=== PATIENT | male | born 1960 | race Two or more races ===

== ENCOUNTER 2017-09-07 13:27 | Emergency (ER) | payer BC ==
--- NOTE | 2017-09-07 14:00 | UC ---
Hand/Wrist HPI - HPI Summary HPI Summary: laceration to right index finger 1 week ago at work---finger is tightly swollen with drainage and necrotic tissue - History Of Current Complaint Hx Obtained From: Patient ?: No Mechanism Of Injury: cut with a knife at work Onset/Duration: Gradual Onset, Lasting Days - 7, Worse Since - getting worse daily Severity Initially: Mild Severity Currently: Severe Pain Intensity: 8 Character Of Pain: Aching, Throbbing Aggravating Factor(s): Movement Alleviating Factor(s): Nothing Associated Signs And Symptoms: Positive: Swelling, Redness, Numbness/Tingling Related History: Dominant Hand Right <Shani Bingham - Last Filed: 09/07/17 14:26> <Paige Onofre - Last Filed: 09/07/17 19:10> - History Of Current Complaint Chief Complaint: UCWounds Stated Complaint: FINGER LACERATION Time Seen by Provider: 09/07/17 13:59 - Allergies/Home Medications Allergies/Adverse Reactions: Allergies Allergy/AdvReac Type Severity Reaction Status Date / Time No Known Allergies Allergy Verified 09/07/17 14:05 Home Medications: Home Medications NK [No Home Medications Reported] 09/07/17 [History Confirmed 09/07/17] PMH/Surg Hx/FS Hx/Imm Hx Previously Healthy: Yes - Family History Known Family History: Positive: None - Social History Occupation: Employed Full-time Lives: With Family Alcohol Use: Weekly Substance Use Type: Heroin Substance Use Comment - Amount & 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, <Shani Bingham - Last Filed: 09/07/17 14:26> Review of Systems Constitutional: Negative Skin: Other - open infected area right index finger Eyes: Negative ENT: Negative Respiratory: Negative Cardiovascular: Negative Gastrointestinal: Negative Genitourinary: Negative Motor: Negative Neurovascular: Negative Musculoskeletal: Negative Neurological: Negative Psychological: Negative Is Patient Immunocompromised?: No All Other Systems Reviewed And Are Negative: Yes <Shani Bingham - Last Filed: 09/07/17 14:26> Physical Exam Triage Information Reviewed: Yes Appearance: Ill-Appearing - chronic illness, Pain Distress - mild, Thin Vital Signs Reviewed: Yes Eye Exam: Normal Eyes: Positive: Conjunctiva Clear ENT Exam: Normal ENT: Positive: Normal ENT inspection, Hearing grossly normal. Negative: Trismus , Muffled voice, Hoarse voice Dental Exam: Other Dental: Positive: Gross Decay/Caries @ Neck exam: Normal Neck: Positive: Supple, Nontender Respiratory Exam: Normal Respiratory: Positive: Chest non-tender, No respiratory distress, No accessory muscle use Cardiovascular Exam: Normal Cardiovascular: Positive: RRR, Pulses Normal, Brisk Capillary Refill Musculoskeletal Exam: Normal Musculoskeletal: Positive: Strength Limited @ - right index finger, ROM Limited @ - right index finger, Edema @ - right index finger Neurological Exam: Normal Psychological Exam: Normal Skin Exam: Other Skin: Positive: Other - open area right index finger, finger swollen with no rom , purulent drainage, necrotic area,malodorous <Shani Bingham - Last Filed: 09/07/17 14:26> Vital Signs: Initial Vital Signs Temp 99.2 F 09/07/17 13:55 Pulse 88 09/07/17 13:55 Resp 18 09/07/17 13:55 BP 138/82 09/07/17 13:55 Pulse Ox 98 09/07/17 13:55 <Paige Onofre - Last Filed: 09/07/17 19:10> Hand/Wrist Course/Dx - Course Course Of Treatment: dressing to ED for higher level of care - Differential Dx/Diagnosis Provider Diagnoses: Necrotic tissue, Infection right index finger <Shani Bingham - Last Filed: 09/07/17 14:26> Discharge <Shani Bingham - Last Filed: 09/07/17 14:26> <Paige Onofre - Last Filed: 09/07/17 19:10> - Discharge Plan Condition: Stable Disposition: HOME Patient Education Materials: Wound Infection (ED) Referrals: [facility] [Outside] - 3 Days Additional Instructions: Please go directly to emergency department for a higher level of care than we can provide at the urgent care Attestation Statement User Type: Provider - I was available for consult. This patient was seen by the KALYN. The patient was not presented to, seen by, or examined by me. -Aranza <Paige Onofre - Last Filed: 09/07/17 19:10>
[2017-09-07 14:07] VITALS: BP 138/82
== END 2017-09-07 14:07 | disposition home or self-care (01) ==
LOC: UCEAST 13:27
DX: L08.9 Local infection of the skin and subcutaneous tissue, unspecified (principal)
CPT/HCPCS: 99202; G0463

== ENCOUNTER 2017-09-07 14:34 | Inpatient (IN) | payer BC ==
--- NOTE | 2017-09-07 17:13 | ED ---
Upper Extremity Pain - HPI Summary HPI Summary: Rt hand dominant pt here w/ injury to Rt index finger that is 1 week old and now infected. 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 Washed this cut and has been trying to keep it clean - still working. Came in today as his finger is now red, swollen, pain and foul smelling. He is unable to bend his finger. Tried milking pus out of it last night - got some, but again, hot and painful. Reports chills today - no eladio fever. H/o MRSA with a skin infection on his knee in the past. No other medical issues to report as he does not go to the doctor for routine care. Last ate "late last night". Had a cup of coffee around 14:00 today and just had a few sips of Pepsi as he was waiting here. - History of Current Complaint Chief Complaint: EDExtremityUpper Stated Complaint: RT HAND LAC Time Seen by Provider: 09/07/17 16:58 Hx Obtained From: Patient - Allergies/Home Medications Allergies/Adverse Reactions: Allergies Allergy/AdvReac Type Severity Reaction Status Date / Time No Known Allergies Allergy Verified 09/07/17 14:05 PMH/Surg Hx/FS Hx/Imm Hx Previously Healthy: Yes Endocrine/Hematology History: Denies: Hx Anticoagulant Therapy, Hx Blood Disorders, Hx Diabetes, Hx Thyroid Disease Cardiovascular History: Denies: Hx Hypertension, Hx Myocardial Infarction Respiratory History: Denies: Hx Asthma, Hx Chronic Obstructive Pulmonary Disease (COPD) GI History: Denies: Hx Ulcer - Surgical History Surgery Procedure, Year, and Place: [facility] Infectious Disease History: No Infectious Disease History: Reports: Hx of Known/Suspected MRSA - past knee infection Denies: Hx Hepatitis, Hx Human Immunodeficiency Virus (HIV), History Other Infectious Disease, Traveled Outside the [place] in Last 30 Days - Family History Known Family History: Positive: None - Social History 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 Negative: Fever Cardiovascular: Negative Negative: Chest Pain Respiratory: Negative Negative: Shortness Of Breath Gastrointestinal: Negative Negative: Abdominal Pain, Vomiting, Diarrhea, Nausea Positive: no symptoms reported Positive: Decreased ROM, Edema Skin: Other - as in HPI Neurological: Negative Negative: Weakness, Paresthesia, Numbness Psychological: Normal All Other Systems Reviewed And Are Negative: Yes Physical Exam Triage Information Reviewed: Yes Vital Signs On Initial Exam: Initial Vitals Temp Pulse Resp BP Pulse Ox 99.1 F 54 18 153/105 95 09/07/17 15:57 09/07/17 15:57 09/07/17 15:57 09/07/17 15:57 09/07/17 15:57 Vital Signs Reviewed: Yes Appearance: Positive: Well-Appearing, Well-Nourished, Pain Distress - mild to moderate Skin: Positive: Warm - Rt index finger is edematous, feverish to touch, foul smelling w/ d/c from an area of wound that appears scabbed/possibly necrotic along distal region - entire digit moving into MCP joint is erythematous w/ edema Head/Face: Positive: Normal Head/Face Inspection Eyes: Positive: EOMI ENT: Positive: Hearing grossly normal Respiratory/Lung Sounds: Positive: Breath Sounds Present Cardiovascular: Positive: Pulses are Symmetrical in both Upper and Lower Extremities Musculoskeletal: Positive: Limited @ - cannot flex Rt index finger d/t pain and edema Neurological: Positive: Normal, Sensory/Motor Intact, Alert, Oriented to Person Place, Time, CN Intact II-III Psychiatric: Positive: Normal - Lenore Coma Scale Coma Scale Total: 15 Diagnostics - Vital Signs Vital Signs Temp Pulse Resp BP Pulse Ox 09/07/17 15:57 99.1 F 54 18 153/105 95 - Laboratory Result Diagrams: 09/07/17 17:48 Lab Statement: Any lab studies that have been ordered have been reviewed, and results considered in the medical decision making process. Course/Dx - Course Course Of Treatment: Pt here w/ lac to Rt finger 1 week ago - he's been cleaning this on his own but unfortunately it's become infected. Spoke w/ Dr. Lantigua who will be down to speak with the pt - clinically appears to require wash out/debridement. Labs, blood cx and wound cx taken as well as ECG ordered - empiric anbx to cover staph, MRSA, strep, pseudomonas. Pain medication initiated. Pt NPO status (discussed w/ he and brother). Stable at time of transition for admission. - Diagnoses Provider Diagnoses: Infection of finger Discharge - Discharge Plan Condition: Stable Disposition: ADMITTED TO [facility] Referrals: No Primary Care Phys,NOPCP [Primary Care Provider] -
[2017-09-07] MEDS ORDERED: Cefepime(*) 2 GM in NS 0.9% 50 ML* 50 ML IVPB ONE (17:20)
[2017-09-07] MEDS ORDERED: Ketorolac INJ* 30 MG/ML 1 ML VIAL IV PUSH ONE (17:21)
[2017-09-07 18:00] LABS: Hematocrit 41 % (42-52); Hemoglobin 13.7 g/dl (14.0-18.0); Mean Corpuscular HGB Conc 34 g/dl (31-36); Mean Corpuscular Hemoglobin 31 pg (27-31); Mean Corpuscular Volume 92 fL (80-94); Mean Platelet Volume 7 um3 (7.4-10.4); Red Blood Count 4.42 10^6/ul (4.0-5.4); Red Cell Distribution Width 15 % (10.5-15); White Blood Count 16.4 10^3/ul (3.5-10.8)
[2017-09-07] MEDS ORDERED: NS 0.9% 50 ML* 50 ML ONE (18:04)
[2017-09-07] MEDS ORDERED: Cefepime 2 GM in Dextrose(*) 2 GM/50 ML BAG IV ONE (18:12)
[2017-09-07 18:14] LABS: Albumin 3.7 g/dL (3.2-5.2); BUN/Creatinine Ratio 21.9 (8-20); C Reactive Protein 101.72 mg/L (< 5.00); EGFR African American 142.4 (>60); EGFR Non-African American 110.7 (>60); Globulin 3.5 g/dL (2-4); Potassium 3.8 mmol/L (3.5-5.0); Total Bilirubin 0.8 mg/dL (0.2-1.0); Total Protein 7.2 g/dL (6.4-8.9)
[2017-09-07] MEDS ORDERED: Ketorolac INJ* 30 MG/ML 1 ML VIAL ONE ×2 (18:52→20:09)
[2017-09-07] MEDS ORDERED: Midazolam* 1 MG/ML 5 ML VIAL (5 MG) ONE (20:09)
[2017-09-07] MEDS ORDERED: KETAMINE HCL* 50 MG/ML 10 ML VIAL ONE (20:09)
[2017-09-07] MEDS ORDERED: fentaNYL* 50 MCG/ML 2 ML VIAL (100 MCG VIAL) ONE ×2 (20:09→21:03)
[2017-09-07] MEDS ORDERED: Propofol* 10 MG/ML 20 ML BTL IV PUSH ONE (20:09)
[2017-09-07] MEDS ORDERED: Lidocaine 2% PF * 5 ML VIAL ONE (20:09)
[2017-09-07] MEDS ORDERED: Ondansetron INJ* 2 MG/ML VIAL ONE (20:09)
[2017-09-07] MEDS ORDERED: Bupivacaine 0.5% SDV PF* 30 ML VIAL ONE (20:23)
[2017-09-07] MEDS ORDERED: Phenylephrine IV* 40 MCG/ML 10 ML SYRINGE ONE (20:48)
[2017-09-07] MEDS ORDERED: fentaNYL* 50 MCG/ML 2 ML VIAL (100 MCG VIAL) IV PRN (21:08)
[2017-09-07] MEDS ORDERED: Ondansetron INJ* 2 MG/ML VIAL IV PRN ×2 (21:08→21:48)
[2017-09-07] MEDS ORDERED: Acetaminophen TAB* 325 MG PO PRN (21:48)
[2017-09-07] MEDS ORDERED: Vancomycin per Pharmacy* NOTE FOLLOW UP SCH (22:00)
[2017-09-07] MEDS ORDERED: Morphine INJ* 2 MG/ML 1 ML SYRINGE (TWO MG - NEW SYRINGE VERSION) IV PRN (22:03)
[2017-09-07] MEDS: metroNIDAZOLE IV 500 MG/100ML* 500 MG/100 ML BAG IVPB ONE ×2 (22:25→23:06)
[2017-09-07] MEDS: Ketorolac INJ* 30 MG/ML 1 ML VIAL IV PUSH SCH (22:26)
[2017-09-07] MEDS: Vancomycin(*) 1,000 MG in NS 0.9% 250 ML* 250 ML IVPB ONE ×2 (22:26→23:07)
[2017-09-07] MEDS ORDERED: Mouth Piece, Nicotine* 1 EACH CARTRIDGE INH ONE (23:17)
[2017-09-07] MEDS ORDERED: Heparin VIAL(*) 5000 UNITS/ML VIAL (FIVE THOUSAND) ONE (23:18)
[2017-09-07] MEDS: Heparin VIAL(*) 5000 UNITS/ML VIAL (FIVE THOUSAND) SUBCUT SCH (23:18)
[2017-09-07] MEDS ORDERED: ZOSYN 3.375 GM x ONE DOSE over 30 miuntes IVPB ×2 (23:45)
[2017-09-07] MEDS ORDERED: Piperacillin/Tazobac ADVAN(*) 3.375 GM in NS 0.9% 100 ML* 100 ML IVPB SCH (23:45)
[2017-09-08 00:17] LABS: Hematocrit 39 % (42-52); Mean Corpuscular HGB Conc 34 g/dl (31-36); Mean Corpuscular Hemoglobin 31 pg (27-31); Mean Corpuscular Volume 92 fL (80-94); Mean Platelet Volume 7 um3 (7.4-10.4); Red Blood Count 4.22 10^6/ul (4.0-5.4); Red Cell Distribution Width 15 % (10.5-15); White Blood Count 11.8 10^3/ul (3.5-10.8)
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
[2017-09-08] MEDS: HYDROcodone/ACETAMIN 5-325 MG* 1 TAB PO PRN ×5 (01:28→20:31)
[2017-09-08] MEDS: Ketorolac INJ* 30 MG/ML 1 ML VIAL IV PUSH SCH ×4 (04:06→21:40)
[2017-09-08] MEDS: Piperacillin/Tazobac ADVAN(*) 3.375 GM in NS 0.9% 100 ML* 100 ML IVPB SCH ×2 (05:47→14:44)
[2017-09-08] MEDS: Vancomycin(*) 1,000 MG in NS 0.9% 250 ML* 250 ML IVPB SCH ×3 (06:31→19:03)
[2017-09-08] MEDS: Heparin VIAL(*) 5000 UNITS/ML VIAL (FIVE THOUSAND) SUBCUT SCH ×2 (07:35→21:42)
[2017-09-08] MEDS: Nicotine PATCH 14 MG/24 HR* PATCH TRANSDERM SCH (07:36)
[2017-09-08 07:58] LABS: BUN/Creatinine Ratio 17.6 (8-20); Calcium 8.3 mg/dL (8.6-10.3); EGFR African American 110.4 (>60); EGFR Non-African American 85.9 (>60); Potassium 3.5 mmol/L (3.5-5.0)
--- NOTE | 2017-09-08 08:44 | PN ---
Subjective Date of Service: 09/08/17 Interval History: Pt feels "OK'. Pain is controlled with meds. 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: Acetaminophen (Tylenol Tab*) 650 mg PO Q6H PRN PRN Reason: FEVER/PAIN Hydrocodone Bitart/Acetaminophen (Rydal 5-325 Tab*) 2 tab PO Q4H PRN PRN Reason: PAIN Last Admin: 09/08/17 07:34 Dose: 2 tab Fentanyl Citrate (Fentanyl*) 50 mcg IV Q5M PRN PRN Reason: PAIN - MODERATE Heparin Sodium (Porcine) (Heparin Vial(*)) 5,000 units SUBCUT Q12HR PENDING SALE TO [facility] Last Admin: 09/08/17 07:35 Dose: 5,000 units Lactated Ringer's (Lactated Ringers 1000 Ml Bag*) 1,000 mls @ 125 mls/hr IV PER RATE PENDING SALE TO [facility] Piperacillin Sod/Tazobactam (Sod 3.375 gm/ Sodium Chloride) 100 mls @ 200 mls/ hr IVPB 0000,0600,1200,1800 PENDING SALE TO [facility] Last Admin: 09/08/17 05:47 Dose: 200 mls/hr Vancomycin HCl 1,000 mg/ (Sodium Chloride) 250 mls @ 166.667 mls/hr IVPB Q8H PENDING SALE TO [facility] Last Admin: 09/08/17 06:31 Dose: 166.667 mls/hr Ketorolac Tromethamine (Toradol Inj*) 30 mg IV PUSH Q6H PENDING SALE TO [facility] Stop: 09/11/17 21:59 Last Admin: 09/08/17 04:06 Dose: 30 mg Morphine Sulfate (Morphine Inj (Syringe)*) 2 mg IV Q2H PRN PRN Reason: PAIN Nicotine (Nicotine Inhaler*) 10 mg INH Q2H PRN PRN Reason: CRAVING Nicotine (Nicotine Patch 14 Mg/24 Hr*) 1 patch TRANSDERM DAILY PENDING SALE TO [facility] Last Admin: 09/08/17 07:36 Dose: 1 patch Ondansetron HCl (Zofran Inj*) 4 mg IV ONCE PRN PRN Reason: NAUSEA/VOMITING Ondansetron HCl (Zofran Inj*) 4 mg IV Q6H PRN PRN Reason: NAUSEA Pharmacy Consult (Vancomycin Per Pharmacy*) 1 note FOLLOW UP .VANC PER PHARMACY PENDING SALE TO [facility] Pharmacy Profile Note (Nicotine Patch Removal Note*) 1 note FOLLOW UP 2100 PENDING SALE TO [facility] Pharmacy Profile Note (Vancomycin Trough Check) 1 note FOLLOW UP 0600 ONE Stop: 09/09/17 06:01 Vital Signs 09/07/17 09/07/17 09/08/17 22:40 23:56 01:26 Temperature 97.9 F 98.3 F 97.5 F Pulse Rate 70 77 94 Respiratory 16 16 18 Rate Blood Pressure 147/79 109/61 123/65 (mmHg) O2 Sat by Pulse 98 95 95 Oximetry 09/08/17 09/08/17 09/08/17 01:28 02:15 03:05 Temperature 99.5 F Pulse Rate 70 Respiratory 16 Rate Blood Pressure 116/66 (mmHg) O2 Sat by Pulse 98 97 Oximetry 09/08/17 09/08/17 09/08/17 03:11 05:43 07:19 Temperature 97.7 F 98.0 F Pulse Rate 67 62 Respiratory 18 13 16 Rate Blood Pressure 116/67 132/63 (mmHg) O2 Sat by Pulse 100 91 Oximetry 09/08/17 07:34 Temperature Pulse Rate Respiratory 20 Rate Blood Pressure (mmHg) O2 Sat by Pulse Oximetry Oxygen Devices in Use Now: Nasal Cannula - at 2L Appearance: 57 yo F in nAD, aAOx3 Eyes: No Scleral Icterus, PERRLA Ears/Nose/Mouth/Throat: NL Teeth, Lips, Gums, Mucous Membranes Moist Neck: NL Appearance and Movements; NL JVP, Trachea Midline Respiratory: Symmetrical Chest Expansion and Respiratory Effort, Clear to Auscultation Cardiovascular: NL Sounds; No Murmurs; No JVD, RRR Abdominal: NL Sounds; No Tenderness; No Distention, No Hepatosplenomegaly Lymphatic: No Cervical Adenopathy Extremities: No Clubbing, Cyanosis, - - R index finger edema , erythema with dermarcation at the base of the jelly. Incision at 1.5 cm at the base of the finger on palmar aspect with no dehiscence. Tip of finger with open wound at 2 cm in diam with slugh covered bottom-? bone?. 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 will d/w Dr. Lantigua re: possible MRI For now continue broad spectrum antibiotics :Zosyn and Vanc Cx growing MRSA and gram neg Unfortunately ID consult not readily avaliable. Blood cx pending P{t clinically appears nontoxic, aferbile (2) Cocaine abuse in remission Comment: will check Hep C, HIV (3) DVT prophylaxis Comment: heparin sc Status and Disposition: inpatient, medicine consult
[2017-09-08] MEDS ORDERED: Mouth Piece, Nicotine* 1 EACH CARTRIDGE ONE (10:41)
[2017-09-08] MEDS: Nicotine Inhaler* 10 MG AMP INH PRN ×2 (10:43→21:53)
--- NOTE | 2017-09-08 11:32 | PN ---
Progress Note - Progress Note Date of Service: 09/08/17 SOAP: Subjective: []Patient seen at beside. He is s/p OR washout last night with Dr. Lantigua. He reports tolerable 5-7/10 pain of R index finger with no ROM reported full sensation. He denies fever or chills. Objective: [] Laboratory Last Values WBC 11.8 10^3/ul (3.5-10.8) H 09/08/17 00:03 RBC 4.22 10^6/ul (4.0-5.4) 09/08/17 00:03 Hgb 13.0 g/dl (14.0-18.0) L 09/08/17 00:03 Hct 39 % (42-52) L 09/08/17 00:03 MCV 92 fL (80-94) 09/08/17 00:03 MCH 31 pg (27-31) 09/08/17 00:03 MCHC 34 g/dl (31-36) 09/08/17 00:03 RDW 15 % (10.5-15) 09/08/17 00:03 Plt Count 378 10^3/ul (150-450) 09/08/17 00:03 MPV 7 um3 (7.4-10.4) L 09/08/17 00:03 Neut % (Auto) 78.0 % (38-83) 09/08/17 00:03 Lymph % (Auto) 12.4 % (25-47) L 09/08/17 00:03 [place] % (Auto) 7.1 % (1-9) 09/08/17 00:03 Eos % (Auto) 2.0 % (0-6) 09/08/17 00:03 Baso % (Auto) 0.5 % (0-2) 09/08/17 00:03 Absolute Neuts (auto) 9.2 10^3/ul (1.5-7.7) H 09/08/17 00:03 Absolute Lymphs (auto) 1.5 10^3/ul (1.0-4.8) 09/08/17 00:03 Absolute Monos (auto) 0.8 10^3/ul (0-0.8) 09/08/17 00:03 Absolute Eos (auto) 0.2 10^3/ul (0-0.6) 09/08/17 00:03 Absolute Basos (auto) 0.1 10^3/ul (0-0.2) 09/08/17 00:03 Absolute Nucleated RBC 0 10^3/ul 09/08/17 00:03 Nucleated RBC % 0 09/08/17 00:03 Sodium 133 mmol/L (133-145) 09/08/17 07:30 Potassium 3.5 mmol/L (3.5-5.0) 09/08/17 07:30 Chloride 104 mmol/L (101-111) 09/08/17 07:30 Carbon Dioxide 25 mmol/L (22-32) 09/08/17 07:30 Anion Gap 4 mmol/L (2-11) 09/08/17 07:30 BUN 16 mg/dL (6-24) 09/08/17 07:30 Creatinine 0.91 mg/dL (0.67-1.17) 09/08/17 07:30 Est GFR ( Amer) 110.4 (>60) 09/08/17 07:30 Est GFR (Non-Af Amer) 85.9 (>60) 09/08/17 07:30 BUN/Creatinine Ratio 17.6 (8-20) 09/08/17 07:30 Glucose 106 mg/dL (70-100) H 09/08/17 07:30 Lactic Acid 1.0 mmol/L (0.5-2.0) 09/07/17 17:48 Calcium 8.3 mg/dL (8.6-10.3) L 09/08/17 07:30 Total Bilirubin 0.80 mg/dL (0.2-1.0) 09/07/17 17:48 AST 34 U/L (13-39) 09/07/17 17:48 ALT 22 U/L (7-52) 09/07/17 17:48 Alkaline Phosphatase 111 U/L (34-104) H 09/07/17 17:48 C-Reactive Protein 101.72 mg/L (< 5.00) H 09/07/17 17:48 Total Protein 7.2 g/dL (6.4-8.9) 09/07/17 17:48 Albumin 3.7 g/dL (3.2-5.2) 09/07/17 17:48 Globulin 3.5 g/dL (2-4) 09/07/17 17:48 Albumin/Globulin Ratio 1.1 (1-3) 09/07/17 17:48 Vital Signs Temp 98.0 F 09/08/17 07:19 Pulse 62 09/08/17 07:19 Resp 16 09/08/17 10:54 BP 132/63 09/08/17 07:19 Pulse Ox 91 09/08/17 07:19 Intake & Output 09/07/17 09/08/17 09/08/17 18:59 06:59 18:59 Intake Total 3280 2416 Output Total 950 Balance 2330 2416 Weight 140 lb 140 lb Intake: IV Fluids 2830 2216 LR 2830 2216 Oral 450 200 Output: Urine 950 General: Calm, cooperative and in no acute distress. Patient is sleeping in bed both this morning and again this afternoon. Right hand: Dressing falling off, redressed with gauze roll. Right index finger is edematous and erythematous most prominent on the dorsal aspect down to the MCP with no extension of erythema into palm or dorsum of hand. CDI palm incision. Lateral aspect of digit with roughly 1.5 cm laceration without discharge. Dorsal aspect with roughly 1 cm ulcerated area with purulent base. No streaking erythema up RUE. Sensation is intact to light touch distally, and patient reports tenderness with palpation of entire index finger. Minimal blanching with pressure. No ROM of DIP, PIP or MCP. Assessment: []POD 1 s/p washout with Dr. Lantigua - Cellulitis vs osteo of R index finger being treated with zosyn and vanco. Plan: [] Wound checks daily Watch for systemic infection, on zosyn and vanco Possibility of amputation of distal digit/ return to OR for further washout
[2017-09-08] MEDS ORDERED: Piperacillin/Tazobac ADVAN(*) 3.375 GM in NS 0.9% 100 ML* 100 ML IVPB SCH (12:30)
--- NOTE | 2017-09-08 14:28 | OP ---
DATE OF OPERATION: 09/07/17 - ROOM #347 DATE OF : 60 ATTENDING SURGEON: Conor Lantigua MD. ANESTHESIOLOGIST: Pranav Padron MD ANESTHESIA: General. PRE-OP DIAGNOSIS: Infection, right index finger. POST-OP DIAGNOSES: 1. Infected open DIP joint laceration. 2. Suppurative flexor tendon tenosynovitis. OPERATIVE PROCEDURE: 1. I and D, DIP joint, left index finger. 2. A1 junaid release with irrigation, flexor tendon sheath. 3. Tagging FDP, right index finger. ESTIMATED BLOOD LOSS: Negligible. COMPLICATIONS: None. SUMMARY: Mr. 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 Last Thursday, he was cleaning his knife when he sustained a cut to the radial side of his index finger. It had bled quite a bit and he had tried to tend to it himself. Last week, it started to get painful and swollen where he had difficulty trying to bend the finger and this only had gotten worse over the weekend. He finally did present to the emergency room earlier today with a big , fat, red, painful swollen finger. There was damage from his initial cut which could be seen on the radial side of the finger, but on the ulnar/dorsal side, there was an area of black puffy skin and it could be seen where there was some pus underneath that area. His finger was also swollen to a significant size. Any sort of motion was painful and the tip was numbish with altered sensation. I discussed with him that an I and D to washout the pus would be the next best step to try and prevent the infection from spreading further up along the flexor tendons and hopefully try and preserve the finger. DESCRIPTION OF PROCEDURE: The patient was brought to the OR and general anesthesia was established. Right hand was prepped and then draped. Just with squeezing the finger, I was able to get pus out from the area where the skin was compromised on the ulnar/dorsal side of the finger. Coming back to his original laceration just using a curette to scrape the tissues a little bit and I dropped right into the DIP joint. Again, there was more eladio pus and there did not appear to be any cartilage on the distal aspect of the middle phalanx. Gently debriding all of the tissue along the ulnar/dorsal side, eventually caused an open 1.5 cm x 1 cm area where again there was still some tissue, but I was not overly aggressive in this area as he had cut his radial neurovascular bundle and I was not enthusiastic to sacrifice his ulnar side. Using a curette, I was able to come over the top side where his extensor tendon would be and again there was more eladio pus and quite a bit of space there where the pus had been. With just tilting the distal phalanx over from his original cut, I was able to come right down the flexor tendon sheath. Coming over the metacarpal head, a small zigzag incision was made and tissues were bluntly dissected to come down to the top of the flexor tendon sheath. A1 junaid was found and sharply incised. There was no pus at this level. I was able to pass a [place] just coming downwards, but it could be seen that his tendon was bunching up and the tendon had detached from the distal phalanx. This was pulled up to allow for a little extra room and a 9-[place] Rust catheter was then passed downwards and passing approximately 250 cc through that catheter, flexor tendon sheath was washed out. Coming back, the other wounds were copiously pulse lavaged using approximately 5 L of Betadine saline solution, 30 cc had been placed in 3 L and this was used to washout most of the finger as well. Zigzag incision that I made was then closed using a few 4-0 nylon sutures and the flexor tendon had been tagged distally and then using a tendon passer, the stitch had been pulled back upwards and I pulled that back up and then tagged the Prolene using a Steri-Strip down to his nail. Sterile dressings were applied. The patient was then awoken in the OR, was stable on transfer to the recovery room. [id number]/[facility] #: [id number] [facility]NING HOSPITALRenee
[2017-09-08] MEDS: ZOSYN 3.375 GM Q8H per EXTENDED INFUSION IVPB SCH ×2 (20:27)
[2017-09-08] MEDS: Nicotine Patch Removal NOTE FOLLOW UP SCH (21:44)
[2017-09-09] MEDS: Vancomycin(*) 1,000 MG in NS 0.9% 250 ML* 250 ML IVPB SCH ×3 (01:26→18:01)
[2017-09-09] MEDS: Ketorolac INJ* 30 MG/ML 1 ML VIAL IV PUSH SCH ×4 (03:31→21:24)
[2017-09-09] MEDS: ZOSYN 3.375 GM Q8H per EXTENDED INFUSION IVPB SCH ×6 (04:17→21:24)
[2017-09-09] MEDS: HYDROcodone/ACETAMIN 5-325 MG* 1 TAB PO PRN ×4 (04:26→23:27)
[2017-09-09 08:29] LABS: Hematocrit 40 % (42-52); Mean Corpuscular HGB Conc 33 g/dl (31-36); Mean Corpuscular Hemoglobin 30 pg (27-31); Mean Corpuscular Volume 92 fL (80-94); Mean Platelet Volume 7 um3 (7.4-10.4); Red Cell Distribution Width 15 % (10.5-15); White Blood Count 10.3 10^3/ul (3.5-10.8)
[2017-09-09] MEDS ORDERED: Vancomycin Trough Check NOTE FOLLOW UP ONE (08:30)
--- NOTE | 2017-09-09 08:37 | PN ---
Progress Note - Progress Note Date of Service: 09/09/17 SOAP: Subjective: []Patient seen at bedside. Right index finger is throbbing in pain but tolerable. No fever or chills. Objective: [] Vital Signs Temp 98.0 F 09/09/17 11:34 Pulse 63 09/09/17 11:34 Resp 20 09/09/17 13:05 BP 139/85 09/09/17 11:34 Pulse Ox 99 09/09/17 11:34 Intake & Output 09/08/17 09/09/17 09/09/17 18:59 06:59 18:59 Intake Total 3416 1250 0 Output Total 1175 0 1100 Balance 2241 1250 -1100 Intake: IV Fluids 2216 LR 2216 IVPB 400 120 Vancomycin 295 Zosyn 105 120 Oral 800 1130 0 Output: Urine 1175 0 1100 Other: Estimated Void Medium Date of Last Bowel 09/09/17 09/08/17 Movement # Bowel Movements 1 Estimated Stool Amount Medium # Voids 1 Laboratory Last Values WBC 10.3 10^3/ul (3.5-10.8) 09/09/17 08:17 RBC 4.30 10^6/ul (4.0-5.4) 09/09/17 08:17 Hgb 13.0 g/dl (14.0-18.0) L 09/09/17 08:17 Hct 40 % (42-52) L 09/09/17 08:17 MCV 92 fL (80-94) 09/09/17 08:17 MCH 30 pg (27-31) 09/09/17 08:17 MCHC 33 g/dl (31-36) 09/09/17 08:17 RDW 15 % (10.5-15) 09/09/17 08:17 Plt Count 426 10^3/ul (150-450) 09/09/17 08:17 MPV 7 um3 (7.4-10.4) L 09/09/17 08:17 Neut % (Auto) 66.8 % (38-83) 09/09/17 08:17 Lymph % (Auto) 14.7 % (25-47) L 09/09/17 08:17 [place] % (Auto) 7.9 % (1-9) 09/09/17 08:17 Eos % (Auto) 9.9 % (0-6) H 09/09/17 08:17 Baso % (Auto) 0.7 % (0-2) 09/09/17 08:17 Absolute Neuts (auto) 6.9 10^3/ul (1.5-7.7) 09/09/17 08:17 Absolute Lymphs (auto) 1.5 10^3/ul (1.0-4.8) 09/09/17 08: Absolute Monos (auto) 0.8 10^3/ul (0-0.8) 09/09/17 08:17 Absolute Eos (auto) 1.0 10^3/ul (0-0.6) H 09/09/17 08: Absolute Basos (auto) 0.1 10^3/ul (0-0.2) 09/09/17 08:17 Absolute Nucleated RBC 0 10^3/ul 09/09/17 08:17 Nucleated RBC % 0 09/09/17 08:17 Sodium 133 mmol/L (133-145) 09/08/17 07:30 Potassium 3.5 mmol/L (3.5-5.0) 09/08/17 07:30 Chloride 104 mmol/L (101-111) 09/08/17 07:30 Carbon Dioxide 25 mmol/L (22-32) 09/08/17 07:30 Anion Gap 4 mmol/L (2-11) 09/08/17 07:30 BUN 16 mg/dL (6-24) 09/08/17 07:30 Creatinine 0.91 mg/dL (0.67-1.17) 09/08/17 07:30 Est GFR ( Amer) 110.4 (>60) 09/08/17 07:30 Est GFR (Non-Af Amer) 85.9 (>60) 09/08/17 07:30 BUN/Creatinine Ratio 17.6 (8-20) 09/08/17 07:30 Glucose 106 mg/dL (70-100) H 09/08/17 07:30 Lactic Acid 1.0 mmol/L (0.5-2.0) 09/07/17 17:48 Calcium 8.3 mg/dL (8.6-10.3) L 09/08/17 07:30 Total Bilirubin 0.80 mg/dL (0.2-1.0) 09/07/17 17:48 AST 34 U/L (13-39) 09/07/17 17:48 ALT 22 U/L (7-52) 09/07/17 17:48 Alkaline Phosphatase 111 U/L (34-104) H 09/07/17 17:48 C-Reactive Protein 58.21 mg/L (< 5.00) H 09/09/17 08:18 Total Protein 7.2 g/dL (6.4-8.9) 09/07/17 17:48 Albumin 3.7 g/dL (3.2-5.2) 09/07/17 17:48 Globulin 3.5 g/dL (2-4) 09/07/17 17:48 Albumin/Globulin Ratio 1.1 (1-3) 09/07/17 17:48 Vancomycin Trough 16.6 mcg/mL 09/09/17 08:17 Hepatitis C Antibody Low reactive (Nonreactive) H 09/08/17 07:30 HIV 1&2 Antibody Nonreactive (Nonreactive) 09/08/17 07:30 General: In bed, more interactive than yesterday. Calm, cooperative, no acute distress. Right index finger: erythema of the entire digit spanning to but not past MCP, edematous. White and tense circumferentially over the DIP. Lateral laceration with purulant discharge. Ulcerated lesion of dorsal surface with purulant base and black coloration at the lateral edge. Patient confirms sensation distally, he is nontender to palpation. Minimal blanching to pressure. Patient has minimal flexion of right index finger at MCP, PIP, DIP. Vasc: Right Radial pulse 2+ Assessment: []Right index finger cellulitis vs osteo Plan: []Discussed with Dr. Perez, will be taken to the OR for amputation vs washout 09/10/17 NPO after 9 am 09/10/17 Continue IV zosyn, vanco as per hospitalist
--- NOTE | 2017-09-09 09:07 | PN ---
Subjective Date of Service: 09/09/17 Interval History: Pt feels"OK". Pain in R index finger controlled with meds. afebrile Objective Active Medications: Acetaminophen (Tylenol Tab*) 650 mg PO Q6H PRN PRN Reason: FEVER/PAIN Hydrocodone Bitart/Acetaminophen ([place] 5-325 Tab*) 2 tab PO Q4H PRN PRN Reason: PAIN Last Admin: 09/09/17 04:26 Dose: 2 tab Fentanyl Citrate (Fentanyl*) 50 mcg IV Q5M PRN PRN Reason: PAIN - MODERATE Heparin Sodium (Porcine) (Heparin Vial(*)) 5,000 units SUBCUT Q12HR [facility] Last Admin: 09/08/17 21:42 Dose: 5,000 units Vancomycin HCl 1,000 mg/ (Sodium Chloride) 250 mls @ 166.667 mls/hr IVPB Q8H [facility] Last Admin: 09/09/17 01:26 Dose: 166.667 mls/hr Piperacillin Sod/Tazobactam (Sod 3.375 gm/ Sodium Chloride) 100 mls @ 25 mls/ hr IVPB Q8H [facility] Last Admin: 09/09/17 04:17 Dose: 25 mls/hr Ketorolac Tromethamine (Toradol Inj*) 30 mg IV PUSH Q6H [facility] Stop: 09/11/17 21:59 Last Admin: 09/09/17 03:31 Dose: 30 mg Morphine Sulfate (Morphine Inj (Syringe)*) 2 mg IV Q2H PRN PRN Reason: PAIN Nicotine (Nicotine Inhaler*) 10 mg INH Q2H PRN PRN Reason: CRAVING Last Admin: 09/08/17 21:53 Dose: 10 mg Nicotine (Nicotine Patch 14 Mg/24 Hr*) 1 patch TRANSDERM DAILY [facility] Last Admin: 09/08/17 07:36 Dose: 1 patch Ondansetron HCl (Zofran Inj*) 4 mg IV ONCE PRN PRN Reason: NAUSEA/VOMITING Ondansetron HCl (Zofran Inj*) 4 mg IV Q6H PRN PRN Reason: NAUSEA Pharmacy Consult (Vancomycin Per Pharmacy*) 1 note FOLLOW UP .VANC PER PHARMACY [facility] Pharmacy Profile Note (Nicotine Patch Removal Note*) 1 note FOLLOW UP 2100 [facility] Last Admin: 09/08/17 21:44 Dose: 1 note Vital Signs 09/08/17 09/08/1709/08/17 10:54 11:37 12:15 Temperature 97.6 F Pulse Rate 66 Respiratory 16 16 16 Rate Blood Pressure 117/68 (mmHg) O2 Sat by Pulse 97 Oximetry 09/08/17 09/08/17 09/08/17 14:21 15:21 16:00 Temperature 98.1 F Pulse Rate 95 Respiratory 20 14 Rate Blood Pressure 129/70 (mmHg) O2 Sat by Pulse 100 100 Oximetry 09/08/17 09/08/17 09/08/17 16:27 18:16 19:23 Temperature 99.6 F Pulse Rate 81 Respiratory 20 20 14 Rate Blood Pressure 121/73 (mmHg) O2 Sat by Pulse 99 Oximetry 09/08/17 09/08/17 09/08/17 20:31 21:40 23:45 Temperature 97.8 F Pulse Rate 74 Respiratory 18 18 16 Rate Blood Pressure 126/80 (mmHg) O2 Sat by Pulse 97 Oximetry 09/09/17 09/09/17 09/09/17 01:31 03:33 04:07 Temperature 97.7 F Pulse Rate 58 Respiratory 16 16 Rate Blood Pressure 132/81 (mmHg) O2 Sat by Pulse 100 100 Oximetry 09/09/17 09/09/17 09/09/17 04:26 06:34 08:00 Temperature Pulse Rate Respiratory 18 16 16 Rate Blood Pressure (mmHg) O2 Sat by Pulse Oximetry Oxygen Devices in Use Now: None Appearance: 57 yo M in NAD, aAOx3 Eyes: No Scleral Icterus, PERRLA Ears/Nose/Mouth/Throat: NL Teeth, Lips, Gums, Mucous Membranes Moist Neck: NL Appearance and Movements; NL JVP, Trachea Midline Respiratory: Symmetrical Chest Expansion and Respiratory Effort, - - decreased breath sound in R lung Cardiovascular: NL Sounds; No Murmurs; No JVD Abdominal: NL Sounds; No Tenderness; No Distention, No Hepatosplenomegaly Lymphatic: No Cervical Adenopathy Extremities: No Clubbing, Cyanosis Skin: No Nodules or Sclerosis, - - R index finbger with marked edema, dressings not removed today. 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 Dr. Lantigua plans to take pt to OR for partial finger amputation tomorrow For now continue broad spectrum antibiotics :Zosyn and Vanc Cx growing MRSA and gram neg Unfortunately ID consult not readily avaliable. Blood cx NTD (2) Cocaine abuse in remission Comment: Hep C low reactive, HCV viral load pending-pt aware HIV neg (3) DVT prophylaxis Comment: heparin sc (4) Decreased breath sounds at right lung base Comment: CXR ordered Status and Disposition: inpatient, medicine consult
[2017-09-09] MEDS: Heparin VIAL(*) 5000 UNITS/ML VIAL (FIVE THOUSAND) SUBCUT SCH ×2 (09:41→21:24)
[2017-09-09] MEDS: Nicotine PATCH 14 MG/24 HR* PATCH TRANSDERM SCH (09:42)
--- NOTE | 2017-09-09 10:38 | RAD ---
HISTORY: Decreased breath sounds on right COMPARISONS: December 29, 2011 VIEWS: 1: frontal portable view of the chest at 9:24 AM FINDINGS: LINES AND TUBES: None. CARDIOMEDIASTINAL SILHOUETTE: The cardiomediastinal silhouette is normal for portable technique. PLEURA: The costophrenic angles are sharp. No pleural abnormalities are noted. LUNG PARENCHYMA: There is a mild coarse reticular pattern of opacification diffusely. ABDOMEN: The upper abdomen is clear. There is no subphrenic gas. BONES AND SOFT TISSUES: No bone or soft tissue abnormalities are noted. IMPRESSION: MILD COARSE INTERSTITIAL OPACIFICATION SUGGESTIVE OF THE INTERSTITIAL PROCESS OF UNCERTAIN ACUITY NO CONSOLIDATION.
[2017-09-09] MEDS: Nicotine Inhaler* 10 MG AMP INH PRN ×2 (16:03→19:26)
[2017-09-09] MEDS: Nicotine Patch Removal NOTE FOLLOW UP SCH (21:40)
[2017-09-09] MEDS ORDERED: LORazepam TAB(*) 0.5 MG PO ONE (22:35)
[2017-09-10] MEDS: Nicotine Inhaler* 10 MG AMP INH PRN ×2 (01:20→11:25)
[2017-09-10] MEDS: Vancomycin(*) 1,000 MG in NS 0.9% 250 ML* 250 ML IVPB SCH ×3 (02:44→17:25)
[2017-09-10] MEDS: HYDROcodone/ACETAMIN 5-325 MG* 1 TAB PO PRN ×4 (04:40→23:39)
[2017-09-10] MEDS: ZOSYN 3.375 GM Q8H per EXTENDED INFUSION IVPB SCH ×6 (04:41→23:16)
[2017-09-10] MEDS: Ketorolac INJ* 30 MG/ML 1 ML VIAL IV PUSH SCH ×4 (04:41→22:09)
[2017-09-10 06:21] LABS: EGFR Non-African American 105.7 (>60)
[2017-09-10 06:38] LABS: Hematocrit 42 % (42-52); Hemoglobin 13.9 g/dl (14.0-18.0); Mean Corpuscular HGB Conc 33 g/dl (31-36); Mean Corpuscular Hemoglobin 31 pg (27-31); Mean Corpuscular Volume 93 fL (80-94); Mean Platelet Volume 7 um3 (7.4-10.4); Red Blood Count 4.53 10^6/ul (4.0-5.4); Red Cell Distribution Width 16 % (10.5-15); White Blood Count 9.5 10^3/ul (3.5-10.8)
--- NOTE | 2017-09-10 08:27 | PN ---
Progress Note - Progress Note Date of Service: 09/10/17 SOAP: Subjective: []Patient seen out of bed in chair. He complains of throbbing right index finger pain that is decreased from yesterday and tolerable. No fever or chills. Objective: [] Vital Signs Temp 97.6 F 09/10/17 08:01 Pulse 68 09/10/17 08:01 Resp 22 09/10/17 11:12 BP 151/93 09/10/17 08:01 Pulse Ox 97 09/10/17 08:01 Intake & Output 09/09/17 09/10/17 09/10/17 18:59 06:59 18:59 Intake Total 280 2211 373 Output Total 1100 700 Balance -820 1511 373 Weight 140 lb Intake: IV Fluids 280 711 137 NS (0.9%) 78 30 Vancomycin 280 530 Zosyn 103 107 Oral 0 1500 236 Output: Urine 1100 700 Other: Estimated Void Large Large Large Date of Last Bowel 09/08/17 Movement # Voids 1 4 General: Alert, calm, cooperative. MSK: R index finger : edematous. ROM limited to minimal at MCP no DIP or PIP. Nontender to palpation. Neuro: R index finger : Sensation intact throughout including distal aspect Skin: R index finger : cellulitis markedly improved. Erythema and white tense purulence much decreased. Lateral linear lesion and dorsal ulcerated lesion continue to drain yellow purulent discharge. Vasc: Right index finger: Brisk capillary refill below PIP, nonblanching distal to. Radial pulse 2+ Assessment: []R index finger cellulitis possible osteo Plan: []OR today with Dr. Perez for I&D vs amputation Appreciate hospitalist input. Continue antibiotics
--- NOTE | 2017-09-10 08:50 | PN ---
Subjective Date of Service: 09/10/17 Interval History: Pt feels well. To OR today in PM Objective Active Medications: Acetaminophen (Tylenol Tab*) 650 mg PO Q6H PRN PRN Reason: FEVER/PAIN Hydrocodone Bitart/Acetaminophen ([place] 5-325 Tab*) 2 tab PO Q4H PRN PRN Reason: PAIN Last Admin: 09/10/17 04:40 Dose: 2 tab Fentanyl Citrate (Fentanyl*) 50 mcg IV Q5M PRN PRN Reason: PAIN - MODERATE Heparin Sodium (Porcine) (Heparin Vial(*)) 5,000 units SUBCUT Q12HR [facility] Last Admin: 09/09/17 21:24 Dose: 5,000 units Vancomycin HCl 1,000 mg/ (Sodium Chloride) 250 mls @ 166.667 mls/hr IVPB Q8H [facility] Last Admin: 09/10/17 02:44 Dose: 166.667 mls/hr Piperacillin Sod/Tazobactam (Sod 3.375 gm/ Sodium Chloride) 100 mls @ 25 mls/ hr IVPB Q8H [facility] Last Admin: 09/10/17 04:41 Dose: 25 mls/hr Influenza Virus Vaccine (Fluarix *Quad* 2016-*) 0.5 ml IM .ONCE ONE Stop: 09/10/17 09:01 Ketorolac Tromethamine (Toradol Inj*) 30 mg IV PUSH Q6H [facility] Stop: 09/11/17 21:59 Last Admin: 09/10/17 04:41 Dose: 30 mg Morphine Sulfate (Morphine Inj (Syringe)*) 2 mg IV Q2H PRN PRN Reason: PAIN Nicotine (Nicotine Inhaler*) 10 mg INH Q2H PRN PRN Reason: CRAVING Last Admin: 09/10/17 01:20 Dose: 10 mg Nicotine (Nicotine Patch 14 Mg/24 Hr*) 1 patch TRANSDERM DAILY [facility] Last Admin: 09/09/17 09:42 Dose: 1 patch Ondansetron HCl (Zofran Inj*) 4 mg IV ONCE PRN PRN Reason: NAUSEA/VOMITING Ondansetron HCl (Zofran Inj*) 4 mg IV Q6H PRN PRN Reason: NAUSEA Pharmacy Consult (Vancomycin Per Pharmacy*) 1 note FOLLOW UP .VANC PER PHARMACY [facility] Pharmacy Profile Note (Nicotine Patch Removal Note*) 1 note FOLLOW UP 2100 [facility] Last Admin: 09/09/17 21:40 Dose: 1 note Pharmacy Profile Note (Vancomycin Trough Check) 1 note FOLLOW UP ONCE ONE Stop: 09/12/17 08:01 Vital Signs 09/09/17 09/09/17 09/09/17 09:57 11:34 13:05 Temperature 97.6 F 98.0 F Pulse Rate 64 63 Respiratory 16 17 20 Rate Blood Pressure 142/78 139/85 (mmHg) O2 Sat by Pulse 98 99 Oximetry 09/09/17 09/09/17 09/09/17 15:09 15:50 16:00 Temperature 97.9 F Pulse Rate 64 Respiratory 18 Rate Blood Pressure 129/68 (mmHg) O2 Sat by Pulse 98 98 Oximetry 09/09/17 09/09/17 09/09/17 19:25 21:23 21:35 Temperature 98.1 F Pulse Rate 66 Respiratory 16 16 16 Rate Blood Pressure 162/91 (mmHg) O2 Sat by Pulse 100 Oximetry 09/09/17 09/09/17 09/09/17 23:15 23:18 23:27 Temperature 98.0 F Pulse Rate 67 Respiratory 16 16 16 Rate Blood Pressure 148/89 (mmHg) O2 Sat by Pulse 100 Oximetry 09/10/17 09/10/17 09/10/17 01:21 04:01 04:40 Temperature 98.3 F Pulse Rate 65 Respiratory 16 20 18 Rate Blood Pressure 149/76 (mmHg) O2 Sat by Pulse 100 Oximetry 09/10/17 09/10/17 06:45 08:01 Temperature 97.6 F Pulse Rate 68 Respiratory 16 20 Rate Blood Pressure 151/93 (mmHg) O2 Sat by Pulse 97 Oximetry Oxygen Devices in Use Now: None Appearance: 57 yo M in nAD, aAOx3 Eyes: No Scleral Icterus, PERRLA Ears/Nose/Mouth/Throat: NL Teeth, Lips, Gums, Mucous Membranes Moist Neck: NL Appearance and Movements; NL JVP, Trachea Midline Respiratory: Symmetrical Chest Expansion and Respiratory Effort, - - decreased breath sounds b/l Abdominal: NL Sounds; No Tenderness; No Distention, No Hepatosplenomegaly Lymphatic: No Cervical Adenopathy Extremities: No Edema, No Clubbing, Cyanosis, - - r index finger with marked improvement, less edema and erythema resolving. 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 Dr. Lantigua plans to take pt to OR for partial finger amputation today. Cx growing MRSA and strep anginosus-continue Vanc, d/c Zosyn tomorrow Blood cx NTD The cellulitis is markedly improved (2) Cocaine abuse in remission Comment: Hep C low reactive, but HCV RNA negative HIV neg (3) DVT prophylaxis Comment: heparin sc (4) Decreased breath sounds at right lung base Comment: CXR shows interstitial markings, no infiltrate Status and Disposition: inpatient, medicine consult
[2017-09-10] MEDS ORDERED: Influenza VAC *QUAD* 2017-18* 0.5 ML SYRINGE IM ONE (09:00)
[2017-09-10] MEDS: Heparin VIAL(*) 5000 UNITS/ML VIAL (FIVE THOUSAND) SUBCUT SCH (09:20)
[2017-09-10] MEDS: Nicotine PATCH 14 MG/24 HR* PATCH TRANSDERM SCH (11:11)
[2017-09-10] MEDS: LORazepam INJ* 2 MG/ML 1 ML VIAL IV PUSH PRN ×2 (13:20→23:17)
--- NOTE | 2017-09-10 14:54 | CONS ---
ORTHOPEDIC CONSULTATION/HISTORY AND PHYSICAL DATE OF ADMISSION: 09/07/2017. DATE OF SERVICE: 09/10/2017. SURGEON/PROVIDER: Dr. Palmer Perez (dictated by PAUL Villanueva). CHIEF COMPLAINT: Right index finger cellulitis. HISTORY OF PRESENT ILLNESS: The patient is a right hand dominant, 57-year-old male here with an infected right index finger. Upon presentation on September 07, he stated that this injury and infection gas been present x one week and is now infected. 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 He had been washing it out at home with regular bar soap and trying to keep it clean. He was still working. He came to the hospital as the finger had become red, swollen, painful and foul smelling. It has appeared infected for roughly three days before he presented to the emergency room. He was unable to bend the finger at presentation. He had tried to milk pus out of it and was able to produce some. The finger was hot and painful. At presentation to the ER, he has reported chills but no fever. He does have a history of MRSA with skin infection of his knee in the past. He does not have a primary care provider, does not see any doctor regularly. Since arriving in the hospital, he had an OR washout by Dr. Lantigua on September 07. He has since been monitored by both the orthopedic group and the hospitalist group. His cultures have shown gram positive cocci, gram positive bacilli, gram negative cocci bacilli, gram negative bacilli. Organisms identified are staph aureus and strep anginosus. He has been on Vancomycin and Zosyn. He has been doing finger soaks four times per day. Pain in his finger is routinely described as throbbing. He does report that the appearance of the finger is somewhat better throughout his hospital course with decreased redness and decreased pain. He continues to deny any fever or chills. The patient denies any history of cardiac or respiratory issues. He denies history of any heart attack, stroke or difficulty breathing. He denies any history of blood clots, easy bleeding, or easy bruising. He denies any history of complications with anesthesia. His last meal was at 9:00 a.m. this morning, 09/10/2017. PAST MEDICAL HISTORY: The patient was previously healthy. He does not routinely see a PCP MEDICATIONS: No home medications. He takes occasional ibuprofen prn at home. ALLERGIES: No known drug allergies. FAMILY HISTORY: No pertinent family history. SOCIAL HISTORY: The patient drinks one beer or mixed drink per day. The patient smokes one-half pack of cigarettes per day since age 15. The patient uses recreational marijuana. He has a history of heroin and cocaine abuse, but denies use in recent years. This is in contrast to previous report from the emergency room stating heroin use "today" from a report on September 07. REVIEW OF SYSTEMS: General: Denies fevers or chills. No known anesthesia problems. HEENT: Denies headache, lightheadedness, or syncopal episodes. Cardiothoracic: No chest pain, heart palpitations, irregular beats, or edema. Pulmonary: Negative for shortness of breath. No chronic cough. No known COPD or asthma. GI: Denies nausea, vomiting, diarrhea, or constipation. : Denies any dysuria. Musculoskeletal: Right index finger is the only reported musculoskeletal complaint. Neuro: No paresthesia, numbness, stroke, depression or anxiety. Integumentary: Right index finger cellulitis. Bilateral lower leg excoriations with chronic itching. Endocrine: No diabetes or thyroid issues. Hematology: No easy bruising, bleeding, anemia, and no known DVT or PE. PHYSICAL EXAMINATION: VITAL SIGNS: Temperature 97.6, pulse 68, respiratory rate 20, oxygen saturation 97, blood pressure 151/93. GENERAL: Calm, cooperative, no acute distress. OOB in chair HEENT: Normocephalic, atraumatic. Hearing and vision grossly intact. EOMI. CARDIO: Regular rate and rhythm. S1, S2. No murmurs. No pedal edema. PULMONARY: Lungs are clear to auscultation bilaterally. No wheezes, rales or rhonchi. MUSCULOSKELETAL: Right index finger is edematous and erythema is markedly improved from yesterday. Erythema does not extend past the MCP. Purulence that is actively being expressed from the dorsum of the finger is present both medially and laterally. The palmar service over the DIP has one small tense white area of purulence under the skin roughly 0.5 cm in diameter. Sensation is intact throughout the entirety of the digit. There is brisk capillary refill up through the PIP, thereafter there is no blanching with palpation. VASCULAR: Bilateral radial dorsalis pedis, posterior tibialis pulses are 2+ and symmetric. INTEGUMENTARY: The patient has excoriation resendez on bilateral lower legs with no bleeding lesions and no surrounding erythema. His left knee also has a healing abrasion. IMPRESSION: Cellulitis versus osteomyelitis of the right index finger. PLAN: Plan is to bring the patient to the OR today with Dr. Perez I&D of the right index finger and possible amputation PAUL GARCIA [id number]/[facility] #: [id number] MTDD
[2017-09-10] MEDS ORDERED: fentaNYL* 50 MCG/ML 2 ML VIAL (100 MCG VIAL) ONE ×2 (19:39→19:52)
[2017-09-10] MEDS ORDERED: Midazolam* 1 MG/ML 5 ML VIAL (5 MG) ONE (19:39)
[2017-09-10] MEDS ORDERED: Propofol* 10 MG/ML 20 ML BTL IV PUSH ONE (19:52)
[2017-09-10] MEDS ORDERED: Ondansetron INJ* 2 MG/ML VIAL ONE (19:52)
[2017-09-10] MEDS ORDERED: Lidocaine 2% PF * 5 ML VIAL ONE (19:52)
[2017-09-10] MEDS ORDERED: Ketorolac INJ* 30 MG/ML 1 ML VIAL ONE (19:52)
[2017-09-10] MEDS ORDERED: HYDROmorphone INJ* 1 MG/ML CARPUJECT SYRINGE IV PRN (20:07)
[2017-09-10] MEDS ORDERED: HYDROcodone/ACETAMIN 5-325 MG* 1 TAB PO PRN (20:07)
[2017-09-10] MEDS ORDERED: DiMENhydriNATE IV* 50 MG/ML VIAL IV PUSH PRN (20:07)
[2017-09-10] MEDS ORDERED: HYDROmorphone INJ* 1 MG/ML CARPUJECT SYRINGE ONE (20:30)
[2017-09-10] MEDS ORDERED: Bupivacaine 0.25% SDV* 30 ML ONE (20:58)
[2017-09-10] MEDS: Nicotine Patch Removal NOTE FOLLOW UP SCH (23:48)
[2017-09-11] MEDS: Vancomycin(*) 1,000 MG in NS 0.9% 250 ML* 250 ML IVPB SCH ×3 (03:16→16:16)
[2017-09-11] MEDS: Ketorolac INJ* 30 MG/ML 1 ML VIAL IV PUSH SCH ×3 (04:35→16:17)
[2017-09-11] MEDS: HYDROcodone/ACETAMIN 5-325 MG* 1 TAB PO PRN ×2 (04:47→09:20)
[2017-09-11] MEDS: ZOSYN 3.375 GM Q8H per EXTENDED INFUSION IVPB SCH ×2 (05:09)
[2017-09-11 05:16] LABS: Hematocrit 41 % (42-52); Hemoglobin 13.5 g/dl (14.0-18.0); Mean Corpuscular HGB Conc 33 g/dl (31-36); Mean Corpuscular Hemoglobin 30 pg (27-31); Mean Corpuscular Volume 92 fL (80-94); Mean Platelet Volume 7 um3 (7.4-10.4); Red Blood Count 4.45 10^6/ul (4.0-5.4); Red Cell Distribution Width 16 % (10.5-15); White Blood Count 10.8 10^3/ul (3.5-10.8)
[2017-09-11 05:21] LABS: BUN/Creatinine Ratio 17.9 (8-20); Calcium 8.7 mg/dL (8.6-10.3); EGFR African American 86.9 (>60); EGFR Non-African American 67.6 (>60); Potassium 3.5 mmol/L (3.5-5.0)
[2017-09-11] MEDS: Nicotine PATCH 14 MG/24 HR* PATCH TRANSDERM SCH (10:16)
[2017-09-11] MEDS: LORazepam INJ* 2 MG/ML 1 ML VIAL IV PUSH PRN ×2 (10:16→19:38)
[2017-09-11] MEDS ORDERED: oxyCODONE TAB* 5 MG TAB PO PRN (12:57)
--- NOTE | 2017-09-11 12:57 | PN ---
Progress Note - Progress Note Date of Service: 09/11/17 SOAP: Subjective: 57 y/o male s/p right 2nd phalanx amputation 09/[address] Perez. Patient states pain not well controlled, continues to have breakthrough pain through [place], requesting stronger pain medication. Afebrile overnight. VSS. weaned from O2 overnight. Objective: General- Resting in bed, NAD, AO MSK- Right hand- Surgical dressing in place, patient unwilling to take down dressing until time for soaking, cap refill 1, 3, 4,5 <2secs, full ROM 1,3,4,5 fingers, no erythema noted, mild edema of fingers, full ROM wrist, thumb without complication. Vital Signs Temp 97.5 F 09/11/17 07:16 Pulse 65 09/11/17 07:16 Resp 16 09/11/17 10:16 BP 127/84 09/11/17 07:16 Pulse Ox 97 09/11/17 09:20 Intake & Output 09/10/17 09/11/17 09/11/17 18:59 06:59 18:59 Intake Total 373 1323 411 Output Total 0 425 Balance 373 898 411 Intake: IV Fluids 137 1007 36 LR 1000 NS (0.9%) 30 7 36 Zosyn 107 IVPB 96 375 Vancomycin 270 Zosyn 96 105 Oral 236 220 Output: Urine 0 425 Other: Estimated Void Large # Bowel Movements 0 Assessment: Stable 57 y/o male s/p right 2nd phalanx amputation 09/[address] Perez. Plan: - ABX- follow up with hospitalists with regards to changing to oral ABX, currently vancomycin, rocph. - Soapy water soaks per instructions - Pain medication- changed to oxycodone with increased breakthrough to 4mg morphine IV q3h. Active Medications Generic Name Dose Route Start Last Admin Trade Name Freq PRN Reason Stop Dose Admin Acetaminophen 650 mg 09/07/17 21:48 Tylenol Tab* PO Q6H PRN FEVER/PAIN Hydrocodone Bitart/Acetaminophen 2 tab 09/07/17 21:57 09/11/17 09:20 [place] 5-325 Tab* PO 2 tab Q4H PRN Administration PAIN Vancomycin HCl 1,000 mg/ 250 mls @ 166.667 mls/hr 09/08/17 16:30 09/11/17 10: 15 Sodium Chloride IVPB 166.667 mls/hr Q8H [facility] Administration Ketorolac Tromethamine 30 mg 09/07/17 22:00 09/11/17 09:20 Toradol Inj* IV PUSH 09/11/17 21:59 30 mg Q6H [facility] Administration Lorazepam 0.5 mg 09/10/17 11:42 09/11/17 10:16 Ativan Inj* IV PUSH 0.5 mg Q6H PRN Administration ANXIETY Morphine Sulfate 2 mg 09/07/17 22:03 09/10/17 16:19 Morphine Inj (Syringe)* IV 2 mg Q2H PRN Administration PAIN Nicotine 10 mg 09/07/17 23:17 09/10/17 11:25 Nicotine Inhaler* INH 10 mg Q2H PRN Administration CRAVING Nicotine 1 patch 09/08/17 09:00 09/11/17 10:16 Nicotine Patch 14 Mg/24 Hr* TRANSDERM 1 patch DAILY [facility] Administration Ondansetron HCl 4 mg 09/07/17 21:48 Zofran Inj* IV Q6H PRN NAUSEA Pharmacy Consult 1 note 09/07/17 22:00 Vancomycin Per Pharmacy* FOLLOW UP .VANC PER PHARMACY [facility] Pharmacy Profile Note 1 note 09/08/17 21:00 09/10/17 23:48 Nicotine Patch Removal Note* FOLLOW UP Not Given 2[address] [facility] Pharmacy Profile Note 1 note 09/12/17 08:00 Vancomycin Trough Check FOLLOW UP 09/12/17 08:01 ONCE ONE
[2017-09-11] MEDS ORDERED: Morphine INJ* 4 MG/ML 1 ML CARPUJECT IV PRN (12:59)
[2017-09-11] MEDS: oxyCODONE TAB* 5 MG TAB PO PRN ×2 (14:35→20:14)
[2017-09-11] MEDS: Nicotine Inhaler* 10 MG AMP INH PRN (14:42)
[2017-09-11] MEDS ORDERED: Mouth Piece, Nicotine* 1 EACH CARTRIDGE ONE (14:43)
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
[2017-09-11] MEDS: HYDROmorphone INJ* 2 MG/ML CARPUJECT SYRINGE IV SLOW PU PRN ×3 (18:50→23:05)
[2017-09-11] MEDS: metroNIDAZOLE TAB* 250 MG PO SCH (21:44)
[2017-09-11] MEDS: Nicotine Patch Removal NOTE FOLLOW UP SCH (21:48)
[2017-09-11] MEDS ORDERED: HYDROmorphone INJ* 2 MG/ML CARPUJECT SYRINGE ONE (23:01)
[2017-09-11] MEDS ORDERED: Ibuprofen TAB* 600 MG ONE (23:03)
[2017-09-11] MEDS: Ibuprofen TAB* 600 MG PO PRN (23:04)
[2017-09-12] MEDS: Vancomycin(*) 1,000 MG in NS 0.9% 250 ML* 250 ML IVPB SCH ×2 (00:45→09:48)
[2017-09-12] MEDS: oxyCODONE TAB* 5 MG TAB PO PRN ×5 (00:46→20:57)
[2017-09-12] MEDS: HYDROmorphone INJ* 2 MG/ML CARPUJECT SYRINGE IV SLOW PU PRN ×7 (02:40→20:57)
[2017-09-12] MEDS: Ibuprofen TAB* 600 MG PO PRN ×3 (05:02→17:49)
[2017-09-12 05:27] LABS: EGFR African American 81.8 (>60); EGFR Non-African American 63.6 (>60)
[2017-09-12] MEDS ORDERED: Vancomycin Trough Check NOTE FOLLOW UP ONE (08:00)
--- NOTE | 2017-09-12 08:12 | PN ---
Progress Note - Progress Note Date of Service: 09/12/17 SOAP: Subjective: Pt is doing well. Pain is improved with change in pain medication by hospitalist. He denies CP, SOB, F/C or N/T. Fever overnight improved with ibuprofen Objective: PE: General- 57 WDWN M NAD, A&Ox3, lying comfortably in bed RUE- dressing c/d/i, able to move other digits, full ROM of the wrist, + 2 radial pulse, sensation intact to light touch distally Vital Signs Temp Pulse Resp BP Pulse Ox 98.6 F 88 20 130/50 93 09/12/17 03:18 09/12/17 03:21 09/12/17 06:58 09/12/17 03:21 09/12/17 03:21 Laboratory Results - last 24 hr 09/12/17 04:54 BUN 14 Creatinine 1.18 H Est GFR ( Amer) 81.8 Est GFR (Non-Af Amer) 63.6 Assessment: POD 2 2nd phalanx amputation on 09/[address] Perez Plan: Cont abx per hospitalist recommendation Cont DVT prophylaxis per hospitalist Soapy soaks per instructions
[2017-09-12] MEDS: Nicotine Inhaler* 10 MG AMP INH PRN ×2 (08:31→17:48)
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
[2017-09-12] MEDS: metroNIDAZOLE TAB* 250 MG PO SCH ×3 (09:50→20:57)
[2017-09-12] MEDS: Nicotine PATCH 14 MG/24 HR* PATCH TRANSDERM SCH (09:51)
[2017-09-12] MEDS: Vancomycin(*) 1,250 MG in NS 0.9% 250 ML* 250 ML IVPB SCH (21:02)
[2017-09-13] MEDS: HYDROmorphone INJ* 2 MG/ML CARPUJECT SYRINGE IV SLOW PU PRN ×7 (00:08→21:01)
[2017-09-13] MEDS: Ibuprofen TAB* 600 MG PO PRN ×3 (00:49→17:06)
[2017-09-13] MEDS: oxyCODONE TAB* 5 MG TAB PO PRN ×5 (00:49→23:57)
[2017-09-13] MEDS: Nicotine Patch Removal NOTE FOLLOW UP SCH ×2 (01:10→23:57)
[2017-09-13 06:51] LABS: BUN/Creatinine Ratio 13.5 (8-20); Calcium 8.5 mg/dL (8.6-10.3); EGFR African American 87.8 (>60); EGFR Non-African American 68.3 (>60)
[2017-09-13] MEDS: Vancomycin(*) 1,250 MG in NS 0.9% 250 ML* 250 ML IVPB SCH ×2 (08:00→21:01)
[2017-09-13] MEDS: Nicotine Inhaler* 10 MG AMP INH PRN ×2 (08:17→18:34)
[2017-09-13] MEDS: metroNIDAZOLE TAB* 250 MG PO SCH (09:48)
[2017-09-13] MEDS: Nicotine PATCH 14 MG/24 HR* PATCH TRANSDERM SCH (09:49)
[2017-09-13] MEDS ORDERED: Zosyn per Pharmacy* NOTE FOLLOW UP SCH (10:00)
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
[2017-09-13] MEDS ORDERED: ZOSYN 3.375 GM x ONE DOSE over 30 miuntes IVPB ×2 (11:00)
--- NOTE | 2017-09-13 11:57 | PN ---
Progress Note - Progress Note Date of Service: 09/13/17 SOAP: Subjective: Pt is doing well. Pain is controlled with IV pain medication. He is doing well with the soapy soaks. He denies Cp/SOB, F/C, or N/T. Objective: PE- 57 WDWN M NAD, sitting comfortably in chair RUE- inc healing well, no purulent discharge, minimal erythema, able to move all digits, full ROM of the wrist, + 2 radial pulse, sensation intact to light touch distally including distal 2nd phalanx Vital Signs Temp Pulse Resp BP Pulse Ox 99.9 F 92 16 119/64 91 09/13/17 03:55 09/13/17 03:55 09/13/17 11:34 09/13/17 03:55 09/13/17 03:55 Laboratory Results - last 24 hr 09/13/17 06:11 Sodium 133 Potassium 4.0 Chloride 105 Carbon Dioxide 22 Anion Gap 6 BUN 15 Creatinine 1.11 Est GFR ( Amer) 87.8 Est GFR (Non-Af Amer) 68.3 BUN/Creatinine Ratio 13.5 Glucose 106 H Calcium 8.5 L Assessment: POD 3 2nd phalanx amputation on 09/[address] Perez Plan: Cont abx per hospitalist recommendation Cont pain management Cont heparin for DVT prophylaxis per hospitalist Soapy soaks per instructions Plan DC to home in 2-3 days when abx are established and pain is controlled
[2017-09-13] MEDS: ZOSYN 3.375 GM Q8H per EXTENDED INFUSION IVPB SCH ×2 (15:49)
[2017-09-14] MEDS: HYDROmorphone INJ* 2 MG/ML CARPUJECT SYRINGE IV SLOW PU PRN ×8 (00:03→23:48)
[2017-09-14] MEDS: ZOSYN 3.375 GM Q8H per EXTENDED INFUSION IVPB SCH ×2 (00:05)
[2017-09-14] MEDS: Ibuprofen TAB* 600 MG PO PRN ×4 (03:10→22:32)
[2017-09-14] MEDS: oxyCODONE TAB* 5 MG TAB PO PRN ×4 (07:22→22:31)
[2017-09-14] MEDS ORDERED: Vancomycin Trough Check NOTE FOLLOW UP ONE (08:00)
[2017-09-14] MEDS: Nicotine Inhaler* 10 MG AMP INH PRN ×2 (08:31→18:19)
[2017-09-14] MEDS: Nicotine PATCH 14 MG/24 HR* PATCH TRANSDERM SCH (08:31)
[2017-09-14] MEDS: Vancomycin(*) 1,250 MG in NS 0.9% 250 ML* 250 ML IVPB SCH (09:09)
[2017-09-14] MEDS: Vancomycin(*) 1,000 MG in NS 0.9% 250 ML* 250 ML IVPB SCH ×2 (09:35→22:33)
--- NOTE | 2017-09-14 09:39 | PN ---
Progress Note - Progress Note Date of Service: 09/14/17 SOAP: Subjective: []Patient seen at bedside. He confirms a continued 6-7/10 pain of right index finger which is tolerable. No fever, chills, nausea, SOB, chest pain or numbness of right upper extremity. Objective: [] Vital Signs Temp 98.2 F 09/14/17 07:52 Pulse 78 09/14/17 07:52 Resp 18 09/14/17 09:14 BP 119/72 09/14/17 07:52 Pulse Ox 95 09/14/17 07:56 Intake & Output 09/13/17 09/14/17 09/14/17 18:59 06:59 18:59 Intake Total 970 1100 291 Balance 970 1100 291 Intake: IV Fluids 90 70 NS (0.9%) 90 70 IVPB 280 221 Zosyn 280 221 Oral 600 1100 Other: Estimated Void Medium Large # Voids 2 2 Laboratory Last Values WBC 10.8 10^3/ul (3.5-10.8) 09/11/17 04:47 RBC 4.45 10^6/ul (4.0-5.4) 09/11/17 04:47 Hgb 13.5 g/dl (14.0-18.0) L 09/11/17 04:47 Hct 41 % (42-52) L 09/11/17 04:47 MCV 92 fL (80-94) 09/11/17 04:47 MCH 30 pg (27-31) 09/11/17 04:47 MCHC 33 g/dl (31-36) 09/11/17 04:47 RDW 16 % (10.5-15) H 09/11/17 04:47 Plt Count 503 10^3/ul (150-450) H 09/11/17 04:47 MPV 7 um3 (7.4-10.4) L 09/11/17 04:47 Neut % (Auto) 69.2 % (38-83) 09/11/17 04:47 Lymph % (Auto) 13.9 % (25-47) L 09/11/17 04:47 [place] % (Auto) 8.4 % (1-9) 09/11/17 04:47 Eos % (Auto) 8.0 % (0-6) H 09/11/17 04:47 Baso % (Auto) 0.5 % (0-2) 09/11/17 04:47 Absolute Neuts (auto) 7.5 10^3/ul (1.5-7.7) 09/11/17 04:47 Absolute Lymphs (auto) 1.5 10^3/ul (1.0-4.8) 09/11/17 04:47 Absolute Monos (auto) 0.9 10^3/ul (0-0.8) H 09/11/17 04:47 Absolute Eos (auto) 0.9 10^3/ul (0-0.6) H 09/11/17 04:47 Absolute Basos (auto) 0.1 10^3/ul (0-0.2) 09/11/17 04:47 Absolute Nucleated RBC 0 10^3/ul 09/11/17 04:47 Nucleated RBC % 0 09/11/17 04:47 INR (Anticoag Therapy) 0.90 (0.89-1.11) 09/10/17 05:42 Sodium 133 mmol/L (133-145) 09/13/17 06:11 Potassium 4.0 mmol/L (3.5-5.0) 09/13/17 06:11 Chloride 105 mmol/L (101-111) 09/13/17 06:11 Carbon Dioxide 22 mmol/L (22-32) 09/13/17 06:11 Anion Gap 6 mmol/L (2-11) 09/13/17 06:11 BUN 15 mg/dL (6-24) 09/13/17 06:11 Creatinine 1.11 mg/dL (0.67-1.17) 09/13/17 06:11 Est GFR ( Amer) 87.8 (>60) 09/13/17 06:11 Est GFR (Non-Af Amer) 68.3 (>60) 09/13/17 06:11 BUN/Creatinine Ratio 13.5 (8-20) 09/13/17 06:11 Glucose 106 mg/dL (70-100) H 09/13/17 06:11 Lactic Acid 1.0 mmol/L (0.5-2.0) 09/07/17 17:48 Calcium 8.5 mg/dL (8.6-10.3) L 09/13/17 06:11 Total Bilirubin 0.80 mg/dL (0.2-1.0) 09/07/17 17:48 AST 34 U/L (13-39) 09/07/17 17:48 ALT 22 U/L (7-52) 09/07/17 17:48 Alkaline Phosphatase 111 U/L (34-104) H 09/07/17 17:48 C-Reactive Protein 58.21 mg/L (< 5.00) H 09/09/17 08:18 Total Protein 7.2 g/dL (6.4-8.9) 09/07/17 17:48 Albumin 3.7 g/dL (3.2-5.2) 09/07/17 17:48 Globulin 3.5 g/dL (2-4) 09/07/17 17:48 Albumin/Globulin Ratio 1.1 (1-3) 09/07/17 17:48 Vancomycin Trough 22.3 mcg/mL 09/14/17 07:11 Hepatitis C Antibody Low reactive (Nonreactive) H 09/08/17 07:30 Hepatitis C RNA Quant Undetected IU/mL (Undetected) 09/08/17 07:30 HIV 1&2 Antibody Nonreactive (Nonreactive) 09/08/17 07:30 General: NAD, laying comfortably in bed RUE- R index finger incision healing well, no purulent discharge, minimal erythema, able to move all digits, full ROM of the wrist, + 2 radial pulse, sensation intact to light touch distally including distal 2nd phalanx Assessment: []POD 4- 2nd phalanx amputation on 09/[address] Perez Plan: []May shower allowing water to run over operative site, May scrub hand gently. No submerging aside from prescribed soapy soaks which is to take place right after shower Continued pain control Heparin and antibiotics per hospitalist. Awaiting plan for DC abx with options including home on PO vs IV access placed daily vs swing bed at [facility] [place], [place]
--- NOTE | 2017-09-14 14:02 | PN ---
Progress Note - Progress Note SOAP: Subjective: Mr. Munguia is a 57 yo right-hand dominant M with a PMH of tobacco abuse. Pt. is SP-OP right index finger amputation at the PIP joint d/t osteomyelitis, performed by Dr. Perez four days ago. Pt. states that he is doing well and has no significant complaints, however, does express some anxiety about getting used to the amputation. 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 Patient states that his pain is well-controlled at this time, however, is utilizing all doses of pain medications. Patient states "it's like clock-work" as far as the return of pain when he is due for another dose. Pt. denies fever, chills, CP, SOB, abdominal pain, N/V/D, numbness, tingling, weakness. Mr. Munguia does admit to a moderate amount of stiffness and inflammation of the right index finger. Objective: Vital Signs: Temp Pulse Resp BP Pulse Ox 98.2 F 78 18 119/72 95 09/14/17 07:52 09/14/17 07:52 09/14/17 13:52 09/14/17 07:52 09/14/17 07:56 Active Medications Generic Name Dose Route Start Last Admin Trade Name Freq PRN Reason Stop Dose Admin Acetaminophen 650 mg 09/07/17 21:48 09/13/17 09:48 Tylenol Tab* PO 650 mg Q6H PRN Administration FEVER/PAIN Hydromorphone HCl 1.5 mg 09/11/17 22:18 09/14/17 13:42 Dilaudid Inj* IV SLOW PU 1.5 mg Q3H PRN Administration PAIN Piperacillin Sod/Tazobactam 100 mls @ 200 mls/hr 09/14/17 08:00 09/14/17 07: 43 Sod 3.375 gm/ Sodium Chloride IVPB 200 mls/hr Q6H [facility] Administration Vancomycin HCl 1,000 mg/ 250 mls @ 166.667 mls/hr 09/14/17 10:00 09/14/17 09: 35 Sodium Chloride IVPB 166.667 mls/hr Q12H [facility] Administration Ibuprofen 600 mg 09/11/17 22:18 09/14/17 09:42 Motrin Tab* PO 600 mg Q6H PRN Administration PAIN Lorazepam 0.5 mg 09/10/17 11:42 09/11/17 19:38 Ativan Inj* IV PUSH 0.5 mg Q6H PRN Administration ANXIETY Nicotine 10 mg 09/07/17 23:17 09/14/17 08:31 Nicotine Inhaler* INH 10 mg Q2H PRN Administration CRAVING Nicotine 1 patch 09/08/17 09:00 09/14/17 08:31 Nicotine Patch 14 Mg/24 Hr* TRANSDERM 1 patch DAILY [facility] Administration Ondansetron HCl 4 mg 09/07/17 21:48 Zofran Inj* IV Q6H PRN NAUSEA Oxycodone HCl 5 mg 09/11/17 12:57 Roxycodone Tab* PO Q4H PRN PAIN - MILD TO MODERATE Oxycodone HCl 10 mg 09/11/17 12:58 09/14/17 11:29 Roxycodone Tab* PO 10 mg Q4H PRN Administration PAIN - MODERATE TO SEVERE Pharmacy Consult 1 note 09/07/17 22:00 Vancomycin Per Pharmacy* FOLLOW UP .VANC PER PHARMACY [facility] Pharmacy Consult 1 note 09/13/17 10:00 Zosyn Per Pharmacy* FOLLOW UP .ZOSYN PER PHARMACY [facility] Pharmacy Profile Note 1 note 09/08/17 21:00 09/13/17 23:57 Nicotine Patch Removal Note* FOLLOW UP 1 note [facility] [facility] Administration Pharmacy Profile Note 1 note 09/16/17 10:00 Vancomycin Trough Check FOLLOW UP 09/16/17 10:01 .ENTER TIME ONE Laboratory Results - last 24 hr 09/14/17 07:11 Vancomycin Trough 22.3 General: WDWN, A&O x3, in NAD. Skin: Incision site appears clean and dry, w/o erythema or warmth CV: RRR w/o MRG Respiratory: CTA B/L, w/o edema of LE GI: Abdomen is soft and non-distended, w/o pain to palpation Assessment: SP-OP day 4 of a right index finger amputation at the PIP joint d/t osteomyelitis. Plan: Mr. Munguia is a 57 yo male who is SP-OP day 4 of a right-index finger amputation. 1. Patient is on IV Vancomycin, which will be continued until further notice. Pathology results for wound margins are pending at this time. Infectious disease has been consulted and advised two more weeks of IV vanco if wound margins are clear, and if wound margins are not clear, IV vanco should be continued for six more weeks. 2. Pain management should be transitioned to oral medications at this time. 3. Questionable substance abuse history--prior ED documentation suggestive of such, however, pt. denies. Because of this, there are concerns regarding the possibility of pt. going home with a PIC line in place. <Rebecca Porter - Last Filed: 09/14/17 15:02> - Progress Note Date of Service: 09/14/17 SOAP: Subjective: [] Objective: [] Assessment: [] Plan: [] <Raheel Mcnair - Last Filed: 09/15/17 07:02>
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
[2017-09-14] MEDS: Nicotine Patch Removal NOTE FOLLOW UP SCH (20:42)
[2017-09-15] MEDS: oxyCODONE TAB* 5 MG TAB PO PRN ×5 (02:34→22:45)
[2017-09-15] MEDS: HYDROmorphone INJ* 2 MG/ML CARPUJECT SYRINGE IV SLOW PU PRN ×5 (03:00→19:23)
[2017-09-15] MEDS: Nicotine Inhaler* 10 MG AMP INH PRN ×5 (03:00→19:27)
[2017-09-15] MEDS: Ibuprofen TAB* 600 MG PO PRN ×3 (05:45→22:44)
[2017-09-15] MEDS: Nicotine PATCH 14 MG/24 HR* PATCH TRANSDERM SCH (07:09)
[2017-09-15] MEDS: Gabapentin CAP(*) 100 MG PO SCH ×2 (08:02→21:58)
--- NOTE | 2017-09-15 08:26 | PN ---
Progress Note - Progress Note Date of Service: 09/15/17 SOAP: Subjective: []Patient seen at bedside. He is comfortable at this time. Pain becomes 6/10 and throbbing when pain medication begins to wear off. Objective: [] Vital Signs Temp 98.1 F 09/15/17 07:38 Pulse 75 09/15/17 07:38 Resp 16 09/15/17 08:02 BP 135/68 09/15/17 07:38 Pulse Ox 94 09/15/17 07:38 Intake & Output 09/14/17 09/15/17 09/15/17 18:59 06:59 18:59 Intake Total 1061 2182 Balance 1061 2182 Intake: IV Fluids 90 632 NS (0.9%) 90 100 Vancomycin 285 Zosyn 247 IVPB 341 Zosyn 341 Oral 630 1550 Other: Estimated Void Large Medium # Voids 3 Laboratory Last Values WBC 10.8 10^3/ul (3.5-10.8) 09/11/17 04:47 RBC 4.45 10^6/ul (4.0-5.4) 09/11/17 04:47 Hgb 13.5 g/dl (14.0-18.0) L 09/11/17 04:47 Hct 41 % (42-52) L 09/11/17 04:47 MCV 92 fL (80-94) 09/11/17 04:47 MCH 30 pg (27-31) 09/11/17 04:47 MCHC 33 g/dl (31-36) 09/11/17 04:47 RDW 16 % (10.5-15) H 09/11/17 04:47 Plt Count 503 10^3/ul (150-450) H 09/11/17 04:47 MPV 7 um3 (7.4-10.4) L 09/11/17 04:47 Neut % (Auto) 69.2 % (38-83) 09/11/17 04:47 Lymph % (Auto) 13.9 % (25-47) L 09/11/17 04:47 [place] % (Auto) 8.4 % (1-9) 09/11/17 04:47 Eos % (Auto) 8.0 % (0-6) H 09/11/17 04:47 Baso % (Auto) 0.5 % (0-2) 09/11/17 04:47 Absolute Neuts (auto) 7.5 10^3/ul (1.5-7.7) 09/11/17 04:47 Absolute Lymphs (auto) 1.5 10^3/ul (1.0-4.8) 09/11/17 04:47 Absolute Monos (auto) 0.9 10^3/ul (0-0.8) H 09/11/17 04:47 Absolute Eos (auto) 0.9 10^3/ul (0-0.6) H 09/11/17 04:47 Absolute Basos (auto) 0.1 10^3/ul (0-0.2) 09/11/17 04:47 Absolute Nucleated RBC 0 10^3/ul 09/11/17 04:47 Nucleated RBC % 0 09/11/17 04:47 INR (Anticoag Therapy) 0.90 (0.89-1.11) 09/10/17 05:42 Sodium 133 mmol/L (133-145) 09/13/17 06:11 Potassium 4.0 mmol/L (3.5-5.0) 09/13/17 06:11 Chloride 105 mmol/L (101-111) 09/13/17 06:11 Carbon Dioxide 22 mmol/L (22-32) 09/13/17 06:11 Anion Gap 6 mmol/L (2-11) 09/13/17 06:11 BUN 15 mg/dL (6-24) 09/13/17 06:11 Creatinine 1.11 mg/dL (0.67-1.17) 09/13/17 06:11 Est GFR ( Amer) 87.8 (>60) 09/13/17 06:11 Est GFR (Non-Af Amer) 68.3 (>60) 09/13/17 06:11 BUN/Creatinine Ratio 13.5 (8-20) 09/13/17 06:11 Glucose 106 mg/dL (70-100) H 09/13/17 06:11 Lactic Acid 1.0 mmol/L (0.5-2.0) 09/07/17 17:48 Calcium 8.5 mg/dL (8.6-10.3) L 09/13/17 06:11 Total Bilirubin 0.80 mg/dL (0.2-1.0) 09/07/17 17:48 AST 34 U/L (13-39) 09/07/17 17:48 ALT 22 U/L (7-52) 09/07/17 17:48 Alkaline Phosphatase 111 U/L (34-104) H 09/07/17 17:48 C-Reactive Protein 58.21 mg/L (< 5.00) H 09/09/17 08:18 Total Protein 7.2 g/dL (6.4-8.9) 09/07/17 17:48 Albumin 3.7 g/dL (3.2-5.2) 09/07/17 17:48 Globulin 3.5 g/dL (2-4) 09/07/17 17:48 Albumin/Globulin Ratio 1.1 (1-3) 09/07/17 17:48 Vancomycin Trough 22.3 mcg/mL 09/14/17 07:11 Hepatitis C Antibody Low reactive (Nonreactive) H 09/08/17 07:30 Hepatitis C RNA Quant Undetected IU/mL (Undetected) 09/08/17 07:30 HIV 1&2 Antibody Nonreactive (Nonreactive) 09/08/17 07:30 General: Pleasant, calm, cooperative, NAD RUE: Right index finger with well healing wounds without discharge. Minimal to no erythema. Swelling is improved. Good ROM at MCP. Assessment: []S/P Partial right index finger amputation Plan: []Continued soap soaks May leave undressed Work on ROM Continued vanco/ zosyn, plan to transition to swing bed. Encouraged to control pain with PO rather than IV pain meds
--- NOTE | 2017-09-15 08:36 | PN ---
Progress Note - Progress Note Date of Service: 09/14/17 Note: I saw Denny yesterday in his room and removed his dressing. The incision is healing nicely. He has one ulceration at the volar finger just near the PIP flexion crease. The flap distally is looking good. No active drainage. PIP motion is from 0-30 degrees. MP motion is good. A/P: S/p I&D of severe flexor tenosynovitis and partial amputation of index finger due to severe full thickness necrosis of skin and soft tissue distally. He may leave the finger undressed at this point. I would continue soaks for now and antibiotics. He needs to work on motion to keep the finger from getting to stiff. I see no need for further I&D at this time.
[2017-09-15] MEDS: Vancomycin(*) 1,000 MG in NS 0.9% 250 ML* 250 ML IVPB SCH ×2 (10:16→23:25)
--- NOTE | 2017-09-15 10:21 | OP ---
OPERATIVE REPORT:* DATE OF OPERATION: 09/07/17 - ROOM #338 ADDENDUM: This is an addendum to the operative note. Please note that it was the right index finger that was involved and the procedure was performed on the right side and not on the left side. [id number]/[facility] #: [id number] MTDD
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
--- NOTE | 2017-09-15 18:11 | PN ---
Progress Note - Progress Note Date of Service: 09/15/17 SOAP: Subjective: Mr. Munguia is a 57 yo right-hand dominant M with a PMH of tobacco abuse. Pt. is SP-OP right index finger amputation at the PIP joint d/t osteomyelitis, performed by Dr. Perez five days ago. Patient is doing well at this time, and stated that he is trying to go longer periods between doses of pain medications. Patient denies fever or chills. Objective: Vital Signs Temp Pulse Resp BP Pulse Ox 98.6 F 84 16 140/85 91 09/15/17 15:29 09/15/17 15:29 09/15/17 17:48 09/15/17 15:29 09/15/17 16:00 Laboratory Last Values WBC 10.8 10^3/ul (3.5-10.8) 09/11/17 04:47 RBC 4.45 10^6/ul (4.0-5.4) 09/11/17 04:47 Hgb 13.5 g/dl (14.0-18.0) L 09/11/17 04:47 Hct 41 % (42-52) L 09/11/17 04:47 MCV 92 fL (80-94) 09/11/17 04:47 MCH 30 pg (27-31) 09/11/17 04:47 MCHC 33 g/dl (31-36) 09/11/17 04:47 RDW 16 % (10.5-15) H 09/11/17 04:47 Plt Count 503 10^3/ul (150-450) H 09/11/17 04:47 MPV 7 um3 (7.4-10.4) L 09/11/17 04:47 Neut % (Auto) 69.2 % (38-83) 09/11/17 04:47 Lymph % (Auto) 13.9 % (25-47) L 09/11/17 04:47 [place] % (Auto) 8.4 % (1-9) 09/11/17 04:47 Eos % (Auto) 8.0 % (0-6) H 09/11/17 04:47 Baso % (Auto) 0.5 % (0-2) 09/11/17 04:47 Absolute Neuts (auto) 7.5 10^3/ul (1.5-7.7) 09/11/17 04:47 Absolute Lymphs (auto) 1.5 10^3/ul (1.0-4.8) 09/11/17 04:47 Absolute Monos (auto) 0.9 10^3/ul (0-0.8) H 09/11/17 04:47 Absolute Eos (auto) 0.9 10^3/ul (0-0.6) H 09/11/17 04:47 Absolute Basos (auto) 0.1 10^3/ul (0-0.2) 09/11/17 04:47 Absolute Nucleated RBC 0 10^3/ul 09/11/17 04:47 Nucleated RBC % 0 09/11/17 04:47 INR (Anticoag Therapy) 0.90 (0.89-1.11) 09/10/17 05:42 Sodium 133 mmol/L (133-145) 09/13/17 06:11 Potassium 4.0 mmol/L (3.5-5.0) 09/13/17 06:11 Chloride 105 mmol/L (101-111) 09/13/17 06:11 Carbon Dioxide 22 mmol/L (22-32) 09/13/17 06:11 Anion Gap 6 mmol/L (2-11) 09/13/17 06:11 BUN 15 mg/dL (6-24) 09/13/17 06:11 Creatinine 1.11 mg/dL (0.67-1.17) 09/13/17 06:11 Est GFR ( Amer) 87.8 (>60) 09/13/17 06:11 Est GFR (Non-Af Amer) 68.3 (>60) 09/13/17 06:11 BUN/Creatinine Ratio 13.5 (8-20) 09/13/17 06:11 Glucose 106 mg/dL (70-100) H 09/13/17 06:11 Lactic Acid 1.0 mmol/L (0.5-2.0) 09/07/17 17:48 Calcium 8.5 mg/dL (8.6-10.3) L 09/13/17 06:11 Total Bilirubin 0.80 mg/dL (0.2-1.0) 09/07/17 17:48 AST 34 U/L (13-39) 09/07/17 17:48 ALT 22 U/L (7-52) 09/07/17 17:48 Alkaline Phosphatase 111 U/L (34-104) H 09/07/17 17:48 C-Reactive Protein 58.21 mg/L (< 5.00) H 09/09/17 08:18 Total Protein 7.2 g/dL (6.4-8.9) 09/07/17 17:48 Albumin 3.7 g/dL (3.2-5.2) 09/07/17 17:48 Globulin 3.5 g/dL (2-4) 09/07/17 17:48 Albumin/Globulin Ratio 1.1 (1-3) 09/07/17 17:48 Vancomycin Trough 22.3 mcg/mL 09/14/17 07:11 Hepatitis C Antibody Low reactive (Nonreactive) H 09/08/17 07:30 Hepatitis C RNA Quant Undetected IU/mL (Undetected) 09/08/17 07:30 HIV 1&2 Antibody Nonreactive (Nonreactive) 09/08/17 07:30 General: WDWN, A&O x3, in NAD. Skin: Incision site appears clean and dry, w/o erythema or warmth CV: RRR w/o MRG Respiratory: CTA B/L, w/o edema of LE GI: Abdomen is soft and non-distended, w/o pain to palpation MSK: Moderate amount of stiffness of right index finger, otherwise FROM of MCP joint. Sensation of digit intact. Assessment: SP-OP day 4 of a right index finger amputation at the PIP joint d/t osteomyelitis. [] Plan: []Mr. Munguia is a 57 yo male who is SP-OP day 5 of a right-index finger amputation. 1. Patient is on IV Vancomycin, which will be continued until further notice. Pathology results for wound margins are pending at this time. Infectious disease has been consulted and advised two more weeks of IV vanco if wound margins are clear, and if wound margins are not clear, six more weeks of IV vanco. After speaking with pathology, it appears that wound margins may not be clear, so six weeks of additional antibiotic therapy will be pursued. 2. Pain management should be transitioned to oral medications at this time. 3. Questionable substance abuse history--prior ED documentation suggestive of such, however, pt. denies. Because of this, there are concerns regarding the possibility of pt. going home with a PIC line in place.
[2017-09-15] MEDS: Nicotine Patch Removal NOTE FOLLOW UP SCH (22:00)
[2017-09-16] MEDS: HYDROmorphone INJ* 2 MG/ML CARPUJECT SYRINGE IV SLOW PU PRN ×2 (00:42→05:40)
[2017-09-16] MEDS: Nicotine Inhaler* 10 MG AMP INH PRN (01:55)
[2017-09-16] MEDS: oxyCODONE TAB* 5 MG TAB PO PRN ×2 (03:14→08:31)
[2017-09-16 07:32] VITALS: BP 118/59
[2017-09-16] MEDS: Gabapentin CAP(*) 100 MG PO SCH (08:24)
[2017-09-16] MEDS: Nicotine PATCH 14 MG/24 HR* PATCH TRANSDERM SCH (08:25)
[2017-09-16] MEDS: Ibuprofen TAB* 600 MG PO PRN (08:31)
[2017-09-16] MEDS ORDERED: Vancomycin Trough Check NOTE FOLLOW UP ONE (10:00)
[2017-09-16 10:07] LABS: EGFR Non-African American 66.9 (>60)
[2017-09-16 10:27] LABS: Vancomycin Trough 16.2 mcg/mL
[2017-09-16] MEDS: Vancomycin(*) 1,000 MG in NS 0.9% 250 ML* 250 ML IVPB SCH (10:34)
--- NOTE | 2017-09-16 10:56 | PN ---
Progress Note - Progress Note Date of Service: 09/16/17 SOAP: Subjective: Mr. Munguia is a pleasant 57 yo male SP right index finger amputation just above the PIP d/t an initial finger laceration that led to an osteomyelitis infection. Patient is being treated with Vancomycin and Zosyn. Patient is doing well and has no complaints at this time. Denies any new symptoms such as fatigue, fever, chills, CP, SOB, abdominal pain, N/V/D. Objective: Laboratory Results - last 24 hr 09/16/17 09:45 BUN 12 Creatinine 1.13 Est GFR ( Amer) 86.0 Est GFR (Non-Af Amer) 66.9 Vancomycin Trough 16.2 General: WDWN 57 yo male in NAD. A&O x3. Skin: Incision site appears clean, dry, intact. CV: RRR w/o MRG Respiratory: CTA BL w/o RRW GI: Abdomen is soft and non-tender to palpation. Assessment: SP Right index finger amputation performed by Dr. Perez on d/t osteomyelitis infection secondary to index finger laceration. Plan: Mr. Munguia is a pleasant 57 yo male with a history of possible substance abuse and known tobacco abuse who has been admitted for an amputation of the right index finger that was performed on 09/10/[address] Perez. PICC line was placed this morning, and patient is now in swing status. Will treat with antibiotics for a six week duration. D/t possible substance abuse history, patient will not be discharged home with PICC line in place. Pain management should be transitioned to oral medications.
[2017-09-16] MEDS ORDERED: HYDROmorphone INJ* 1 MG/ML CARPUJECT SYRINGE IV SLOW PU PRN (11:00)
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
== END 2017-09-16 10:50 | disposition swing bed (61) | DRG 316 ==
LOC: ED 14:34 → OR 18:08 → SSU 22:30 → MED 09-15 11:38
PROVIDERS: ADMIT Orthopaedic Surgery; ATTEND Internal Medicine
PROC: 0JBJ0ZZ Excision of Right Hand Subcutaneous Tissue and Fascia, Open Approach (ICD-10-PCS; 2017-09-07)
PROC: 0X6N0Z2 Detachment at Right Index Finger, Mid, Open Approach (ICD-10-PCS; principal; 2017-09-10 18:30)
PROC: 02HV33Z Insertion of Infusion Device into Superior Vena Cava, Percutaneous Approach (ICD-10-PCS; 2017-09-16)
DX: M86.141 Other acute osteomyelitis, right hand (principal); E87.1 Hypo-osmolality and hyponatremia; L98.498 Non-pressure chronic ulcer of skin of other sites with other specified severity; F17.210 Nicotine dependence, cigarettes, uncomplicated; F11.10 Opioid abuse, uncomplicated; F12.10 Cannabis abuse, uncomplicated; L03.011 Cellulitis of right finger; F14.11 Cocaine abuse, in remission; B95.62 Methicillin resistant Staphylococcus aureus infection as the cause of diseases classified elsewhere; B95.4 Other streptococcus as the cause of diseases classified elsewhere; M65.141 Other infective (teno)synovitis, right hand; Z90.81 Acquired absence of spleen; Z72.89 Other problems related to lifestyle; Z79.01 Long term (current) use of anticoagulants
CPT/HCPCS: 36415; 71010; 80048; 80053; 80202; 82565; 83605; 84520; 85025; 85610; 86140; 86703; 86803; 87040; 87070; 87073; 87076; 87077; 87185; 87186; 87205; 87522; 87640; 87641; 88304; 90686; 93005; 99202; 99406; A9270-GY; G0463; J0692; J1170; J1644; J1885; J2060; J2250; J2270; J2405; J2543; J2704; J3010; J3370; J3490

== ENCOUNTER 2017-09-16 10:50 | Inpatient (IN) | payer BC ==
[2017-09-16] MEDS: Nicotine Inhaler* 10 MG AMP INH PRN ×2 (12:32→22:47)
[2017-09-16] MEDS ORDERED: Vancomycin per Pharmacy* NOTE FOLLOW UP PRN (12:50)
[2017-09-16] MEDS ORDERED: Mouth Piece, Nicotine* 1 EACH CARTRIDGE INH ONE (13:00)
[2017-09-16] MEDS ORDERED: Vancomycin(*) 0 MG in NS 0.9% 250 ML* 250 ML IVPB SCH (13:00)
--- NOTE | 2017-09-16 13:11 | PN ---
Progress Note - Progress Note Date of Service: 09/16/17 SOAP: Subjective: []Patient seen at bedside. He feels well with no fever or chills. Pain of right index finger is tolerable and improving day to day. Objective: [] Intake & Output 09/15/17 09/16/17 09/16/17 18:59 06:59 18:59 Intake Total 200 Balance 200 Weight 140 lb Intake: Oral 200 Other: Estimated Void Medium # Bowel Movements 0 # Voids 2 General: Cheerful, well appearing. A&O x 3 R index finger: Incisions healing well, CDI. No erythema of wound edges. Digit without erythema. Edema is markedly improved. CR is brisk distally. Sensation intact distally. Assessment: []s/p partial amputation R index finger due to cellulitis/ osteo Plan: []Continue swingbed status for IV vanco x total of 6 weeks. Encouraged decrease in IV pain meds, smoking cessation
[2017-09-16] MEDS: oxyCODONE TAB* 5 MG TAB PO PRN ×2 (13:20→19:53)
[2017-09-16] MEDS: Enoxaparin(*) 40 MG/0.4 ML SYR SUBCUT SCH (13:21)
[2017-09-16] MEDS: HYDROmorphone INJ* 1 MG/ML CARPUJECT SYRINGE IV SLOW PU PRN ×2 (17:15→23:23)
[2017-09-16] MEDS: Ibuprofen TAB* 600 MG PO PRN (19:54)
[2017-09-16] MEDS: Gabapentin CAP(*) 300 MG PO SCH (19:55)
[2017-09-16] MEDS: Nicotine Patch Removal NOTE FOLLOW UP SCH (23:59)
[2017-09-17] MEDS: Nicotine Inhaler* 10 MG AMP INH PRN ×3 (04:55→20:00)
[2017-09-17] MEDS: HYDROmorphone INJ* 1 MG/ML CARPUJECT SYRINGE IV SLOW PU PRN ×3 (05:03→18:14)
[2017-09-17 05:38] LABS: Hematocrit 37 % (42-52); Mean Corpuscular HGB Conc 33 g/dl (31-36); Mean Corpuscular Hemoglobin 30 pg (27-31); Mean Corpuscular Volume 92 fL (80-94); Mean Platelet Volume 8 um3 (7.4-10.4); Red Blood Count 4.01 10^6/ul (4.0-5.4); Red Cell Distribution Width 16 % (10.5-15); White Blood Count 12.7 10^3/ul (3.5-10.8)
[2017-09-17 05:48] LABS: BUN/Creatinine Ratio 13.9 (8-20); Calcium 8.5 mg/dL (8.6-10.3); EGFR African American 78.7 (>60); EGFR Non-African American 61.2 (>60); Potassium 3.6 mmol/L (3.5-5.0)
[2017-09-17] MEDS: oxyCODONE TAB* 5 MG TAB PO PRN ×4 (06:09→19:59)
[2017-09-17] MEDS: Gabapentin CAP(*) 300 MG PO SCH ×2 (08:41→19:59)
[2017-09-17] MEDS: Nicotine PATCH 14 MG/24 HR* PATCH TRANSDERM SCH (08:42)
[2017-09-17] MEDS: Vancomycin(*) 1,000 MG in NS 0.9% 250 ML* 250 ML IVPB SCH ×4 (09:52→23:00)
[2017-09-17] MEDS: Enoxaparin(*) 40 MG/0.4 ML SYR SUBCUT SCH (11:59)
[2017-09-17] MEDS: Ibuprofen TAB* 600 MG PO PRN ×2 (15:02→19:57)
[2017-09-18] MEDS: HYDROmorphone INJ* 1 MG/ML CARPUJECT SYRINGE IV SLOW PU PRN ×4 (00:36→19:21)
[2017-09-18] MEDS: Nicotine Inhaler* 10 MG AMP INH PRN ×3 (00:37→19:27)
[2017-09-18] MEDS: oxyCODONE TAB* 5 MG TAB PO PRN ×5 (01:25→19:56)
[2017-09-18] MEDS: Nicotine Patch Removal NOTE FOLLOW UP SCH ×2 (01:40→22:20)
[2017-09-18] MEDS: Ibuprofen TAB* 600 MG PO PRN ×3 (05:18→19:59)
[2017-09-18] MEDS: Nicotine PATCH 14 MG/24 HR* PATCH TRANSDERM SCH (08:26)
[2017-09-18] MEDS: Gabapentin CAP(*) 300 MG PO SCH ×2 (08:26→19:58)
[2017-09-18] MEDS: Enoxaparin(*) 40 MG/0.4 ML SYR SUBCUT SCH (12:28)
[2017-09-18] MEDS: Vancomycin(*) 1,000 MG in NS 0.9% 250 ML* 250 ML IVPB SCH ×2 (12:28→22:00)
[2017-09-19] MEDS: oxyCODONE TAB* 5 MG TAB PO PRN ×6 (00:04→23:09)
[2017-09-19] MEDS: HYDROmorphone INJ* 1 MG/ML CARPUJECT SYRINGE IV SLOW PU PRN ×4 (01:28→20:16)
[2017-09-19] MEDS: Nicotine Inhaler* 10 MG AMP INH PRN ×4 (04:44→21:10)
--- NOTE | 2017-09-19 07:43 | PN ---
Progress Note - Progress Note Date of Service: 09/19/17 SOAP: Subjective: [57 you male s/p partial amputation L index finger 09/10/17. I was called last night by nurse with concerns regarding patient's wound. Stitches in place but nurse concerned that surgical wound was gapping open. Patient reports minimal discomfort at this time.] Objective: [A and O x 3, NAD. Inspection of L hand - sutures in place - wound slightly gapped at proximal aspect but eschar in place. No drainage, erythema, no sign of infection. Active but limited motion in index finger. Sensation intact.] Assessment: [s/p L index finger partial amputation.] Plan: [No dressing needed Continue to follow Sutures out on Thursday.]
[2017-09-19] MEDS: Nicotine PATCH 14 MG/24 HR* PATCH TRANSDERM SCH (08:17)
[2017-09-19] MEDS: Gabapentin CAP(*) 300 MG PO SCH ×2 (08:17→21:13)
[2017-09-19] MEDS ORDERED: Vancomycin Trough Check NOTE FOLLOW UP ONE (09:30)
[2017-09-19] MEDS: Vancomycin(*) 1,000 MG in NS 0.9% 250 ML* 250 ML IVPB SCH ×2 (11:23→23:14)
[2017-09-19] MEDS: Enoxaparin(*) 40 MG/0.4 ML SYR SUBCUT SCH (13:47)
[2017-09-19] MEDS: Acetaminophen TAB* 325 MG PO PRN (14:25)
--- NOTE | 2017-09-19 15:11 | PN ---
Hospitalist Progress Note Notified by nursing staff regarding temp 100.0 and slightly elevated respiratory rate. Patient has no complaints. Ordered CBC, BMP and CRP for review tomorrow.
[2017-09-19] MEDS: Nicotine Patch Removal NOTE FOLLOW UP SCH (21:16)
[2017-09-20] MEDS: Acetaminophen TAB* 325 MG PO PRN (02:53)
[2017-09-20] MEDS: HYDROmorphone INJ* 1 MG/ML CARPUJECT SYRINGE IV SLOW PU PRN ×4 (02:55→23:25)
[2017-09-20] MEDS: Nicotine Inhaler* 10 MG AMP INH PRN ×4 (04:56→21:24)
[2017-09-20] MEDS: oxyCODONE TAB* 5 MG TAB PO PRN ×4 (04:58→21:27)
[2017-09-20 05:38] LABS: BUN/Creatinine Ratio 12.6 (8-20); C Reactive Protein 23.94 mg/L (< 5.00); Calcium 8.6 mg/dL (8.6-10.3); Potassium 4.1 mmol/L (3.5-5.0)
[2017-09-20 05:47] LABS: Hematocrit 39 % (42-52); Hemoglobin 13.1 g/dl (14.0-18.0); Mean Corpuscular HGB Conc 33 g/dl (31-36); Mean Corpuscular Hemoglobin 30 pg (27-31); Mean Corpuscular Volume 91 fL (80-94); Mean Platelet Volume 8 um3 (7.4-10.4); Red Blood Count 4.32 10^6/ul (4.0-5.4); Red Cell Distribution Width 16 % (10.5-15)
[2017-09-20 05:51] LABS: Add Diff/Slide Review? Manual Diff Added; Comments Flag Yes
[2017-09-20 06:38] LABS: Add Path Review? YES; Eosinophils % 7 % (0-6); Immature Granulocytes 6 % (0-9); Neutrophil % 60 % (38-83); RBC Morphology Normal (Normal); Reactive Lymph % 1 % (0-6)
[2017-09-20] MEDS: Nicotine PATCH 14 MG/24 HR* PATCH TRANSDERM SCH (10:02)
[2017-09-20] MEDS: Gabapentin CAP(*) 300 MG PO SCH ×2 (10:03→21:26)
[2017-09-20] MEDS: Vancomycin(*) 1,000 MG in NS 0.9% 250 ML* 250 ML IVPB SCH ×2 (10:19→21:36)
[2017-09-20] MEDS: Enoxaparin(*) 40 MG/0.4 ML SYR SUBCUT SCH (13:27)
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
[2017-09-20] MEDS: Nicotine Patch Removal NOTE FOLLOW UP SCH (23:27)
[2017-09-21] MEDS: Nicotine Inhaler* 10 MG AMP INH PRN ×4 (02:26→19:25)
[2017-09-21] MEDS: oxyCODONE TAB* 5 MG TAB PO PRN ×5 (04:44→21:07)
[2017-09-21 05:19] LABS: EGFR African American 68.3 (>60); EGFR Non-African American 53.1 (>60)
[2017-09-21] MEDS: Acetaminophen TAB* 325 MG PO PRN ×2 (05:55→19:26)
[2017-09-21] MEDS: HYDROmorphone INJ* 1 MG/ML CARPUJECT SYRINGE IV SLOW PU PRN ×3 (07:30→19:26)
[2017-09-21] MEDS: Gabapentin CAP(*) 300 MG PO SCH ×2 (08:52→21:02)
[2017-09-21] MEDS: Nicotine PATCH 14 MG/24 HR* PATCH TRANSDERM SCH (08:53)
[2017-09-21] MEDS ORDERED: Vancomycin Trough Check NOTE FOLLOW UP ONE (09:30)
[2017-09-21] MEDS: Vancomycin(*) 1,000 MG in NS 0.9% 250 ML* 250 ML IVPB SCH (10:57)
[2017-09-21] MEDS: Enoxaparin(*) 40 MG/0.4 ML SYR SUBCUT SCH (12:42)
--- NOTE | 2017-09-21 12:59 | PN ---
Progress Note - Progress Note Date of Service: 09/21/17 SOAP: Subjective: []Patient seen at bedside. He has no questions or complaints. Pain and swelling of right index finger are improving. Objective: [] Vital Signs Temp 98.1 F 09/21/17 07:59 Pulse 91 09/21/17 07:59 Resp 18 09/21/17 12:42 BP 109/71 09/21/17 07:59 Pulse Ox 93 09/21/17 07:59 Intake & Output 09/20/17 09/21/17 09/21/17 18:59 06:59 18:59 Intake Total 1685 773 360 Balance 1685 773 360 Intake: IV Fluids 50 48 NS (0.9%) 50 48 IVPB 515 285 ABX - VANCOMYCIN 515 285 Oral 1120 440 360 Other: Estimated Void Medium Large Medium # Bowel Movements 1 1 1 Estimated Stool Amount Medium Large Medium # Voids 2 1 2 Laboratory Last Values WBC 13.0 10^3/ul (3.5-10.8) H 09/20/17 05:07 RBC 4.32 10^6/ul (4.0-5.4) 09/20/17 05:07 Hgb 13.1 g/dl (14.0-18.0) L 09/20/17 05:07 Hct 39 % (42-52) L 09/20/17 05:07 MCV 91 fL (80-94) 09/20/17 05:07 MCH 30 pg (27-31) 09/20/17 05:07 MCHC 33 g/dl (31-36) 09/20/17 05:07 RDW 16 % (10.5-15) H 09/20/17 05:07 Plt Count 467 10^3/ul (150-450) H D 09/20/17 05:07 MPV 8 um3 (7.4-10.4) 09/20/17 05:07 Immature Gran % (Auto) 6 % (0-9) 09/20/17 05:07 Neut % (Auto) 68.7 % (38-83) 09/17/17 05:00 Lymph % (Auto) 14.2 % (25-47) L 09/17/17 05:00 Stanly % (Auto) 9.6 % (1-9) H 09/17/17 05:00 Eos % (Auto) 6.8 % (0-6) H 09/17/17 05:00 Baso % (Auto) 0.7 % (0-2) 09/17/17 05:00 Absolute Neuts (auto) 8.2 10^3/ul (1.5-7.7) H 09/20/17 05:07 Absolute Lymphs (auto) 1.8 10^3/ul (1.0-4.8) 09/20/17 05:07 Absolute Monos (auto) 1.8 10^3/ul (0-0.8) H 09/20/17 05:07 Absolute Eos (auto) 1.0 10^3/ul (0-0.6) H 09/20/17 05:07 Absolute Basos (auto) 0.2 10^3/ul (0-0.2) 09/20/17 05:07 Absolute Nucleated RBC 0.01 10^3/ul 09/20/17 05:07 Neutrophils % 60 % (38-83) 09/20/17 05:07 Band Neutrophils % 6 % (0-8) 09/20/17 05:07 Lymphocytes % 14 % (25-47) L 09/20/17 05:07 Reactive Lymphs % 1 % (0-6) 09/20/17 05:07 Monocytes % 11 % (0-13) 09/20/17 05:07 Eosinophils % 7 % (0-6) H 09/20/17 05:07 Basophils % 1 % (0-2) 09/20/17 05:07 Nucleated RBC % 0 09/17/17 05:00 Normal RBC Morphology Normal (Normal) 09/20/17 05:07 Sodium 130 mmol/L (133-145) L 09/20/17 05:07 Potassium 4.1 mmol/L (3.5-5.0) 09/20/17 05:07 Chloride 99 mmol/L (101-111) L 09/20/17 05:07 Carbon Dioxide 25 mmol/L (22-32) 09/20/17 05:07 Anion Gap 6 mmol/L (2-11) 09/20/17 05:07 BUN 23 mg/dL (6-24) 09/21/17 04:50 Creatinine 1.38 mg/dL (0.67-1.17) H 09/21/17 04:50 Est GFR ( Amer) 68.3 (>60) 09/21/17 04:50 Est GFR (Non-Af Amer) 53.1 (>60) 09/21/17 04:50 BUN/Creatinine Ratio 12.6 (8-20) 09/20/17 05:07 Glucose 124 mg/dL (70-100) H 09/20/17 05:07 Calcium 8.6 mg/dL (8.6-10.3) 09/20/17 05:07 C-Reactive Protein 23.94 mg/L (< 5.00) H 09/20/17 05:07 Vancomycin Trough 19.7 mcg/mL 09/21/17 08:55 General: Well appearing, no acute distress Right Index Finger: Incisions CDI. Sutures in place. Digit without erythema, minimal edema. Improved ROM of PIP. Brisk capillary refill distally. Right Radial pulse 2+ Assessment: [] s/p partial amputation R index finger Plan: [] No dressing necessary Plan for sutures out today Will continue to follow a 2-3 times per week.
[2017-09-21] MEDS: Nicotine Patch Removal NOTE FOLLOW UP SCH (21:04)
[2017-09-22] MEDS: HYDROmorphone INJ* 1 MG/ML CARPUJECT SYRINGE IV SLOW PU PRN ×4 (02:21→19:50)
[2017-09-22] MEDS: oxyCODONE TAB* 5 MG TAB PO PRN ×5 (03:58→21:28)
[2017-09-22] MEDS: Vancomycin(*) 1,000 MG in NS 0.9% 250 ML* 250 ML IVPB SCH ×2 (03:58→22:17)
[2017-09-22] MEDS: Nicotine Inhaler* 10 MG AMP INH PRN ×6 (03:58→22:17)
[2017-09-22] MEDS: Nicotine PATCH 14 MG/24 HR* PATCH TRANSDERM SCH (07:58)
[2017-09-22] MEDS: Gabapentin CAP(*) 300 MG PO SCH ×2 (07:58→19:49)
[2017-09-22] MEDS: Enoxaparin(*) 40 MG/0.4 ML SYR SUBCUT SCH (12:33)
[2017-09-22] MEDS: Nicotine Patch Removal NOTE FOLLOW UP SCH (22:21)
[2017-09-23] MEDS: HYDROmorphone INJ* 1 MG/ML CARPUJECT SYRINGE IV SLOW PU PRN ×5 (00:41→23:52)
[2017-09-23] MEDS: oxyCODONE TAB* 5 MG TAB PO PRN ×6 (01:54→21:49)
[2017-09-23] MEDS: Nicotine PATCH 14 MG/24 HR* PATCH TRANSDERM SCH (08:06)
[2017-09-23] MEDS: Gabapentin CAP(*) 300 MG PO SCH ×2 (08:06→21:50)
[2017-09-23] MEDS: Nicotine Inhaler* 10 MG AMP INH PRN ×5 (08:10→23:52)
[2017-09-23] MEDS: Enoxaparin(*) 40 MG/0.4 ML SYR SUBCUT SCH (12:20)
[2017-09-23] MEDS: Vancomycin(*) 1,000 MG in NS 0.9% 250 ML* 250 ML IVPB SCH (15:30)
[2017-09-23] MEDS: Nicotine Patch Removal NOTE FOLLOW UP SCH (21:53)
[2017-09-24] MEDS: oxyCODONE TAB* 5 MG TAB PO PRN ×6 (01:55→23:23)
[2017-09-24] MEDS: HYDROmorphone INJ* 1 MG/ML CARPUJECT SYRINGE IV SLOW PU PRN ×3 (05:54→20:35)
[2017-09-24] MEDS: Nicotine Inhaler* 10 MG AMP INH PRN ×6 (05:59→23:53)
[2017-09-24] MEDS: Gabapentin CAP(*) 300 MG PO SCH ×2 (07:51→20:28)
[2017-09-24] MEDS: Nicotine PATCH 14 MG/24 HR* PATCH TRANSDERM SCH (07:54)
[2017-09-24] MEDS ORDERED: Vancomycin Trough Check NOTE FOLLOW UP ONE (09:30)
[2017-09-24 10:18] LABS: EGFR African American 84.3 (>60); EGFR Non-African American 65.5 (>60)
[2017-09-24] MEDS: Vancomycin(*) 1,000 MG in NS 0.9% 250 ML* 250 ML IVPB SCH (10:23)
[2017-09-24] MEDS: Enoxaparin(*) 40 MG/0.4 ML SYR SUBCUT SCH (12:12)
[2017-09-24] MEDS: Nicotine Patch Removal NOTE FOLLOW UP SCH (20:31)
[2017-09-25] MEDS: HYDROmorphone INJ* 1 MG/ML CARPUJECT SYRINGE IV SLOW PU PRN ×4 (02:45→22:30)
[2017-09-25] MEDS: oxyCODONE TAB* 5 MG TAB PO PRN ×5 (03:27→20:35)
[2017-09-25] MEDS: Nicotine Inhaler* 10 MG AMP INH PRN ×5 (03:28→19:40)
[2017-09-25] MEDS: Vancomycin(*) 1,000 MG in NS 0.9% 250 ML* 250 ML IVPB SCH ×2 (03:28→20:37)
[2017-09-25] MEDS: Nicotine PATCH 14 MG/24 HR* PATCH TRANSDERM SCH (07:32)
[2017-09-25] MEDS: Gabapentin CAP(*) 300 MG PO SCH ×2 (07:32→20:35)
[2017-09-25] MEDS: Enoxaparin(*) 40 MG/0.4 ML SYR SUBCUT SCH (12:13)
--- NOTE | 2017-09-25 14:40 | PN ---
Progress Note - Progress Note Date of Service: 09/25/17 SOAP: Subjective: 57 y/o male s/p R partial finger amputation by Dr. Schenider 09/10/2017. VSS afebrile overnight. Patient reports feelling well, continues to have pain intermittenly. Doing warm soaks once daily, denies drainage. i Objective: General Well appearing, nAD, resting comfortably MSK- distal incision intact well healed over R index fingertip. between 2-3 fingerweb shallow wound bed, ~ 5mm x 5mm, no active drainage. No erythema, full ROM. Vital Signs Temp 97.7 F 09/25/17 07:38 Pulse 70 09/25/17 07:38 Resp 16 09/25/17 14:18 BP 103/67 09/25/17 07:38 Pulse Ox 94 09/25/17 07:38 Intake & Output 09/24/17 09/25/17 09/25/17 18:59 06:59 18:59 Intake Total 1630 265 600 Output Total 0 Balance 1630 265 600 Intake: IV Fluids 270 ABX - VANCOMYCIN 250 NS (0.9%) 20 IVPB 265 ABX - VANCOMYCIN 265 Oral 1360 0 600 Output: Urine 0 Other: Estimated Void Medium Medium # Bowel Movements 1 0 Estimated Stool Amount Large # Voids 3 0 3 Assessment: 57 y/o male s/p R partial finger amputation by Dr. Schneider 09/10/2017. Plan: - Continue IV abx per ID - COntinue warm soaks daily - Will continue to follow. Active Medications Generic Name Dose Route Start Last Admin Trade Name Freq PRN Reason Stop Dose Admin Acetaminophen 650 mg 09/16/17 12:05 09/21/17 19:26 Tylenol Tab* PO 650 mg Q4H PRN Administration FEVER/PAIN Enoxaparin Sodium 40 mg 09/16/17 13:00 09/25/17 12:13 Lovenox(*) SUBCUT 40 mg Q24H [facility] Administration Gabapentin 300 mg 09/16/17 21:00 09/25/17 07:32 Neurontin Cap(*) PO 300 mg BID [facility] Administration Heparin Sodium (Porcine) 1 ml 09/16/17 18:00 09/25/17 06:02 Heparin Flush Picc/Ml/Cvc(*) FLUSH 1 ml 0600,1800 [facility] Administration Protocol Hydromorphone HCl 1 mg 09/16/17 12:12 09/25/17 10:25 Dilaudid Injic* IV SLOW PU 1 mg Q6H PRN Administration PAIN Vancomycin HCl 1,000 mg/ 250 mls @ 166.667 mls/hr 09/22/17 04:00 09/25/17 03: 28 Sodium Chloride IVPB 166.667 mls/hr Q18H [facility] Administration Ibuprofen 600 mg 09/16/17 12:12 09/18/17 19:59 Motrin Tab* PO 600 mg Q6H PRN Administration PAIN Nicotine 1 patch 09/17/17 09:00 09/25/17 07:32 Nicotine Patch 14 Mg/24 Hr* TRANSDERM 1 patch DAILY [facility] Administration Nicotine 10 mg 09/16/17 12:12 09/25/17 10:48 Nicotine Inhaler* INH 10 mg Q2H PRN Administration CRAVING Oxycodone HCl 15 mg 09/16/17 12:14 09/25/17 12:13 Roxycodone Tab* PO 15 mg Q4H PRN Administration PAIN Pharmacy Consult 1 note 09/16/17 12:50 Vancomycin Per Pharmacy* FOLLOW UP . PRN PER PROTOCOL Pharmacy Profile Note 1 note 09/16/17 21:00 09/24/17 20:31 Nicotine Patch Removal Note* FOLLOW UP 1 note [address] [facility] Administration Pharmacy Profile Note 1 note 09/27/17 09:30 Vancomycin Trough Check FOLLOW UP 09/27/17 09:31 ONCE ONE
[2017-09-25] MEDS: Ibuprofen TAB* 600 MG PO PRN (20:35)
[2017-09-26] MEDS: oxyCODONE TAB* 5 MG TAB PO PRN ×5 (00:20→20:30)
[2017-09-26] MEDS: Nicotine Patch Removal NOTE FOLLOW UP SCH ×2 (00:25→23:48)
[2017-09-26] MEDS: Nicotine Inhaler* 10 MG AMP INH PRN ×5 (00:25→20:31)
[2017-09-26] MEDS: HYDROmorphone INJ* 1 MG/ML CARPUJECT SYRINGE IV SLOW PU PRN (04:43)
[2017-09-26] MEDS: Gabapentin CAP(*) 300 MG PO SCH ×2 (10:08→20:31)
[2017-09-26] MEDS: HYDROmorphone TAB* 4 MG PO PRN ×3 (10:08→21:32)
[2017-09-26] MEDS: Ibuprofen TAB* 600 MG PO PRN ×3 (10:08→21:32)
[2017-09-26] MEDS: Nicotine PATCH 14 MG/24 HR* PATCH TRANSDERM SCH (10:09)
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
[2017-09-26] MEDS: Vancomycin(*) 1,000 MG in NS 0.9% 250 ML* 250 ML IVPB SCH (15:24)
[2017-09-26] MEDS: Enoxaparin(*) 40 MG/0.4 ML SYR SUBCUT SCH (15:24)
[2017-09-27] MEDS: oxyCODONE TAB* 5 MG TAB PO PRN ×6 (00:24→22:11)
[2017-09-27] MEDS: Nicotine Inhaler* 10 MG AMP INH PRN ×3 (00:25→16:09)
[2017-09-27] MEDS: HYDROmorphone TAB* 4 MG PO PRN ×4 (03:49→22:11)
[2017-09-27] MEDS: Ibuprofen TAB* 600 MG PO PRN ×3 (05:43→16:10)
[2017-09-27 06:03] LABS: Hematocrit 39 % (42-52); Hemoglobin 13.5 g/dl (14.0-18.0); Mean Platelet Volume 7 um3 (7.4-10.4)
[2017-09-27 06:29] LABS: EGFR African American 69.5 (>60)
[2017-09-27] MEDS ORDERED: Vancomycin Trough Check NOTE FOLLOW UP ONE (09:30)
[2017-09-27] MEDS: Gabapentin CAP(*) 300 MG PO SCH ×2 (10:12→21:19)
[2017-09-27] MEDS: Nicotine PATCH 14 MG/24 HR* PATCH TRANSDERM SCH (10:14)
[2017-09-27] MEDS: Vancomycin(*) 1,000 MG in NS 0.9% 250 ML* 250 ML IVPB SCH (11:13)
[2017-09-27] MEDS: Enoxaparin(*) 40 MG/0.4 ML SYR SUBCUT SCH (16:10)
[2017-09-27] MEDS: Nicotine Patch Removal NOTE FOLLOW UP SCH (21:24)
[2017-09-28] MEDS: oxyCODONE TAB* 5 MG TAB PO PRN ×5 (02:24→20:47)
[2017-09-28] MEDS: Nicotine Inhaler* 10 MG AMP INH PRN ×5 (02:25→22:38)
[2017-09-28] MEDS: HYDROmorphone TAB* 4 MG PO PRN ×4 (04:09→23:26)
[2017-09-28] MEDS: Vancomycin(*) 1,000 MG in NS 0.9% 250 ML* 250 ML IVPB SCH ×2 (04:10→22:36)
--- NOTE | 2017-09-28 08:11 | PN ---
Progress Note - Progress Note Date of Service: 09/28/17 SOAP: Subjective: []Patient seen at bedside. Right finger pain is improving and he is feeling well. Objective: [] Vital Signs Temp 98.4 F 09/27/17 21:26 Pulse 74 09/27/17 21:26 Resp 18 09/28/17 06:17 BP 120/76 09/27/17 21:26 Pulse Ox 95 09/27/17 21:26 Intake & Output 09/27/17 09/28/17 09/28/17 18:59 06:59 18:59 Intake Total 3074 710 Output Total 0 Balance 3074 710 Intake: IV Fluids 284 270 ABX - VANCOMYCIN 250 ALL FLUIDS 284 NS (0.9%) 20 Oral 2790 440 Output: Urine 0 Other: Estimated Void Medium # Bowel Movements 2 0 # Voids 3 Laboratory Last Values WBC 13.0 10^3/ul (3.5-10.8) H 09/20/17 05:07 RBC 4.32 10^6/ul (4.0-5.4) 09/20/17 05:07 Hgb 13.5 g/dl (14.0-18.0) L 09/27/17 05:55 Hct 39 % (42-52) L 09/27/17 05:55 MCV 91 fL (80-94) 09/20/17 05:07 MCH 30 pg (27-31) 09/20/17 05:07 MCHC 33 g/dl (31-36) 09/20/17 05:07 RDW 16 % (10.5-15) H 09/20/17 05:07 Plt Count 561 10^3/ul (150-450) H D 09/27/17 05:55 MPV 7 um3 (7.4-10.4) L 09/27/17 05:55 Immature Gran % (Auto) 6 % (0-9) 09/20/17 05:07 Neut % (Auto) 68.7 % (38-83) 09/17/17 05:00 Lymph % (Auto) 14.2 % (25-47) L 09/17/17 05:00 [place]acken % (Auto) 9.6 % (1-9) H 09/17/17 05:00 Eos % (Auto) 6.8 % (0-6) H 09/17/17 05:00 Baso % (Auto) 0.7 % (0-2) 09/17/17 05:00 Absolute Neuts (auto) 8.2 10^3/ul (1.5-7.7) H 09/20/17 05:07 Absolute Lymphs (auto) 1.8 10^3/ul (1.0-4.8) 09/20/17 05:07 Absolute Monos (auto) 1.8 10^3/ul (0-0.8) H 09/20/17 05:07 Absolute Eos (auto) 1.0 10^3/ul (0-0.6) H 09/20/17 05:07 Absolute Basos (auto) 0.2 10^3/ul (0-0.2) 09/20/17 05:07 Absolute Nucleated RBC 0.01 10^3/ul 09/20/17 05:07 Neutrophils % 60 % (38-83) 09/20/17 05:07 Band Neutrophils % 6 % (0-8) 09/20/17 05:07 Lymphocytes % 14 % (25-47) L 09/20/17 05:07 Reactive Lymphs % 1 % (0-6) 09/20/17 05:07 Monocytes % 11 % (0-13) 09/20/17 05:07 Eosinophils % 7 % (0-6) H 09/20/17 05:07 Basophils % 1 % (0-2) 09/20/17 05:07 Nucleated RBC % 0 09/17/17 05:00 Normal RBC Morphology Normal (Normal) 09/20/17 05:07 Hem Pathologist Commnt 09/20/17 05:07 Sodium 130 mmol/L (133-145) L 09/20/17 05:07 Potassium 4.1 mmol/L (3.5-5.0) 09/20/17 05:07 Chloride 99 mmol/L (101-111) L 09/20/17 05:07 Carbon Dioxide 25 mmol/L (22-32) 09/20/17 05:07 Anion Gap 6 mmol/L (2-11) 09/20/17 05:07 BUN 24 mg/dL (6-24) 09/27/17 05:55 Creatinine 1.36 mg/dL (0.67-1.17) H 09/27/17 05:55 Est GFR ( Amer) 69.5 (>60) 09/27/17 05:55 Est GFR (Non-Af Amer) 54.0 (>60) 09/27/17 05:55 BUN/Creatinine Ratio 12.6 (8-20) 09/20/17 05:07 Glucose 124 mg/dL (70-100) H 09/20/17 05:07 Calcium 8.6 mg/dL (8.6-10.3) 09/20/17 05:07 C-Reactive Protein 23.94 mg/L (< 5.00) H 09/20/17 05:07 Vancomycin Trough 15.6 mcg/mL 09/27/17 09:35 General: Well appearing, no acute distress RUE: Right index finger with well healed incisions, minimal edema and no erythema. R index finger is mildly tender to palpation with brisk capillary refill distally. Radial pulse 2+. Right palm wound healing well. Assessment: []57 y/o male s/p R partial finger amputation by Dr. Perez on 09/10/2017. Plan: [] - Continue IV abx per ID - Continue warm soaks daily until closure of wounds - Will continue to follow
[2017-09-28] MEDS: Gabapentin CAP(*) 300 MG PO SCH ×2 (10:53→20:47)
[2017-09-28] MEDS: Nicotine PATCH 14 MG/24 HR* PATCH TRANSDERM SCH (10:54)
[2017-09-28] MEDS: Enoxaparin(*) 40 MG/0.4 ML SYR SUBCUT SCH (15:17)
[2017-09-28] MEDS: Nicotine Patch Removal NOTE FOLLOW UP SCH (20:47)
[2017-09-29] MEDS: oxyCODONE TAB* 5 MG TAB PO PRN ×6 (01:17→23:23)
[2017-09-29] MEDS: HYDROmorphone TAB* 4 MG PO PRN ×3 (05:49→18:54)
[2017-09-29] MEDS: Nicotine Inhaler* 10 MG AMP INH PRN ×5 (05:50→21:40)
[2017-09-29] MEDS: Gabapentin CAP(*) 300 MG PO SCH ×2 (09:55→21:40)
[2017-09-29] MEDS: Nicotine PATCH 14 MG/24 HR* PATCH TRANSDERM SCH (09:56)
[2017-09-29] MEDS: Vancomycin(*) 1,000 MG in NS 0.9% 250 ML* 250 ML IVPB SCH (16:10)
[2017-09-29] MEDS: Enoxaparin(*) 40 MG/0.4 ML SYR SUBCUT SCH (16:10)
[2017-09-29] MEDS ORDERED: Alteplase (CATHFLO)* 2 MG VIAL IV ONE (16:17)
[2017-09-29] MEDS: Nicotine Patch Removal NOTE FOLLOW UP SCH (21:47)
[2017-09-30] MEDS: HYDROmorphone TAB* 4 MG PO PRN ×4 (01:30→21:09)
[2017-09-30] MEDS: Nicotine Inhaler* 10 MG AMP INH PRN ×6 (01:34→21:00)
[2017-09-30] MEDS: oxyCODONE TAB* 5 MG TAB PO PRN ×5 (03:49→22:41)
[2017-09-30] MEDS: Nicotine PATCH 14 MG/24 HR* PATCH TRANSDERM SCH (08:57)
[2017-09-30] MEDS: Gabapentin CAP(*) 300 MG PO SCH ×2 (08:59→21:01)
[2017-09-30] MEDS ORDERED: Vancomycin Trough Check NOTE FOLLOW UP ONE (09:30)
[2017-09-30 10:30] LABS: EGFR African American 72.5 (>60); EGFR Non-African American 56.4 (>60)
[2017-09-30 10:31] LABS: Vancomycin Trough 16.4 mcg/mL
[2017-09-30] MEDS: Vancomycin(*) 1,000 MG in NS 0.9% 250 ML* 250 ML IVPB SCH (11:29)
[2017-09-30] MEDS: Enoxaparin(*) 40 MG/0.4 ML SYR SUBCUT SCH (15:14)
[2017-09-30] MEDS: Nicotine Patch Removal NOTE FOLLOW UP SCH (22:30)
[2017-10-01] MEDS: oxyCODONE TAB* 5 MG TAB PO PRN ×5 (02:40→21:15)
[2017-10-01] MEDS: Vancomycin(*) 1,000 MG in NS 0.9% 250 ML* 250 ML IVPB SCH ×2 (03:22→21:30)
[2017-10-01] MEDS: HYDROmorphone TAB* 4 MG PO PRN ×4 (03:23→23:17)
[2017-10-01] MEDS: Nicotine Inhaler* 10 MG AMP INH PRN ×5 (05:14→23:24)
[2017-10-01] MEDS: Gabapentin CAP(*) 300 MG PO SCH ×2 (07:54→21:14)
[2017-10-01] MEDS: Nicotine PATCH 14 MG/24 HR* PATCH TRANSDERM SCH (07:55)
--- NOTE | 2017-10-01 12:04 | PN ---
Progress Note - Progress Note Date of Service: 10/01/17 SOAP: Subjective: []Patient seen at bedside. He states his R index finger has been mildly more painful over the past 2-3 days, though he also confirms he has been using less pain medication. He continues daily soaks, denies any purulent discharge from open wound in palm. Objective: [] Vital Signs Temp 97.7 F 09/30/17 14:00 Pulse 91 09/30/17 23:32 Resp 15 10/01/17 10:28 BP 114/62 09/30/17 23:32 Pulse Ox 96 09/30/17 23:32 Intake & Output 09/30/17 10/01/17 10/01/17 18:59 06:59 18:59 Intake Total 1750 440 240 Balance 1750 440 240 Intake: IV Fluids 0 ALL FLUIDS 0 Oral 1750 440 240 Other: Estimated Void Large # Bowel Movements 1 0 # Voids 1 Laboratory Last Values WBC 13.0 10^3/ul (3.5-10.8) H 09/20/17 05:07 RBC 4.32 10^6/ul (4.0-5.4) 09/20/17 05:07 Hgb 13.5 g/dl (14.0-18.0) L 09/27/17 05:55 Hct 39 % (42-52) L 09/27/17 05:55 MCV 91 fL (80-94) 09/20/17 05:07 MCH 30 pg (27-31) 09/20/17 05:07 MCHC 33 g/dl (31-36) 09/20/17 05:07 RDW 16 % (10.5-15) H 09/20/17 05:07 Plt Count 561 10^3/ul (150-450) H D 09/27/17 05:55 MPV 7 um3 (7.4-10.4) L 09/27/17 05:55 Immature Gran % (Auto) 6 % (0-9) 09/20/17 05:07 Neut % (Auto) 68.7 % (38-83) 09/17/17 05:00 Lymph % (Auto) 14.2 % (25-47) L 09/17/17 05:00 [place] % (Auto) 9.6 % (1-9) H 09/17/17 05:00 Eos % (Auto) 6.8 % (0-6) H 09/17/17 05:00 Baso % (Auto) 0.7 % (0-2) 09/17/17 05:00 Absolute Neuts (auto) 8.2 10^3/ul (1.5-7.7) H 09/20/17 05:07 Absolute Lymphs (auto) 1.8 10^3/ul (1.0-4.8) 09/20/17 05:07 Absolute Monos (auto) 1.8 10^3/ul (0-0.8) H 09/20/17 05:07 Absolute Eos (auto) 1.0 10^3/ul (0-0.6) H 09/20/17 05:07 Absolute Basos (auto) 0.2 10^3/ul (0-0.2) 09/20/17 05:07 Absolute Nucleated RBC 0.01 10^3/ul 09/20/17 05:07 Neutrophils % 60 % (38-83) 09/20/17 05:07 Band Neutrophils % 6 % (0-8) 09/20/17 05:07 Lymphocytes % 14 % (25-47) L 09/20/17 05:07 Reactive Lymphs % 1 % (0-6) 09/20/17 05:07 Monocytes % 11 % (0-13) 09/20/17 05:07 Eosinophils % 7 % (0-6) H 09/20/17 05:07 Basophils % 1 % (0-2) 09/20/17 05:07 Nucleated RBC % 0 09/17/17 05:00 Normal RBC Morphology Normal (Normal) 09/20/17 05:07 Hem Pathologist Commnt 09/20/17 05:07 Sodium 130 mmol/L (133-145) L 09/20/17 05:07 Potassium 4.1 mmol/L (3.5-5.0) 09/20/17 05:07 Chloride 99 mmol/L (101-111) L 09/20/17 05:07 Carbon Dioxide 25 mmol/L (22-32) 09/20/17 05:07 Anion Gap 6 mmol/L (2-11) 09/20/17 05:07 BUN 25 mg/dL (6-24) H 09/30/17 09:03 Creatinine 1.31 mg/dL (0.67-1.17) H 09/30/17 09:03 Est GFR ( Amer) 72.5 (>60) 09/30/17 09:03 Est GFR (Non-Af Amer) 56.4 (>60) 09/30/17 09:03 BUN/Creatinine Ratio 12.6 (8-20) 09/20/17 05:07 Glucose 124 mg/dL (70-100) H 09/20/17 05:07 Calcium 8.6 mg/dL (8.6-10.3) 09/20/17 05:07 C-Reactive Protein 23.94 mg/L (< 5.00) H 09/20/17 05:07 Vancomycin Trough 16.4 mcg/mL 09/30/17 09:03 General: Laying in bed, well appearing, NAD RUE: R index finger: incisions healing well. Edema has decreased significantly. No erythema. R palm wound healing well, still minimally open. No discharge. Assessment: []57 y/o male s/p R partial finger amputation by Dr. Perez on 09/10/2017. Plan: - Continue IV ABX per hospitalists - Pain adequately controlled, encouraged a decrease in narcotic pain medication as able Plan: []
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
[2017-10-01] MEDS: Enoxaparin(*) 40 MG/0.4 ML SYR SUBCUT SCH (16:22)
[2017-10-01] MEDS: Nicotine Patch Removal NOTE FOLLOW UP SCH (22:43)
[2017-10-02] MEDS: oxyCODONE TAB* 5 MG TAB PO PRN ×6 (01:31→22:20)
[2017-10-02] MEDS: HYDROmorphone TAB* 4 MG PO PRN ×3 (05:17→18:29)
[2017-10-02] MEDS: Nicotine Inhaler* 10 MG AMP INH PRN ×5 (05:28→22:21)
[2017-10-02] MEDS: Gabapentin CAP(*) 300 MG PO SCH ×2 (09:37→20:49)
[2017-10-02] MEDS: Nicotine PATCH 14 MG/24 HR* PATCH TRANSDERM SCH (09:37)
--- NOTE | 2017-10-02 14:42 | PN ---
Progress Note - Progress Note Date of Service: 10/02/17 SOAP: Subjective: 57 y/o male s/p R partial finger amputation by Dr. Schneider 09/10/2017. Objective: General- Well appearing, NAD AO MSK- R amputateed finger well healed distally, small superficial opening, scabbed over, over MCP, ~ 1cm x 5mm. no erythema noted, rad, ulnar pulses 2+ , no swelling noted. Vital Signs Temp 97.5 F 10/02/17 07:50 Pulse 77 10/02/17 07:50 Resp 18 10/02/17 14:26 BP 117/64 10/02/17 07:50 Pulse Ox 96 10/02/17 07:50 Intake & Output 10/01/17 10/02/17 10/02/17 18:59 06:59 18:59 Intake Total 2190 444 1000 Balance 2190 444 1000 Intake: IV Fluids 244 ABX - VANCOMYCIN 244 Oral 2190 200 1000 Other: Estimated Void Medium Medium # Bowel Movements 0 0 1 Estimated Stool Amount Medium Large # Voids 4 3 Assessment: 57 y/o male s/p R partial finger amputation by Dr. Schneider 09/10/2017. Plan: - ID consult placed for future care/ plans - Continue IV ABX per hospitalists - Pain controlled Active Medications Generic Name Dose Route Start Last Admin Trade Name Freq PRN Reason Stop Dose Admin Acetaminophen 650 mg 09/16/17 12:05 09/21/17 19:26 Tylenol Tab* PO 650 mg Q4H PRN Administration FEVER/PAIN Enoxaparin Sodium 40 mg 09/26/17 16:00 10/01/17 16:22 Lovenox(*) SUBCUT 40 mg Q24H [facility] Administration Gabapentin 300 mg 09/16/17 21:00 10/02/17 09:37 Neurontin Cap(*) PO 300 mg BID [facility] Administration Heparin Sodium (Porcine) 1 ml 09/16/17 18:00 10/02/17 04:57 Heparin Flush Picc/Ml/Cvc(*) FLUSH Not Given 0600,1800 [facility] Protocol Hydromorphone HCl 4 mg 09/26/17 07:56 10/02/17 11:49 Dilaudid Tab* PO 4 mg Q6H PRN Administration PAIN Vancomycin HCl 1,000 mg/ 250 mls @ 166.667 mls/hr 09/22/17 04:00 10/01/17 21: 30 Sodium Chloride IVPB 166.667 mls/hr Q18H [facility] Administration Ibuprofen 600 mg 09/16/17 12:12 09/27/17 16:10 Motrin Tab* PO 600 mg Q6H PRN Administration PAIN Nicotine 1 patch 09/17/17 09:00 10/02/17 09:37 Nicotine Patch 14 Mg/24 Hr* TRANSDERM 1 patch DAILY [facility] Administration Nicotine 10 mg 09/16/17 12:12 10/02/17 11:52 Nicotine Inhaler* INH 10 mg Q2H PRN Administration CRAVING Oxycodone HCl 15 mg 09/16/17 12:14 10/02/17 14:26 Roxycodone Tab* PO 15 mg Q4H PRN Administration PAIN Pharmacy Consult 1 note 09/16/17 12:50 Vancomycin Per Pharmacy* FOLLOW UP . PRN PER PROTOCOL Pharmacy Profile Note 1 note 09/16/17 21:00 10/01/17 22:43 Nicotine Patch Removal Note* FOLLOW UP 1 note [address] [facility] Administration Pharmacy Profile Note 1 note 10/03/17 09:30 Vancomycin Trough Check FOLLOW UP 10/03/17 09:31 ONCE ONE
[2017-10-02] MEDS: Enoxaparin(*) 40 MG/0.4 ML SYR SUBCUT SCH (16:33)
[2017-10-02] MEDS: Vancomycin(*) 1,000 MG in NS 0.9% 250 ML* 250 ML IVPB SCH (16:34)
[2017-10-02] MEDS: Nicotine Patch Removal NOTE FOLLOW UP SCH (20:50)
[2017-10-03] MEDS: HYDROmorphone TAB* 4 MG PO PRN ×4 (00:23→19:15)
[2017-10-03] MEDS: oxyCODONE TAB* 5 MG TAB PO PRN ×6 (02:28→23:29)
[2017-10-03] MEDS: Nicotine Inhaler* 10 MG AMP INH PRN ×6 (04:28→23:29)
[2017-10-03 05:45] LABS: Hematocrit 40 % (42-52); Hemoglobin 13.1 g/dl (14.0-18.0); Mean Platelet Volume 7 um3 (7.4-10.4)
[2017-10-03 06:21] LABS: EGFR African American 71.9 (>60); EGFR Non-African American 55.9 (>60)
[2017-10-03 08:16] LABS: White Blood Count 12.4 10^3/ul (3.5-10.8)
[2017-10-03] MEDS ORDERED: Vancomycin Trough Check NOTE FOLLOW UP ONE (09:30)
[2017-10-03] MEDS: Nicotine PATCH 14 MG/24 HR* PATCH TRANSDERM SCH (09:49)
[2017-10-03] MEDS: Gabapentin CAP(*) 300 MG PO SCH ×2 (09:49→19:14)
[2017-10-03] MEDS: Vancomycin(*) 1,000 MG in NS 0.9% 250 ML* 250 ML IVPB SCH (11:45)
[2017-10-03] MEDS: Enoxaparin(*) 40 MG/0.4 ML SYR SUBCUT SCH (15:30)
[2017-10-03] MEDS: Nicotine Patch Removal NOTE FOLLOW UP SCH (19:17)
[2017-10-04] MEDS: HYDROmorphone TAB* 4 MG PO PRN ×3 (01:10→14:11)
[2017-10-04] MEDS: Nicotine Inhaler* 10 MG AMP INH PRN ×6 (03:15→23:10)
[2017-10-04] MEDS: oxyCODONE TAB* 5 MG TAB PO PRN ×5 (03:26→21:10)
[2017-10-04] MEDS: Vancomycin(*) 1,000 MG in NS 0.9% 250 ML* 250 ML IVPB SCH ×2 (03:26→21:06)
[2017-10-04] MEDS: Nicotine PATCH 14 MG/24 HR* PATCH TRANSDERM SCH (07:50)
[2017-10-04] MEDS: Gabapentin CAP(*) 300 MG PO SCH ×2 (07:51→21:11)
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
[2017-10-04 14:58] LABS: C Reactive Protein 10.09 mg/L (< 5.00)
[2017-10-04] MEDS: Enoxaparin(*) 40 MG/0.4 ML SYR SUBCUT SCH (17:12)
[2017-10-04] MEDS ORDERED: Alteplase (CATHFLO)* 2 MG VIAL IV ONE (17:53)
[2017-10-04] MEDS: HYDROmorphone TAB* 2 MG PO PRN (21:10)
[2017-10-04] MEDS: Nicotine Patch Removal NOTE FOLLOW UP SCH (21:12)
[2017-10-05] MEDS: oxyCODONE TAB* 5 MG TAB PO PRN ×6 (01:22→21:28)
[2017-10-05] MEDS: HYDROmorphone TAB* 2 MG PO PRN ×4 (03:03→23:12)
[2017-10-05] MEDS: Nicotine Inhaler* 10 MG AMP INH PRN ×4 (04:38→23:14)
[2017-10-05] MEDS: Gabapentin CAP(*) 300 MG PO SCH ×3 (09:03→20:25)
[2017-10-05] MEDS: Nicotine PATCH 14 MG/24 HR* PATCH TRANSDERM SCH (09:03)
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
--- NOTE | 2017-10-05 13:53 | PN ---
Progress Note - Progress Note Date of Service: 10/05/17 SOAP: Subjective: []Patient seen at bedside. He is feeling well without complaint of R index finger pain, chest pain, shortness of breath or fever. Objective: []General- Well appearing, NAD RUE - R index amputated finger well healed distally, small palmar superficial opening, scabbed over of distal palm. No erythema or edema. Radial pulse 2+. Conitnued improved ROM R index finger Vital Signs Temp 98.1 F 10/05/17 09:01 Pulse 62 10/05/17 09:01 Resp 16 10/05/17 14:33 BP 118/64 10/05/17 09:01 Pulse Ox 97 10/05/17 09:01 Intake & Output 10/04/17 10/05/17 10/05/17 18:59 06:59 18:59 Intake Total 790 890 280 Balance 790 890 280 Intake: IV Fluids 0 290 ABX - VANCOMYCIN 250 ALL FLUIDS 0 NS (0.9%) 40 Oral 790 600 280 Other: Estimated Void Medium # Voids 2 Laboratory Last Values WBC 12.4 10^3/ul (3.5-10.8) H 10/03/17 05:22 RBC 4.32 10^6/ul (4.0-5.4) 09/20/17 05:07 Hgb 13.1 g/dl (14.0-18.0) L 10/03/17 05:22 Hct 40 % (42-52) L 10/03/17 05:22 MCV 91 fL (80-94) 09/20/17 05:07 MCH 30 pg (27-31) 09/20/17 05:07 MCHC 33 g/dl (31-36) 09/20/17 05:07 RDW 16 % (10.5-15) H 09/20/17 05:07 Plt Count 461 10^3/ul (150-450) H D 10/03/17 05:22 MPV 7 um3 (7.4-10.4) L 10/03/17 05:22 Immature Gran % (Auto) 6 % (0-9) 09/20/17 05:07 Neut % (Auto) 68.7 % (38-83) 09/17/17 05:00 Lymph % (Auto) 14.2 % (25-47) L 09/17/17 05:00 [place] % (Auto) 9.6 % (1-9) H 09/17/17 05:00 Eos % (Auto) 6.8 % (0-6) H 09/17/17 05:00 Baso % (Auto) 0.7 % (0-2) 09/17/17 05:00 Absolute Neuts (auto) 8.2 10^3/ul (1.5-7.7) H 09/20/17 05:07 Absolute Lymphs (auto) 1.8 10^3/ul (1.0-4.8) 09/20/17 05:07 Absolute Monos (auto) 1.8 10^3/ul (0-0.8) H 09/20/17 05:07 Absolute Eos (auto) 1.0 10^3/ul (0-0.6) H 09/20/17 05:07 Absolute Basos (auto) 0.2 10^3/ul (0-0.2) 09/20/17 05:07 Absolute Nucleated RBC 0.01 10^3/ul 09/20/17 05:07 Neutrophils % 60 % (38-83) 09/20/17 05:07 Band Neutrophils % 6 % (0-8) 09/20/17 05:07 Lymphocytes % 14 % (25-47) L 09/20/17 05:07 Reactive Lymphs % 1 % (0-6) 09/20/17 05:07 Monocytes % 11 % (0-13) 09/20/17 05:07 Eosinophils % 7 % (0-6) H 09/20/17 05:07 Basophils % 1 % (0-2) 09/20/17 05:07 Nucleated RBC % 0 09/17/17 05:00 Normal RBC Morphology Normal (Normal) 09/20/17 05:07 Hem Pathologist Commnt 09/20/17 05:07 Sodium 130 mmol/L (133-145) L 09/20/17 05:07 Potassium 4.1 mmol/L (3.5-5.0) 09/20/17 05:07 Chloride 99 mmol/L (101-111) L 09/20/17 05:07 Carbon Dioxide 25 mmol/L (22-32) 09/20/17 05:07 Anion Gap 6 mmol/L (2-11) 09/20/17 05:07 BUN 24 mg/dL (6-24) 10/03/17 05:22 Creatinine 1.32 mg/dL (0.67-1.17) H 10/03/17 05:22 Est GFR ( Amer) 71.9 (>60) 10/03/17 05:22 Est GFR (Non-Af Amer) 55.9 (>60) 10/03/17 05:22 BUN/Creatinine Ratio 12.6 (8-20) 09/20/17 05:07 Glucose 124 mg/dL (70-100) H 09/20/17 05:07 Calcium 8.6 mg/dL (8.6-10.3) 09/20/17 05:07 C-Reactive Protein 10.09 mg/L (< 5.00) H 10/03/17 05:22 Vancomycin Trough 14.5 mcg/mL 10/03/17 09:52 Assessment: []57 y/o male s/p R partial finger amputation by Dr. Perez on 09/10/2017. Plan: []Per ID stop vanco, start ancef 1 g IV Q 8 hours May discontinue soaks, per Dr. Perez
[2017-10-05] MEDS: Enoxaparin(*) 40 MG/0.4 ML SYR SUBCUT SCH (16:44)
[2017-10-05] MEDS: ceFAZolin 1 GM VIAL(*) 1 GM in NS 0.9% 50 ML* 50 ML IVPB SCH (17:21)
[2017-10-05] MEDS: Nicotine Patch Removal NOTE FOLLOW UP SCH (20:27)
[2017-10-06] MEDS: oxyCODONE TAB* 5 MG TAB PO PRN ×5 (01:42→19:31)
[2017-10-06] MEDS: ceFAZolin 1 GM VIAL(*) 1 GM in NS 0.9% 50 ML* 50 ML IVPB SCH ×3 (01:43→17:11)
[2017-10-06] MEDS: HYDROmorphone TAB* 2 MG PO PRN ×3 (05:41→19:31)
[2017-10-06] MEDS: Nicotine Inhaler* 10 MG AMP INH PRN ×4 (05:53→20:30)
[2017-10-06 06:09] LABS: Hematocrit 40 % (42-52); Hemoglobin 12.9 g/dl (14.0-18.0); Mean Corpuscular HGB Conc 33 g/dl (31-36); Mean Corpuscular Hemoglobin 30 pg (27-31); Mean Corpuscular Volume 91 fL (80-94); Mean Platelet Volume 7 um3 (7.4-10.4); Red Blood Count 4.35 10^6/ul (4.0-5.4); Red Cell Distribution Width 16 % (10.5-15); White Blood Count 12.9 10^3/ul (3.5-10.8)
[2017-10-06 06:10] LABS: Add Diff/Slide Review? Slide Review Added; Comments Flag Yes
[2017-10-06 06:31] LABS: EGFR Non-African American 49.8 (>60)
[2017-10-06 07:25] LABS: Eosinophils % 14 % (0-6); Neutrophil % 37 % (38-83); Reactive Lymph % 6 % (0-6)
[2017-10-06 07:26] LABS: RBC Morphology Normal (Normal)
[2017-10-06] MEDS: Nicotine PATCH 14 MG/24 HR* PATCH TRANSDERM SCH (08:43)
[2017-10-06] MEDS: Gabapentin CAP(*) 300 MG PO SCH ×3 (08:44→20:27)
[2017-10-06] MEDS ORDERED: Vancomycin Trough Check NOTE FOLLOW UP ONE (09:30)
--- NOTE | 2017-10-06 13:31 | PN ---
Progress Note - Progress Note Date of Service: 10/06/17 SOAP: Subjective: Mr. Munguia is a pleasant 57 yo with a history of tobacco abuse who is SP R partial index finger amputation. Patient is on swing status while receiving antibiotics for an osteomyelitis infection. Mr. Munguia denies all symptoms and has no complaints. Denies CP, palpitations, chest tightness, SOB, wheezing, coughing, abdominal pain, N/V/D. Objective: Vital Signs Temp Pulse Resp BP Pulse Ox 97.7 F 72 16 96/60 94 10/06/17 07:25 10/06/17 07:25 10/06/17 13:53 10/06/17 07:25 10/06/17 07:25 Laboratory Last Values WBC 12.9 10^3/ul (3.5-10.8) H 10/06/17 05:49 RBC 4.35 10^6/ul (4.0-5.4) 10/06/17 05:49 Hgb 12.9 g/dl (14.0-18.0) L 10/06/17 05:49 Hct 40 % (42-52) L 10/06/17 05:49 MCV 91 fL (80-94) 10/06/17 05:49 MCH 30 pg (27-31) 10/06/17 05:49 MCHC 33 g/dl (31-36) 10/06/17 05:49 RDW 16 % (10.5-15) H 10/06/17 05:49 Plt Count 422 10^3/ul (150-450) 10/06/17 05:49 MPV 7 um3 (7.4-10.4) L 10/06/17 05:49 Immature Gran % (Auto) 6 % (0-9) 09/20/17 05:07 Neut % (Auto) 37.3 % (38-83) L 10/06/17 05:49 Lymph % (Auto) 20.1 % (25-47) L 10/06/17 05:49 [place] % (Auto) 29.4 % (1-9) H 10/06/17 05:49 Eos % (Auto) 8.9 % (0-6) H 10/06/17 05:49 Baso % (Auto) 4.3 % (0-2) H 10/06/17 05:49 Absolute Neuts (auto) 4.8 10^3/ul (1.5-7.7) 10/06/17 05:49 Absolute Lymphs (auto) 2.6 10^3/ul (1.0-4.8) 10/06/17 05:49 Absolute Monos (auto) 3.8 10^3/ul (0-0.8) H 10/06/17 05:49 Absolute Eos (auto) 1.1 10^3/ul (0-0.6) H 10/06/17 05:49 Absolute Basos (auto) 0.6 10^3/ul (0-0.2) H 10/06/17 05:49 Absolute Nucleated RBC 0.01 10^3/ul 10/06/17 05:49 Neutrophils % 37 % (38-83) L 10/06/17 05:49 Band Neutrophils % 6 % (0-8) 09/20/17 05:07 Lymphocytes % 17 % (25-47) L 10/06/17 05:49 Reactive Lymphs % 6 % (0-6) 10/06/17 05:49 Monocytes % 22 % (0-13) H 10/06/17 05:49 Eosinophils % 14 % (0-6) H 10/06/17 05:49 Basophils % 4 % (0-2) H 10/06/17 05:49 Nucleated RBC % 0 10/06/17 05:49 Normal RBC Morphology Normal (Normal) 10/06/17 05:49 Hem Pathologist Commnt 09/20/17 05:07 Sodium 130 mmol/L (133-145) L 09/20/17 05:07 Potassium 4.1 mmol/L (3.5-5.0) 09/20/17 05:07 Chloride 99 mmol/L (101-111) L 09/20/17 05:07 Carbon Dioxide 25 mmol/L (22-32) 09/20/17 05:07 Anion Gap 6 mmol/L (2-11) 09/20/17 05:07 BUN 24 mg/dL (6-24) 10/06/17 05:49 Creatinine 1.46 mg/dL (0.67-1.17) H 10/06/17 05:49 Est GFR ( Amer) 64.0 (>60) 10/06/17 05:49 Est GFR (Non-Af Amer) 49.8 (>60) 10/06/17 05:49 BUN/Creatinine Ratio 12.6 (8-20) 09/20/17 05:07 Glucose 124 mg/dL (70-100) H 09/20/17 05:07 Calcium 8.6 mg/dL (8.6-10.3) 09/20/17 05:07 C-Reactive Protein 10.09 mg/L (< 5.00) H 10/03/17 05:22 Vancomycin Trough 14.5 mcg/mL 10/03/17 09:52 Active Medications Acetaminophen (Tylenol Tab*) 650 mg PO Q4H PRN PRN Reason: FEVER/PAIN Last Admin: 09/21/17 19:26 Dose: 650 mg Enoxaparin Sodium (Lovenox(*)) 40 mg SUBCUT Q24H [facility] Last Admin: 10/05/17 16:44 Dose: 40 mg Gabapentin (Neurontin Cap(*)) 300 mg PO TID [facility] Last Admin: 10/06/17 13:52 Dose: 300 mg Heparin Sodium (Porcine) (Heparin Flush Picc/Ml/Cvc(*)) 1 ml FLUSH 0600,1800 [facility] PRN Reason: Protocol Last Admin: 10/06/17 05:41 Dose: 1 ml Hydromorphone HCl (Dilaudid Tab*) 2 mg PO Q6H PRN PRN Reason: PAIN Last Admin: 10/06/17 12:06 Dose: 2 mg Cefazolin Sodium 1 gm/ Sodium (Chloride) 50 mls @ 200 mls/hr IVPB Q8H [facility] Last Admin: 10/06/17 10:12 Dose: 200 mls/hr Ibuprofen (Motrin Tab*) 600 mg PO Q6H PRN PRN Reason: PAIN Last Admin: 09/27/17 16:10 Dose: 600 mg Nicotine (Nicotine Patch 14 Mg/24 Hr*) 1 patch TRANSDERM DAILY [facility] Last Admin: 10/06/17 08:43 Dose: 1 patch Nicotine (Nicotine Inhaler*) 10 mg INH Q2H PRN PRN Reason: CRAVING Last Admin: 10/06/17 10:48 Dose: 10 mg Oxycodone HCl (Roxycodone Tab*) 15 mg PO Q4H PRN PRN Reason: PAIN Last Admin: 10/06/17 10:48 Dose: 15 mg Pharmacy Profile Note (Nicotine Patch Removal Note*) 1 note FOLLOW UP [facility] [facility] Last Admin: 10/05/17 20:27 Dose: 1 note General: WDWN 57 yo male in NAD. HEENT: Mucous membranes moist and pink. CV: RRR w/o MRG Respiratory: CTA BL w/o RRW Abdomen: Soft, non-distented and non-tender to palpation Extremities: W/o edema Assessment: This is a 57 yo male with a history of tobacco abuse who is SP R index finger amputation who is on swing status while completing antibiotic therapy for an osteomyelitis infection. Plan: 1. Osteomyelitis infection: Cefazolin therapy through 10/21. Continue to wean off of pain medication. 2. DVT Prophylaxis: Heparin SQ.
[2017-10-06] MEDS: Enoxaparin(*) 40 MG/0.4 ML SYR SUBCUT SCH (14:59)
[2017-10-06] MEDS: Nicotine Patch Removal NOTE FOLLOW UP SCH (20:27)
[2017-10-07] MEDS: oxyCODONE TAB* 5 MG TAB PO PRN ×6 (00:12→22:31)
[2017-10-07] MEDS: ceFAZolin 1 GM VIAL(*) 1 GM in NS 0.9% 50 ML* 50 ML IVPB SCH (01:44)
[2017-10-07] MEDS: HYDROmorphone TAB* 2 MG PO PRN ×4 (01:44→23:51)
[2017-10-07] MEDS: Nicotine Inhaler* 10 MG AMP INH PRN ×5 (04:52→20:53)
[2017-10-07] MEDS ORDERED: ceFAZolin 1 GM VIAL(*) 1 GM in D5W 50 ML BAG* 50 ML IVPB SCH (09:20)
[2017-10-07] MEDS: Nicotine PATCH 14 MG/24 HR* PATCH TRANSDERM SCH (09:50)
[2017-10-07] MEDS: Gabapentin CAP(*) 300 MG PO SCH ×3 (09:50→20:53)
[2017-10-07] MEDS ORDERED: ceFAZolin 1 GM VIAL(*) 1 GM in NS 0.9% 50 ML* 50 ML IVPB ONE (10:00)
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
[2017-10-07] MEDS: Enoxaparin(*) 40 MG/0.4 ML SYR SUBCUT SCH (16:07)
[2017-10-07] MEDS: ceFAZolin 1 GM VIAL(*) 1 GM in D5W 50 ML BAG* 50 ML IVPB SCH (18:22)
[2017-10-07] MEDS: Nicotine Patch Removal NOTE FOLLOW UP SCH (20:54)
[2017-10-08] MEDS: ceFAZolin 1 GM VIAL(*) 1 GM in D5W 50 ML BAG* 50 ML IVPB SCH ×3 (01:52→18:16)
[2017-10-08] MEDS: Nicotine Inhaler* 10 MG AMP INH PRN ×4 (01:59→19:24)
[2017-10-08] MEDS: oxyCODONE TAB* 5 MG TAB PO PRN ×4 (03:50→19:24)
[2017-10-08] MEDS: HYDROmorphone TAB* 2 MG PO PRN ×3 (05:50→18:16)
[2017-10-08] MEDS: Gabapentin CAP(*) 300 MG PO SCH ×3 (09:35→21:00)
[2017-10-08] MEDS: Nicotine PATCH 14 MG/24 HR* PATCH TRANSDERM SCH (09:36)
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
[2017-10-08] MEDS: Enoxaparin(*) 40 MG/0.4 ML SYR SUBCUT SCH (14:51)
[2017-10-08] MEDS: Nicotine Patch Removal NOTE FOLLOW UP SCH (21:01)
[2017-10-09] MEDS: HYDROmorphone TAB* 2 MG PO PRN ×4 (00:21→21:11)
[2017-10-09] MEDS: oxyCODONE TAB* 5 MG TAB PO PRN ×6 (00:22→21:24)
[2017-10-09] MEDS: ceFAZolin 1 GM VIAL(*) 1 GM in D5W 50 ML BAG* 50 ML IVPB SCH ×3 (02:00→17:28)
[2017-10-09] MEDS: Nicotine Inhaler* 10 MG AMP INH PRN ×3 (05:52→18:10)
[2017-10-09] MEDS: Nicotine PATCH 14 MG/24 HR* PATCH TRANSDERM SCH (08:55)
[2017-10-09] MEDS: Gabapentin CAP(*) 300 MG PO SCH ×3 (08:58→21:11)
--- NOTE | 2017-10-09 13:12 | PN ---
Progress Note - Progress Note Date of Service: 10/09/17 SOAP: Subjective: 57 y/o male s/p R partial finger amputation by Dr. Schneider 09/10/2017. Wounds well healed, patient concerned about hypersensitivity at finger tips and increased swelling lately. Objective: General- Well appearing, NAD AO MSK- amputation incision well healed, small area of scab at MCP/ palm, no erythema drainage. Assessment: 57 y/o male s/p R partial finger amputation by Dr. Schneider 09/10/2017, stable. [] Plan: - ID plan- cefazolin 1 gm IV Q8hrs day with weekly cbc, cmp, crp - Continue working with finger with ROM, working on desensitizing finger with repeat touch Active Medications Generic Name Dose Route Start Last Admin Trade Name Freq PRN Reason Stop Dose Admin Acetaminophen 650 mg 09/16/17 12:05 09/21/17 19:26 Tylenol Tab* PO 650 mg Q4H PRN Administration FEVER/PAIN Enoxaparin Sodium 40 mg 09/26/17 16:00 10/08/17 14:51 Lovenox(*) SUBCUT 40 mg Q24H [facility] Administration Gabapentin 300 mg 10/04/17 21:00 10/09/17 13:03 Neurontin Cap(*) PO 300 mg TID [facility] Administration Heparin Sodium (Porcine) 1 ml 09/16/17 18:00 10/09/17 05:34 Heparin Flush Picc/Ml/Cvc(*) FLUSH 1 ml 0600,1800 [facility] Administration Protocol Hydromorphone HCl 2 mg 10/04/17 14:13 10/09/17 13:03 Dilaudid Tab* PO 2 mg Q6H PRN Administration PAIN Cefazolin Sodium 1 gm/ 50 mls @ 200 mls/hr 10/07/17 18:00 10/09/17 09:57 Dextrose IVPB 200 mls/hr 0200,1000,1800 [facility] Administration Ibuprofen 600 mg 09/16/17 12:12 09/27/17 16:10 Motrin Tab* PO 600 mg Q6H PRN Administration PAIN Nicotine 1 patch 09/17/17 09:00 10/09/17 08:55 Nicotine Patch 14 Mg/24 Hr* TRANSDERM 1 patch DAILY [facility] Administration Nicotine 10 mg 09/16/17 12:12 10/09/17 08:59 Nicotine Inhaler* INH 10 mg Q2H PRN Administration CRAVING Oxycodone HCl 15 mg 09/16/17 12:14 10/09/17 13:01 Roxycodone Tab* PO 15 mg Q4H PRN Administration PAIN Pharmacy Profile Note 1 note 09/16/17 21:00 10/08/17 21:01 Nicotine Patch Removal Note* FOLLOW UP 1 note [address] [facility] Administration
[2017-10-09] MEDS: Enoxaparin(*) 40 MG/0.4 ML SYR SUBCUT SCH (16:41)
[2017-10-09] MEDS: Nicotine Patch Removal NOTE FOLLOW UP SCH (21:28)
[2017-10-10] MEDS: oxyCODONE TAB* 5 MG TAB PO PRN ×5 (01:26→20:24)
[2017-10-10] MEDS: ceFAZolin 1 GM VIAL(*) 1 GM in D5W 50 ML BAG* 50 ML IVPB SCH ×3 (01:26→17:21)
[2017-10-10] MEDS: Nicotine Inhaler* 10 MG AMP INH PRN ×4 (01:26→20:24)
[2017-10-10] MEDS: HYDROmorphone TAB* 2 MG PO PRN ×4 (03:20→23:58)
[2017-10-10] MEDS: Gabapentin CAP(*) 300 MG PO SCH ×3 (09:25→20:24)
[2017-10-10] MEDS: Nicotine PATCH 14 MG/24 HR* PATCH TRANSDERM SCH (09:25)
[2017-10-10] MEDS: Enoxaparin(*) 40 MG/0.4 ML SYR SUBCUT SCH (15:37)
[2017-10-10] MEDS: Nicotine Patch Removal NOTE FOLLOW UP SCH (20:26)
[2017-10-11] MEDS: oxyCODONE TAB* 5 MG TAB PO PRN ×6 (00:16→21:42)
[2017-10-11] MEDS: ceFAZolin 1 GM VIAL(*) 1 GM in D5W 50 ML BAG* 50 ML IVPB SCH ×3 (01:48→17:29)
[2017-10-11] MEDS: Nicotine Inhaler* 10 MG AMP INH PRN ×4 (02:13→21:42)
[2017-10-11] MEDS: HYDROmorphone TAB* 2 MG PO PRN ×3 (06:43→20:40)
[2017-10-11] MEDS: Gabapentin CAP(*) 300 MG PO SCH ×3 (08:24→20:40)
[2017-10-11] MEDS: Nicotine PATCH 14 MG/24 HR* PATCH TRANSDERM SCH (08:24)
[2017-10-11] MEDS: Enoxaparin(*) 40 MG/0.4 ML SYR SUBCUT SCH (15:09)
[2017-10-11] MEDS: Nicotine Patch Removal NOTE FOLLOW UP SCH (21:43)
[2017-10-12] MEDS: ceFAZolin 1 GM VIAL(*) 1 GM in D5W 50 ML BAG* 50 ML IVPB SCH ×3 (02:35→18:14)
[2017-10-12] MEDS: HYDROmorphone TAB* 2 MG PO PRN ×4 (02:35→23:02)
[2017-10-12] MEDS: oxyCODONE TAB* 5 MG TAB PO PRN ×5 (02:36→23:02)
[2017-10-12] MEDS: Nicotine PATCH 14 MG/24 HR* PATCH TRANSDERM SCH (09:03)
[2017-10-12] MEDS: Gabapentin CAP(*) 300 MG PO SCH ×3 (09:05→19:57)
[2017-10-12] MEDS: Nicotine Inhaler* 10 MG AMP INH PRN (11:17)
[2017-10-12] MEDS: Enoxaparin(*) 40 MG/0.4 ML SYR SUBCUT SCH (16:43)
[2017-10-12] MEDS: Nicotine Patch Removal NOTE FOLLOW UP SCH (23:00)
[2017-10-13] MEDS: ceFAZolin 1 GM VIAL(*) 1 GM in D5W 50 ML BAG* 50 ML IVPB SCH ×3 (02:12→17:55)
[2017-10-13] MEDS: Nicotine Inhaler* 10 MG AMP INH PRN ×2 (02:15→18:01)
[2017-10-13] MEDS: oxyCODONE TAB* 5 MG TAB PO PRN ×5 (04:23→22:07)
[2017-10-13] MEDS: HYDROmorphone TAB* 2 MG PO PRN ×3 (05:01→17:51)
[2017-10-13 05:30] LABS: Hematocrit 41 % (42-52); Hemoglobin 13.5 g/dl (14.0-18.0); Mean Corpuscular HGB Conc 33 g/dl (31-36); Mean Corpuscular Hemoglobin 30 pg (27-31); Mean Corpuscular Volume 90 fL (80-94); Mean Platelet Volume 7 um3 (7.4-10.4); Red Blood Count 4.48 10^6/ul (4.0-5.4); Red Cell Distribution Width 15 % (10.5-15)
[2017-10-13 05:34] LABS: Comments Flag Yes
[2017-10-13] MEDS: Nicotine PATCH 14 MG/24 HR* PATCH TRANSDERM SCH (09:02)
[2017-10-13] MEDS: Gabapentin CAP(*) 300 MG PO SCH ×3 (09:03→22:07)
--- NOTE | 2017-10-13 09:13 | PN ---
Progress Note - Progress Note Date of Service: 10/13/17 SOAP: Subjective: []Patient seen at bedside. Confirms continued sensitivity of his operative finger. No other complaints. Objective: General- Laying in bed. Well appearing, NAD MSK- R index finger: amputation incision well healed, Previous scab at MCP/ palm has healed over well no longer with any open lesion. No erythema or drainage. Flexing and extending at MCP well. Sensation intact throughout digit , brisk capillary refill distally. Radial pulse 2+ Vital Signs Temp 97.6 F 10/13/17 07:47 Pulse 67 10/13/17 07:47 Resp 16 10/13/17 09:03 BP 114/72 10/13/17 07:47 Pulse Ox 97 10/13/17 07:47 Intake & Output 10/12/17 10/13/17 10/13/17 18:59 06:59 18:59 Intake Total 1890 45 Balance 1890 45 Intake: IV Fluids 50 45 Cefazolin 50 45 Oral 1840 0 Other: Estimated Void Medium Medium # Bowel Movements 1 0 Estimated Stool Amount Medium Medium # Voids 3 1 Laboratory Last Values WBC 12.0 10^3/ul (3.5-10.8) H 10/13/17 05:05 RBC 4.48 10^6/ul (4.0-5.4) 10/13/17 05:05 Hgb 13.5 g/dl (14.0-18.0) L 10/13/17 05:05 Hct 41 % (42-52) L 10/13/17 05:05 MCV 90 fL (80-94) 10/13/17 05:05 MCH 30 pg (27-31) 10/13/17 05:05 MCHC 33 g/dl (31-36) 10/13/17 05:05 RDW 15 % (10.5-15) 10/13/17 05:05 Plt Count 517 10^3/ul (150-450) H D 10/13/17 05:05 MPV 7 um3 (7.4-10.4) L 10/13/17 05:05 Immature Gran % (Auto) 6 % (0-9) 09/20/17 05:07 Neut % (Auto) 31.8 % (38-83) L 10/13/17 05:05 Lymph % (Auto) 27.8 % (25-47) 10/13/17 05:05 [place] % (Auto) 22.0 % (1-9) H 10/13/17 05:05 Eos % (Auto) 13.3 % (0-6) H 10/13/17 05:05 Baso % (Auto) 5.1 % (0-2) H 10/13/17 05:05 Absolute Neuts (auto) 3.8 10^3/ul (1.5-7.7) 10/13/17 05:05 Absolute Lymphs (auto) 3.3 10^3/ul (1.0-4.8) 10/13/17 05:05 Absolute Monos (auto) 2.6 10^3/ul (0-0.8) H 10/13/17 05:05 Absolute Eos (auto) 1.6 10^3/ul (0-0.6) H 10/13/17 05:05 Absolute Basos (auto) 0.6 10^3/ul (0-0.2) H 10/13/17 05:05 Absolute Nucleated RBC 0 10^3/ul 10/13/17 05:05 Neutrophils % 37 % (38-83) L 10/06/17 05:49 Band Neutrophils % 6 % (0-8) 09/20/17 05:07 Lymphocytes % 17 % (25-47) L 10/06/17 05:49 Reactive Lymphs % 6 % (0-6) 10/06/17 05:49 Monocytes % 22 % (0-13) H 10/06/17 05:49 Eosinophils % 14 % (0-6) H 10/06/17 05:49 Basophils % 4 % (0-2) H 10/06/17 05:49 Nucleated RBC % 0 10/13/17 05:05 Normal RBC Morphology Normal (Normal) 10/06/17 05:49 Hem Pathologist Commnt 09/20/17 05:07 Sodium 130 mmol/L (133-145) L 09/20/17 05:07 Potassium 4.1 mmol/L (3.5-5.0) 09/20/17 05:07 Chloride 99 mmol/L (101-111) L 09/20/17 05:07 Carbon Dioxide 25 mmol/L (22-32) 09/20/17 05:07 Anion Gap 6 mmol/L (2-11) 09/20/17 05:07 BUN 24 mg/dL (6-24) 10/06/17 05:49 Creatinine 1.46 mg/dL (0.67-1.17) H 10/06/17 05:49 Est GFR ( Amer) 64.0 (>60) 10/06/17 05:49 Est GFR (Non-Af Amer) 49.8 (>60) 10/06/17 05:49 BUN/Creatinine Ratio 12.6 (8-20) 09/20/17 05:07 Glucose 124 mg/dL (70-100) H 09/20/17 05:07 Calcium 8.6 mg/dL (8.6-10.3) 09/20/17 05:07 C-Reactive Protein 10.09 mg/L (< 5.00) H 10/03/17 05:22 Vancomycin Trough 14.5 mcg/mL 10/03/17 09:52 Assessment: 57 y/o male s/p R partial finger amputation by Dr. Perez on 09/10/2017, stable. Plan: - Continue antibiotic per ID- cefazolin - Continue working with finger with ROM, working on desensitizing finger with repeat touch []
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
[2017-10-13] MEDS: Enoxaparin(*) 40 MG/0.4 ML SYR SUBCUT SCH (17:54)
[2017-10-13] MEDS: Nicotine Patch Removal NOTE FOLLOW UP SCH (22:08)
[2017-10-14] MEDS: HYDROmorphone TAB* 2 MG PO PRN ×5 (00:40→21:56)
[2017-10-14] MEDS: oxyCODONE TAB* 5 MG TAB PO PRN ×5 (02:11→21:57)
[2017-10-14] MEDS: ceFAZolin 1 GM VIAL(*) 1 GM in D5W 50 ML BAG* 50 ML IVPB SCH ×3 (02:12→18:19)
[2017-10-14] MEDS: Nicotine PATCH 14 MG/24 HR* PATCH TRANSDERM SCH (08:14)
[2017-10-14] MEDS: Nicotine Inhaler* 10 MG AMP INH PRN ×3 (08:14→21:58)
[2017-10-14] MEDS: Gabapentin CAP(*) 300 MG PO SCH ×3 (08:15→21:55)
[2017-10-14 10:23] LABS: Calcium 9.3 mg/dL (8.6-10.3); EGFR African American 75.2 (>60); EGFR Non-African American 58.5 (>60); Potassium 4.8 mmol/L (3.5-5.0)
[2017-10-14] MEDS: Enoxaparin(*) 40 MG/0.4 ML SYR SUBCUT SCH (15:13)
[2017-10-14] MEDS: Nicotine Patch Removal NOTE FOLLOW UP SCH (21:58)
[2017-10-15] MEDS: ceFAZolin 1 GM VIAL(*) 1 GM in D5W 50 ML BAG* 50 ML IVPB SCH ×3 (02:15→18:07)
[2017-10-15] MEDS: oxyCODONE TAB* 5 MG TAB PO PRN ×4 (02:32→20:00)
[2017-10-15] MEDS: HYDROmorphone TAB* 2 MG PO PRN ×3 (04:05→18:07)
[2017-10-15] MEDS: Nicotine Inhaler* 10 MG AMP INH PRN (08:41)
[2017-10-15] MEDS: Nicotine PATCH 14 MG/24 HR* PATCH TRANSDERM SCH (08:41)
[2017-10-15] MEDS: Gabapentin CAP(*) 300 MG PO SCH ×3 (08:42→20:48)
[2017-10-15] MEDS: Enoxaparin(*) 40 MG/0.4 ML SYR SUBCUT SCH (15:39)
[2017-10-15] MEDS: Nicotine Patch Removal NOTE FOLLOW UP SCH (20:48)
[2017-10-16] MEDS: HYDROmorphone TAB* 2 MG PO PRN ×4 (00:20→23:20)
[2017-10-16] MEDS: oxyCODONE TAB* 5 MG TAB PO PRN ×6 (00:21→23:20)
[2017-10-16] MEDS: ceFAZolin 1 GM VIAL(*) 1 GM in D5W 50 ML BAG* 50 ML IVPB SCH ×3 (02:04→18:03)
[2017-10-16] MEDS: Gabapentin CAP(*) 300 MG PO SCH ×3 (08:26→21:36)
[2017-10-16] MEDS: Nicotine Inhaler* 10 MG AMP INH PRN (08:27)
[2017-10-16] MEDS: Nicotine PATCH 14 MG/24 HR* PATCH TRANSDERM SCH (08:27)
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
[2017-10-16] MEDS: Enoxaparin(*) 40 MG/0.4 ML SYR SUBCUT SCH (16:44)
[2017-10-16] MEDS: Nicotine Patch Removal NOTE FOLLOW UP SCH (21:36)
[2017-10-17] MEDS: ceFAZolin 1 GM VIAL(*) 1 GM in D5W 50 ML BAG* 50 ML IVPB SCH ×3 (01:57→17:35)
[2017-10-17] MEDS: oxyCODONE TAB* 5 MG TAB PO PRN ×5 (04:40→22:01)
[2017-10-17] MEDS: HYDROmorphone TAB* 2 MG PO PRN ×3 (05:25→22:00)
[2017-10-17] MEDS: Gabapentin CAP(*) 300 MG PO SCH ×3 (08:47→21:59)
[2017-10-17] MEDS: Nicotine Inhaler* 10 MG AMP INH PRN (08:48)
[2017-10-17] MEDS: Nicotine PATCH 14 MG/24 HR* PATCH TRANSDERM SCH (08:48)
[2017-10-17] MEDS: Enoxaparin(*) 40 MG/0.4 ML SYR SUBCUT SCH (16:16)
[2017-10-17] MEDS: Nicotine Patch Removal NOTE FOLLOW UP SCH (22:01)
[2017-10-18] MEDS: ceFAZolin 1 GM VIAL(*) 1 GM in D5W 50 ML BAG* 50 ML IVPB SCH ×3 (01:45→18:28)
[2017-10-18] MEDS: oxyCODONE TAB* 5 MG TAB PO PRN ×5 (01:45→19:58)
[2017-10-18] MEDS: HYDROmorphone TAB* 2 MG PO PRN ×3 (05:54→19:58)
[2017-10-18] MEDS: Gabapentin CAP(*) 300 MG PO SCH ×3 (10:20→20:03)
[2017-10-18] MEDS: Nicotine PATCH 14 MG/24 HR* PATCH TRANSDERM SCH (10:21)
[2017-10-18] MEDS: Nicotine Inhaler* 10 MG AMP INH PRN ×2 (10:32→18:27)
[2017-10-18] MEDS: Enoxaparin(*) 40 MG/0.4 ML SYR SUBCUT SCH (17:02)
[2017-10-19] MEDS: ceFAZolin 1 GM VIAL(*) 1 GM in D5W 50 ML BAG* 50 ML IVPB SCH ×3 (02:07→17:38)
[2017-10-19] MEDS: Nicotine Patch Removal NOTE FOLLOW UP SCH ×2 (02:14→21:34)
[2017-10-19] MEDS: HYDROmorphone TAB* 2 MG PO PRN ×4 (02:23→23:50)
[2017-10-19] MEDS: oxyCODONE TAB* 5 MG TAB PO PRN ×5 (02:24→21:32)
[2017-10-19 06:04] LABS: Hematocrit 41 % (42-52); Hemoglobin 13.6 g/dl (14.0-18.0)
[2017-10-19 06:19] LABS: EGFR African American 96.8 (>60); EGFR Non-African American 75.3 (>60)
[2017-10-19] MEDS: Gabapentin CAP(*) 300 MG PO SCH ×3 (08:44→21:32)
[2017-10-19] MEDS: Nicotine PATCH 14 MG/24 HR* PATCH TRANSDERM SCH (08:46)
[2017-10-19] MEDS: Nicotine Inhaler* 10 MG AMP INH PRN ×2 (08:50→13:09)
[2017-10-19] MEDS: Enoxaparin(*) 40 MG/0.4 ML SYR SUBCUT SCH (17:32)
[2017-10-20] MEDS: oxyCODONE TAB* 5 MG TAB PO PRN ×6 (01:50→23:35)
[2017-10-20] MEDS: ceFAZolin 1 GM VIAL(*) 1 GM in D5W 50 ML BAG* 50 ML IVPB SCH ×3 (01:50→18:21)
[2017-10-20] MEDS: Nicotine Inhaler* 10 MG AMP INH PRN ×4 (01:58→18:30)
[2017-10-20] MEDS: HYDROmorphone TAB* 2 MG PO PRN ×2 (05:59→14:54)
[2017-10-20 06:12] LABS: Mean Platelet Volume 7 um3 (7.4-10.4)
[2017-10-20] MEDS: Nicotine PATCH 14 MG/24 HR* PATCH TRANSDERM SCH (09:37)
[2017-10-20] MEDS: Gabapentin CAP(*) 300 MG PO SCH ×3 (09:38→20:49)
[2017-10-20] MEDS: Enoxaparin(*) 40 MG/0.4 ML SYR SUBCUT SCH (14:56)
[2017-10-20] MEDS: Nicotine Patch Removal NOTE FOLLOW UP SCH (20:50)
[2017-10-21] MEDS: ceFAZolin 1 GM VIAL(*) 1 GM in D5W 50 ML BAG* 50 ML IVPB SCH ×2 (02:08→10:43)
[2017-10-21] MEDS: oxyCODONE TAB* 5 MG TAB PO PRN ×3 (03:48→12:14)
[2017-10-21 07:22] VITALS: BP 153/96
[2017-10-21] MEDS ORDERED: Mouth Piece, Nicotine* 1 EACH CARTRIDGE ONE (07:56)
[2017-10-21] MEDS: Nicotine PATCH 14 MG/24 HR* PATCH TRANSDERM SCH (07:59)
[2017-10-21] MEDS: Gabapentin CAP(*) 300 MG PO SCH (08:00)
[2017-10-21] MEDS: Nicotine Inhaler* 10 MG AMP INH PRN ×2 (08:01→10:47)
--- NOTE | 2017-10-21 09:02 | PN ---
"Progress Note - Progress Note Date of Service: 10/21/17 Note: Time spent on discharge 35 minutes. Search Terms: carmela byrne, 1960 Search Date: 10/21/2017 09:01:22 AM The Drug Utilization Report below displays all of the controlled substance prescriptions, if any, that your patient has filled in the last twelve months. The information displayed on this report is compiled from pharmacy submissions to the Department, and accurately reflects the information as submitted by the pharmacies. This report was requested by: Nate Sepulveda | Reference #: [id number] There are no results for the search terms that you entered."
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
== END 2017-10-21 12:35 | disposition home or self-care (01) | DRG 344 ==
LOC: MED 10:50
PROVIDERS: ADMIT Internal Medicine; ATTEND Internal Medicine
DX: M86.141 Other acute osteomyelitis, right hand (principal); B95.62 Methicillin resistant Staphylococcus aureus infection as the cause of diseases classified elsewhere; F19.10 Other psychoactive substance abuse, uncomplicated; D47.3 Essential (hemorrhagic) thrombocythemia; D72.829 Elevated white blood cell count, unspecified; F17.200 Nicotine dependence, unspecified, uncomplicated; N18.9 Chronic kidney disease, unspecified; Z90.81 Acquired absence of spleen; Z89.022 Acquired absence of left finger(s)
CPT/HCPCS: 36415; 80048; 80202; 82565; 84520; 85014; 85018; 85025; 85048; 85049; 85060; 86140; 87328; 87329; A9270-GY; J0690; J1170; J1650; J2997; J3370

== ENCOUNTER 2019-05-22 15:34 | Emergency (ER) | payer BC ==
[2019-05-22] MEDS ORDERED: cloNIDine TAB* 0.1 MG PO ONE (16:38)
--- NOTE | 2019-05-22 16:41 | ED ---
Substance Abuse/Use - HPI Summary HPI Summary: The pt is a 59 yr old male presenting to [facility] c/o suicidal ideation and heroin abuse. He mentions that he wants to be admitted into a heroin detox program and that his last use was 05/21/19 through inhalation. Denies IV drug use or other substance use. He notes intermittent use of heroin every few days. He also reports diarrhea, nausea, feelings of depression, lethargy, and thoughts of wanting to hurt himself secondary to drug use. He is a smoker and has Hx of substance abuse. - History Of Current Complaint Chief Complaint: EDSuicidal Stated Complaint: SUICIDAL/ HEROINE ADDICTION PER FAMILY Time Seen by Provider: 05/22/19 15:47 Hx Obtained From: Patient Onset/Duration of Drug/ETOH Abuse: Years Ingestion History: Type/Name Of Drug - Heroin, Approximate Time Of Ingestion - Overdose Characteristics: Inhalation Timing Of Abuse: Intermittent Severity Initially: Mild Severity Currently: Mild Character: Depressed, Lethargic Aggravating Factor(s): Nothing Alleviating Factor(s): Nothing Associated Signs And Symptoms: Nausea, Diarrhea, Other: - positive - lethargy, depression Related Hx: Suicidal, Drug/Alcohol Last Used @ - 05/21/19 - Allergies/Home Medications Allergies/Adverse Reactions: Allergies Allergy/AdvReac Type Severity Reaction Status Date / Time No Known Allergies Allergy Verified 09/07/17 14:05 Home Medications: Home Medications NK [No Home Medications Reported] 05/22/19 [History Confirmed 05/22/19] PMH/Surg Hx/FS Hx/Imm Hx Endocrine/Hematology History: Denies: Hx Anticoagulant Therapy, Hx Blood Disorders, Hx Diabetes, Hx Thyroid Disease Cardiovascular History: Denies: Hx Hypertension, Hx Myocardial Infarction Respiratory History: Denies: Hx Asthma, Hx Chronic Obstructive Pulmonary Disease (COPD) GI History: Denies: Hx Ulcer Sensory History: Denies: Hx 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, Hx Deafness, Hx Hearing Aid Opthamlomology History: Denies: Hx 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 - Surgical History Surgical History: Yes Surgery Procedure, Year, and Place: Splenectpmy Hx Anesthesia Reactions: No - Immunization History Immunizations Up to Date: Yes Infectious Disease History: No Infectious Disease History: Reports: Hx of Known/Suspected MRSA - past knee infection Denies: Hx Hepatitis, Hx Human Immunodeficiency Virus (HIV), History Other Infectious Disease, Traveled Outside the [place] in Last 30 Days - Family History Known Family History: Negative: Cardiac Disease, Hypertension, Diabetes - Social History Alcohol Use: Occasionally Alcohol Amount: rum and coke 1 drink nightly Hx Substance Use: Yes Substance Use Type: Reports: Heroin Substance Use Comment - Amount & Last Used: 05/21/19 Hx Tobacco Use: Yes Smoking Status (MU): Light Every Day Tobacco Smoker Type: Cigarettes Amount Used/How Often: 1/2 ppd Length of Time of Smoking/Using Tobacco: since age15 Have You Smoked in the Last Year: Yes Review of Systems Positive: Other - lethargy Positive: Diarrhea, Nausea Positive: Weakness - generalized Psychological: Other - SI Positive: Depressed All Other Systems Reviewed And Are Negative: Yes Physical Exam - Summary Physical Exam Summary: Constitutional: Thin male, no acute distress Skin: Warm, Dry HENT: Normocephalic; Atraumatic, rhinnorhea. Eyes: Conjunctiva normal. Mydriasis. Neck: Musculoskeletal ROM normal neck. (-) JVD, (-) Stridor, (-) Nuchal rigidity Cardio: Rhythm regular, rate normal, Heart sounds normal; Intact distal pulses; Radial pulses are 2+ and symmetric. (-) Murmur Pulmonary/Chest wall: Effort normal. (-) Respiratory distress, (-) Wheezes, (-) Rales Abd: Soft, (-) tenderness, (-) Distension, (-) Guarding, (-) Rebound Musculoskeletal: (-) Edema Lymph: (-) Cervical adenopathy Neuro: Alert, Oriented x3 Psych: depressed Triage Information Reviewed: Yes Vital Signs On Initial Exam: Initial Vitals Temp Pulse Resp BP Pulse Ox 98.5 F 107 20 150/79 95 05/22/19 15:37 05/22/19 15:37 05/22/19 15:37 05/22/19 15:37 05/22/19 15:37 Vital Signs Reviewed: Yes Diagnostics - Vital Signs Vital Signs Temp Pulse Resp BP Pulse Ox 05/22/19 15:37 98.5 F 107 20 150/79 95 - Laboratory Result Diagrams: 05/22/19 17:47 05/22/19 17:47 Lab Statement: Any lab studies that have been ordered have been reviewed, and results considered in the medical decision making process. Re-Evaluation - Re-Evaluation First Eval Re-Evaluation Time: 16:45 Comment: Patient is medically cleared for MHE. Second Eval Re-Evaluation Time: 17:50 Comment: Labs notable for white count of 16 likely 2/2 acute withdrawal as patient denies infectious symptoms, as well as a potassium of 3.3 which will replete. Cr 1.8 given fluids. Elevated AST and ALTs in an alcohol injury distribution. Course/Dx - Course Course Of Treatment: 59-year-old male with a history of substance use disorder presents for detox and passive SI. Vitals notable for heart rate of 107 otherwise unremarkable. Physical exam with mydriasis, rhinorrhea. Will try symptomatic control and have mental health evaluate - Diagnoses Provider Diagnoses: Substance use disorder - Physician Notifications Discussed Care Of Patient With: Cassi Watkins - mental health construction administrator Time Discussed With Above Provider: 18:30 Instructed by Provider To: Other - Cassi reports that the patient is going to be on mental health hold until tomorrow morning. Discharge - Sign-Out/Discharge Documenting (check all that apply): Sign-Out Patient Signing out patient TO: Pao Hobbs - Patient is a sign-out at change of shift 2200 05/22/19 pending mental health hold and disposition. Patient Received Moderate/Deep Sedation with Procedure: No - Discharge Plan Referrals: Ariel Ellis MD [Medical Doctor] - - Attestation Statements Document Initiated by Hilario: Yes Documenting Scribe: Denny Romero Provider For Whom Hilario is Documenting (Include Credential): Dr. Michelle Lopez Scribe Attestation: I, Denny Romero, scribed for Dr. Michelle Lopez on 05/22/19 at 2010. Scribe Documentation Reviewed: Yes Provider Attestation: The documentation as recorded by the Denny sanchez accurately reflects the service I personally performed and the decisions made by me, Dr. Michelle Lopez Status of Scribe Document: Viewed
[2019-05-22 17:52] LABS: ABS Basophils 0.1 10^3/ul (0-0.2); ABS Eosinophils 0.1 10^3/ul (0-0.6); ABS Monocytes 1.3 10^3/ul (0-0.8); ABS Neutrophils 13.2 10^3/ul (1.5-7.7); Eosinophil % 0.8 %; Hematocrit 44 % (42-52); Hemoglobin 14.8 g/dL (14.0-18.0); Lymphocyte % 11.9 %; Mean Corpuscular HGB Conc 34 g/dL (31-36); Mean Corpuscular Hemoglobin 31 pg (27-31); Mean Corpuscular Volume 93 fL (80-94); Platelet Count 337 10^3/uL (150-450); Red Blood Count 4.73 10^6 /uL (4.18-5.48); Red Cell Distribution Width 15 % (10-15); White Blood Count 16.7 10^3/uL (3.5-10.8)
[2019-05-22 18:12] LABS: ALT 86 U/L (7-52); AST 157 U/L (13-39); Albumin/Globulin Ratio 1.2 (1-3); Alkaline Phosphatase 100 U/L (34-104); Anion Gap 11 mmol/L (2-11); BUN/Creatinine Ratio 22.8 (8-20); Blood Urea Nitrogen 41 mg/dL (6-24); CO2 Carbon Dioxide 19 mmol/L (22-32); Calcium 8.7 mg/dL (8.6-10.3); Chloride 103 mmol/L (101-111); EGFR Non-African American 38.8 (>60); Globulin 3.4 g/dL (2-4); Glucose 87 mg/dL (70-100); Potassium 3.3 mmol/L (3.5-5.0); Sodium 133 mmol/L (135-145); Total Protein 7.4 g/dL (6.4-8.9)
[2019-05-22 18:18] LABS: Acetaminophen < 15 mcg/mL; Alcohol 56 mg/dL (<10); Salicylate < 2.50 mg/dL (<30)
[2019-05-22 18:34] LABS: TSH (Thyroid Stimulating Horm) 0.29 mcIU/mL (0.34-5.60)
[2019-05-22] MEDS ORDERED: NS 0.9% 1000 ML** 1,000 ML IV ONE (18:42)
[2019-05-22] MEDS ORDERED: Potassium Chlor TAB* 20 MEQ TAB.ER PO ONE (18:43)
[2019-05-22 18:48] LABS: Urine Appearance Clear; Urine Bacteria 1+ (Absent); Urine Bilirubin Negative (Negative); Urine Blood 3+ (Negative); Urine Color Yellow; Urine Glucose 3+(>=500 mg/dL) (Negative); Urine Ketones Negative (Negative); Urine Nitrite Negative (Negative); Urine Protein 1+(30 mg/dL) (Negative); Urine Red Blood Cell Absent (Absent); Urine Specific Gravity 1.009 (1.010-1.030); Urine Squamous Epithelial Cell Present (Absent); Urine Urobilinogen Negative (Negative); Urine White Blood Cell Trace(0-5/hpf) (Absent)
[2019-05-22 19:04] LABS: Urine Benzodiazepine Screen None Detected (None Detect); Urine Opiates Screen Presumptive Positive (None Detect)
[2019-05-22 22:11] LABS: Albumin 3.6 g/dL (3.2-5.2); Albumin/Globulin Ratio 1.2 (1-3); Calcium 8.4 mg/dL (8.6-10.3); EGFR African American 51.2 (>60); EGFR Non-African American 42.3 (>60); Globulin 3.1 g/dL (2-4); Potassium 3.9 mmol/L (3.5-5.0); Total Bilirubin 0.6 mg/dL (0.2-1.0); Total Protein 6.7 g/dL (6.4-8.9)
--- NOTE | 2019-05-22 23:24 | ED ---
Progress - Progress Note Progress Note: This pt is a sign out from Dr. Lopez to Dr. Hobbs pending a MHE at shift change 2200 05/22/19. Pt is a sign out to Dr. Silva from Dr. Hobbs at shift change 0700 05/23/19 pending a MHU hold. - Consult/PCP Time Called: 16:39 Re-Evaluation - Re-Evaluation First Eval Re-Evaluation Time: 16:45 Comment: Patient is medically cleared for MHE. Second Eval Re-Evaluation Time: 17:50 Comment: Labs notable for white count of 16 likely 2/2 acute withdrawal as patient denies infectious symptoms, as well as a potassium of 3.3 which will replete. Cr 1.8 given fluids. Elevated AST and ALTs in an alcohol injury distribution. Course/Dx - Course Course Of Treatment: This pt is a sign out from Dr. Lopez to Dr. Hobbs pending a MHE at shift change 2200 05/22/19. Pt is a sign out to Dr. Silva from Dr. Hobbs at shift change 0700 05/23/19 pending a MHU hold. - Diagnoses Provider Diagnoses: Substance use disorder - Provider Notifications Time Discussed With Above Provider: 18:30 Instructed by Provider To: Other - Cassi reports that the patient is going to be on mental health hold until tomorrow morning. Discharge - Sign-Out/Discharge Documenting (check all that apply): Sign-Out Patient, Receiving Sign-Out Signing out patient TO: Hao Silva Receiving patient FROM: Michelle Lopez Patient Received Moderate/Deep Sedation with Procedure: No - Discharge Plan Referrals: Areil Ellis MD [Medical Doctor] - - Attestation Statements Document Initiated by Scribe: Yes Documenting Scribe: Dax Rhoades Provider For Whom Scribe is Documenting (Include Credential): Pao Hobbs MD Scribe Attestation: Dax Hill, scribed for Pao Hobbs MD on 05/23/19 at 0654. Status of Scribe Document: Ready
[2019-05-23] MEDS ORDERED: Diazepam TAB(*) 5 MG PO ONE (00:42)
--- NOTE | 2019-05-23 06:45 | PN ---
ED Psychiatric Progress Note Subjective: This is a 59 year-old M who is pending admission to [facility] / transfer to another psychiatric facility / discharge to home / or being observed secondary to SI. Pt. examined in room 20 around 0640. He is sleeping comfortably. Objective: Vitals: Most recent vital signs documented below. General NAD. Laboratory: Current laboratory results documented below. Assessment: SI Plan: Pending MHE. Vital Signs Temp Pulse Resp BP Pulse Ox 99.8 F 127 18 143/87 98 05/23/19 00:26 05/23/19 00:26 05/23/19 01:11 05/23/19 00:26 05/23/19 00:26 Lab Results - Entire Visit 05/22/19 05/22/19 05/22/19 21:50 18:38 18:38 WBC RBC Hgb Hct MCV MCH MCHC RDW Plt Count MPV Neut % (Auto) Lymph % (Auto) [place] % (Auto) Eos % (Auto) Baso % (Auto) Absolute Neuts (auto) Absolute Lymphs (auto) Absolute Monos (auto) Absolute Eos (auto) Absolute Basos (auto) Absolute Nucleated RBC Nucleated RBC % Sodium 135 Potassium 3.9 Chloride 104 Carbon Dioxide 23 Anion Gap 8 BUN 40 H Creatinine 1.67 H Est GFR ( Amer) 51.2 Est GFR (Non-Af Amer) 42.3 BUN/Creatinine Ratio 24.0 H Glucose 103 H Calcium 8.4 L Total Bilirubin 0.60 AST 130 H ALT 73 H Alkaline Phosphatase 98 Total Protein 6.7 Albumin 3.6 Globulin 3.1 Albumin/Globulin Ratio 1.2 TSH Urine Color Yellow Urine Appearance Clear Urine pH 6.0 Ur Specific [place] 1.009 L Urine Protein 1+(30 mg/dl) A Urine Ketones Negative Urine Blood 3+ A Urine Nitrate Negative Urine Bilirubin Negative Urine Urobilinogen Negative Ur Leukocyte Esterase Negative Urine WBC (Auto) Trace(0-5/hpf) Urine RBC (Auto) Absent Ur Squamous Epith Cells Present A Urine Bacteria 1+ A Urine Glucose 3+(>=500 mg/dl) A Salicylates Urine Opiates Screen Presumptive positive A Acetaminophen Ur Barbiturates Screen None detected Ur Phencyclidine Scrn None detected Ur Amphetamines Screen None detected U Benzodiazepines Scrn None detected Urine Cocaine Screen None detected U Cannabinoids Screen None detected Serum Alcohol 05/22/19 05/22/19 17:47 17:47 WBC 16.7 H RBC 4.73 Hgb 14.8 Hct 44 MCV 93 MCH 31 MCHC 34 RDW 15 Plt Count 337 MPV 7.0 L Neut % (Auto) 79.2 Lymph % (Auto) 11.9 [place] % (Auto) 7.6 Eos % (Auto) 0.8 Baso % (Auto) 0.5 Absolute Neuts (auto) 13.2 H Absolute Lymphs (auto) 2.0 Absolute Monos (auto) 1.3 H Absolute Eos (auto) 0.1 Absolute Basos (auto) 0.1 Absolute Nucleated RBC 0.0 Nucleated RBC % 0.0 Sodium 133 L Potassium 3.3 L Chloride 103 Carbon Dioxide 19 L Anion Gap 11 BUN 41 H Creatinine 1.80 H Est GFR ( Amer) 47.0 Est GFR (Non-Af Amer) 38.8 BUN/Creatinine Ratio 22.8 H Glucose 87 Calcium 8.7 Total Bilirubin 0.60 AST 157 H ALT 86 H Alkaline Phosphatase 100 Total Protein 7.4 Albumin 4.0 Globulin 3.4 Albumin/Globulin Ratio 1.2 TSH 0.29 L Urine Color Urine Appearance Urine pH Ur Specific [place] Urine Protein Urine Ketones Urine Blood Urine Nitrate Urine Bilirubin Urine Urobilinogen Ur Leukocyte Esterase Urine WBC (Auto) Urine RBC (Auto) Ur Squamous Epith Cells Urine Bacteria Urine Glucose Salicylates < 2.50 Urine Opiates Screen Acetaminophen < 15 Ur Barbiturates Screen Ur Phencyclidine Scrn Ur Amphetamines Screen U Benzodiazepines Scrn Urine Cocaine Screen U Cannabinoids Screen Serum Alcohol 56 H
--- NOTE | 2019-05-23 07:19 | ED ---
Progress - Progress Note Progress Note: Patient is received as a sign out from Dr. Hobbs to Dr. Silva at 0700 05/23/19 shift change pending disposition of this mental health hold. 1020 - Patient's case was reviewed by Dr. Palacios, patient will be discharged to home and will follow up with [facility] and open access services. - Consult/PCP Time Called: 16:39 Course/Dx - Course Course Of Treatment: Patient is received as a sign out from Dr. Hobbs to Dr. Silva at 0700 05/23/19 shift change pending disposition of this mental health hold. 1020 - Patient's case was reviewed by Dr. Palacios, patient will be discharged to home and will follow up with [facility] and open access services. - Diagnoses Provider Diagnoses: Substance induced mood disorder - Provider Notifications Discussed Care Of Patient With: Gm Palacios Time Discussed With Above Provider: 10:20 Instructed by Provider To: Other - 1020 - Patient's case was reviewed by Dr. Palacios, patient will be discharged to home and will follow up with [facility] and open access services. Discharge - Sign-Out/Discharge Documenting (check all that apply): Patient Departure - discharge Patient Received Moderate/Deep Sedation with Procedure: No - Discharge Plan Condition: Stable Disposition: HOME Referrals: Ariel Ellis MD [Medical Doctor] - - Attestation Statements Document Initiated by Scribe: Yes Documenting Scribe: SAM CERNA Provider For Whom Scribe is Documenting (Include Credential): THOMAS SILVA MD Scribe Attestation: SAM Hill, scribed for THOMAS SILVA MD on 05/23/19 at 1023. Status of Scribe Document: Ready
[2019-05-23 13:06] VITALS: BP 140/98
== END 2019-05-23 13:03 | disposition home or self-care (01) ==
LOC: ED 15:34
DX: F11.94 Opioid use, unspecified with opioid-induced mood disorder (principal); R19.7 Diarrhea, unspecified; R53.83 Other fatigue; R53.1 Weakness; R45.851 Suicidal ideations; F17.210 Nicotine dependence, cigarettes, uncomplicated
CPT/HCPCS: 36415; 80053; 80307; 80320; 80329; 81003; 81015; 84443; 85025; 87086; 96360; 99285; A9270-GY; G0480

== ENCOUNTER 2019-05-24 06:44 | Inpatient (IN) | payer BC ==
--- NOTE | 2019-05-24 07:20 | ED ---
Substance Abuse/Use - HPI Summary HPI Summary: Pt is a 59 y/o M presenting to the ED brought in by EMS for an overdose. He states he was using heroin with a friend and may have used too much. He was given Narcan by EMS, and states that he feels better. He denies myalgia, nausea , vomiting, SOB, fevers, chills, rashes, or SI. He intermittently uses heroin. - History Of Current Complaint Chief Complaint: EDOverdose Stated Complaint: OVERDOSE PER EMS Time Seen by Provider: 05/24/19 06:56 Hx Obtained From: Patient Onset/Duration of Drug/ETOH Abuse: Hours Ingestion History: Type/Name Of Drug - heroin, Amount Ingested - unsure Overdose Characteristics: IV Timing Of Abuse: Binge Use Severity Initially: Moderate Severity Currently: Mild Aggravating Factor(s): Nothing Alleviating Factor(s): Nothing - Allergies/Home Medications Allergies/Adverse Reactions: Allergies Allergy/AdvReac Type Severity Reaction Status Date / Time No Known Allergies Allergy Verified 09/07/17 14:05 PMH/Surg Hx/FS Hx/Imm Hx Previously Healthy: No Endocrine/Hematology History: Denies: Hx Anticoagulant Therapy, Hx Blood Disorders, Hx Diabetes, Hx Thyroid Disease Cardiovascular History: Denies: Hx Hypertension, Hx Myocardial Infarction Respiratory History: Denies: Hx Asthma, Hx Chronic Obstructive Pulmonary Disease (COPD) GI History: Denies: Hx Ulcer Sensory History: Denies: Hx 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, Hx Deafness, Hx Hearing Aid Opthamlomology History: Denies: Hx 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 Psychiatric History: Reports: Hx Substance Abuse Denies: Hx Eating Disorder, Hx of Violent Episodes Against Others - Surgical History Surgery Procedure, Year, and Place: Splenectpmy Hx Anesthesia Reactions: No Infectious Disease History: No Infectious Disease History: Reports: Hx of Known/Suspected MRSA - past knee infection Denies: Hx Hepatitis, Hx Human Immunodeficiency Virus (HIV), History Other Infectious Disease, Traveled Outside the [place] in Last 30 Days - Family History Known Family History: Negative: Cardiac Disease, Hypertension, Diabetes - Social History Alcohol Use: Occasionally Alcohol Amount: rum and coke 1 drink nightly Hx Substance Use: Yes Substance Use Type: Reports: Heroin Substance Use Comment - Amount & Last Used: 05/21/19, 05/24/19 Hx Tobacco Use: Yes Smoking Status (MU): Light Every Day Tobacco Smoker Type: Cigarettes Amount Used/How Often: 1/2 ppd Length of Time of Smoking/Using Tobacco: since age15 Have You Smoked in the Last Year: Yes Review of Systems Negative: Fever, Chills Negative: Shortness Of Breath Negative: Vomiting, Nausea Negative: Myalgia Negative: Rash Negative: Other - SI All Other Systems Reviewed And Are Negative: Yes Physical Exam - Summary Physical Exam Summary: Constitutional: Well-developed, Well-nourished, Alert. (-) Distressed Skin: Warm, Dry HENT: Normocephalic; Atraumatic Eyes: Conjunctiva normal Neck: Musculoskeletal ROM normal neck. (-) JVD, (-) Stridor, (-) Tracheal deviation Cardio: Rhythm regular, rate normal, Heart sounds normal; Intact distal pulses; The pedal pulses are 2+ and symmetric. Radial pulses are 2+ and symmetric. (-) Murmur Pulmonary/Chest wall: Effort normal. (-) Respiratory distress, (-) Wheezes, (-) Rales Abd: Soft, (-) tenderness, (-) Distension, (-) Guarding, (-) Rebound Musculoskeletal: L leg has 8cm of erythematous excoriated rash that is mostly on the anterior medial portion of the leg, just proximal to the ankle, without warmth or edema. Lymph: (-) Cervical adenopathy Neuro: Alert, Oriented x3 Psych: Mood and affect Normal Triage Information Reviewed: Yes Vital Signs On Initial Exam: Initial Vitals Temp Pulse Resp BP Pulse Ox 97 F 86 16 136/97 94 05/24/19 06:48 05/24/19 06:48 05/24/19 06:48 05/24/19 06:48 05/24/19 06:48 Vital Signs Reviewed: Yes Diagnostics - Vital Signs Vital Signs Temp Pulse Resp BP Pulse Ox 05/24/19 06:48 97 F 86 16 136/97 94 - Laboratory Result Diagrams: 05/24/19 07:21 05/24/19 07:21 Lab Statement: Any lab studies that have been ordered have been reviewed, and results considered in the medical decision making process. - EKG 0903 Cardiac Rate: NL - 77bpm EKG Rhythm: Sinus Rhythm ST Segment: Non-Specific Ectopy: None Summary of EKG Findings: EKG at 0903 shows NSR at 77bpm with nml axis, nml QRS, nml QTc, ST elevation in v2 and v3, ST depression in aVF. T waves are inverted in v2 and v3. LVH. Nonspecific EKG. Re-Evaluation - Re-Evaluation 1st re-eval Re-Evaluation Time: 11:30 Comment: Pt is feeling good, his sister in law is present in room and states that he is overdosing on purpose, though the pt denies this. She states he uses heroin daily, often before work, and knows exactly what dose he should be taking, so the fact that he overdosed is indicative to her that he would like to commit suicide. Course/Dx - Course Course Of Treatment: Pt is a 59 y/o M presenting to the ED brought in by EMS for an overdose. He states he was using heroin with a friend and may have used too much. He was given Narcan by EMS, and states that he feels better. He denies myalgia, nausea, vomiting, SOB, fevers, chills, rashes, or SI. He intermittently uses heroin. Pts hematology shows WBC of 12.8, Hgb of 13.7, Hct of 41, MCV of 95, MCH of 32, and MPV of 7.1. Pts chemistry shows Potassium of 5.1, BUN of 36, Creatinine of 1.87, AST of 111, ALT of 88, and Alkaline Phosphate of 108. EKG at 0903 shows NSR at 77bpm with nml axis, nml QRS, nml QTc, ST elevation in v2 and v3, ST depression in aVF. T waves are inverted in v2 and v3. LVH. Nonspecific EKG. Pt will be admitted under Dr. Palacios with dx of mood disorder. - Diagnoses Provider Diagnoses: Mood disorder Discharge - Sign-Out/Discharge Documenting (check all that apply): Patient Departure - Discharge Plan Condition: Stable Disposition: PSYCHIATRIC FACILITY-OTHER - Billing Disposition and Condition Condition: STABLE Disposition: Psychiatric Facility Other - Attestation Statements Document Initiated by Scribe: Yes Documenting Scribe: Marisel El Provider For Whom Javanibe is Documenting (Include Credential): Deirdre Mendoza MD. Scribe Attestation: I, Marisel El, scribed for Deirdre Garnett MD. on 05/24/19 at 1850. Scribe Documentation Reviewed: Yes Provider Attestation: The documentation as recorded by the scribe, Marisel El accurately reflects the service I personally performed and the decisions made by me, Deirdre Garnett MD. Status of Scribe Document: Viewed
[2019-05-24 07:46] LABS: ABS Basophils 0.1 10^3/ul (0-0.2); ABS Lymphocytes 0.9 10^3/ul (1.0-4.8); ABS Monocytes 0.7 10^3/ul (0-0.8); ABS Neutrophils 11.1 10^3/ul (1.5-7.7); Eosinophil % 0.1 %; Hematocrit 41 % (42-52); Hemoglobin 13.7 g/dL (14.0-18.0); Mean Corpuscular HGB Conc 34 g/dL (31-36); Mean Corpuscular Hemoglobin 32 pg (27-31); Mean Corpuscular Volume 95 fL (80-94); Mean Platelet Volume 7.1 fL (7.4-10.4); Nucleated Red Blood Cells % 0.1; Platelet Count 339 10^3/uL (150-450); Red Blood Count 4.27 10^6 /uL (4.18-5.48); Red Cell Distribution Width 15 % (10-15); White Blood Count 12.8 10^3/uL (3.5-10.8)
[2019-05-24 08:01] LABS: ALT 88 U/L (7-52); AST 111 U/L (13-39); Albumin 3.9 g/dL (3.2-5.2); Albumin/Globulin Ratio 1.3 (1-3); Alkaline Phosphatase 108 U/L (34-104); BUN/Creatinine Ratio 19.3 (8-20); Blood Urea Nitrogen 36 mg/dL (6-24); CO2 Carbon Dioxide 22 mmol/L (22-32); Calcium 9.2 mg/dL (8.6-10.3); Chloride 104 mmol/L (101-111); EGFR African American 44.9 (>60); EGFR Non-African American 37.1 (>60); Glucose 147 mg/dL (70-100); Sodium 135 mmol/L (135-145); Total Protein 6.9 g/dL (6.4-8.9)
[2019-05-24 08:08] LABS: Anion Gap 9 mmol/L (2-11); Potassium 5.1 mmol/L (3.5-5.0)
[2019-05-24 08:11] LABS: Acetaminophen < 15 mcg/mL; Alcohol < 10 mg/dL (<10); Salicylate < 2.50 mg/dL (<30)
[2019-05-24 14:12] LABS: Urine Benzodiazepine Screen Presumptive Positive (None Detect); Urine Opiates Screen Presumptive Positive (None Detect)
[2019-05-24] MEDS ORDERED: Acetaminophen TAB* 325 MG PO PRN (16:40)
[2019-05-24] MEDS ORDERED: Al Hydrox/Mg Hydrox/Simet LIQ* 30 ML UDC PO PRN (16:40)
[2019-05-25 10:28] LABS: TSH (Thyroid Stimulating Horm) 0.7 mcIU/mL (0.34-5.60)
[2019-05-25] MEDS: Nicotine PATCH 14 MG/24 HR* PATCH TRANSDERM SCH (10:33)
[2019-05-25] MEDS: Vitamin THERAPEUTIC TAB PO SCH (10:33)
[2019-05-25 11:07] LABS: HDL Cholesterol 34.4 mg/dL
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
[2019-05-25] MEDS: Buprenorp/Nalox 8-2 MG FILM SL FILM SCH (13:55)
[2019-05-25] MEDS: cloNIDine TAB* 0.1 MG PO PRN (21:57)
[2019-05-25] MEDS: Nicotine Patch Removal NOTE PATCH OFF SCH (21:58)
--- NOTE | 2019-05-26 08:55 | PN ---
Subjective - Subjective Service Type: Other Subjective: Patient's brother Marlon Carbajal returned my phone call on May 25. The brother told me that the patient had been talking about wanting to kill himself "for years" and that many people could tell me that. He said that the patient had "three prior suicide attempts". When asked, he told me that the patient had a heroin overdose needing Narcan five years ago, a heroin overdose three years ago , and one two nights ago when he was using heroin with a friend and needed an ambulance call. The brother did not know of any suicide notes at all. The brother did say that the patient is regularly in opioid withdrawal at work and that the patient's boss is fed up with that. However, the patient was not in withdrawal here. The brother stated that if we discharged him that he would be calling a head of sales and marketing. I advised the brother to find evidence of suicidality in terms of documented information beyond the fact that the patient talked about wanting to commit suicide for many years and that we would continue to assess the patient. Assessment - Assessment Clinical Impression: Man with acute adjustment disorder due to situational factors and pressures from work and family. Has a likely opioid use disorder and some loss of control. Has had some passive suicidal ideation and will hold to assess this given the recent reported work issues. Will start Suboxone for now and will monitor. BSU: Problem List - Patient Problems (1) Substance abuse Current Visit: No Status: Acute Priority: High Onset Date: Unknown Code( s): F19.10 - OTHER PSYCHOACTIVE SUBSTANCE ABUSE, UNCOMPLICATED SNOMED Code(s) : 81317493 (2) At medium risk for suicide Current Visit: Yes Status: Acute Priority: High Code(s): ZZQ6185 - SNOMED Code(s): 322779500 Plan - Plan Treatment Plan: Name: PRIYA CARBAJAL Birthdate: 1960 [id number] Medications: Current Medications Acetaminophen (Tylenol Tab*) 650 mg PO Q4H PRN PRN Reason: PAIN or TEMP > 101 F Al Hydrox/Mg Hydrox/Simethicone (Maalox Plus*) 30 ml PO Q4H PRN PRN Reason: INDIGESTION Buprenorphine/Naloxone (Suboxone 8 Mg-2 Mg Sl Film) 1 each SL FILM DAILY [facility] Last Admin: 05/25/19 13:55 Dose: 1 each Clonidine HCl (Catapres Tab*) 0.1 mg PO BEDTIME PRN PRN Reason: INSOMNIA Last Admin: 05/25/19 21:57 Dose: 0.1 mg Multivitamins (Theragran Tab*) 1 tab PO DAILY [facility] Last Admin: 05/25/19 10:33 Dose: 1 tab Nicotine (Nicotine Patch 14 Mg/24 Hr*) 1 patch TRANSDERM DAILY [facility] Last Admin: 05/25/19 10:33 Dose: 1 patch Pharmacy Profile Note (Nicotine Patch Removal Note*) 1 note PATCH OFF 2100 [facility] Last Admin: 05/25/19 21:58 Dose: 1 note
[2019-05-26] MEDS: Buprenorp/Nalox 8-2 MG FILM SL FILM SCH (09:30)
[2019-05-26] MEDS: Nicotine PATCH 14 MG/24 HR* PATCH TRANSDERM SCH (09:30)
[2019-05-26] MEDS: Vitamin THERAPEUTIC TAB PO SCH (09:30)
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
[2019-05-26] MEDS ORDERED: Calamine LOTION* 120 ML TOPICAL PRN (16:53)
[2019-05-26] MEDS: Moisturizing CREAM* 120 GM JAR TOPICAL SCH ×2 (17:45→22:45)
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
[2019-05-26 19:36] LABS: Hepatitis C Antibody Reactive (Negative)
[2019-05-26] MEDS: cloNIDine TAB* 0.1 MG PO PRN (20:27)
[2019-05-27] MEDS: Nicotine Patch Removal NOTE PATCH OFF SCH ×2 (02:29→20:31)
[2019-05-27] MEDS: Nicotine PATCH 14 MG/24 HR* PATCH TRANSDERM SCH (08:55)
[2019-05-27] MEDS: Vitamin THERAPEUTIC TAB PO SCH (08:55)
[2019-05-27] MEDS: Buprenorp/Nalox 8-2 MG FILM SL FILM SCH (08:56)
[2019-05-27] MEDS: Moisturizing CREAM* 120 GM JAR TOPICAL SCH ×3 (08:56→20:31)
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
--- NOTE | 2019-05-27 15:54 | CONS ---
PSYCHOLOGICAL REPORT: DATE OF CONSULT: 05/27/19 REASON FOR REFERRAL: Denny was referred for psychological testing by Dr. Palacios to ascertain presence and severity of symptoms as well as comment on lethality. TEST ADMINISTERED: Denny completed the [place] Multiphasic Personality Inventory- 2 (MMPI-2). RELEVANT HISTORY: Mr. Munguia was seen in our emergency department on 2 occasions with his second leading to his hospitalization secondary to an overdose of heroin. He had been with a friend when the overdose occurred, who was able to assist him. He was narcanned in the emergency department and describes snorting heroin 2 to 4 times a week. Denny has been living with his brother, and they have experienced conflicts secondary to his drug use, with his brother disinclined to allow him to continue renting the room from him. 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 Regardless, Denny was admitted after a second incident and treated on the mental health unit. 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 He denies other drug use other than the periodic use of heroin. Denies other drug and alcohol difficulties. Denny has remained relatively isolated during his stay here, avoiding group programming or in general interacting with peers. He has been cooperative with staff efforts to assess and treat and essentially was quite sedentary for the first 2 days of his admission. He has been polite and pleasant in interactions with staff, although there were some concerns regarding possible contraband being brought to the unit by friends of his. TEST RESULTS: Denny provides a "best foot forward." Protocol on this administration of the MMPI-2, having only endorsed 1 item on the 3 stressor scales and concomitantly elevating the emotional coping and self-esteem scales with marginally elevated lie scale. This response is typical of a person who is consciously trying to deny experiencing any clinical pathologies. He subsequently does not elevate any of the clinical indices with some endorsement of items occurring on the paranoia scale; however this remained subclinical. It is difficult to make any clinical discussion from this protocol as it does not appear to reflect authentic endorsement of his experiences. IMPRESSION AND RECOMMENDATIONS: Denny appears motivated to be discharge and has denied any thoughts of suicide, either presently or prior to his admission. Staff notes describe how he feels, he "made a mistake" by using too much heroin and it was an accidental overdose. Presently, he reliably denies experiencing suicidal thoughts and is hopeful of returning to work. Concerns that remain tribal around possible homelessness and how to problem solve his way through this dilemma with his brother. Clinical discussion has addressed utility of referral to residential rehabilitation services as well as outpatient substance abuse services. [id number]/[facility] #: [id number] CRISTOPHER
[2019-05-27] MEDS: cloNIDine TAB* 0.1 MG PO PRN (20:28)
[2019-05-28] MEDS: Vitamin THERAPEUTIC TAB PO SCH (09:07)
[2019-05-28] MEDS: Buprenorp/Nalox 8-2 MG FILM SL FILM SCH (09:08)
[2019-05-28] MEDS: Moisturizing CREAM* 120 GM JAR TOPICAL SCH ×3 (09:08→20:14)
[2019-05-28] MEDS: Nicotine PATCH 14 MG/24 HR* PATCH TRANSDERM SCH (09:09)
--- NOTE | 2019-05-28 15:03 | PN ---
Subjective - Subjective Date of Service: 05/28/19 Service Type: 18066 Hosp care 15 min low complexity Subjective: Reports doing better, mood improved, no SI, sleeping is "off and on". Denies any physical problems. Feels well treated here. Objective - General Observations Appears Stated Age: Yes Stature: WNL Posture: WNL Eye Contact: Average Behavior/Activity: WNL - Interaction Observations Attitude Towards Examiner: Cooperative Stated Mood: Euthymic Affect: Full Speech Pattern/Tone: Clear, Appropriate, Normal Volume Thought Process: Coherent Perception: WNL Thought Content: WNL Hallucination Type: None Delusion Type: None - Cognitive Function Orientation: A&O x 4 Cognition: WNL Estimated Intelligence: Normal Insight: WNL Judgment Within Normal Limits: Yes - Medication Compliance Cooperative with Inpatient Medication Regimen: Yes - Group Participation Participates in Group Activities: Yes Assessment - Assessment Merits Inpatient Hospitalization: Consolidate Improvements, For Discharge Planning Clinical Impression: Man with acute adjustment disorder due to situational factors and pressures from work and family. Has a likely opioid use disorder and some loss of control. Is tolerating Suboxone 8/2 mg and is eager to continue this. Took news about hepatitis C well. Will be referred to [facility] to provide primary care and possibly suboxone; if they cannot take him on then he can come to my practice [address] [place] [address] 1:00 PM June 25, 2019Thursday for a refill. When he is ready for discharge I can prescribe a thirty day supply of suboxone if no one else is available. He is not acutely suicidal, does not feel hopeless, does not have racing thoughts or psychosis. The main acute risk factor is severe tension in the home; if the brother and [id number] remain irate then it would be prudent to set up a discharge on May 30Thursday when he could possibly have alternate housing. Plan - Plan Treatment Plan: Name: PRIYA CARBAJAL Birthdate: 1960 [id number] As Priya reports feeling safe from any SI, likely to discharger early next week to follow-up as per social work staff. Continue suboxone, with f/u with Dr Palacios or other suboxone prescriber. Medications: Current Medications Acetaminophen (Tylenol Tab*) 650 mg PO Q4H PRN PRN Reason: PAIN or TEMP > 101 F Al Hydrox/Mg Hydrox/Simethicone (Maalox Plus*) 30 ml PO Q4H PRN PRN Reason: INDIGESTION Buprenorphine/Naloxone (Suboxone 8 Mg-2 Mg Sl Film) 1 each SL FILM DAILY [facility] Last Admin: 05/28/19 09:08 Dose: 1 each Calamine (Calamine Lotion*) 1 applic TOPICAL QID PRN PRN Reason: ITCHING Last Admin: 05/26/19 20:24 Dose: 1 applic Clonidine HCl (Catapres Tab*) 0.1 mg PO BEDTIME PRN PRN Reason: INSOMNIA Last Admin: 05/27/19 20:28 Dose: 0.1 mg Multi-Ingredient Ointment (Hydrocerin*) 1 applic TOPICAL TID [facility] Last Admin: 05/28/19 13:31 Dose: Not Given Multivitamins (Theragran Tab*) 1 tab PO DAILY [facility] Last Admin: 05/28/19 09:07 Dose: 1 tab Nicotine (Nicotine Patch 14 Mg/24 Hr*) 1 patch TRANSDERM DAILY [facility] Last Admin: 05/28/19 09:09 Dose: 1 patch Pharmacy Profile Note (Nicotine Patch Removal Note*) 1 note PATCH OFF 2100 [facility] Last Admin: 05/27/19 20:31 Dose: Not Given - Discharge Plan Discharge Plan: Outpatient Follow Up
[2019-05-28] MEDS: cloNIDine TAB* 0.1 MG PO PRN (20:12)
[2019-05-28] MEDS: Nicotine Patch Removal NOTE PATCH OFF SCH (20:15)
[2019-05-29] MEDS: Vitamin THERAPEUTIC TAB PO SCH (09:18)
[2019-05-29] MEDS: Nicotine PATCH 14 MG/24 HR* PATCH TRANSDERM SCH (09:18)
[2019-05-29] MEDS: Buprenorp/Nalox 8-2 MG FILM SL FILM SCH (09:18)
[2019-05-29] MEDS: Moisturizing CREAM* 120 GM JAR TOPICAL SCH ×3 (09:18→23:01)
[2019-05-29] MEDS: Nicotine Patch Removal NOTE PATCH OFF SCH (21:08)
[2019-05-29] MEDS: cloNIDine TAB* 0.1 MG PO PRN (21:14)
[2019-05-30] MEDS: Vitamin THERAPEUTIC TAB PO SCH (09:16)
[2019-05-30] MEDS: Buprenorp/Nalox 8-2 MG FILM SL FILM SCH (09:17)
[2019-05-30] MEDS: Nicotine PATCH 14 MG/24 HR* PATCH TRANSDERM SCH (09:17)
[2019-05-30] MEDS: Moisturizing CREAM* 120 GM JAR TOPICAL SCH (09:19)
[2019-05-30 09:52] VITALS: BP 129/69
--- NOTE | 2019-05-30 11:37 | DCNOTE ---
Subjective - Subjective Service Types: 39880 Hosp DC Day Mgmt simple under 30 min Discharge Date: 05/30/19 Subjective: Patient is euthymic with bright affect upon approach. He denies SI or that he had thoughts of suicide prior to hospitalization. He reports he "overdid it" in regards to intranasal heroin use. He is agreeble to MAT with suboxone. He declines offer of inpatient substance use treatment. He reports desire to utilize [facility] for emergency housing. Objective - General Observations Appearance: Unkempt Stature: Thin Posture: WNL Eye Contact: Average Behavior/Activity: WNL - Interaction Observations Attitude Towards Examiner: Cooperative Stated Mood: Euthymic Affect: Bright Speech Pattern/Tone: Clear, Appropriate, Normal Volume Thought Process: Coherent, Goal Directed Perception: WNL Thought Content: WNL Hallucination Type: None Delusion Type: None - Cognitive Function Orientation: A&O x 4 Level of Consciousness: Alert Cognition: WNL Estimated Intelligence: Normal Insight: WNL Judgment Within Normal Limits: Yes - Medication Compliance Cooperative with Inpatient Medication Regimen: Yes - Group Participation Participates in Group Activities: Partial DC Assessment - Assessment Clinical Impression: 59yo white male, employed, recently homeless, who presented to ED after opiate use and collateral information eluding to suicidal ideation. Patient denies SI and no longer meets criteria for emergency hospitalization. He has started MAT for opiate use disorder. Discharge Planning - Discharge Planning Discharge Plan: Outpatient Follow Up Outpatient Program: [facility] Recommendations for Continuing Care: Medication Management, Psychotherapy, Substance Abuse Counseling, Primary Care Followup Medications: Current Medications Buprenorphine/Naloxone (Suboxone 8 Mg-2 Mg Sl Film) 1 each SL FILM DAILY [facility] Last Admin: 05/30/19 09:17 Dose: 1 each Calamine (Calamine Lotion*) 1 applic TOPICAL QID PRN PRN Reason: ITCHING Last Admin: 05/26/19 20:24 Dose: 1 applic Clonidine HCl (Catapres Tab*) 0.1 mg PO BEDTIME PRN PRN Reason: INSOMNIA Last Admin: 05/29/19 21:14 Dose: 0.1 mg Multi-Ingredient Ointment (Hydrocerin*) 1 applic TOPICAL TID [facility] Discharge Planning: Prescriptions provided for discharge [x] Yes [] No Follow up care details as per social work arrangements [facility] Patient response to discharge plan: [x] eager for discharge [x] agreeable with discharge plan [] ambivalent about discharge [] disagrees with discharge today
--- NOTE | 2019-05-31 13:13 | DS ---
DISCHARGE SUMMARY: DATE OF ADMISSION: 05/24/19 DATE OF DISCHARGE: 05/30/19 SUPERVISING PSYCHIATRIST: Dr. Mickey Flores.* (DICTATED BY ERIK GARCIA NP) DISCHARGE DIAGNOSES: 1. 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 2. Adjustment disorder with anxiety and depression. 3. Tobacco use disorder. CONDITION AT THE TIME OF DISCHARGE: Improved. The patient is euthymic with bright affect. He has been safe on all checks and denied suicidal ideation throughout the hospitalization. He asserts that heroin use was recreational and not an attempt at self-harm. He minimizes heroin use and declines offer of referral for substance use counseling. He has started medicated assisted treatment with buprenorphine and agrees to follow up with [facility] and [facility]. As his [id number] was picking him up, we discussed the above and she states understanding and agreement with discharge plan. The patient is not allowed to return to the home of his brother and [id number] due to substance use and is agreeable to utilize [facility] for emergency housing. The patient is discharged to home. MENTAL STATUS EXAM: Denny is a 59-year-old male who appears older than stated age. He has long dark juan hair that is disheveled and unkempt. He is wearing hospital scrubs. He is alert and oriented x3. Eye contact is good. He participates fully in conversation. Speech is normal volume, articulate, and spontaneous. Concentration is good. Memory 3/3. Mood is euthymic with bright affect. No abnormal psychomotor activity noted. Thought process is goal oriented, logical, and coherent. Thought content is negative for SI or passive wish. He denies HI or . He denies auditory or visual hallucinations. Insight and judgment are fair. Prognosis is good with treatment and fair without followup. Fund of knowledge is adequate. INSTRUCTIONS GIVEN TO PATIENT: A. Medications: 1. Buprenorphine/naloxone 8/2 one film daily. I spoke with Dr. Gm Palacios, who sent a one-month supply of this medication until the patient can follow up with [facility]. 2. Clonidine 0.1 mg p.o. at bedtime p.r.n. insomnia. 3. Hydrocerin topical cream apply as needed. B. Diet: Regular. C. Activity. Ambulation as tolerated. Tobacco cessation is declined by patient. There are no pending labs or diagnostic studies. D. Followup care. The patient will follow up at [facility] for primary care and has an intake on 06/21/19. He can also receive medicated assisted treatment through [facility] for substance use disorder. He is also referred to [facility] and has an intake on 05/31/19. HOSPITAL COURSE: Part A: Reason for Admission: The patient presented to the emergency department after a friend called EMS due to the patient overdosed on heroin, intranasal use. The patient reported suicidal ideation and had had another visit to the emergency room the night before. The patient reported that his employers and family members with whom he lives are concerned about heroin use. For full admission information, please see H&P by Dr Gm Palacios. Part B: Psychiatric Treatment Rendered: The patient was admitted to the adult behavioral services unit on voluntary status. Code status was full. He was placed on 15 minute checks for his safety. He was encouraged to participate to in supportive milieu, individual sessions with staff, and psychoeducational groups. According to staff, he was minimally engaged in treatment, often seclusive except for meals and medications. Hospitalist service consulted due to patient c/o skin breakdown on lower extremity and diagnosed with dermatitis. Recommendation to utilize Eucerin cream and calamine lotion. Patient completed psychological testing with Denny Gray, PhD. Please see Dr Gray's consultation for full report. The patient was started on Suboxone by admitting psychiatrist and tolerated this well. He reported desire to continue this medication and reports desire to abstain from heroin use. The patient denied offer of referrals for outpatient or inpatient substance use treatment. He prioritized need for work. The patient stated that he is likely not allowed to return to his brother's. Treatment team encouraged the patient to have conversations with family members and it was clear he was avoiding doing this. According to family members, he had not been paying rent and upholding his end of living with them including substance use, so they were no longer allowing him back in the home. Social work left messages with family members to discuss discharge planning. The patient reported desire to be discharged. On the day of discharge, he reported desire to obtain his car from his brother's home and go to [facility] for emergency housing services. He agreed to follow up with [facility] and [facility]. He and his family were also notified of walk-in appointments available through [facility] and [facility]. The patient was tested for hepatitis and the initial antibody was reactive, but further testing notes the RNA was undetected. The patient was still encouraged to follow up with primary care. He also has bursitis in his elbow that is untreated. We hope that Denny follows through on the above recommendations. ERIK GARCIA, DAMIEN [id number]/[facility] #: [id number] CRISTOPHER
== END 2019-05-30 12:30 | disposition home or self-care (01) | DRG 773 ==
LOC: ED 06:44 → BSU 15:43
PROVIDERS: ADMIT Psychiatry & Neurology Psychiatry; ATTEND Psychiatry & Neurology Psychiatry
DX: F11.94 Opioid use, unspecified with opioid-induced mood disorder (principal); R45.851 Suicidal ideations; F43.23 Adjustment disorder with mixed anxiety and depressed mood; F17.210 Nicotine dependence, cigarettes, uncomplicated; T40.1X1A Poisoning by heroin, accidental (unintentional), initial encounter; F12.21 Cannabis dependence, in remission; B19.20 Unspecified viral hepatitis C without hepatic coma; L30.9 Dermatitis, unspecified; Y92.9 Unspecified place or not applicable; Z79.899 Other long term (current) drug therapy
CPT/HCPCS: 36415; 80053; 80061; 80307; 80320; 80329; 83036; 84443; 85025; 86803; 87522; 93005; 96130; 99222; 99231; 99232; 99238; 99283; A9270-GY; G0480

== ENCOUNTER 2019-07-20 12:20 | Emergency (ER) | payer BC ==
[2019-07-20] MEDS ORDERED: traMADol TAB* 50 MG PO ONE (14:40)
[2019-07-20 14:56] VITALS: BP 137/94
--- NOTE | 2019-07-20 15:04 | ED ---
Skin Complaint - HPI Summary HPI Summary: This is a 59 year old male wit lopez chief complaint of a progressive rash for the past several months. The rash began on his legs, and has spread to involve the anterior portions of the legs bilaterally, as well as the elbows more recently. He states that it is itchy, painful and burning. He has tried using OTC creams for eczema and psoriasis and they have not relieved his symptoms. He saw the urgent care in regards to this rash one week ago, where he was given Silver Sulfadiazine, which provided limited relief. - History of Current Complaint Chief Complaint: EDRashSkinAbscess Time Seen by Provider: 07/20/19 13:38 Stated Complaint: RASH ALL OVER BODY PER PT Hx Obtained From: Patient Onset/Duration: Started Weeks Ago, Still Present Timing: Constant, Lasting Weeks Onset Severity: Moderate Current Severity: Moderate Pain Intensity: 9 Pain Scale Used: 0-10 Numeric Skin Location: Arm, Leg Character: Swelling - Moderate swelling over the left elbow and mild swelling to the lower legs bilaterally., Redness, Painful Aggravating Symptom(s): Clothing Alleviating Symptom(s): Nothing Associated Signs & Symptoms: Negative - Additional Pertinent History Primary Care Physician: [id number] - Allergy/Home Medications Allergies/Adverse Reactions: Allergies Allergy/AdvReac Type Severity Reaction Status Date / Time No Known Allergies Allergy Verified 07/20/19 12:25 PMH/Surg Hx/FS Hx/Imm Hx Endocrine/Hematology History: Denies: Hx Anticoagulant Therapy, Hx Blood Disorders, Hx Diabetes, Hx Thyroid Disease Cardiovascular History: Denies: Hx Hypertension, Hx Myocardial Infarction Respiratory History: Denies: Hx Asthma, Hx Chronic Obstructive Pulmonary Disease (COPD) GI History: Denies: Hx Ulcer Sensory History: Denies: Hx 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, Hx Deafness, Hx Hearing Aid Opthamlomology History: Denies: Hx 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 Psychiatric History: Reports: Hx Depression, Hx Substance Abuse Denies: Hx Eating Disorder, Hx Suicide Attempt, Hx of Violent Episodes Against Others - Surgical History Surgery Procedure, Year, and Place: Splenectpmy Hx Anesthesia Reactions: No Infectious Disease History: No Infectious Disease History: Reports: Hx of Known/Suspected MRSA - past knee infection Denies: Hx Hepatitis, Hx Human Immunodeficiency Virus (HIV), History Other Infectious Disease, Traveled Outside the [place] in Last 30 Days - Family History Known Family History: Negative: Cardiac Disease, Hypertension, Diabetes - Social History Alcohol Use: Occasionally Alcohol Amount: rum and coke 1 drink nightly Hx Substance Use: Yes Substance Use Type: Reports: Heroin Substance Use Comment - Amount & Last Used: hx Hx Tobacco Use: Yes Smoking Status (MU): Heavy Every Day Tobacco Smoker Type: Cigarettes Amount Used/How Often: 1/2 ppd Length of Time of Smoking/Using Tobacco: since age15 Have You Smoked in the Last Year: Yes Review of Systems Negative: Fever, Chills, Fatigue Eyes: Negative ENT: Negative Negative: Chest Pain Negative: Shortness Of Breath, Cough Gastrointestinal: Negative Positive: no symptoms reported Musculoskeletal: Negative Positive: Rash Neurological: Negative Psychological: Normal All Other Systems Reviewed And Are Negative: Yes Physical Exam Triage Information Reviewed: Yes Vital Signs On Initial Exam: Initial Vitals Temp Pulse Resp BP Pulse Ox 97.9 F 104 18 115/75 97 07/20/19 12:21 07/20/19 12:21 07/20/19 12:21 07/20/19 12:21 07/20/19 12:21 Vital Signs Reviewed: Yes Appearance: Positive: Well-Appearing, Well-Nourished Skin: Positive: Warm - Lower legs bilaterally appear significantly warmer than the rest of the body., Skin Color Reflects Adequate Perfusion, Tender, Scaly Skin/Lesions - Numerous dry, yellow/brown crusting scales disseminated throughout the bilateral lower legs. Smaller similar lesions on the elbows bilaterally., Erythema @ - Erythema throughout the bilateral lower legs, as well as the posterior elbows. Head/Face: Positive: Normal Head/Face Inspection Eyes: Positive: Normal, EOMI, GIORGIO, Conjunctiva Clear Neck: Positive: Supple, No Lymphadenopathy Respiratory/Lung Sounds: Positive: Clear to Auscultation Cardiovascular: Positive: Normal, RRR Diagnostics - Vital Signs Vital Signs Temp Pulse Resp BP Pulse Ox 07/20/19 14:55 98.3 F 98 18 137/94 94 07/20/19 12:21 97.9 F 104 18 115/75 97 - Laboratory Lab Statement: Any lab studies that have been ordered have been reviewed, and results considered in the medical decision making process. Course/Dx - Course Course Of Treatment: The patients symptoms are consistent with severe psoriasis. The patient was prescribed Prednisone cream .5% with a taper, Triamcinolone and Tramadol, as well as a referral to a multi needle machine operator. Patient states he will call the multi needle machine operator and make an appointment for continued care. - Differential Diagnoses - Skin Complaint Differential Diagnoses: Other - Contact dermatitis, eczema, cellulitis - Diagnoses Provider Diagnoses: Psoriasis Discharge ED - Sign-Out/Discharge Documenting (check all that apply): Patient Departure Patient Received Moderate/Deep Sedation with Procedure: No - Discharge Plan Condition: Stable Disposition: HOME Prescriptions: predniSONE TAB* [Deltasone 10 MG TAB*] 10 mg PO DAILY #42 tab traMADol TAB* [Ultram*] 50 mg PO Q8H PRN #12 tab MDD 3 PRN Reason: Pain Triamcinolone 0.5% CREAM(NF) [Triamcinolone 0.5% CREAM*] 1 applic TOPICAL BID # 2 tube Patient Education Materials: Psoriasis (ED) Forms: *Work Release Referrals: Carlitos Joseph MD [Medical Doctor] - No Primary Care Phys,NOPCP [Primary Care Provider] - Additional Instructions: Please follow up with dermatology Triamcinolone cream twice daily to affected area Prednisone 60mg x 2 days, 50mg x 2 days, 40mg x 2 days, 20 mg x 2 days, 10mg x 2 days Tramadol as needed for discomfort - up to three times daily May also use over the counter ibuprofen and tylenol for relief - Billing Disposition and Condition Condition: STABLE Disposition: Home
== END 2019-07-20 14:55 | disposition home or self-care (01) ==
LOC: ED 12:20
DX: L40.9 Psoriasis, unspecified (principal); F17.210 Nicotine dependence, cigarettes, uncomplicated
CPT/HCPCS: 99282; A9270-GY

== ENCOUNTER 2019-08-18 12:28 | Inpatient (IN) | payer BC ==
[2019-08-18] MEDS ORDERED: Morphine 4 MG/ML VIAL (1 ml) 4 MG/ML VIAL IV ONE ×2 (12:41→16:32)
--- OUTSIDE RECORDS SUMMARY | 2019-08-18 12:41 | XMS REPORT | Summary of Care ---
:1960 Author Organization [facility] Address [address] [place] [address] Care Team Providers Name Role Phone None, Merrillan Primary Care Provider Unavailable Reason for Visit Reason Comments New Patient Left elbow swelling. Started a few weeks back. Patient does not remember getting bit or anything, it just started swelling and has gotten worse. Encounter Details Date Type Department Care Team Description 08/18/2019 Office Visit [facility] - Aura Valerio, Septic olecranon [place] RPA-C bursitis, left [address] [facility] (Primary Dx) [address] [place] [address] [place] [address] [phone] Allergies No Known Allergiesdocumented as of this encounter (statuses as of 08/18/2019) Medications Medication Sig Dispensed Refills Start Date End Date Status DOXYCYCLINE PO Take by mouth. 0 Active documented as of this encounter (statuses as of 08/18/2019) Active Problems No known active problemsdocumented as of this encounter (statuses as of 2018) Social History Tobacco Use Types Packs/Day Years Used Date Current Every Day Smoker 0 Smokeless Tobacco: Never Used Sex Assigned at Date Recorded Not on file Job Start Date Occupation Industry Not on file Not on file Not on file Travel History Travel Start Travel End No recent travel history available. documented as of this encounter Last Filed Vital Signs Vital Sign Reading Time Taken Comments Blood Pressure 115/89 08/18/2019 9:44 AM EDT Pulse 103 08/18/2019 9:44 AM EDT Temperature - - Respiratory Rate - - Oxygen Saturation - - Inhaled Oxygen Concentration - - Weight 68 kg (150 lb) 08/18/2019 9:44 AM EDT Height 175.3 cm (5' 9") 08/18/2019 9:44 AM EDT Body Mass Index 22.15 08/18/2019 9:44 AM EDT documented in this encounter Progress Notes Aura Valerio RPA-C - 08/18/2019 9:30 AM EDT PATIENT: Denny Munguia : 1960 DATE OF SERVICE: 08/18/2019 Chief Complaint Patient presents with New Patient Left elbow swelling. Started a few weeks back. Patient does not remember getting bit or anything, it just started swelling and has gotten worse. SUBJECTIVE: Denny Munguia is an 59-y.o. male who presents with left elbow pain. Onset of the symptoms was several weeks ago. Inciting event: none known. Current symptoms include swelling: onset 2 weeks after injury. Aggravating symptoms: elbow range of motion . Patient's overall course: gradually worsening. Patient has had no prior elbow problems. Previous visits for this problem: yes, last seen by Acute Care. Evaluation to date: [facility] . Treatment to date: Johnathan bandage And started on Doxycycline History reviewed. No pertinent past medical history. History reviewed. No pertinent family history. No current outpatient medications on file. No current facility-administered medications for this visit. No Known Allergies Social History Socioeconomic History Marital status: Single Spouse name: Not on file Number of children: Not on file Years of education: Not on file Highest education level: Not on file Occupational History Not on file Social Needs Financial resource strain: Not on file Food insecurity: Worry: Not on file Inability: Not on file Transportation needs: Medical: Not on file Non-medical: Not on file Tobacco Use Smoking status: Current Every Day Smoker Packs/day: 0.00 Smokeless tobacco: Never Used Substance and Sexual Activity Alcohol use: Not on file Drug use: Not on file Sexual activity: Not on file Lifestyle Physical activity: Days per week: Not on file Minutes per session: Not on file Stress: Not on file Relationships Social connections: Talks on phone: Not on file Gets together: Not on file Attends voodoo service: Not on file Active member of club or organization: Not on file Attends meetings of clubs or organizations: Not on file Relationship status: Not on file Intimate partner violence: Fear of current or ex partner: Not on file Emotionally abused: Not on file Physically abused: Not on file Forced sexual activity: Not on file Other Topics Concern Not on file Social History Narrative Not on file REVIEW OF SYSTEMS: All remaining review of systems was negative except for as noted in the history of present illness/subjective. OBJECTIVE: Ht 5' 9" (1.753 m) | Wt 150 lb (68 kg) | BMI 22.15 kg/m left elbow: Large swelling present in the olecranon bursa with erythema and skin changes . Also swelling and erythema of the forearm and hand. Can not make a complete fist due to swelling. No drainage Decreased range of motion of the elbow with pain. his wrist range of motion is decreased and painful. NV intact to the left upper extremity. he has +2 radial pulse of the left upper extremity. RADIOGRAPHS: No acute bony abnormality . ASSESSMENT: infected olecranon bursitis left elbow with cellulitis PLAN: Spoke to Dr. Hurd recommended sending him to the ER. May need surgical drainage or admit forIV antibiotics. Author: NIDHI Abdi 08/18/2019 09:45 documented in this encounter Plan of Treatment Health Maintenance Due Date Last Done Comments PNEUMOCOCCAL 0-64 YRS (1 of - 01/24/1966 PPSV23) DEPRESSION SCREENING 1972 HIV SCREENING 01/24/1975 LIPID DISORDER SCREENING 01/24/1978 HEPATITIS C SCREENING 2000 COLONOSCOPY SCREENING 01/24/2010 ZOSTER IMMUNIZATION SERIES (1 of 2) 01/24/2010 INFLUENZA VACCINE (#1) 2019 HPV IMMUNIZATION SERIES Aged Out No longer eligible based on patient's age to complete this topic MENINGOCOCCAL VACCINE IMM Aged Out No longer eligible based on patient's age to complete this topic documented as of this encounter Results Not on filedocumented in this encounter Visit Diagnoses Diagnosis Septic olecranon bursitis, left - Primary documented in this encounter Insurance Payer Benefit Plan / Subscriber ID Effective Dates Phone Address Type Group [employer] xxxxxxxxxxxx 2018-Present [employer] documented as of this encounter
[2019-08-18 13:05] LABS: ABS Basophils 0.1 10^3/ul (0-0.2); ABS Eosinophils 0.1 10^3/ul (0-0.6); ABS Lymphocytes 1.5 10^3/ul (1.0-4.8); ABS Monocytes 1.1 10^3/ul (0-0.8); ABS Neutrophils 12.3 10^3/ul (1.5-7.7); Eosinophil % 0.7 %; Hematocrit 41 % (42-52); Hemoglobin 13.6 g/dL (14.0-18.0); Lymphocyte % 9.9 %; Mean Corpuscular HGB Conc 33 g/dL (31-36); Mean Corpuscular Hemoglobin 31 pg (27-31); Mean Corpuscular Volume 94 fL (80-94); Mean Platelet Volume 6.9 fL (7.4-10.4); Nucleated Red Blood Cells % 0.1; Platelet Count 392 10^3/uL (150-450); Red Blood Count 4.34 10^6 /uL (4.18-5.48); Red Cell Distribution Width 16 % (10-15); White Blood Count 15.1 10^3/uL (3.5-10.8)
[2019-08-18 13:25] LABS: Albumin 3.5 g/dL (3.2-5.2); Albumin/Globulin Ratio 0.9 (1-3); BUN/Creatinine Ratio 18.5 (8-20); C Reactive Protein 159.97 mg/L (<8.01); Calcium 8.9 mg/dL (8.6-10.3); EGFR Non-African American 97.5 (>60); Potassium 4.3 mmol/L (3.5-5.0); Total Bilirubin 0.5 mg/dL (0.2-1.0); Total Protein 7.5 g/dL (6.4-8.9)
[2019-08-18 14:10] LABS: Erythrocyte Sed Rate 87 mm/Hr (0-19)
[2019-08-18] MEDS ORDERED: NS 0.9% 1000 ML** 1,000 ML IV ONE (14:23)
[2019-08-18] MEDS ORDERED: Clindamycin 600 MG/D5W BAG(*) 600 MG/50 ML BAG IV ONE (14:23)
--- NOTE | 2019-08-18 14:31 | ED ---
Upper Extremity Pain - HPI Summary HPI Summary: This patient is a 59-year-old male smoker with no past significant medical history presenting to the ED with left erythematous swollen elbow. He states the swelling began approximately 3 weeks ago, but did not have overlying erythema or warmth. Over the past few days, he states the swelling enlarged significantly, now the size of a tennis ball, and now has overlying erythema, warmth and diffuse swelling throughout the ipsilateral arm. He is able to flex and extend, however with pain. Denies any numbness or tingling into the forearm her fingertips. Denies any pain to shoulder or to the wrist. 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 He has been having intermittent sweats and chills over the past 3 days. No symptoms like this in his history. Denies any IV drug use. - History of Current Complaint Chief Complaint: EDExtremityUpper Stated Complaint: LEFT ELBOW SWOLLEN/RED/AND PAINFUL PER PT Time Seen by Provider: 08/18/19 12:35 Hx Obtained From: Patient Onset/Duration: Started Hours Ago Timing: Constant Severity Initially: Severe Severity Currently: Severe Pain Location: Elbow Character: Aching, Throbbing Aggravating Factor(s): Movement, Lifting, Flexion, Extension Alleviating Factor(s): Rest, Ice Associated Signs & Symptoms: Positive: Swelling, Redness. Negative: Bruising, Weakness, Numbness/Tingling, Diaphoresis, Nausea Related History: Dominant Hand Right - Risk Factors Non-Orthopedic Risk Factor: Negative DVT Risk Factors: Negative Septic Arthritis Risk Factor: Negative Compartment Syndrome Risk Factors: Pain - Allergies/Home Medications Allergies/Adverse Reactions: Allergies Allergy/AdvReac Type Severity Reaction Status Date / Time No Known Allergies Allergy Verified 08/18/19 12:30 Home Medications: Home Medications DOXYcycline CAP(*) [DOXYcycline 100MG CAP(*)] 100 mg PO BID 08/18/19 [History Confirmed 08/18/19] PMH/Surg Hx/FS Hx/Imm Hx Previously Healthy: Yes Endocrine/Hematology History: Denies: Hx Anticoagulant Therapy, Hx Blood Disorders, Hx Diabetes, Hx Thyroid Disease Cardiovascular History: Denies: Hx Hypertension, Hx Myocardial Infarction Respiratory History: Denies: Hx Asthma, Hx Chronic Obstructive Pulmonary Disease (COPD) GI History: Denies: Hx Ulcer Sensory History: Denies: Hx 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, Hx Deafness, Hx Hearing Aid Opthamlomology History: Denies: Hx 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 Psychiatric History: Reports: Hx Depression, Hx Substance Abuse Denies: Hx Eating Disorder, Hx Suicide Attempt, Hx of Violent Episodes Against Others - Surgical History Surgery Procedure, Year, and Place: Splenectpmy Hx Anesthesia Reactions: No - Immunization History Hx Pertussis Vaccination: No Immunizations Up to Date: Yes Infectious Disease History: No Infectious Disease History: Reports: Hx of Known/Suspected MRSA - past knee infection Denies: Hx Hepatitis, Hx Human Immunodeficiency Virus (HIV), History Other Infectious Disease, Traveled Outside the [place] in Last 30 Days - Family History Known Family History: Negative: Cardiac Disease, Hypertension, Diabetes - Social History Occupation: Employed Full-time Lives: With Family Alcohol Use: Occasionally Alcohol Amount: rum and coke 1 drink nightly Hx Substance Use: Yes Substance Use Type: Reports: Heroin Substance Use Comment - Amount & Last Used: hx Hx Tobacco Use: Yes Smoking Status (MU): Heavy Every Day Tobacco Smoker Type: Cigarettes Amount Used/How Often: 1/2 ppd Length of Time of Smoking/Using Tobacco: since age15 Have You Smoked in the Last Year: Yes Review of Systems Negative: Fever, Chills, Fatigue, Skin Diaphoresis Negative: Palpitations, Chest Pain Negative: Shortness Of Breath, Cough Genitourinary: Negative Positive: no symptoms reported, see HPI Positive: Arthralgia - left sided large effusion over elbow with overlying erythema and warmth Positive: Other - left sided large effusion over elbow with overlying erythema and warmth extending through forearm and up to the shoulder Neurological: Negative All Other Systems Reviewed And Are Negative: Yes Physical Exam Triage Information Reviewed: Yes Vital Signs On Initial Exam: Initial Vitals Temp Pulse Resp BP Pulse Ox 98.3 F 99 22 144/72 94 08/18/19 12:30 08/18/19 12:30 08/18/19 12:30 08/18/19 12:30 08/18/19 12:30 Vital Signs Reviewed: Yes Appearance: Positive: Well-Appearing, Well-Nourished Skin: Positive: Skin Color Reflects Adequate Perfusion, Other - large tennis ball size erythema and warmth, erythema extending down to wrist and up to shoulder joint Neck: Positive: Supple Respiratory/Lung Sounds: Positive: Breath Sounds Present Cardiovascular: Positive: RRR, Pulses are Symmetrical in both Upper and Lower Extremities Musculoskeletal: Positive: Pain @ - elbow with flexion and extension Neurological: Positive: Speech Normal Psychiatric: Positive: Affect/Mood Appropriate AVPU Assessment: Alert Procedures - Sedation Patient Received Moderate/Deep Sedation with Procedure: No Diagnostics - Vital Signs Vital Signs Temp Pulse Resp BP Pulse Ox 08/18/19 13:00 18 08/18/19 12:30 98.3 F 99 22 144/72 94 - Laboratory Lab Results: Lab Results 08/18/19 08/18/19 Range/Units 12:51 12:51 WBC 15.1 H (3.5-10.8) 10^3/uL RBC 4.34 (4.18-5.48) 10^6 /uL Hgb 13.6 L (14.0-18.0) g/dL Hct 41 L (42-52) % MCV 94 (80-94) fL MCH 31 (27-31) pg MCHC 33 (31-36) g/dL RDW 16 H (10-15) % Plt Count 392 (150-450) 10^3/uL MPV 6.9 L (7.4-10.4) fL Neut % (Auto) 81.3 % Lymph % (Auto) 9.9 % Slope % (Auto) 7.6 % Eos % (Auto) 0.7 % Baso % (Auto) 0.5 % Absolute Neuts (auto) 12.3 H (1.5-7.7) 10^3/ul Absolute Lymphs (auto) 1.5 (1.0-4.8) 10^3/ul Absolute Monos (auto) 1.1 H (0-0.8) 10^3/ul Absolute Eos (auto) 0.1 (0-0.6) 10^3/ul Absolute Basos (auto) 0.1 (0-0.2) 10^3/ul Absolute Nucleated RBC 0.0 10^3/ul Nucleated RBC % 0.1 ESR 87 H (0-19) mm/Hr Sodium 131 L (135-145) mmol/L Potassium 4.3 (3.5-5.0) mmol/L Chloride 98 L (101-111) mmol/L Carbon Dioxide 26 (22-32) mmol/L Anion Gap 7 (2-11) mmol/L BUN 15 (6-24) mg/dL Creatinine 0.81 (0.67-1.17) mg/dL Est GFR ( Amer) 118.0 (>60) Est GFR (Non-Af Amer) 97.5 (>60) BUN/Creatinine Ratio 18.5 (8-20) Glucose 128 H (70-100) mg/dL Calcium 8.9 (8.6-10.3) mg/dL Total Bilirubin 0.50 (0.2-1.0) mg/dL AST 17 (13-39) U/L ALT 13 (7-52) U/L Alkaline Phosphatase 104 (34-104) U/L C-Reactive Protein 159.97 H (<8.01) mg/L Total Protein 7.5 (6.4-8.9) g/dL Albumin 3.5 (3.2-5.2) g/dL Globulin 4.0 (2-4) g/dL Albumin/Globulin Ratio 0.9 L (1-3) Result Diagrams: 08/18/19 12:51 08/18/19 12:51 Lab Statement: Any lab studies that have been ordered have been reviewed, and results considered in the medical decision making process. Course/Dx - Course Course Of Treatment: Patient is evaluated for rythematous swollen warm olecranon bursa to the left elbow. Patient endorses pain to the joint which demonstrates a large effusion the size of a tennis ball. Limited active and passive range of motion, however patient can flex to nearly 30. Diffuse swelling to the left arm with overlying erythema down the forearm and up to the shoulder consistent with an overlying cellulitis. Elevated white count of 15, 000, CRP 159, ESR pending and blood culture pending. Patient is afebrile at 98.3. Discussed case with Dr. Lieberman and sent photo using backline. Dr. Lieberman recommends admission to the hospital with IV antibiotics. Johnathan wrapped elbow and placed on 600 mg IV clindamycin. - Diagnoses Differential Diagnosis/HQI/PQRI: Positive: Septic Arthritis Provider Diagnoses: Olecranon bursitis of left elbow, Cellulitis of left arm - Physician Notifications Discussed Care of Patient With: Sydnee Lieberman - Discussed with Dr. Lockhart who also saw patient in ED Instructed by Provider To: Admit As Inpatient - admit to ortho service Discharge ED - Sign-Out/Discharge Documenting (check all that apply): Patient Departure - Discharge Plan Condition: Fair Disposition: ADMITTED TO [facility] Referrals: No Primary Care Phys,NOPCP [Primary Care Provider] - - Billing Disposition and Condition Condition: FAIR Disposition: Admitted to [facility] - Attestation Statements Provider Attestation: Patient was presented to me by the APAP. 59-year-old male, no past medical history including IV drug abuse, here with left elbow swelling. Patient's had 2 weeks of nontraumatic left elbow swelling. Patient has swelling at the olecranon bursa. Patient's had 24 hours of erythema on the arm and fever at home. Patient has an elevated white blood cell count. Patient has overlying cellulitis over his versus aspiration was not attempted. Orthopedic surgery was consult and they recommended IV antibiotics and admission.
[2019-08-18] MEDS ORDERED: diPHENhydraMINE IV* 50 MG/ML 1 ml VIAL (BENADRYL) IV PRN (15:08)
[2019-08-18] MEDS ORDERED: Ondansetron TAB* 4 MG PO PRN (15:08)
[2019-08-18] MEDS ORDERED: Ondansetron INJ* 2 MG/ML VIAL IV PRN (15:08)
[2019-08-18] MEDS ORDERED: diPHENhydraMINE PO* 25 MG PO PRN (15:08)
[2019-08-18] MEDS ORDERED: Clindamycin 600 MG/D5W BAG(*) 600 MG/50 ML BAG IV SCH (16:00)
[2019-08-18] MEDS ORDERED: Vancomycin per Pharmacy* NOTE FOLLOW UP SCH (16:00)
[2019-08-18] MEDS ORDERED: Vancomycin(*) 1,250 MG in NS 0.9% 250 ML* 250 ML IVPB ONE (17:00)
[2019-08-18] MEDS: Lactated Ringers 1000 ML Bag* 1,000 ML IV SCH (17:39)
[2019-08-18] MEDS: Ibuprofen TAB* 600 MG PO SCH ×2 (17:40→23:24)
[2019-08-18] MEDS: oxyCODONE/Acetamin 5/325 MG* TAB PO PRN ×2 (17:40→23:56)
--- NOTE | 2019-08-18 18:34 | HP ---
Amended report to enter cosigning physician. HISTORY AND PHYSICAL: DATE OF ADMISSION: 08/18/19 ATTENDING SURGEON: Dr. Sydnee Lieberman* (dictated by PAUL Berger). CHIEF COMPLAINT: Left elbow pain. 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 He states that he has had some swelling about his elbow for several weeks now, but it has increased significantly in the last 2 days and has become red and more swollen. He also states that he has been having some subjective fevers and chills. He states he had a fever yesterday of 101. He denies any trauma to the elbow, but he states that as a cook he could have hit his elbow on something and not noticed it. He has not taken any medications or sought treatment for this elsewhere. He is a smoker. He locates the pain to the olecranon bursa of his left elbow. He denies any radiation of pain. He denies any numbness or tingling. He has no pain in his left shoulder, wrist or hand. He denies any drug use. PAST MEDICAL HISTORY: None. PAST SURGICAL HISTORY: Splenectomy. MEDICATIONS: None. ALLERGIES: No known drug allergies. FAMILY HISTORY: Not pertinent. 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 He is a smoker, who smokes half a pack a day since the age of 15. He denies any current recreational drug use or IV use, but has had substance abuse in the past. He has 1 alcoholic beverage per day. REVIEW OF SYSTEMS: General: Positive for fevers, chills, night sweats. Negative for unexplained weight loss or gain. Cardio: Negative for chest pain or palpitations. Respiratory: Negative for shortness of breath, coughing, or wheezing. GI: Negative for nausea, vomiting, diarrhea, constipation, or GERD. Skin: Positive for erythema and swelling of the left elbow. Negative for any open wounds, puncture sites, or rashes. : Negative for nocturia, urinary frequency, urgency, or kidney problems. Musculoskeletal: Positive for left elbow pain. Negative for chronic or intermittent back pain or history of fractures. Neurologic: Negative for paresthesias, numbness, history of seizure , stroke. Psychiatric: Negative for anxiety, depression. Endocrine: Negative for diabetes or thyroid issues. Hematologic: Negative for easy bruising, anemia, bleeding disorders, history of DVT or PE. ID: Negative for history of MRSA infection, hep C, or HIV. PHYSICAL EXAMINATION GENERAL: Well-developed, well-nourished 59-year-old male, in no acute distress , appropriate mood and affect, appropriate dress and hygiene, alert and oriented. HEENT: Normocephalic, atraumatic. PERRLA. Extraocular movements intact. NECK: Supple. PULMONARY: Lungs are clear to auscultation bilaterally. No wheezes, rales, or rhonchi. CARDIO: Regular rate and rhythm. S1 and S2 normal. No murmurs, rubs, or gallops. ABDOMEN: Positive bowel sounds. Soft and nontender. No organomegaly noted. NEUROLOGIC: A and O x3. Cranial nerves II through XII intact. Sensation is intact to light touch. MUSCULOSKELETAL: Left upper extremity: The left olecranon bursa is significantly swollen with area of erythema and dried cracking skin over top of it. There are no puncture wounds or cuts in the skin. He does also have some diffuse soft tissue swelling that is spreading down into his hand and digits. The erythema is located just around the bursa and has not spread upper or down the extremity. He is able to flex and extend his elbow with some pain. He is tender to palpation over the olecranon bursa. He has full range of motion of the shoulder, wrist, and hand. Public Health Staff Nurse strength is good. Neurovascularly intact distally. DIAGNOSTIC STUDIES: X-rays of the left elbow were obtained and show no evidence of foreign body or fracture. IMPRESSION: Left elbow infected olecranon bursitis. PLAN: The patient is being admitted for IV antibiotics. It was discussed with the patient that there might possibly need for surgery. We would like to see if the swelling can go down with nonoperative treatment. Infectious Disease was consulted and Dr. Altamirano suggested placing the patient on vanco, so that has been ordered. Vital signs will be monitored and labs will be ordered to monitor the infection. He was given Percocet for pain management. PAUL MCNEILL [id number]/[facility] #: [id number] [facility]
[2019-08-18 22:01] LABS: Hematocrit 37 % (42-52); Hemoglobin 12.1 g/dL (14.0-18.0); Mean Corpuscular HGB Conc 33 g/dL (31-36); Mean Corpuscular Hemoglobin 31 pg (27-31); Mean Corpuscular Volume 94 fL (80-94); Mean Platelet Volume 6.7 fL (7.4-10.4); Platelet Count 359 10^3/uL (150-450); Red Blood Count 3.91 10^6 /uL (4.18-5.48); Red Cell Distribution Width 16 % (10-15); White Blood Count 11.6 10^3/uL (3.5-10.8)
[2019-08-18 22:19] LABS: Albumin 2.9 g/dL (3.2-5.2); Albumin/Globulin Ratio 0.9 (1-3); Calcium 8.2 mg/dL (8.6-10.3); EGFR African American 82.9 (>60); EGFR Non-African American 68.5 (>60); Globulin 3.2 g/dL (2-4); Total Bilirubin 0.4 mg/dL (0.2-1.0); Total Protein 6.1 g/dL (6.4-8.9)
[2019-08-18] MEDS ORDERED: NS 0.9% 1000 ML** 2,000 ML IV ONE (23:45)
[2019-08-18] MEDS ORDERED: Albuterol/Ipratropium NEB.SOL* Albuterol 2.5 MG/Ipratropium 0.5 MG 3 ML INH PRN (23:48)
[2019-08-19] MEDS: Lactated Ringers 1000 ML Bag* 1,000 ML IV SCH ×2 (01:05→14:13)
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
[2019-08-19] MEDS: Ibuprofen TAB* 600 MG PO SCH ×4 (05:41→22:33)
[2019-08-19] MEDS: Vancomycin(*) 1,000 MG in NS 0.9% 250 ML* 250 ML IVPB SCH ×2 (05:41→17:35)
[2019-08-19] MEDS: predniSONE TAB* 20 MG PO SCH (07:48)
[2019-08-19] MEDS: oxyCODONE/Acetamin 5/325 MG* TAB PO PRN ×4 (07:49→22:34)
--- NOTE | 2019-08-19 15:14 | PN ---
Subjective Date of Service: 08/19/19 Interval History: Mr. Munguia states that he is feeling somewhat better today. He notes that he has had a small mass on the L elbow for "weeks," but that it has worsened in the last 1 week. He states that it is less tender today, and does not cause restriction in ROM. He c/o intermittent fever; denies abd pain, n/v/d, changes in urinary habits, cough, or SOB, although patient is noted to be on supplemental O2 (none required at baseline). He has no other complaints today. Objective Active Medications: Albuterol/Ipratropium (Duoneb (Albuterol 2.5 Mg/Ipratropium 0.5 Mg)) 1 neb INH Q4H PRN PRN Reason: SOB/WHEEZING Diphenhydramine HCl (Benadryl Iv*) 25 mg IV Q6H PRN PRN Reason: PRURITIS Diphenhydramine HCl (Benadryl Po*) 25 mg PO Q6H PRN PRN Reason: ITCHING Lactated Ringer's (Lactated Ringers 1000 Ml Bag*) 1,000 mls @ 100 mls/hr IV PER RATE [facility] Last Admin: 08/19/19 14:13 Dose: 100 mls/hr Vancomycin HCl 1,000 mg/ (Sodium Chloride) 250 mls @ 166.667 mls/hr IVPB Q12H [facility] Last Admin: 08/19/19 05:41 Dose: 166.667 mls/hr Ibuprofen (Motrin Tab*) 600 mg PO Q6H [facility] Last Admin: 08/19/19 10:23 Dose: 600 mg Ondansetron HCl (Zofran Inj*) 4 mg IV Q6H PRN PRN Reason: NAUSEA Ondansetron HCl (Zofran Tab*) 4 mg PO Q6H PRN PRN Reason: EMESIS Oxycodone/Acetaminophen (Percocet 5/325 Tab*) 1 tab PO Q4H PRN PRN Reason: PAIN - MODERATE Last Admin: 08/19/19 14:13 Dose: 1 tab Oxycodone/Acetaminophen (Percocet 5/325 Tab*) 2 tab PO Q4H PRN PRN Reason: PAIN - SEVERE Last Admin: 08/18/19 23:56 Dose: 2 tab Pharmacy Consult (Vancomycin Per Pharmacy*) 1 note FOLLOW UP .VANC PER PHARM[facility]Y [facility]; Protocol Pharmacy Profile Note (Vancomycin Trough Check) 1 note FOLLOW UP 0600 ONE Stop: 08/20/19 06:01 Prednisone (Deltasone Tab*) 40 mg PO DAILY [facility] Last Admin: 08/19/19 07:48 Dose: 40 mg Vital Signs: Temp Pulse Resp BP Pulse Ox 98.2 F 78 22 102/58 91 08/19/19 03:21 08/19/19 07:30 08/19/19 14:13 08/19/19 07:30 08/19/19 07:30 Oxygen Devices in Use Now: None Appearance: Pt is an average weight, middle-aged male who appears somewhat older than his stated age; somewhat unkempt. In no acute distress, but requiring supplemental O2 Eyes: No Scleral Icterus, PERRLA Ears/Nose/Mouth/Throat: NL Teeth, Lips, Gums, Clear Oropharnyx, Mucous Membranes Moist Neck: NL Appearance and Movements; NL JVP, Trachea Midline Respiratory: Symmetrical Chest Expansion and Respiratory Effort, - - Intermittent wheeze throughout b/l lungs Abdominal: NL Sounds; No Tenderness; No Distention, No Hepatosplenomegaly Extremities: No Clubbing, Cyanosis, - - Trace b/l LE edema with brawny skin discoloration Neurological: Alert and Oriented x 3 Result Diagrams: 08/18/19 21:46 08/18/19 21:46 Additional Lab and Data: Lab Results 08/18/19 08/18/19 Range/Units 12:51 12:51 WBC 15.1 H (3.5-10.8) 10^3/uL RBC 4.34 (4.18-5.48) 10^6 /uL Hgb 13.6 L (14.0-18.0) g/dL Hct 41 L (42-52) % MCV 94 (80-94) fL MCH 31 (27-31) pg MCHC 33 (31-36) g/dL RDW 16 H (10-15) % Plt Count 392 (150-450) 10^3/uL MPV 6.9 L (7.4-10.4) fL Neut % (Auto) 81.3 % Lymph % (Auto) 9.9 % [place] % (Auto) 7.6 % Eos % (Auto) 0.7 % Baso % (Auto) 0.5 % Absolute Neuts (auto) 12.3 H (1.5-7.7) 10^3/ul Absolute Lymphs (auto) 1.5 (1.0-4.8) 10^3/ul Absolute Monos (auto) 1.1 H (0-0.8) 10^3/ul Absolute Eos (auto) 0.1 (0-0.6) 10^3/ul Absolute Basos (auto) 0.1 (0-0.2) 10^3/ul Absolute Nucleated RBC 0.0 10^3/ul Nucleated RBC % 0.1 ESR 87 H (0-19) mm/Hr Sodium 131 L (135-145) mmol/L Potassium 4.3 (3.5-5.0) mmol/L Chloride 98 L (101-111) mmol/L Carbon Dioxide 26 (22-32) mmol/L Anion Gap 7 (2-11) mmol/L BUN 15 (6-24) mg/dL Creatinine 0.81 (0.67-1.17) mg/dL Est GFR ( Amer) 118.0 (>60) Est GFR (Non-Af Amer) 97.5 (>60) BUN/Creatinine Ratio 18.5 (8-20) Glucose 128 H (70-100) mg/dL Calcium 8.9 (8.6-10.3) mg/dL Total Bilirubin 0.50 (0.2-1.0) mg/dL AST 17 (13-39) U/L ALT 13 (7-52) U/L Alkaline Phosphatase 104 (34-104) U/L C-Reactive Protein 159.97 H (<8.01) mg/L Total Protein 7.5 (6.4-8.9) g/dL Albumin 3.5 (3.2-5.2) g/dL Globulin 4.0 (2-4) g/dL Albumin/Globulin Ratio 0.9 L (1-3) Microbiology and Other Data: Microbiology 08/18/19 12:50 Aerobic Blood Culture - Preliminary Blood Venous No Growth Day 1 Anaerobic Blood Culture - Preliminary No Growth Day 1 08/18/19 12:51 Aerobic Blood Culture - Preliminary Blood Venous No Growth Day 1 Anaerobic Blood Culture - Preliminary No Growth Day 1 Assess/Plan/Problems-Billing Assessment: 59yom PMHx HTN and HLD, not on treatment, h/o substance abuse, probably COPD who presents with sepsis likely 2/2 olecranon bursitis - Patient Problems (1) Sepsis Comment: -Pt presents with tachycardia, tachypnea, fever, leukocytosis, lactic acidosis -CXR: small bibasilar infiltrates -UA: not collected; ordered, although pt has been on IV abx -BC: NGTD -Likely d/t olecranon bursitis -Pt received 2L IVF bolus; started on vancomycin -Contine IV abx -Tachycardia, tachypnea, lactic acidosis resolved (2) Olecranon bursitis, left elbow Comment: -Management per ortho -Continue IV vanco (3) Acute respiratory failure with hypoxia Comment: -Pt with new supplemental O2 requirements, currently on 3L -Does not use O2 at baseline -Possibly due to COPD exacerbation, as patient has h/o tobacco abuse with no dx of COPD -Continue prednisone -Continue nebulizers (4) Hypertension Comment: -h/o HTN, not on antihypertensives -currently normotensive -monitor need for antihypertensive medications (5) Tobacco abuse Comment: -Pt offered nicotine replacement products, but declined (6) Full code status Status and Disposition: Inpatient. Discharge per ortho.
--- NOTE | 2019-08-19 16:59 | PN ---
Progress Note - Progress Note Date of Service: 08/19/19 SOAP: Subjective: Pain is less, but present L elbow. Objective: LUE - No palpable, tender axillary LAD - Erythema upper arm to distal forearm without significant TTP - No pain with PROM elbow - Olecranon bursa has palpable, visible swelling, c/w fluid and is TTP - NVID Selected Entries 08/18/19 08/18/19 08/18/19 20:00 20:20 22:42 Temperature 99.5 F 101.5 F 97.9 F Pulse Rate Respiratory Rate Blood Pressure (mmHg) O2 Sat by Pulse Oximetry 08/19/19 08/19/19 03:21 11:26 Temperature 98.2 F 98.2 F Pulse Rate 81 Respiratory 20 Rate Blood Pressure 95/74 (mmHg) O2 Sat by Pulse 90 Oximetry Laboratory Tests 08/18/19 08/18/19 08/18/19 12:51 12:51 21:46 WBC 15.1 H 11.6 H Neut % (Auto) 81.3 ESR 87 H Lactic Acid C-Reactive Protein 159.97 H 08/18/19 08/19/19 08/19/19 21:46 05:51 09:19 WBC Neut % (Auto) ESR Lactic Acid 2.8 H* 2.1 H* 0.8 C-Reactive Protein Assessment: HD 2 L infected olecranon bursitis Septic by criteria Plan: - Continue IV antibiotics - Serial exams and inflammatory labs - F/u on cultures from aspiration, adjust antibiotics accordingly. - Procedure: aspiration L elbow olecranon bursa. Written consent, sterile technique. Tolerated well. Removed 28cc of pus into syringes. Removed another approximately 10cc by milking bursa and pushing out through spinal needle. A sample of fluid sent to microbiology. - Daily exam by ortho. - Pain control
[2019-08-19] MEDS ORDERED: Morphine INJ* 2 MG/ML 1 ML SYRINGE (TWO MG - NEW SYRINGE VERSION) IV ONE (17:25)
--- NOTE | 2019-08-19 21:58 | CONS ---
CONSULTATION REPORT: DATE OF ADMISSION: 08/18/19 DATE OF CONSULT: 08/19/19 PRIMARY CARE PROVIDER: None PROVIDER RESQUESTING CONSULTATION: PAUL Berger CONSULTING SERVICE: Infectious Disease CONSULTING PROVIDER: Flores Alexander NP ATTENDING DOCTOR: Dr. Max Altamirano * (dictated by Flores Alexander NP) IMPRESSION: 1. Infected olecranon bursitis on the left. No known trauma to the arm. No open areas for wound culture. The patient has been on vancomycin. His CRP and ESR are elevated on admission. He has been seen by Orthopedics and they are following along. 2. Tobacco abuse. PLAN: Recommend continuing vancomycin through the weekend and follow CRP. Once he has had marked improvement of the arm, he could go home on a course of oral antibiotics. He may not need surgery on this, antibiotics alone may be enough. We will continue to follow along. Further recommendations will be based on the patient's clinical course and if any cultures are obtained, if the patient undergoes aspiration or surgery over the weekend. HISTORY OF PRESENT ILLNESS: Mr. 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 The patient denies any known trauma, but states he often leans on his elbow when he is reading and may have bumped it at work. He had noticed significant increase in swelling over the last couple of days with redness and swelling in his arm. He otherwise had been feeling okay. Due to his symptoms, he presented to the emergency room for evaluation. While in the emergency room, he underwent a left elbow x-ray showing no fracture or foreign bodies. He had labs showing leukocytosis and elevated ESR and elevated CRP. He was seen and evaluated by Orthopedics, who recommended admission for IV antibiotics. While in the hospital, he has been receiving vancomycin. He reports some intermittent fevers and chills, pain in the left elbow, no other joint pain. Denies nausea, vomiting, diarrhea, constipation, abdominal pain, urinary symptoms. Other than the erythema to his left arm, he denies any rash. No recent travel. The patient was felt to have hypoxia secondary to COPD exacerbation and has been placed on DuoNeb and steroids during his hospitalization. PAST MEDICAL HISTORY: 1. Substance abuse disorder. 2. Tobacco abuse. 3. Suspected COPD. PAST SURGICAL HISTORY: 1. 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 2. Status post splenectomy. 3. Status post appendectomy. 4. Status post tonsillectomy. MEDICATIONS: Home Medications: Doxycycline 100 mg by mouth twice daily. Hospital Medications: 1. DuoNeb 2.5 mg/0.5 one neb inhalation every 4 hours as needed for shortness of breath or wheeze. 2. Benadryl 25 mg IV or p.o. every 6 hours as needed for itching. 3. Ibuprofen 600 mg every 6 hours. 4. Lactated Ringer's 100 mL intravenously an hour. 5. Zofran 4 mg IV p.o. every 6 hours as needed for nausea. 6. Percocet 5/325 one to two tablets every 4 hours as needed for pain. 7. Prednisone 40 mg by mouth daily. 8. Vancomycin 1000 mg IV every 12 hours. ALLERGIES: No known drug allergies. FAMILY HISTORY: Unknown family history as he was adopted. SOCIAL HISTORY: He has been smoking half a pack a day for greater than 40 years. He drinks 1 alcoholic beverage daily. He denies any current drug use or history of heroin use. REVIEW OF SYSTEMS: I performed a 10-point review of systems. All the pertinent positives and negatives are mentioned in the history of present illness. The remaining review of systems are negative. PHYSICAL EXAM: Vital Signs: Temperature 98.2, heart rate 61, respiratory rate 20, O2 sat 90% on 2 L via nasal cannula, blood pressure 95/72. General Appearance: The patient does not appear to be in any acute distress. Head: Normocephalic, atraumatic. ENT: Extraocular movements are intact. No subconjunctival hemorrhage. Moist mucous membranes. Neurological: Alert and oriented. Cranial nerves II through XII are grossly intact. He moves all extremities. Cardiovascular: Regular rate and rhythm. S1 and S2 present. No murmurs, rubs, or gallops heard. Respiratory: He has diffuse wheezing throughout. No accessory muscle use. Abdomen: Bowel sounds present. Abdomen is soft, nontender, nondistended. Extremities: No lower extremity edema. Left upper extremity with edema from the elbow through the wrist. He has full range of motion of the left elbow and left wrist. There is a large effusion noted in the left elbow and 2+ pitting edema in the arm. Musculoskeletal: No clubbing or cyanosis noted. He exhibits good strength in all extremities. Psychological: Calm and cooperative. Skin: No rashes or abnormalities seen. DIAGNOSTIC STUDIES/LABORATORY DATA: From yesterday, sodium 134, potassium 4.0, chloride 101, CO2 of 27, BUN 22, creatinine 1.10, glucose 90. White blood cell count 11.6, hemoglobin 12.1, hematocrit 37, platelet count 359. ESR 87 and CRP 159.97. Please see impression and recommendations outlined above. Recommendations have been discussed with PAUL Oliveira. Thank you for asking us to see Mr. Munguia in consultation. Case has been reviewed with my attending, Dr. Max Altamirano, who agrees with plan of care. Reviewed by CHARY BUSH 08/21/19 1458 [id number] #: [id number] MTDD
[2019-08-19 22:09] LABS: Urine Appearance Clear; Urine Bacteria Absent (Absent); Urine Bilirubin Negative (Negative); Urine Blood Negative (Negative); Urine Color Amber; Urine Glucose 2+(150 mg/dL) (Negative); Urine Ketones Negative (Negative); Urine Nitrite Negative (Negative); Urine Protein 2+(100 mg/dL) (Negative); Urine Red Blood Cell Absent (Absent); Urine Specific Gravity 1.025 (1.010-1.030); Urine Urobilinogen Negative (Negative); Urine White Blood Cell Absent (Absent)
[2019-08-19 22:23] LABS: Urine Benzodiazepine Screen None Detected (None Detect); Urine Opiates Screen Presumptive Positive (None Detect)
[2019-08-20] MEDS: Ibuprofen TAB* 600 MG PO SCH ×4 (03:46→21:22)
[2019-08-20] MEDS: oxyCODONE/Acetamin 5/325 MG* TAB PO PRN ×4 (03:48→19:53)
[2019-08-20] MEDS: Lactated Ringers 1000 ML Bag* 1,000 ML IV SCH ×2 (04:55→15:24)
[2019-08-20] MEDS ORDERED: Vancomycin Trough Check NOTE FOLLOW UP ONE (06:00)
[2019-08-20] MEDS: Vancomycin(*) 1,000 MG in NS 0.9% 250 ML* 250 ML IVPB SCH ×2 (06:02→18:23)
[2019-08-20] MEDS: predniSONE TAB* 20 MG PO SCH (09:31)
--- NOTE | 2019-08-20 11:56 | PN ---
Subjective Date of Service: 08/20/19 Interval History: Reports feeling better,less pain in elbow.No complaints Objective Active Medications: Albuterol/Ipratropium (Duoneb (Albuterol 2.5 Mg/Ipratropium 0.5 Mg)) 1 neb INH Q4H PRN PRN Reason: SOB/WHEEZING Diphenhydramine HCl (Benadryl Iv*) 25 mg IV Q6H PRN PRN Reason: PRURITIS Diphenhydramine HCl (Benadryl Po*) 25 mg PO Q6H PRN PRN Reason: ITCHING Lactated Ringer's (Lactated Ringers 1000 Ml Bag*) 1,000 mls @ 100 mls/hr IV PER RATE [facility] Last Admin: 08/20/19 04:55 Dose: 100 mls/hr Vancomycin HCl 1,000 mg/ (Sodium Chloride) 250 mls @ 166.667 mls/hr IVPB Q12H [facility] Last Admin: 08/20/19 06:02 Dose: 166.667 mls/hr Ibuprofen (Motrin Tab*) 600 mg PO Q6H [facility] Last Admin: 08/20/19 09:30 Dose: 600 mg Ondansetron HCl (Zofran Inj*) 4 mg IV Q6H PRN PRN Reason: NAUSEA Ondansetron HCl (Zofran Tab*) 4 mg PO Q6H PRN PRN Reason: EMESIS Oxycodone/Acetaminophen (Percocet 5/325 Tab*) 1 tab PO Q4H PRN PRN Reason: PAIN - MODERATE Last Admin: 08/19/19 14:13 Dose: 1 tab Oxycodone/Acetaminophen (Percocet 5/325 Tab*) 2 tab PO Q4H PRN PRN Reason: PAIN - SEVERE Last Admin: 08/20/19 09:31 Dose: 2 tab Pharmacy Consult (Vancomycin Per Pharmacy*) 1 note FOLLOW UP .VANC PER PHARMACY [facility]; Protocol Prednisone (Deltasone Tab*) 40 mg PO DAILY [facility] Last Admin: 08/20/19 09:31 Dose: 40 mg Vital Signs - 8 hr 08/20/19 08/20/19 08/20/19 06:05 09:00 09:31 Temperature 97.5 F Pulse Rate 70 Respiratory 16 16 18 Rate Blood Pressure 118/62 (mmHg) O2 Sat by Pulse 98 Oximetry 08/20/19 11:24 Temperature 97.7 F Pulse Rate 78 Respiratory 16 Rate Blood Pressure 97/53 (mmHg) O2 Sat by Pulse 98 Oximetry Oxygen Devices in Use Now: Nasal Cannula Eyes: No Scleral Icterus Ears/Nose/Mouth/Throat: NL Teeth, Lips, Gums Neck: NL Appearance and Movements; NL JVP Respiratory: Symmetrical Chest Expansion and Respiratory Effort Cardiovascular: NL Sounds; No Murmurs; No JVD Abdominal: NL Sounds; No Tenderness; No Distention Extremities: No Edema, - - L elbow dressing, erythema and swelling improved Neurological: Alert and Oriented x 3 Result Diagrams: 08/18/19 21:46 08/18/19 21:46 Additional Lab and Data: Lab Results 08/18/19 08/18/19 Range/Units 12:51 12:51 WBC 15.1 H (3.5-10.8) 10^3/uL RBC 4.34 (4.18-5.48) 10^6 /uL Hgb 13.6 L (14.0-18.0) g/dL Hct 41 L (42-52) % MCV 94 (80-94) fL MCH 31 (27-31) pg MCHC 33 (31-36) g/dL RDW 16 H (10-15) % Plt Count 392 (150-450) 10^3/uL MPV 6.9 L (7.4-10.4) fL Neut % (Auto) 81.3 % Lymph % (Auto) 9.9 % [place] % (Auto) 7.6 % Eos % (Auto) 0.7 % Baso % (Auto) 0.5 % Absolute Neuts (auto) 12.3 H (1.5-7.7) 10^3/ul Absolute Lymphs (auto) 1.5 (1.0-4.8) 10^3/ul Absolute Monos (auto) 1.1 H (0-0.8) 10^3/ul Absolute Eos (auto) 0.1 (0-0.6) 10^3/ul Absolute Basos (auto) 0.1 (0-0.2) 10^3/ul Absolute Nucleated RBC 0.0 10^3/ul Nucleated RBC % 0.1 ESR 87 H (0-19) mm/Hr Sodium 131 L (135-145) mmol/L Potassium 4.3 (3.5-5.0) mmol/L Chloride 98 L (101-111) mmol/L Carbon Dioxide 26 (22-32) mmol/L Anion Gap 7 (2-11) mmol/L BUN 15 (6-24) mg/dL Creatinine 0.81 (0.67-1.17) mg/dL Est GFR ( Amer) 118.0 (>60) Est GFR (Non-Af Amer) 97.5 (>60) BUN/Creatinine Ratio 18.5 (8-20) Glucose 128 H (70-100) mg/dL Calcium 8.9 (8.6-10.3) mg/dL Total Bilirubin 0.50 (0.2-1.0) mg/dL AST 17 (13-39) U/L ALT 13 (7-52) U/L Alkaline Phosphatase 104 (34-104) U/L C-Reactive Protein 159.97 H (<8.01) mg/L Total Protein 7.5 (6.4-8.9) g/dL Albumin 3.5 (3.2-5.2) g/dL Globulin 4.0 (2-4) g/dL Albumin/Globulin Ratio 0.9 L (1-3) Microbiology and Other Data: Microbiology 08/18/19 12:50 Aerobic Blood Culture - Preliminary Blood Venous No Growth Day 1 Anaerobic Blood Culture - Preliminary No Growth Day 1 08/18/19 12:51 Aerobic Blood Culture - Preliminary Blood Venous No Growth Day 1 Anaerobic Blood Culture - Preliminary No Growth Day 1 Assess/Plan/Problems-Billing Assessment: 59yom PMHx HTN and HLD, not on treatment, h/o substance abuse, probably COPD who presents with sepsis likely 2/2 olecranon bursitis - Patient Problems (1) Sepsis Current Visit: Yes Status: Acute Comment: -Pt presents with tachycardia, tachypnea, fever, leukocytosis, lactic acidosis -CXR: small bibasilar infiltrates -UA: not collected; ordered, although pt has been on IV abx -BC: NGTD -Likely d/t olecranon bursitis -Pt received 2L IVF bolus; started on vancomycin -Contine IV abx -Tachycardia, tachypnea, lactic acidosis resolved (2) Olecranon bursitis, left elbow Current Visit: Yes Status: Acute Code(s): M70.22 - OLECRANON BURSITIS, LEFT ELBOW SNOMED Code(s): 287599416811671 Comment: -Management per ortho -Continue IV vanco -s/p Aspiration yesterday -Follow cultures -Seen by ID -Rec continuing Vanco over the weekend and following CRP and clinical progress (3) Acute respiratory failure with hypoxia Current Visit: Yes Status: Acute Code(s): J96.01 - ACUTE RESPIRATORY FAILURE WITH HYPOXIA SNOMED Code(s): 96159113 Comment: -Pt with new supplemental O2 requirements, currently on 3L -Does not use O2 at baseline -Possibly due to COPD exacerbation, as patient has h/o tobacco abuse with no dx of COPD -Continue prednisone -Continue nebulizers (4) Hypertension Current Visit: Yes Status: Acute Code(s): I10 - ESSENTIAL (PRIMARY) HYPERTENSION SNOMED Code(s): 43422953 Comment: -h/o HTN, not on antihypertensives -currently normotensive -monitor need for antihypertensive medications (5) Tobacco abuse Current Visit: Yes Status: Acute Code(s): Z72.0 - TOBACCO USE SNOMED Code( s): 215831140 Comment: -Pt offered nicotine replacement products, but declined (6) Full code status Current Visit: Yes Status: Acute Code(s): Z78.9 - OTHER SPECIFIED HEALTH STATUS SNOMED Code(s): 542159680 Status and Disposition: Inpatient. Discharge per ortho.
--- NOTE | 2019-08-20 18:18 | PN ---
Progress Note - Progress Note Date of Service: 08/20/19 SOAP: Subjective: [Patient reports minimal discomfort L elbow. Some discomfort in L hand due to swelling. No N/T.] Objective: [A and O x 3, NAD LUE - moderate swelling in hand - keri wrap around elbow fairly snug. L elbow with moderate swelling at olecranon bursa, mild erythema. Skin intact, no drainage. Minimal TTP. No pain with elbow motion. NVID. Good motion in fingers. Elbow dressing changed, compression over bursa. Cultures no growth thus far. Vital Signs: Temp Pulse Resp BP Pulse Ox 97.5 F 75 16 111/64 99 08/20/19 15:09 08/20/19 15:09 08/20/19 17:10 08/20/19 15:09 08/20/19 15:09 Laboratory Results - last 24 hr 08/19/19 08/19/19 08/20/19 21:00 21:00 04:42 Urine Color Mitzi Urine Appearance Clear Urine pH 6.0 Ur Specific [place] 1.025 Urine Protein 2+(100 mg/dl) A Urine Ketones Negative Urine Blood Negative Urine Nitrate Negative Urine Bilirubin Negative Urine Urobilinogen Negative Ur Leukocyte Esterase Negative Urine WBC (Auto) Absent Urine RBC (Auto) Absent Urine Bacteria Absent Urine Glucose 2+(150 mg/dl) A Vancomycin Trough 12.7 Urine Opiates Screen Presumptive positive A Ur Barbiturates Screen None detected Ur Phencyclidine Scrn None detected Ur Amphetamines Screen None detected U Benzodiazepines Scrn None detected Urine Cocaine Screen None detected U Cannabinoids Screen Presumptive positive A ] Assessment: [s/p L olecranon bursitis, aspirated 08/19/19] Plan: [Con't IV abx per ID F/U on cultures from aspiration Pain control]
[2019-08-21] MEDS: Lactated Ringers 1000 ML Bag* 1,000 ML IV SCH (02:04)
[2019-08-21] MEDS: Ibuprofen TAB* 600 MG PO SCH ×4 (03:27→20:19)
[2019-08-21] MEDS: oxyCODONE/Acetamin 5/325 MG* TAB PO PRN ×4 (03:27→20:19)
[2019-08-21] MEDS: Vancomycin(*) 1,000 MG in NS 0.9% 250 ML* 250 ML IVPB SCH ×2 (05:39→18:05)
[2019-08-21 06:19] LABS: ABS Basophils 0.1 10^3/ul (0-0.2); ABS Eosinophils 0.6 10^3/ul (0-0.6); ABS Lymphocytes 1.3 10^3/ul (1.0-4.8); ABS Monocytes 0.7 10^3/ul (0-0.8); ABS Neutrophils 12.9 10^3/ul (1.5-7.7); Hematocrit 37 % (42-52); Hemoglobin 11.8 g/dL (14.0-18.0); Lymphocyte % 8.2 %; Mean Corpuscular HGB Conc 32 g/dL (31-36); Mean Corpuscular Hemoglobin 31 pg (27-31); Mean Corpuscular Volume 96 fL (80-94); Mean Platelet Volume 7.3 fL (7.4-10.4); Platelet Count 373 10^3/uL (150-450); Red Blood Count 3.84 10^6 /uL (4.18-5.48); Red Cell Distribution Width 17 % (10-15); White Blood Count 15.6 10^3/uL (3.5-10.8)
[2019-08-21 06:36] LABS: BUN/Creatinine Ratio 26.1 (8-20); CRP High Sensitivity 51.83 mg/L (<2.00); Calcium 8.9 mg/dL (8.6-10.3); EGFR African American 107.3 (>60); EGFR Non-African American 88.6 (>60)
[2019-08-21 06:37] LABS: Potassium 5.1 mmol/L (3.5-5.0)
[2019-08-21] MEDS: predniSONE TAB* 20 MG PO SCH (09:08)
[2019-08-21] MEDS ORDERED: Influenza VAC *QUAD* 2019-20* 0.5 ML SYRINGE IM ONE (10:00)
--- NOTE | 2019-08-21 10:46 | PN ---
Progress Note - Progress Note Date of Service: 08/21/19 SOAP: Subjective: [Pt reports pain managed. Denies SOB, CP, dizziness.] Objective: [A and O x 3, NAD Afebrile L elbow with mildly increased swelling at olecranon bursa. Mild TTP Swelling in hand much improved. nvi distally. Vital Signs: Temp Pulse Resp BP Pulse Ox 97.7 F 72 20 144/85 98 08/21/19 08:00 08/21/19 08:00 08/21/19 09:18 08/21/19 08:00 08/21/19 08:00 Laboratory Results - last 24 hr 08/21/19 08/21/19 05:41 05:41 WBC 15.6 H RBC 3.84 L Hgb 11.8 L Hct 37 L MCV 96 H MCH 31 MCHC 32 RDW 17 H Plt Count 373 MPV 7.3 L Neut % (Auto) 82.5 Lymph % (Auto) 8.2 [place] % (Auto) 4.5 Eos % (Auto) 4.0 Baso % (Auto) 0.8 Absolute Neuts (auto) 12.9 H Absolute Lymphs (auto) 1.3 Absolute Monos (auto) 0.7 Absolute Eos (auto) 0.6 Absolute Basos (auto) 0.1 Absolute Nucleated RBC 0.0 Nucleated RBC % 0.0 Sodium 136 Potassium 5.1 H Chloride 107 Carbon Dioxide 26 Anion Gap 3 BUN 23 Creatinine 0.88 Est GFR ( Amer) 107.3 Est GFR (Non-Af Amer) 88.6 BUN/Creatinine Ratio 26.1 H Glucose 111 H Calcium 8.9 C-React Prot High Sens 51.83 H ] Assessment: [s/p L infected olecranon bursitis] Plan: [Con't IV Vanco f/u on cultures from aspiration and adjust abx accordingly Pain control]
[2019-08-21] MEDS ORDERED: predniSONE TAB* 20 MG PO ONE (13:09)
--- NOTE | 2019-08-21 13:14 | PN ---
Subjective Date of Service: 08/21/19 Interval History: Reports improvement in ROM of elbow.Pain and swelling improved Objective Active Medications: Albuterol/Ipratropium (Duoneb (Albuterol 2.5 Mg/Ipratropium 0.5 Mg)) 1 neb INH Q4H PRN PRN Reason: SOB/WHEEZING Diphenhydramine HCl (Benadryl Iv*) 25 mg IV Q6H PRN PRN Reason: PRURITIS Diphenhydramine HCl (Benadryl Po*) 25 mg PO Q6H PRN PRN Reason: ITCHING Vancomycin HCl 1,000 mg/ (Sodium Chloride) 250 mls @ 166.667 mls/hr IVPB Q12H [facility] Last Admin: 08/21/19 05:39 Dose: 166.667 mls/hr Ibuprofen (Motrin Tab*) 600 mg PO Q6H [facility] Last Admin: 08/21/19 09:08 Dose: 600 mg Ondansetron HCl (Zofran Inj*) 4 mg IV Q6H PRN PRN Reason: NAUSEA Ondansetron HCl (Zofran Tab*) 4 mg PO Q6H PRN PRN Reason: EMESIS Oxycodone/Acetaminophen (Percocet 5/325 Tab*) 1 tab PO Q4H PRN PRN Reason: PAIN - MODERATE Last Admin: 08/21/19 03:27 Dose: 1 tab Oxycodone/Acetaminophen (Percocet 5/325 Tab*) 2 tab PO Q4H PRN PRN Reason: PAIN - SEVERE Last Admin: 08/21/19 09:08 Dose: 2 tab Pharmacy Consult (Vancomycin Per Pharmacy*) 1 note FOLLOW UP .VANC PER PH[facility]ACY [facility]; Protocol Prednisone (Deltasone Tab*) 20 mg PO ONCE ONE Stop: 08/21/19 13:10 Vital Signs - 8 hr 08/21/19 08/21/19 08/21/19 05:45 08:00 09:08 Temperature 97.7 F Pulse Rate 72 Respiratory 16 17 20 Rate Blood Pressure 144/85 (mmHg) O2 Sat by Pulse 98 Oximetry 08/21/19 08/21/19 08/21/19 09:18 11:30 11:51 Temperature 97.4 F Pulse Rate 74 Respiratory 20 18 16 Rate Blood Pressure 131/71 (mmHg) O2 Sat by Pulse 96 Oximetry Oxygen Devices in Use Now: Nasal Cannula Eyes: No Scleral Icterus Ears/Nose/Mouth/Throat: NL Teeth, Lips, Gums Neck: NL Appearance and Movements; NL JVP Respiratory: Symmetrical Chest Expansion and Respiratory Effort Cardiovascular: NL Sounds; No Murmurs; No JVD Abdominal: NL Sounds; No Tenderness; No Distention Extremities: No Edema, - - dressing elbow just changed.surround erythema improved. edema improved,non tender.good rom elbow Skin: No Rash or Ulcers Neurological: Alert and Oriented x 3 Result Diagrams: 08/21/19 05:41 08/21/19 05:41 Additional Lab and Data: Lab Results 08/18/19 08/18/19 Range/Units 12:51 12:51 WBC 15.1 H (3.5-10.8) 10^3/uL RBC 4.34 (4.18-5.48) 10^6 /uL Hgb 13.6 L (14.0-18.0) g/dL Hct 41 L (42-52) % MCV 94 (80-94) fL MCH 31 (27-31) pg MCHC 33 (31-36) g/dL RDW 16 H (10-15) % Plt Count 392 (150-450) 10^3/uL MPV 6.9 L (7.4-10.4) fL Neut % (Auto) 81.3 % Lymph % (Auto) 9.9 % [place] % (Auto) 7.6 % Eos % (Auto) 0.7 % Baso % (Auto) 0.5 % Absolute Neuts (auto) 12.3 H (1.5-7.7) 10^3/ul Absolute Lymphs (auto) 1.5 (1.0-4.8) 10^3/ul Absolute Monos (auto) 1.1 H (0-0.8) 10^3/ul Absolute Eos (auto) 0.1 (0-0.6) 10^3/ul Absolute Basos (auto) 0.1 (0-0.2) 10^3/ul Absolute Nucleated RBC 0.0 10^3/ul Nucleated RBC % 0.1 ESR 87 H (0-19) mm/Hr Sodium 131 L (135-145) mmol/L Potassium 4.3 (3.5-5.0) mmol/L Chloride 98 L (101-111) mmol/L Carbon Dioxide 26 (22-32) mmol/L Anion Gap 7 (2-11) mmol/L BUN 15 (6-24) mg/dL Creatinine 0.81 (0.67-1.17) mg/dL Est GFR ( Amer) 118.0 (>60) Est GFR (Non-Af Amer) 97.5 (>60) BUN/Creatinine Ratio 18.5 (8-20) Glucose 128 H (70-100) mg/dL Calcium 8.9 (8.6-10.3) mg/dL Total Bilirubin 0.50 (0.2-1.0) mg/dL AST 17 (13-39) U/L ALT 13 (7-52) U/L Alkaline Phosphatase 104 (34-104) U/L C-Reactive Protein 159.97 H (<8.01) mg/L Total Protein 7.5 (6.4-8.9) g/dL Albumin 3.5 (3.2-5.2) g/dL Globulin 4.0 (2-4) g/dL Albumin/Globulin Ratio 0.9 L (1-3) Microbiology and Other Data: Microbiology 08/18/19 12:50 Aerobic Blood Culture - Preliminary Blood Venous No Growth Day 1 Anaerobic Blood Culture - Preliminary No Growth Day 1 08/18/19 12:51 Aerobic Blood Culture - Preliminary Blood Venous No Growth Day 1 Anaerobic Blood Culture - Preliminary No Growth Day 1 Assess/Plan/Problems-Billing Assessment: 59yom PMHx HTN and HLD, not on treatment, h/o substance abuse, probably COPD who presents with sepsis likely 2/2 olecranon bursitis - Patient Problems (1) Sepsis Current Visit: Yes Status: Acute Comment: -Pt presents with tachycardia, tachypnea, fever, leukocytosis, lactic acidosis -CXR: small bibasilar infiltrates -UA: not collected; ordered, although pt has been on IV abx -BC: NGTD -Likely d/t olecranon bursitis -Pt received 2L IVF bolus; started on vancomycin -Contine IV abx -Tachycardia, tachypnea, lactic acidosis resolved (2) Olecranon bursitis, left elbow Current Visit: Yes Status: Acute Code(s): M70.22 - OLECRANON BURSITIS, LEFT ELBOW SNOMED Code(s): 563986770156279 Comment: -Management per ortho -Continue IV vanco -s/p Aspiration -Follow cultures -Seen by ID -Rec continuing Vanco over the weekend and following CRP and clinical progress.No MRSA in culure. Will await final cx and come up with antibiotic plan with ID and ortho (3) Acute respiratory failure with hypoxia Current Visit: Yes Status: Acute Code(s): J96.01 - ACUTE RESPIRATORY FAILURE WITH HYPOXIA SNOMED Code(s): 88800088 Comment: -Pt with new supplemental O2 requirements, currently on 3L -Does not use O2 at baseline -Possibly due to COPD exacerbation, as patient has h/o tobacco abuse with no dx of COPD -Improved with prednisone -Will taper Prednisone to 20 mg for 2 days followed by 10 mg for 2 days and then stop -Continue nebulizers (4) Hypertension Current Visit: Yes Status: Acute Code(s): I10 - ESSENTIAL (PRIMARY) HYPERTENSION SNOMED Code(s): 64549351 Comment: -h/o HTN, not on antihypertensives -currently normotensive -monitor need for antihypertensive medications (5) Tobacco abuse Current Visit: Yes Status: Acute Code(s): Z72.0 - TOBACCO USE SNOMED Code( s): 927634416 Comment: -Pt offered nicotine replacement products, but declined (6) Full code status Current Visit: Yes Status: Acute Code(s): Z78.9 - OTHER SPECIFIED HEALTH STATUS SNOMED Code(s): 134284080 Status and Disposition: Inpatient. Discharge per ortho.
[2019-08-22] MEDS: Ibuprofen TAB* 600 MG PO SCH ×4 (05:07→22:37)
[2019-08-22] MEDS: Vancomycin(*) 1,000 MG in NS 0.9% 250 ML* 250 ML IVPB SCH ×2 (05:07→18:14)
[2019-08-22] MEDS: oxyCODONE/Acetamin 5/325 MG* TAB PO PRN ×4 (05:07→22:37)
[2019-08-22 06:26] LABS: ABS Basophils 0.1 10^3/ul (0-0.2); ABS Eosinophils 0.5 10^3/ul (0-0.6); ABS Lymphocytes 1.9 10^3/ul (1.0-4.8); ABS Monocytes 1.1 10^3/ul (0-0.8); ABS Neutrophils 13.3 10^3/ul (1.5-7.7); Eosinophil % 3.1 %; Hematocrit 38 % (42-52); Hemoglobin 12.3 g/dL (14.0-18.0); Lymphocyte % 11.1 %; Mean Corpuscular HGB Conc 33 g/dL (31-36); Mean Corpuscular Hemoglobin 31 pg (27-31); Mean Corpuscular Volume 94 fL (80-94); Mean Platelet Volume 7.1 fL (7.4-10.4); Platelet Count 407 10^3/uL (150-450); Red Blood Count 4.02 10^6 /uL (4.18-5.48); Red Cell Distribution Width 16 % (10-15); White Blood Count 16.9 10^3/uL (3.5-10.8)
[2019-08-22 06:43] LABS: C Reactive Protein 25.95 mg/L (<8.01); Calcium 8.7 mg/dL (8.6-10.3); EGFR African American 113.2 (>60); EGFR Non-African American 93.5 (>60); Potassium 4.6 mmol/L (3.5-5.0)
--- NOTE | 2019-08-22 10:21 | PN ---
Progress Note - Progress Note Date of Service: 08/22/19 SOAP: Subjective: CC: left elbow infection HPI: Mr. Munguia is a 59 yo male with PMH significant for tobacco abuse. Denies fever, chills, nausea, vomiting, or diarrhea. Left arm pain is improved since aspiration on Thursday. Feels like the arm is improving, less swelling and redness. He is hungry, currently NPO for possible surgery. Objective: Vital Signs - 8 hr 08/22/19 08/22/19 08/22/19 03:10 05:07 06:10 Temperature 97.7 F 97.3 F Pulse Rate 77 69 Respiratory 22 20 16 Rate Blood Pressure 150/83 146/86 (mmHg) O2 Sat by Pulse 97 94 Oximetry Physical Exam: General: NAD, laying in bed Neurological: Alert and Oriented x3 HEENT: Moist MM, no thrush Cardiovascular: Heart rate regular Respiratory: Lung sounds clear Abdominal: Bowel sounds present; ABD soft, non tender and non distended MSK: Full ROM of the left UE. Continued edema to the left UE, but improved from last week. Still with large palpable bursa on the left Skin: Mild erythema to the left arm, improved from last week Laboratory Results - last 24 hr 08/22/19 08/22/19 06:08 06:09 WBC 16.9 H RBC 4.02 L Hgb 12.3 L Hct 38 L MCV 94 MCH 31 MCHC 33 RDW 16 H Plt Count 407 MPV 7.1 L Neut % (Auto) 78.7 Lymph % (Auto) 11.1 [place] % (Auto) 6.4 Eos % (Auto) 3.1 Baso % (Auto) 0.7 Absolute Neuts (auto) 13.3 H Absolute Lymphs (auto) 1.9 Absolute Monos (auto) 1.1 H Absolute Eos (auto) 0.5 Absolute Basos (auto) 0.1 Absolute Nucleated RBC 0.0 Nucleated RBC % 0.0 Sodium 136 Potassium 4.6 Chloride 103 Carbon Dioxide 27 Anion Gap 6 BUN 21 Creatinine 0.84 Est GFR ( Amer) 113.2 Est GFR (Non-Af Amer) 93.5 BUN/Creatinine Ratio 25.0 H Glucose 87 Calcium 8.7 C-Reactive Protein 25.95 H Microbiology 08/19/19 17:00 Gram Stain - Final Misc Fluid (See Comment) - Elbow Left Body Fluid Culture - Preliminary Strep Pyogenes (Grp A) Skin and Soft Tissue MRSA/MSSA (PCR - Final Mrsa Negative S.aureus Negative 08/18/19 21:52 Aerobic Blood Culture - Preliminary Blood Venous No Growth Day 3 Anaerobic Blood Culture - Preliminary No Growth Day 3 08/18/19 21:48 Aerobic Blood Culture - Preliminary Blood Venous No Growth Day 3 Anaerobic Blood Culture - Preliminary No Growth Day 3 08/18/19 12:50 Aerobic Blood Culture - Preliminary Blood Venous No Growth Day 3 Anaerobic Blood Culture - Preliminary No Growth Day 3 08/18/19 12:51 Aerobic Blood Culture - Preliminary Blood Venous No Growth Day 3 Anaerobic Blood Culture - Preliminary No Growth Day 3 Assessment: 1. Infected left olecranon bursitis. S/P aspiration on Thursday. Fluid culture with Group A strep . Blood cultures with no growth to date. CRP is trending down. Continues to have leukocytosis. Afebrile. Orthopedics is considering taking him to the OR for a washout today. Plan: Continue Vancomycin for now.
[2019-08-22] MEDS ORDERED: Acetaminophen TAB* 325 MG PO ONE (12:14)
[2019-08-22] MEDS ORDERED: Buffered Lidocaine 1% SYRIN* 1 ML/SYRINGE INTRADERM ONE (12:14)
[2019-08-22] MEDS ORDERED: Lactated Ringers 1000 ML Bag* 1,000 ML IV SCH ×2 (13:00→16:00)
[2019-08-22] MEDS ORDERED: Midazolam* 1 MG/ML 2 ML VIAL (2 MG) ONE (14:00)
[2019-08-22] MEDS ORDERED: fentaNYL* 50 MCG/ML 2 ML VIAL (100 MCG VIAL) ONE (14:01)
[2019-08-22] MEDS ORDERED: Lidocaine 2% PF* 10 ML AMP ONE (14:01)
[2019-08-22] MEDS ORDERED: Propofol* 10 MG/ML 20 ML BTL ONE (14:01)
[2019-08-22] MEDS ORDERED: Bupivacaine 0.5%* 50 ML MDV VIAL ONE (15:09)
[2019-08-22] MEDS ORDERED: Lidocaine 1% w EPI 1:100,000* MDV 20 ML VIAL ONE (15:09)
[2019-08-22] MEDS ORDERED: Phenylephrine 40 MCG/ML SYRINGE ONE (15:23)
[2019-08-22] MEDS ORDERED: Ondansetron INJ* 2 MG/ML VIAL IV PRN (15:44)
[2019-08-22] MEDS ORDERED: Naloxone* 0.4 MG/ML 1 ML VIAL IV PRN ×2 (15:44→15:45)
[2019-08-22] MEDS ORDERED: PROCHLORPERAZINE INJ 5 MG/ML 2 ML VIAL IV PRN (15:44)
[2019-08-22] MEDS ORDERED: oxyCODONE TAB* 5 MG TAB PO PRN (15:45)
[2019-08-22] MEDS ORDERED: HYDROmorphone INJ1* 1 MG/ML SYRINGE IV PRN (15:45)
[2019-08-22] MEDS ORDERED: Ketorolac INJ* 30 MG/ML 1 ML VIAL ONE (15:51)
[2019-08-22] MEDS ORDERED: HYDROmorphone INJ1* 1 MG/ML SYRINGE ONE (15:53)
[2019-08-22] MEDS ORDERED: Metoprolol Tartrate IV* 1 MG/ML 5 ML VIAL IV PRN (16:13)
--- NOTE | 2019-08-22 19:09 | PN ---
Subjective Date of Service: 08/22/19 Interval History: Pt is feeling ok currently. He states his elbow feels better now despite being immediately post op. He denies any diarrhea. No SOB. Objective Active Medications: Albuterol/Ipratropium (Duoneb (Albuterol 2.5 Mg/Ipratropium 0.5 Mg)) 1 neb INH Q4H PRN PRN Reason: SOB/WHEEZING Diphenhydramine HCl (Benadryl Iv*) 25 mg IV Q6H PRN PRN Reason: PRURITIS Vancomycin HCl 1,000 mg/ (Sodium Chloride) 250 mls @ 166.667 mls/hr IVPB Q12H [facility] Last Admin: 08/22/19 18:14 Dose: 166.667 mls/hr Lactated Ringer's (Lactated Ringers 1000 Ml Bag*) 1,000 mls @ 125 mls/hr IV PER RATE [facility] Ibuprofen (Motrin Tab*) 600 mg PO Q6H [facility] Last Admin: 08/22/19 15:59 Dose: Not Given Ondansetron HCl (Zofran Inj*) 4 mg IV Q6H PRN PRN Reason: NAUSEA Ondansetron HCl (Zofran Tab*) 4 mg PO Q6H PRN PRN Reason: EMESIS Oxycodone/Acetaminophen (Percocet 5/325 Tab*) 1 tab PO Q4H PRN PRN Reason: PAIN - MODERATE Last Admin: 08/22/19 11:16 Dose: 1 tab Oxycodone/Acetaminophen (Percocet 5/325 Tab*) 2 tab PO Q4H PRN PRN Reason: PAIN - SEVERE Last Admin: 08/22/19 18:14 Dose: 2 tab Pharmacy Consult (Vancomycin Per Pharmacy*) 1 note FOLLOW UP .VANC PER PHARMACY [facility]; Protocol Vital Signs - 8 hr 08/22/19 08/22/19 08/22/19 11:16 16:05 16:06 Temperature Pulse Rate 101 97 Respiratory 20 Rate Blood Pressure 168/108 (mmHg) O2 Sat by Pulse 100 98 Oximetry 08/22/19 08/22/19 08/22/19 16:08 16:10 16:11 Temperature 97.0 F Pulse Rate 89 Respiratory 14 Rate Blood Pressure 158/111 135/115 (mmHg) O2 Sat by Pulse 98 Oximetry 08/22/19 08/22/1908/22/19 16:16 16:20 16:31 Temperature Pulse Rate 76 Respiratory 16 16 Rate Blood Pressure 170/84 (mmHg) O2 Sat by Pulse 91 Oximetry 08/22/19 08/22/19 18:14 18:42 Temperature 98.6 F Pulse Rate 102 Respiratory 18 18 Rate Blood Pressure 152/88 (mmHg) O2 Sat by Pulse 95 Oximetry Oxygen Devices in Use Now: None Appearance: Middle aged male lying in bed, NAD Eyes: No Scleral Icterus Ears/Nose/Mouth/Throat: Mucous Membranes Moist Respiratory: Symmetrical Chest Expansion and Respiratory Effort, Clear to Auscultation Cardiovascular: NL Sounds; No Murmurs; No JVD, RRR, No Edema Abdominal: NL Sounds; No Tenderness; No Distention Extremities: No Clubbing, Cyanosis, - - L elbow in post op dressing Neurological: Alert and Oriented x 3 Result Diagrams: 08/22/19 06:09 08/22/19 06:08 Additional Lab and Data: Lab Results 08/18/19 08/18/19 Range/Units 12:51 12:51 WBC 15.1 H (3.5-10.8) 10^3/uL RBC 4.34 (4.18-5.48) 10^6 /uL Hgb 13.6 L (14.0-18.0) g/dL Hct 41 L (42-52) % MCV 94 (80-94) fL MCH 31 (27-31) pg MCHC 33 (31-36) g/dL RDW 16 H (10-15) % Plt Count 392 (150-450) 10^3/uL MPV 6.9 L (7.4-10.4) fL Neut % (Auto) 81.3 % Lymph % (Auto) 9.9 % Sac % (Auto) 7.6 % Eos % (Auto) 0.7 % Baso % (Auto) 0.5 % Absolute Neuts (auto) 12.3 H (1.5-7.7) 10^3/ul Absolute Lymphs (auto) 1.5 (1.0-4.8) 10^3/ul Absolute Monos (auto) 1.1 H (0-0.8) 10^3/ul Absolute Eos (auto) 0.1 (0-0.6) 10^3/ul Absolute Basos (auto) 0.1 (0-0.2) 10^3/ul Absolute Nucleated RBC 0.0 10^3/ul Nucleated RBC % 0.1 ESR 87 H (0-19) mm/Hr Sodium 131 L (135-145) mmol/L Potassium 4.3 (3.5-5.0) mmol/L Chloride 98 L (101-111) mmol/L Carbon Dioxide 26 (22-32) mmol/L Anion Gap 7 (2-11) mmol/L BUN 15 (6-24) mg/dL Creatinine 0.81 (0.67-1.17) mg/dL Est GFR ( Amer) 118.0 (>60) Est GFR (Non-Af Amer) 97.5 (>60) BUN/Creatinine Ratio 18.5 (8-20) Glucose 128 H (70-100) mg/dL Calcium 8.9 (8.6-10.3) mg/dL Total Bilirubin 0.50 (0.2-1.0) mg/dL AST 17 (13-39) U/L ALT 13 (7-52) U/L Alkaline Phosphatase 104 (34-104) U/L C-Reactive Protein 159.97 H (<8.01) mg/L Total Protein 7.5 (6.4-8.9) g/dL Albumin 3.5 (3.2-5.2) g/dL Globulin 4.0 (2-4) g/dL Albumin/Globulin Ratio 0.9 L (1-3) Microbiology and Other Data: Microbiology 08/18/19 12:50 Aerobic Blood Culture - Preliminary Blood Venous No Growth Day 1 Anaerobic Blood Culture - Preliminary No Growth Day 1 08/18/19 12:51 Aerobic Blood Culture - Preliminary Blood Venous No Growth Day 1 Anaerobic Blood Culture - Preliminary No Growth Day 1 Assess/Plan/Problems-Billing Mr Munguia is a 59yo M with a PMHx of HTN and HLD, not on treatment, h/o substance abuse and probable COPD who presents with sepsis likely 2/2 olecranon bursitis. - Patient Problems (1) Sepsis Current Visit: Yes Status: Acute Comment: Septic on admission secondary to L olecranon bursitis. Sepsis has resolved. (2) Olecranon bursitis, left elbow Current Visit: Yes Status: Acute Code(s): M70.22 - OLECRANON BURSITIS, LEFT ELBOW SNOMED Code(s): 281489625712046 Comment: Culture grew group A strep. Continue vancomycin per ID. Monitor for continued improvement. (3) Hypertension Current Visit: Yes Status: Acute Code(s): I10 - ESSENTIAL (PRIMARY) HYPERTENSION SNOMED Code(s): 68183739 Comment: BP currently elevated post-op. Prior BP acceptable. Monitor for now. (4) Tobacco abuse Current Visit: Yes Status: Acute Code(s): Z72.0 - TOBACCO USE SNOMED Code( s): 851614802 Comment: Pt offered nicotine replacement products, but declined (5) DVT prophylaxis Current Visit: Yes Status: Acute Code(s): MFB4079 - SNOMED Code(s): 701282733 Comment: ambulation (6) Full code status Current Visit: Yes Status: Acute Code(s): Z78.9 - OTHER SPECIFIED HEALTH STATUS SNOMED Code(s): 559332492 Status and Disposition: .
--- NOTE | 2019-08-23 00:55 | OP ---
DATE OF OPERATION: 08/22/19 - ROOM #[id number] DATE OF : 60 ATTENDING SURGEON: Conor Lantigua MD ANESTHESIA: General. PRE-OP DIAGNOSIS: Left olecranon septic bursitis. POST-OP DIAGNOSIS: Left olecranon septic bursitis. OPERATIVE PROCEDURE: Left olecranon bursa I and D and washout. ESTIMATED BLOOD LOSS: Minimal. COMPLICATIONS: None. SUMMARY: Mr. Munguia is a 59-year-old male who I had met several years ago when he had an infected finger. He has gotten back to work and other activities and presented last week with a left infected olecranon bursitis. Initially, he had seen my partner, Dr. Gallo on 08/18/19 and they did an aspiration where he drained 30 cc of pus out of the elbow. He also has been receiving vancomycin. This was MRSA positive by PCR. Unfortunately, he has not been improving because the area is more flocculent, red, and white count has been increasing. The PA has notified me today that they made him n.p.o. because of the worsening look of his elbow. Considering that he is looking worse, I discussed with him that a washout should work well to get ahead of the infection , so that this would not continue to be something that haunted him. Risks of surgery such as continued infection, scar formation, and further infection were some of the risks discussed and he had wished to proceed. DESCRIPTION OF PROCEDURE: The patient was brought to the OR and an LMA was placed. Right elbow was prepped and then draped. Incision was made directly over the lateral side of the posterior aspect of the elbow and eladio pus was obtained. Overall appearance was of egg drop soup. Quite a copious amount was evacuated and then 10 cc Betadine in 1 L of saline was used to washout the area. Rongeur was then used to gently debride the edges so that any tissue would be removed. Another liter was run through the elbow and again the area was debrided. 3rd liter was also then run this way and again with gentle debridement the area looked quite good. There was red beefy tissue all around the edges with no remaining pus. The area was injected with 15 cc of 50:50 mixture of 0.5% Marcaine mixed with 1% lidocaine with epinephrine. Skin edges were loosely reapproximated using 3-0 nylon. This would allow for continued drainage. ABD with an Johnathan wrap was also applied, so that the area would scar down. The patient had the LMA removed in the OR and was stable on transfer to the recovery room. [id number]/[facility] #: [id number] MTDD
[2019-08-23] MEDS: oxyCODONE/Acetamin 5/325 MG* TAB PO PRN ×5 (04:14→23:25)
[2019-08-23] MEDS: Ibuprofen TAB* 600 MG PO SCH ×4 (04:14→23:25)
[2019-08-23] MEDS: Vancomycin(*) 1,000 MG in NS 0.9% 250 ML* 250 ML IVPB SCH (05:49)
[2019-08-23 08:08] LABS: Hematocrit 45 % (42-52); Hemoglobin 14.9 g/dL (14.0-18.0); Mean Corpuscular HGB Conc 33 g/dL (31-36); Mean Corpuscular Hemoglobin 31 pg (27-31); Mean Corpuscular Volume 94 fL (80-94); Mean Platelet Volume 7.1 fL (7.4-10.4); Platelet Count 440 10^3/uL (150-450); Red Blood Count 4.83 10^6 /uL (4.18-5.48); Red Cell Distribution Width 17 % (10-15); White Blood Count 10.3 10^3/uL (3.5-10.8)
--- NOTE | 2019-08-23 10:19 | PN ---
Progress Note - Progress Note Date of Service: 08/23/19 SOAP: Subjective: CC: left elbow infection HPI: Mr. Munguia is a 59 yo male with PMH significant for tobacco abuse. Denies fever, chills, nausea, vomiting, or diarrhea. Left arm pain and swelling continues to improve. Objective: Vital Signs - 8 hr 08/23/19 08/23/19 08/23/19 07:09 08:00 08:56 Temperature 97.2 F Pulse Rate 76 Respiratory 18 18 18 Rate Blood Pressure 141/98 (mmHg) O2 Sat by Pulse 97 Oximetry Physical Exam: General: NAD, laying in bed Neurological: Alert and Oriented x 4 HEENT: Moist MM, no thrush Cardiovascular: Heart rate regular Respiratory: Lung sounds clear Abdominal: Bowel sounds present; ABD soft, non tender and non distended MSK: Full ROM of the left elbow, wrist and shoulder. Edema to the left elbow, mild edema to the left forearm Skin: No rash. Dark erythema to the left elbow, incision well approximated with megha intact, no drainage Laboratory Results - last 24 hr 08/23/19 08/23/19 07:19 07:19 WBC 10.3 RBC 4.83 Hgb 14.9 Hct 45 MCV 94 MCH 31 MCHC 33 RDW 17 H Plt Count 440 MPV 7.1 L C-Reactive Protein 15.89 H Microbiology 08/19/19 17:00 Gram Stain - Final Misc Fluid (See Comment) - Elbow Left Body Fluid Culture - Final Strep Pyogenes (Grp A) Skin and Soft Tissue MRSA/MSSA (PCR - Final Mrsa Negative S.aureus Negative 08/18/19 21:52 Aerobic Blood Culture - Preliminary Blood Venous No Growth Day 4 Anaerobic Blood Culture - Preliminary No Growth Day 4 08/18/19 21:48 Aerobic Blood Culture - Preliminary Blood Venous No Growth Day 4 Anaerobic Blood Culture - Preliminary No Growth Day 4 08/18/19 12:50 Aerobic Blood Culture - Preliminary Blood Venous No Growth Day 4 Anaerobic Blood Culture - Preliminary No Growth Day 4 08/18/19 12:51 Aerobic Blood Culture - Preliminary Blood Venous No Growth Day 4 Anaerobic Blood Culture - Preliminary No Growth Day 4 Assessment: 1. Infected left olecranon bursitis. S/P aspiration on 08/19 and S/P I+D of left bursa, POD #1. Fluid culture from aspiration with Group A strep . Blood cultures with no growth to date. CRP is trending down. Afebrile and no leukocytosis. Cultures from the OR pending. Plan: Continue Vancomycin for now, will transition to oral ABX for discharge.
--- NOTE | 2019-08-23 13:01 | PN ---
Progress Note - Progress Note Date of Service: 08/23/19 SOAP: Subjective: []Pt seen at bedside. He feels well without fever or chills. L elbow pain is reduced from yesterday. Denies CP, SOB, nausea. Objective: []Gen: Appears well, NAD LUE: Dressing CDI, no strike through and no surrounding erythema. Elbow ROM is nonpainful. Wrist and digit f/e nonpainful. Sensation intact to light touch distally, cap refill less than two seconds distally, radial pulse 2+ Assessment: []Infected olecranon bursitis L elbow, POD 1 sp I&D Plan: []WBAT PT/OT Will check wound tomorrow Cont ABX per ID, on vanco Vital Signs Temp 97.7 F 08/23/19 11:35 Pulse 79 08/23/19 11:35 Resp 18 08/23/19 11:35 BP 129/79 08/23/19 11:35 Pulse Ox 96 08/23/19 11:35 Intake & Output 08/22/19 08/23/19 08/23/19 18:59 06:59 18:59 Intake Total 240 280 240 Output Total 700 Balance -460 280 240 Intake: IV Fluids 30 NS (0.9%) 30 IVPB 250 ABX - VANCOMYCIN 250 Oral 240 0 240 Output: Urine 700 Other: Estimated Void Large # Bowel Movements 0 # Voids 1 1 Laboratory Last Values WBC 10.3 10^3/uL (3.5-10.8) 08/23/19 07:19 RBC 4.83 10^6 /uL (4.18-5.48) 08/23/19 07:19 Hgb 14.9 g/dL (14.0-18.0) 08/23/19 07:19 Hct 45 % (42-52) 08/23/19 07:19 MCV 94 fL (80-94) 08/23/19 07:19 MCH 31 pg (27-31) 08/23/19 07:19 MCHC 33 g/dL (31-36) 08/23/19 07:19 RDW 17 % (10-15) H 08/23/19 07:19 Plt Count 440 10^3/uL (150-450) 08/23/19 07:19 MPV 7.1 fL (7.4-10.4) L 08/23/19 07:19 Neut % (Auto) 78.7 % 08/22/19 06:09 Lymph % (Auto) 11.1 % 08/22/19 06:09 [place] % (Auto) 6.4 % 08/22/19 06:09 Eos % (Auto) 3.1 % 08/22/19 06:09 Baso % (Auto) 0.7 % 08/22/19 06:09 Absolute Neuts (auto) 13.3 10^3/ul (1.5-7.7) H 08/22/19 06:09 Absolute Lymphs (auto) 1.9 10^3/ul (1.0-4.8) 08/22/19 06:09 Absolute Monos (auto) 1.1 10^3/ul (0-0.8) H 08/22/19 06:09 Absolute Eos (auto) 0.5 10^3/ul (0-0.6) 08/22/19 06:09 Absolute Basos (auto) 0.1 10^3/ul (0-0.2) 08/22/19 06:09 Absolute Nucleated RBC 0.0 10^3/ul 08/22/19 06:09 Nucleated RBC % 0.0 08/22/19 06:09 ESR 87 mm/Hr (0-19) H 08/18/19 12:51 Sodium 136 mmol/L (135-145) 08/22/19 06:08 Potassium 4.6 mmol/L (3.5-5.0) 08/22/19 06:08 Chloride 103 mmol/L (101-111) 08/22/19 06:08 Carbon Dioxide 27 mmol/L (22-32) 08/22/19 06:08 Anion Gap 6 mmol/L (2-11) 08/22/19 06:08 BUN 21 mg/dL (6-24) 08/22/19 06:08 Creatinine 0.84 mg/dL (0.67-1.17) 08/22/19 06:08 Est GFR ( Amer) 113.2 (>60) 08/22/19 06:08 Est GFR (Non-Af Amer) 93.5 (>60) 08/22/19 06:08 BUN/Creatinine Ratio 25.0 (8-20) H 08/22/19 06:08 Glucose 87 mg/dL (70-100) 08/22/19 06:08 Lactic Acid 0.8 mmol/L (0.5-2.0) 08/19/19 09:19 Calcium 8.7 mg/dL (8.6-10.3) 08/22/19 06:08 Total Bilirubin 0.40 mg/dL (0.2-1.0) 08/18/19 21:46 AST 16 U/L (13-39) 08/18/19 21:46 ALT 12 U/L (7-52) 08/18/19 21:46 Alkaline Phosphatase 100 U/L (34-104) 08/18/19 21:46 C-Reactive Protein 15.89 mg/L (<8.01) H 08/23/19 07:19 C-React Prot High Sens 51.83 mg/L (<2.00) H 08/21/19 05:41 Total Protein 6.1 g/dL (6.4-8.9) L 08/18/19 21:46 Albumin 2.9 g/dL (3.2-5.2) L 08/18/19 21:46 Globulin 3.2 g/dL (2-4) 08/18/19 21:46 Albumin/Globulin Ratio 0.9 (1-3) L 08/18/19 21:46 Urine Color Mitzi 08/19/19 21:00 Urine Appearance Clear 08/19/19 21:00 Urine pH 6.0 (5-9) 08/19/19 21:00 Ur Specific [place] 1.025 (1.010-1.030) 08/19/19 21:00 Urine Protein 2+(100 mg/dl) (Negative) A 08/19/19 21:00 Urine Ketones Negative (Negative) 08/19/19 21:00 Urine Blood Negative (Negative) 08/19/19 21:00 Urine Nitrate Negative (Negative) 08/19/19 21:00 Urine Bilirubin Negative (Negative) 08/19/19 21:00 Urine Urobilinogen Negative (Negative) 08/19/19 21:00 Ur Leukocyte Esterase Negative (Negative) 08/19/19 21:00 Urine WBC (Auto) Absent (Absent) 08/19/19 21:00 Urine RBC (Auto) Absent (Absent) 08/19/19 21:00 Urine Bacteria Absent (Absent) 08/19/19 21:00 Urine Glucose 2+(150 mg/dl) (Negative) A 08/19/19 21:00 Vancomycin Trough 12.7 mcg/mL 08/20/19 04:42 Urine Opiates Screen Presumptive positive (None Detect) A 08/19/19 21:00 Ur Barbiturates Screen None detected (None Detect) 08/19/19 21:00 Ur Phencyclidine Scrn None detected (None Detect) 08/19/19 21:00 Ur Amphetamines Screen None detected (None Detect) 08/19/19 21:00 U Benzodiazepines Scrn None detected (None Detect) 08/19/19 21:00 Urine Cocaine Screen None detected (None Detect) 08/19/19 21:00 U Cannabinoids Screen Presumptive positive (None Detect) A 08/19/19 21:00
[2019-08-23] MEDS ORDERED: cefTRIAXone* 1 GM in NS 0.9% 50 ML BAG IVPB SCH (14:00)
--- NOTE | 2019-08-23 16:03 | PN ---
Subjective Date of Service: 08/23/19 Interval History: Pt is feeling ok today. Pain in the L elbow is tolerable. He has improved ROM in the L elbow. No diarrhea, no other complaints. Objective Active Medications: Albuterol/Ipratropium (Duoneb (Albuterol 2.5 Mg/Ipratropium 0.5 Mg)) 1 neb INH Q4H PRN PRN Reason: SOB/WHEEZING Diphenhydramine HCl (Benadryl Iv*) 25 mg IV Q6H PRN PRN Reason: PRURITIS Lactated Ringer's (Lactated Ringers 1000 Ml Bag*) 1,000 mls @ 125 mls/hr IV PER RATE STANLEY Ceftriaxone Sodium 1 gm/ (Sodium Chloride) 50 mls @ 100 mls/hr IVPB Q24H [facility] Last Admin: 08/23/19 15:02 Dose: 100 mls/hr Ibuprofen (Motrin Tab*) 600 mg PO Q6H [facility] Last Admin: 08/23/19 10:19 Dose: 600 mg Ondansetron HCl (Zofran Inj*) 4 mg IV Q6H PRN PRN Reason: NAUSEA Ondansetron HCl (Zofran Tab*) 4 mg PO Q6H PRN PRN Reason: EMESIS Oxycodone/Acetaminophen (Percocet 5/325 Tab*) 1 tab PO Q4H PRN PRN Reason: PAIN - MODERATE Last Admin: 08/23/19 15:15 Dose: 1 tab Oxycodone/Acetaminophen (Percocet 5/325 Tab*) 2 tab PO Q4H PRN PRN Reason: PAIN - SEVERE Last Admin: 08/23/19 04:14 Dose: 2 tab Vital Signs - 8 hr 08/23/19 08/23/19 08/23/19 08:00 08:56 11:20 Temperature Pulse Rate Respiratory 18 18 16 Rate Blood Pressure (mmHg) O2 Sat by Pulse Oximetry 08/23/19 08/23/19 08/23/19 11:35 15:15 15:38 Temperature 97.7 F 97.6 F Pulse Rate 79 81 Respiratory 18 16 20 Rate Blood Pressure 129/79 133/85 (mmHg) O2 Sat by Pulse 96 94 Oximetry Oxygen Devices in Use Now: None Appearance: Middle aged male lying in bed, NAD Eyes: No Scleral Icterus Ears/Nose/Mouth/Throat: Mucous Membranes Moist Respiratory: Symmetrical Chest Expansion and Respiratory Effort, Clear to Auscultation Cardiovascular: NL Sounds; No Murmurs; No JVD, RRR, No Edema Abdominal: NL Sounds; No Tenderness; No Distention Extremities: No Clubbing, Cyanosis, - - L elbow in dressing-not removed by myself Skin: No Nodules or Sclerosis Neurological: Alert and Oriented x 3 Result Diagrams: 08/23/19 07:19 08/22/19 06:08 Additional Lab and Data: Lab Results 08/18/19 08/18/19 Range/Units 12:51 12:51 WBC 15.1 H (3.5-10.8) 10^3/uL RBC 4.34 (4.18-5.48) 10^6 /uL Hgb 13.6 L (14.0-18.0) g/dL Hct 41 L (42-52) % MCV 94 (80-94) fL MCH 31 (27-31) pg MCHC 33 (31-36) g/dL RDW 16 H (10-15) % Plt Count 392 (150-450) 10^3/uL MPV 6.9 L (7.4-10.4) fL Neut % (Auto) 81.3 % Lymph % (Auto) 9.9 % [place] % (Auto) 7.6 % Eos % (Auto) 0.7 % Baso % (Auto) 0.5 % Absolute Neuts (auto) 12.3 H (1.5-7.7) 10^3/ul Absolute Lymphs (auto) 1.5 (1.0-4.8) 10^3/ul Absolute Monos (auto) 1.1 H (0-0.8) 10^3/ul Absolute Eos (auto) 0.1 (0-0.6) 10^3/ul Absolute Basos (auto) 0.1 (0-0.2) 10^3/ul Absolute Nucleated RBC 0.0 10^3/ul Nucleated RBC % 0.1 ESR 87 H (0-19) mm/Hr Sodium 131 L (135-145) mmol/L Potassium 4.3 (3.5-5.0) mmol/L Chloride 98 L (101-111) mmol/L Carbon Dioxide 26 (22-32) mmol/L Anion Gap 7 (2-11) mmol/L BUN 15 (6-24) mg/dL Creatinine 0.81 (0.67-1.17) mg/dL Est GFR ( Amer) 118.0 (>60) Est GFR (Non-Af Amer) 97.5 (>60) BUN/Creatinine Ratio 18.5 (8-20) Glucose 128 H (70-100) mg/dL Calcium 8.9 (8.6-10.3) mg/dL Total Bilirubin 0.50 (0.2-1.0) mg/dL AST 17 (13-39) U/L ALT 13 (7-52) U/L Alkaline Phosphatase 104 (34-104) U/L C-Reactive Protein 159.97 H (<8.01) mg/L Total Protein 7.5 (6.4-8.9) g/dL Albumin 3.5 (3.2-5.2) g/dL Globulin 4.0 (2-4) g/dL Albumin/Globulin Ratio 0.9 L (1-3) Microbiology and Other Data: Microbiology 08/18/19 12:50 Aerobic Blood Culture - Preliminary Blood Venous No Growth Day 1 Anaerobic Blood Culture - Preliminary No Growth Day 1 08/18/19 12:51 Aerobic Blood Culture - Preliminary Blood Venous No Growth Day 1 Anaerobic Blood Culture - Preliminary No Growth Day 1 Assess/Plan/Problems-Billing Mr Munguia is a 59yo M with a PMHx of HTN and HLD, not on treatment, h/o substance abuse and probable COPD who presents with sepsis likely 2/2 olecranon bursitis. - Patient Problems (1) Sepsis Current Visit: Yes Status: Acute Comment: Sepsis has resolved. (2) Olecranon bursitis, left elbow Current Visit: Yes Status: Acute Code(s): M70.22 - OLECRANON BURSITIS, LEFT ELBOW SNOMED Code(s): 610685492537561 Comment: Culture grew group A strep. Continue vancomycin per ID. Likely d/c home tomorrow on oral Abx to follow up with ortho in the next several days. (3) Hypertension Current Visit: Yes Status: Acute Code(s): I10 - ESSENTIAL (PRIMARY) HYPERTENSION SNOMED Code(s): 63373060 Comment: BP in acceptable control. (4) Tobacco abuse Current Visit: Yes Status: Acute Code(s): Z72.0 - TOBACCO USE SNOMED Code( s): 004615491 Comment: Pt offered nicotine replacement products, but declined (5) DVT prophylaxis Current Visit: Yes Status: Acute Code(s): VAD3907 - SNOMED Code(s): 819962436 Comment: ambulation (6) Full code status Current Visit: Yes Status: Acute Code(s): Z78.9 - OTHER SPECIFIED HEALTH STATUS SNOMED Code(s): 673418131 Status and Disposition: .
[2019-08-24] MEDS ORDERED: Vancomycin Trough Check NOTE FOLLOW UP ONE (05:30)
[2019-08-24] MEDS: Ibuprofen TAB* 600 MG PO SCH ×2 (05:41→10:18)
[2019-08-24] MEDS: oxyCODONE/Acetamin 5/325 MG* TAB PO PRN ×3 (05:42→11:39)
--- NOTE | 2019-08-24 09:29 | PN ---
Subjective Date of Service: 08/24/19 Interval History: No acute issues overnight Had BM yesterday occasional pain at the left elbow region- worse with activity/movement. Family History: Unchanged from Admission Social History: Unchanged from Admission Past Medical History: Unchanged from Admission Objective Active Medications: Albuterol/Ipratropium (Duoneb (Albuterol 2.5 Mg/Ipratropium 0.5 Mg)) 1 neb INH Q4H PRN PRN Reason: SOB/WHEEZING Diphenhydramine HCl (Benadryl Iv*) 25 mg IV Q6H PRN PRN Reason: PRURITIS Ceftriaxone Sodium 1 gm/ (Sodium Chloride) 50 mls @ 100 mls/hr IVPB Q24H [facility] Last Admin: 08/23/19 15:02 Dose: 100 mls/hr Ibuprofen (Motrin Tab*) 600 mg PO Q6H [facility] Last Admin: 08/24/19 05:41 Dose: 600 mg Ondansetron HCl (Zofran Inj*) 4 mg IV Q6H PRN PRN Reason: NAUSEA Ondansetron HCl (Zofran Tab*) 4 mg PO Q6H PRN PRN Reason: EMESIS Oxycodone/Acetaminophen (Percocet 5/325 Tab*) 1 tab PO Q4H PRN PRN Reason: PAIN - MODERATE Last Admin: 08/23/19 15:15 Dose: 1 tab Oxycodone/Acetaminophen (Percocet 5/325 Tab*) 2 tab PO Q4H PRN PRN Reason: PAIN - SEVERE Last Admin: 08/24/19 05:42 Dose: 2 tab Vital Signs - 8 hr 08/24/19 08/24/19 08/24/19 03:08 05:42 07:20 Temperature 96.5 F 97.6 F Pulse Rate 71 77 Respiratory 20 18 16 Rate Blood Pressure 137/87 136/78 (mmHg) O2 Sat by Pulse 95 96 Oximetry 08/24/19 08/24/19 08:00 08:26 Temperature Pulse Rate Respiratory 16 16 Rate Blood Pressure (mmHg) O2 Sat by Pulse Oximetry Oxygen Devices in Use Now: None Appearance: Lying in bed, well developed male, in no distress. Eyes: PERRLA Respiratory: Symmetrical Chest Expansion and Respiratory Effort, Clear to Auscultation Cardiovascular: NL Sounds; No Murmurs; No JVD, RRR, No Edema, - - Radial pulse 2 + bilaterally, no hand swelling, Skin: - - Left elbow dressing intact. Result Diagrams: 08/23/19 07:19 08/22/19 06:08 Additional Lab and Data: Lab Results 08/18/19 08/18/19 Range/Units 12:51 12:51 WBC 15.1 H (3.5-10.8) 10^3/uL RBC 4.34 (4.18-5.48) 10^6 /uL Hgb 13.6 L (14.0-18.0) g/dL Hct 41 L (42-52) % MCV 94 (80-94) fL MCH 31 (27-31) pg MCHC 33 (31-36) g/dL RDW 16 H (10-15) % Plt Count 392 (150-450) 10^3/uL MPV 6.9 L (7.4-10.4) fL Neut % (Auto) 81.3 % Lymph % (Auto) 9.9 % Collin % (Auto) 7.6 % Eos % (Auto) 0.7 % Baso % (Auto) 0.5 % Absolute Neuts (auto) 12.3 H (1.5-7.7) 10^3/ul Absolute Lymphs (auto) 1.5 (1.0-4.8) 10^3/ul Absolute Monos (auto) 1.1 H (0-0.8) 10^3/ul Absolute Eos (auto) 0.1 (0-0.6) 10^3/ul Absolute Basos (auto) 0.1 (0-0.2) 10^3/ul Absolute Nucleated RBC 0.0 10^3/ul Nucleated RBC % 0.1 ESR 87 H (0-19) mm/Hr Sodium 131 L (135-145) mmol/L Potassium 4.3 (3.5-5.0) mmol/L Chloride 98 L (101-111) mmol/L Carbon Dioxide 26 (22-32) mmol/L Anion Gap 7 (2-11) mmol/L BUN 15 (6-24) mg/dL Creatinine 0.81 (0.67-1.17) mg/dL Est GFR ( Amer) 118.0 (>60) Est GFR (Non-Af Amer) 97.5 (>60) BUN/Creatinine Ratio 18.5 (8-20) Glucose 128 H (70-100) mg/dL Calcium 8.9 (8.6-10.3) mg/dL Total Bilirubin 0.50 (0.2-1.0) mg/dL AST 17 (13-39) U/L ALT 13 (7-52) U/L Alkaline Phosphatase 104 (34-104) U/L C-Reactive Protein 159.97 H (<8.01) mg/L Total Protein 7.5 (6.4-8.9) g/dL Albumin 3.5 (3.2-5.2) g/dL Globulin 4.0 (2-4) g/dL Albumin/Globulin Ratio 0.9 L (1-3) Microbiology and Other Data: Microbiology 08/18/19 12:50 Aerobic Blood Culture - Preliminary Blood Venous No Growth Day 1 Anaerobic Blood Culture - Preliminary No Growth Day 1 08/18/19 12:51 Aerobic Blood Culture - Preliminary Blood Venous No Growth Day 1 Anaerobic Blood Culture - Preliminary No Growth Day 1 Assess/Plan/Problems-Billing Mr Munguia is a 59yo M with a PMHx of HTN and HLD, not on treatment, h/o substance abuse and probable COPD who presents with sepsis likely 2/2 olecranon bursitis. - Patient Problems (1) Sepsis Current Visit: Yes Status: Acute Comment: Sepsis in setting of olecranon bursitis (2) Olecranon bursitis, left elbow Current Visit: Yes Status: Acute Code(s): M70.22 - OLECRANON BURSITIS, LEFT ELBOW SNOMED Code(s): 426443940075770 Comment: Culture grew group A strep. Now on Rocpehin. follow ID recommendations regarding antibiotics. (3) Hypertension Current Visit: Yes Status: Acute Code(s): I10 - ESSENTIAL (PRIMARY) HYPERTENSION SNOMED Code(s): 25532317 Comment: BP in acceptable control. not on any medications (4) Tobacco abuse Current Visit: Yes Status: Acute Code(s): Z72.0 - TOBACCO USE SNOMED Code( s): 164771887 Comment: Pt offered nicotine replacement products, but declined (5) DVT prophylaxis Current Visit: Yes Status: Acute Code(s): EYL8022 - SNOMED Code(s): 490832639 Comment: ambulation (6) Full code status Current Visit: Yes Status: Acute Code(s): Z78.9 - OTHER SPECIFIED HEALTH STATUS SNOMED Code(s): 511118064 Status and Disposition: Disposition: per primary team- orthopedics.
--- NOTE | 2019-08-24 10:48 | PN ---
Progress Note - Progress Note Date of Service: 08/24/19 SOAP: Subjective: CC: elbow pain HPI: 59 year old man with septic olecranon bursitis, left elbow range of motion is improving. He feels well no fever, rash, or diarrhea. Objective: Vital Signs Temp 36.4 C 08/24/19 07:20 Pulse 77 08/24/19 07:20 Resp 16 08/24/19 10:32 BP 136/78 08/24/19 07:20 Pulse Ox 96 08/24/19 07:20 Intake & Output 08/23/19 08/24/19 08/24/19 18:59 06:59 18:59 Intake Total 828 20 120 Output Total 600 300 Balance 228 20 -180 Intake: IV Fluids 50 20 NS (0.9%) 50 20 IVPB 58 ceftriaxone 58 Oral 720 0 120 Output: Urine 600 300 Other: Estimated Void Medium # Voids 1 Gen:awake, no distress HEENT: no thrush Heart:RRR no murmur Lungs:CTA BL Abd:+BS NTND soft Skin: no rash MSK: Left elbow flex/extension normal; mild edema over elbow, incision intact Microbiology 08/18/19 21:48 Aerobic Blood Culture - Final Blood Venous No Growth Day 5 Anaerobic Blood Culture - Final No Growth Day 5 08/18/19 21:52 Aerobic Blood Culture - Final Blood Venous No Growth Day 5 Anaerobic Blood Culture - Final No Growth Day 5 08/18/19 12:50 Aerobic Blood Culture - Final Blood Venous No Growth Day 5 Anaerobic Blood Culture - Final No Growth Day 5 08/18/19 12:51 Aerobic Blood Culture - Final Blood Venous No Growth Day 5 Anaerobic Blood Culture - Final No Growth Day 5 08/19/19 17:00 Gram Stain - Final Misc Fluid (See Comment) - Elbow Left Body Fluid Culture - Final Strep Pyogenes (Grp A) Skin and Soft Tissue MRSA/MSSA (PCR - Final Mrsa Negative S.aureus Negative Assessment: 1. Left septic olecranon bursitis s/p I&D due to Grp A Strep Plan: 1. can change ceftriaxone to levaquin 500 mg by mouth daily for 14 days at discharge
--- NOTE | 2019-08-24 13:10 | PN ---
Progress Note - Progress Note Date of Service: 08/24/19 SOAP: Subjective: []Pt seen at bedside. He feels well without fever or chills. L elbow is mildly painful, no change from yesterday. Objective: []Gen: Appears well, NAD LUE: Dressing changed, there is no erythema, incision is well approximated, small amount of bloody drainage, no purulence. Small amount of fluid has recollected, nontender and no erythema. Elbow ROM is nonpainful. Wrist and digit f/e nonpainful. Sensation intact to light touch distally, cap refill less than two seconds distally, radial pulse 2+ Assessment: []Infected olecranon bursitis L elbow, POD 2 sp I&D Plan: []WBAT PT/OT VNS for wound checks levaquin 500 mg qd x 14 days per ID DC home today HR and BP to be rechecked prior to DC, per nursing patient was experiencing anxiety attack earlier today Vital Signs Temp 97.4 F 08/24/19 11:29 Pulse 103 08/24/19 11:29 Resp 18 08/24/19 11:39 BP 135/113 08/24/19 11:29 Pulse Ox 99 08/24/19 11:29 Intake & Output 08/23/19 08/24/19 08/24/19 18:59 06:59 18:59 Intake Total 828 20 120 Output Total 600 300 Balance 228 20 -180 Intake: IV Fluids 50 20 NS (0.9%) 50 20 IVPB 58 ceftriaxone 58 Oral 720 0 120 Output: Urine 600 300 Other: Estimated Void Medium # Voids 1 Laboratory Last Values WBC 10.3 10^3/uL (3.5-10.8) 08/23/19 07:19 RBC 4.83 10^6 /uL (4.18-5.48) 08/23/19 07:19 Hgb 14.9 g/dL (14.0-18.0) 08/23/19 07:19 Hct 45 % (42-52) 08/23/19 07:19 MCV 94 fL (80-94) 08/23/19 07:19 MCH 31 pg (27-31) 08/23/19 07:19 MCHC 33 g/dL (31-36) 08/23/19 07:19 RDW 17 % (10-15) H 08/23/19 07:19 Plt Count 440 10^3/uL (150-450) 08/23/19 07:19 MPV 7.1 fL (7.4-10.4) L 08/23/19 07:19 Neut % (Auto) 78.7 % 08/22/19 06:09 Lymph % (Auto) 11.1 % 08/22/19 06:09 Lares % (Auto) 6.4 % 08/22/19 06:09 Eos % (Auto) 3.1 % 08/22/19 06:09 Baso % (Auto) 0.7 % 08/22/19 06:09 Absolute Neuts (auto) 13.3 10^3/ul (1.5-7.7) H 08/22/19 06:09 Absolute Lymphs (auto) 1.9 10^3/ul (1.0-4.8) 08/22/19 06:09 Absolute Monos (auto) 1.1 10^3/ul (0-0.8) H 08/22/19 06:09 Absolute Eos (auto) 0.5 10^3/ul (0-0.6) 08/22/19 06:09 Absolute Basos (auto) 0.1 10^3/ul (0-0.2) 08/22/19 06:09 Absolute Nucleated RBC 0.0 10^3/ul 08/22/19 06:09 Nucleated RBC % 0.0 08/22/19 06:09 ESR 87 mm/Hr (0-19) H 08/18/19 12:51 Sodium 136 mmol/L (135-145) 08/22/19 06:08 Potassium 4.6 mmol/L (3.5-5.0) 08/22/19 06:08 Chloride 103 mmol/L (101-111) 08/22/19 06:08 Carbon Dioxide 27 mmol/L (22-32) 08/22/19 06:08 Anion Gap 6 mmol/L (2-11) 08/22/19 06:08 BUN 21 mg/dL (6-24) 08/22/19 06:08 Creatinine 0.84 mg/dL (0.67-1.17) 08/22/19 06:08 Est GFR ( Amer) 113.2 (>60) 08/22/19 06:08 Est GFR (Non-Af Amer) 93.5 (>60) 08/22/19 06:08 BUN/Creatinine Ratio 25.0 (8-20) H 08/22/19 06:08 Glucose 87 mg/dL (70-100) 08/22/19 06:08 Lactic Acid 0.8 mmol/L (0.5-2.0) 08/19/19 09:19 Calcium 8.7 mg/dL (8.6-10.3) 08/22/19 06:08 Total Bilirubin 0.40 mg/dL (0.2-1.0) 08/18/19 21:46 AST 16 U/L (13-39) 08/18/19 21:46 ALT 12 U/L (7-52) 08/18/19 21:46 Alkaline Phosphatase 100 U/L (34-104) 08/18/19 21:46 C-Reactive Protein 15.89 mg/L (<8.01) H 08/23/19 07:19 C-React Prot High Sens 51.83 mg/L (<2.00) H 08/21/19 05:41 Total Protein 6.1 g/dL (6.4-8.9) L 08/18/19 21:46 Albumin 2.9 g/dL (3.2-5.2) L 08/18/19 21:46 Globulin 3.2 g/dL (2-4) 08/18/19 21:46 Albumin/Globulin Ratio 0.9 (1-3) L 08/18/19 21:46 Urine Color Mitzi 08/19/19 21:00 Urine Appearance Clear 08/19/19 21:00 Urine pH 6.0 (5-9) 08/19/19 21:00 Ur Specific [place] 1.025 (1.010-1.030) 08/19/19 21:00 Urine Protein 2+(100 mg/dl) (Negative) A 08/19/19 21:00 Urine Ketones Negative (Negative) 08/19/19 21:00 Urine Blood Negative (Negative) 08/19/19 21:00 Urine Nitrate Negative (Negative) 08/19/19 21:00 Urine Bilirubin Negative (Negative) 08/19/19 21:00 Urine Urobilinogen Negative (Negative) 08/19/19 21:00 Ur Leukocyte Esterase Negative (Negative) 08/19/19 21:00 Urine WBC (Auto) Absent (Absent) 08/19/19 21:00 Urine RBC (Auto) Absent (Absent) 08/19/19 21:00 Urine Bacteria Absent (Absent) 08/19/19 21:00 Urine Glucose 2+(150 mg/dl) (Negative) A 08/19/19 21:00 Vancomycin Trough 12.7 mcg/mL 08/20/19 04:42 Urine Opiates Screen Presumptive positive (None Detect) A 08/19/19 21:00 Ur Barbiturates Screen None detected (None Detect) 08/19/19 21:00 Ur Phencyclidine Scrn None detected (None Detect) 08/19/19 21:00 Ur Amphetamines Screen None detected (None Detect) 08/19/19 21:00 U Benzodiazepines Scrn None detected (None Detect) 08/19/19 21:00 Urine Cocaine Screen None detected (None Detect) 08/19/19 21:00 U Cannabinoids Screen Presumptive positive (None Detect) A 08/19/19 21:00
--- NOTE | 2019-08-24 13:14 | DS ---
Orthopedic Discharge Summary - Discharge Summary Date of Admission:08/18/19 Date of Discharge: 08/24/19 Date of Surgery: 08/22/19 Attending Orthopedic Provider: dR zhang Pre-operative Diagnosis: Left elbow septic olecranon bursitis Operative Procedure: I&D left elbow Disposition of Patient: home with vns Condition of Patient: stable History: PRIYA CARBAJAL is a 59 year old M with left septic olecranon bursitis that did not improve with IV antibiotics. Hospital Course: PRIYA was admitted to [facility] on 08/18/19. Patient underwent a [left elbow I&D] without complication followed by a brief recovery in PACU and transfer to the Short Stay Surgical Unit in stable condition. Our hospitalist service, infectious disease also participated in this patients care. Post-op day 1: patient was alert and in no acute distress. Dressing was clean, dry and intact. Operative extremity elbow flexion and extension was nonpainful, nvi distally. Post-op day two: dressing was changed, incision was well approximated without erythema, there was mild bloody discharge and a small amount of fluid collected without tenderness or overlying erythema. Patient was deemed to be medically and orthopedically stable for discharge. Physical therapy goals were met. Discharge Medications Ibuprofen TAB* [Motrin TAB* 600 MG] 600 mg PO Q6H tab 08/24/19 [Rx] Levofloxacin TAB* [Levaquin TAB*] 500 mg PO DAILY #14 tab 08/24/19 [Rx] Discharge Instructions following Orthopedic Surgery: Activity: * Weight Bearing as tolerated Wound care: * OK to shower on post-op day 3, no bathing, swimming, or submerging wound. * Use gentle soap, pat dry. Cover with gauze, JOSE wrap or tape. * Visiting home nurse to do wound checks. Call Orthopedic office for: * Increased drainage * Redness * Increased pain * Fever * decreased ability to move elbow Go to ER with shortness of breath or chest pain. Diet: * Regular diet * Increase fluids and fiber to prevent constipation. * Continue to use stool softeners, call office if no bowel motion within 48 hours. Medications See Home Medication List in your packet for medications that you should take after discharge. Antibiotic: Levaquin 500 mg daily for 14 days Pain control: Tylenol (acetaminophen). Maximum daily dose of Tylenol is 4000 mg from all sources. FOLLOW UP: Follow up with [Rhina] Within 5 days, sooner with concerns, call for appointment Please call our office with any questions or concerns ([phone])
[2019-08-24 13:22] VITALS: BP 130/96
== END 2019-08-24 14:30 | disposition home health service (06) | DRG 710 ==
LOC: ED 12:28 → MED 16:16
PROVIDERS: ADMIT Internal Medicine; ATTEND Internal Medicine
PROC: 0M943ZX Drainage of Left Elbow Bursa and Ligament, Percutaneous Approach, Diagnostic (ICD-10-PCS; 2019-08-19)
PROC: 0MB40ZZ Excision of Left Elbow Bursa and Ligament, Open Approach (ICD-10-PCS; 2019-08-22)
PROC: 0M940ZZ Drainage of Left Elbow Bursa and Ligament, Open Approach (ICD-10-PCS; principal; 2019-08-22 14:00)
DX: A41.9 Sepsis, unspecified organism (principal); J96.01 Acute respiratory failure with hypoxia; E87.2 Acidosis; E87.1 Hypo-osmolality and hyponatremia; J44.1 Chronic obstructive pulmonary disease with (acute) exacerbation; Z68.1 Body mass index [BMI] 19.9 or less, adult; M71.122 Other infective bursitis, left elbow; B95.0 Streptococcus, group A, as the cause of diseases classified elsewhere; I10 Essential (primary) hypertension; E78.5 Hyperlipidemia, unspecified; F17.210 Nicotine dependence, cigarettes, uncomplicated; F11.21 Opioid dependence, in remission
CPT/HCPCS: 36415; 71045; 80048; 80053; 80202; 80307; 81003; 81015; 83605; 85025; 85027; 85652; 86140; 86141; 87040; 87070; 87077; 87186; 87205; 87640; 87641; 90686; 96374; 96375; 99284; A9270-GY; J0696; J1170; J1885; J2001; J2250; J2270; J2704; J3010; J3370; J3490; J7512

== ENCOUNTER 2019-08-29 13:41 | Emergency (ER) | payer BC ==
--- NOTE | 2019-08-29 15:33 | ED ---
Upper Extremity Pain - HPI Summary HPI Summary: Patient with history of recent admission on 08/18 to [facility] for left septic olecranon bursitis with subsequent I&D by Dr. Lantigua on 08/24 presents today stating that a follow-up appointment was never scheduled with Dr. Lantigua and so he came here. States elbow feels fine. Denies any new symptoms, pain or injury. Taking Levaquin. - History of Current Complaint Chief Complaint: EDExtremityUpper Stated Complaint: ELBOW INJURY Time Seen by Provider: 08/29/19 15:07 Hx Obtained From: Patient Mechanism Of Injury: Unknown Onset/Duration: Started Days Ago Severity Currently: None Pain Location: Elbow - Allergies/Home Medications Allergies/Adverse Reactions: Allergies Allergy/AdvReac Type Severity Reaction Status Date / Time No Known Allergies Allergy Verified 08/29/19 13:59 PMH/Surg Hx/FS Hx/Imm Hx Endocrine/Hematology History: Denies: Hx Anticoagulant Therapy, Hx Blood Disorders, Hx Diabetes, Hx Thyroid Disease Cardiovascular History: Denies: Hx Hypertension, Hx Myocardial Infarction Respiratory History: Denies: Hx Asthma, Hx Chronic Obstructive Pulmonary Disease (COPD) GI History: Denies: Hx Ulcer History: Denies: Hx Dialysis Sensory History: 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 Denies: Hx Deafness, Hx Hearing Aid Opthamlomology History: 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 EENT History: Denies: Hx Deafness Psychiatric History: Reports: Hx Depression, Hx Substance Abuse Denies: Hx Eating Disorder, Hx Suicide Attempt, Hx of Violent Episodes Against Others - Surgical History Surgery Procedure, Year, and Place: Splenectpmy Hx Anesthesia Reactions: No - Immunization History Immunizations Up to Date: Yes Infectious Disease History: No Infectious Disease History: Reports: Hx of Known/Suspected MRSA - past knee infection Denies: Hx Hepatitis, Hx Human Immunodeficiency Virus (HIV), History Other Infectious Disease, Traveled Outside the [place] in Last 30 Days - Family History Known Family History: Negative: Cardiac Disease, Hypertension, Diabetes - Social History Alcohol Use: Occasionally Alcohol Amount: rum and coke 1 drink nightly Hx Substance Use: Yes Substance Use Type: Reports: None Substance Use Comment - Amount & Last Used: hx Hx Tobacco Use: Yes Smoking Status (MU): Heavy Every Day Tobacco Smoker Type: Cigarettes Amount Used/How Often: 1/2 ppd Length of Time of Smoking/Using Tobacco: since age15 Have You Smoked in the Last Year: Yes Review of Systems Constitutional: Negative Eyes: Negative ENT: Negative Cardiovascular: Negative Respiratory: Negative Gastrointestinal: Negative Genitourinary: Negative Musculoskeletal: Negative Skin: Negative Neurological: Negative Psychological: Normal All Other Systems Reviewed And Are Negative: Yes Physical Exam - Summary Physical Exam Summary: Left elbow has mild swelling. No erythema, ecchymosis, deformity noted. Full range of motion without pain. Four sutures still in place. Some mild drainage from incision. No foul odor noted. Triage Information Reviewed: Yes Vital Signs On Initial Exam: Initial Vitals Temp Pulse Resp BP Pulse Ox 99.1 F 87 20 125/89 95 08/29/19 13:55 08/29/19 13:55 08/29/19 13:55 08/29/19 13:55 08/29/19 13:55 Vital Signs Reviewed: Yes Appearance: Positive: Well-Appearing Skin: Positive: Warm Head/Face: Positive: Normal Head/Face Inspection Eyes: Positive: Normal Neck: Positive: Supple Respiratory/Lung Sounds: Positive: Clear to Auscultation Cardiovascular: Positive: Normal Abdomen Description: Positive: Nontender Musculoskeletal: Positive: Normal Neurological: Positive: Normal Psychiatric: Positive: Normal AVPU Assessment: Alert - Kenn Coma Scale Best Eye Response: 4 - Spontaneous Best Motor Response: 6 - Obeys Commands Best Verbal Response: 5 - Oriented Coma Scale Total: 15 Procedures - Sedation Patient Received Moderate/Deep Sedation with Procedure: No Diagnostics - Vital Signs Vital Signs Temp Pulse Resp BP Pulse Ox 08/29/19 13:55 99.1 F 87 20 125/89 95 - Laboratory Lab Statement: Any lab studies that have been ordered have been reviewed, and results considered in the medical decision making process. Course/Dx - Course Course Of Treatment: Patient with history of recent admission on 08/18 to [facility] for left septic olecranon bursitis with subsequent I&D by Dr. Lantigua on 08/24 presents today stating that a follow-up appointment was never scheduled with Dr. Lantigua and so he came here. States elbow feels fine. Denies any new symptoms, pain or injury. Taking Levaquin. Vital signs within normal limits. Discussed patient with orthopedics clinic to set up follow-up appointment for patient. Has been 5 days since surgery. Follow-up appointment was set up for 10:30 AM August 31. Patient has been advised and states he will be there. - Diagnoses Provider Diagnoses: Post-operative state Discharge ED - Sign-Out/Discharge Documenting (check all that apply): Patient Departure - Discharge Plan Condition: Stable Disposition: HOME Patient Education Materials: Elbow Bursitis (ED) Referrals: No Primary Care Phys,NOPCP [Primary Care Provider] - Conor Lantigua MD [Medical Doctor] - Additional Instructions: You have a follow-up appointment scheduled at 10:30 AM this coming August 31, with Dr. Lantigua at [address] [place] [address] Dr. diane Marshall. Continue taking antibiotics. - Billing Disposition and Condition Condition: STABLE Disposition: Home
[2019-08-29 15:41] VITALS: BP 132/89
== END 2019-08-29 15:44 | disposition home or self-care (01) ==
LOC: ED 13:41
DX: Z09 Encounter for follow-up examination after completed treatment for conditions other than malignant neoplasm (principal); M71.122 Other infective bursitis, left elbow; F17.210 Nicotine dependence, cigarettes, uncomplicated
CPT/HCPCS: 99281

== ENCOUNTER 2019-09-02 14:58 | Emergency (ER) | payer SELFPAY ==
--- OUTSIDE RECORDS SUMMARY | 2019-09-02 15:16 | XMS REPORT | Continuity of Care Document ---
:1960 External Reference #:[id number] Author Name Conor Lantigua M.D. 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 Began age 15 Smoking Status Reviewed: 08/31/19 Light tobacco smoker (10 1/2 ppd now; max 1 or fewer cigarettes/day) ppd. Began age 15 Exercise Exercises regularly Type/Frequency Allergies, Adverse Reactions, Alerts Description No Known Drug Allergies Medications Active Medications SIG Qnty Indications Ordering Provider Date Duloxetine HCL take 1 capsule by 60caps M25.541 Yunior Dowell, 2017 30mg mouth every M.D. Caps Part morning for 1 week, then 2 tabs daily Oxycodone HCL 1-2 tabs by mouth 10caps Unknown 5mg every 4-6 hours Capsules as needed pain Immunizations Description No Information Available Vital Signs Date Vital Result Comment 08/31/2019 11:01am Height 69 inches 5'9" Weight 140.00 lb Heart Rate 80 /min Body Temperature 97.9 F Pain Level 4 O2 % BldC Oximetry 97 % BMI (Body Mass Index) 20.7 kg/m2 11/05/2017 11:11am Height 65 inches 5'5" Weight 134.25 lb Heart Rate 101 /min BP Systolic Sitting 115 mmHg BP Diastolic Sitting 70 mmHg Body Temperature 98.9 F O2 % BldC Oximetry 98 % BMI (Body Mass Index) 22.3 kg/m2 Results Description No Information Available Procedures Date Code Description Status 08/22/2019 20316 I&D Abscess Simple Completed 08/19/201920846 Inject/Drain Joint/Bursa Intermediate W/O US Completed Medical Devices Description No Information Available Encounters Type Date Location Provider Dx Diagnosis Office Visit 08/24/2019 [facility] Hodan Rivera, M70.22 Olecranon 8:54a hugh Aranda MD bursitis, left Hospitalists elbow I10 Essential (primary) hypertension Z72.0 Tobacco use Office Visit 08/23/2019 8:54a [facility] Maureen M70.22 Olecranoankush Aranda,hugh Hester D.O. bursitis, left Hospitalists elbow B95.0 Streptococcus, group A, causing diseases classd elswhr I10 Essential (primary) hypertension Z72.0 Tobacco use [facility] Ole[facility]rmary Aranda,hugh Hester D.O. bursitis, left Hospitalists elbow B95.0 Streptococcus, group A, causing diseases classd elswhr I10 Essential (primary) hypertension Office Visit 08/21/2019 [facility] A41.9 Sepsis, 8:52a hugh Aranda MD unspecified Hospitalists organism J96.01 Acute respiratory failure with hypoxia Office Visit 08/21/2019 10:11a [facility] Padmini M71.122 Other infective at [facility], RPA-C bursitis, left elbow B95.62 Methicillin resis staph infct causing diseases classd elswhr Office Visit 08/20/2019 [facility] A41.9 Sepsis, 8:52a hugh Aranda MD unspecified Hospitalists organism J96.01 Acute respiratory failure with hypoxia Office Visit 08/20/2019 10:[facility] [place] M71.122 Other infective at [facility], RPA-C bursitis, left elbow B95.62 Methicillin resis staph infct causing diseases classd elswhr Office Visit 08/19/2019 [facility] A41.9 Sepsis, 8:51a hugh Aranda PA unspecified Hospitalists organism J96.01 Acute respiratory failure with hypoxia Z72.0 Tobacco use Office Visit 08/18/2019 [facility] Caitlyn Roche, J96.91 Respiratory 4:03p Assoc,hugh Guthrie failure, Hospitalists unspecified with hypoxia M70.22 Olecranon bursitis, left elbow F12.90 Cannabis use, unspecified, uncomplicated Office Visit 05/27/2019 8:23a [facility] Esperanza R21 Rash and other Assoc,hugh Alexis, DAMIEN nonspecific skin Hospitalists eruption Assessments Date Code Description Provider 08/31/2019 M70.22 Olecranon bursitis, left elbow Conor Lantigua M.D. 08/24/2019 M70.22 Olecranon bursitis, left elbow Hodan Rivera MD 08/24/2019 I10 Essential (primary) hypertension Hodan Rivera MD 08/24/2019 Z72.0 Tobacco use Hodan Rivera MD 08/23/2019 M70.22 Olecranon bursitis, left elbow Maureen Mir, D.O. 08/23/2019 B95.0 Streptococcus, group A, as the cause of Maureen Mir, D.O. diseases classified elsewhere 08/23/2019 I10 Essential (primary) hypertension Maureen Mir, D.O. 08/23/2019 Z72.0 Tobacco use Maureen Mir, D.O. 08/22/2019 M70.22 Olecranon bursitis, left elbow Maureen Mir, D.O. 08/22/2019 M71.122 Other infective bursitis, left elbow Conor Lantigua M.D. 08/22/2019 B95.0 Streptococcus, group A, as the cause of Maureen Mir, D.O. diseases classified elsewhere 08/22/2019 B95.62 Methicillin resistant Staphylococcus aureus Conor Lantigua M.D. infection as the cause of diseases classified elsewhere 08/22/2019 I10 Essential (primary) hypertension Maureen Mir, D.O. 08/21/2019 A41.9 Sepsis, unspecified organism Lilly Hurd MD 08/21/2019 M71.122 Other infective bursitis, left elbow Padmini Lieberman, RPA- C 08/21/2019 J96.01 Acute respiratory failure with hypoxia Lilly Hurd MD 08/21/2019 B95.62 Methicillin resistant Staphylococcus aureus Padmini Lieberman , RPA-C infection as the cause of diseases classified elsewhere 08/20/2019 A41.9 Sepsis, unspecified organism Lilly Hurd MD 08/20/2019 M71.122 Other infective bursitis, left elbow Padmini Bitting, RPA- C 08/20/2019 J96.01 Acute respiratory failure with hypoxia Lilly Hurd MD 08/20/2019 B95.62 Methicillin resistant Staphylococcus aureus Padmini Lieberman , RPA-C infection as the cause of diseases classified elsewhere 08/19/2019 A41.9 Sepsis, unspecified organism PAUL Santillan 08/19/2019 J96.01 Acute respiratory failure with hypoxia PAUL Santillan 08/19/2019 Z72.0 Tobacco use PAUL Santillan 08/18/2019 J96.91 Respiratory failure, unspecified with Caitlyn Roche M.D. hypoxia 08/18/2019 M70.22 Olecranon bursitis, left elbow Caitlyn Roche M.D. 08/18/2019 F12.90 Cannabis use, unspecified, uncomplicated Caitlyn Roche M.D. 05/27/2019 R21 Rash and other nonspecific skin eruption Esperanza Alexis NP Plan of Treatment Future Appointment(s):09/14/2019 8:30 am - Conor Lantigua M.D. at [facility] [place]/31/2019 - Conor Lantigua M.D.M70.22 Olecranon bursitis , left elbowFollow up:2 weeks, call to cancel if closed and doing wellRecommendations:Use antibiotic creme and bandaid daily when working. Can leave wound open after showering to air dry, cover before going out. Functional Status Description No Information Available Mental Status Description No Information Available Referrals Description No Information Available
[2019-09-02 15:47] LABS: Hematocrit 46 % (42-52); Hemoglobin 15.5 g/dL (14.0-18.0); Mean Corpuscular HGB Conc 34 g/dL (31-36); Mean Corpuscular Hemoglobin 31 pg (27-31); Mean Corpuscular Volume 93 fL (80-94); Mean Platelet Volume 6.8 fL (7.4-10.4); Platelet Count 538 10^3/uL (150-450); Red Blood Count 4.96 10^6 /uL (4.18-5.48); Red Cell Distribution Width 17 % (10-15); White Blood Count 11.8 10^3/uL (3.5-10.8)
[2019-09-02 16:19] LABS: ABS Basophils 0.1 10^3/ul (0-0.2); ABS Eosinophils 0.2 10^3/ul (0-0.6); ABS Lymphocytes 2.8 10^3/ul (1.0-4.8); ABS Monocytes 1.2 10^3/ul (0-0.8); ABS Neutrophils 7.6 10^3/ul (1.5-7.7); Eosinophil % 1.8 %; Lymphocyte % 23.8 %; Nucleated Red Blood Cells % 0.1
[2019-09-02 16:30] LABS: ALT 18 U/L (7-52); Albumin 3.7 g/dL (3.2-5.2); Albumin/Globulin Ratio 1.1 (1-3); Alkaline Phosphatase 111 U/L (34-104); BUN/Creatinine Ratio 17.9 (8-20); Blood Urea Nitrogen 25 mg/dL (6-24); CO2 Carbon Dioxide 24 mmol/L (22-32); Calcium 9.2 mg/dL (8.6-10.3); Chloride 106 mmol/L (101-111); EGFR African American 62.8 (>60); EGFR Non-African American 51.9 (>60); Globulin 3.5 g/dL (2-4); Glucose 69 mg/dL (70-100); Sodium 135 mmol/L (135-145); Total Protein 7.2 g/dL (6.4-8.9)
[2019-09-02 17:03] LABS: Anion Gap 5 mmol/L (2-11)
--- NOTE | 2019-09-02 19:08 | ED ---
HPI Febrile Illness - HPI Summary HPI Summary: 59 year old M presenting to [facility] complains of fever, chills, dizziness, difficulty ambulating, left elbow pain, occasional shortness of breath, weakness , decreased appetite for several days. Patient states he had surgery on his left elbow 1 week ago for left elbow bursitis with Dr. Lantigua. States he had his stitches removed Friday 08/31. Patient states his elbow is still draining. Still taking Levaquin which was prescribed to him. Has an appointment with Dr. Lantigua in 2 weeks. The patient rates the pain 5/10 in severity. Symptoms aggravated by nothing. Symptoms alleviated by nothing. Patient denies erythema of eyes, sore throat, chest pain, cough, abdominal pain, nausea/ vomiting, dysuria, hematuria, myalgia, edema, rash. Denies pertinent PMHx. No hx HTN, diabetes, hypercholesterolemia. No primary care provider. No smoking, drugs. Occasional alcohol. - History of Current Complaint Chief Complaint: EDGeneral Time Seen by Provider: 09/02/19 18:51 Hx Obtained From: Patient Onset/Duration: Started Days Ago, Still Present Timing: Constant Current Severity: Moderate Pain Intensity: 5 Pain Scale Used: 0-10 Numeric Aggravating Factors: Nothing Alleviating Factors: Nothing Associated Signs and Symptoms: Negative - erythema of eyes, sore throat, chest pain, cough, abdominal pain, nausea/vomiting, dysuria, hematuria, myalgia, edema , rash - Additional Pertinent History Primary Care Physician: [id number] - Allergy/Home Medications Allergies/Adverse Reactions: Allergies Allergy/AdvReac Type Severity Reaction Status Date / Time No Known Allergies Allergy Verified 09/02/19 15:12 PMH/Surg Hx/FS Hx/Imm Hx Endocrine/Hematology History: Denies: Hx Anticoagulant Therapy, Hx Blood Disorders, Hx Diabetes, Hx Thyroid Disease Cardiovascular History: Denies: Hx Hypertension, Hx Myocardial Infarction Respiratory History: Denies: Hx Asthma, Hx Chronic Obstructive Pulmonary Disease (COPD) GI History: Denies: Hx Ulcer History: Denies: Hx Dialysis Sensory History: 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 Denies: Hx Deafness, Hx Hearing Aid Opthamlomology History: 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 Psychiatric History: Reports: Hx Depression, Hx Substance Abuse Denies: Hx Eating Disorder, Hx Suicide Attempt, Hx of Violent Episodes Against Others - Surgical History Surgery Procedure, Year, and Place: Splenectpmy Hx Anesthesia Reactions: No Infectious Disease History: No Infectious Disease History: Reports: Hx of Known/Suspected MRSA - past knee infection Denies: Hx Hepatitis, Hx Human Immunodeficiency Virus (HIV), History Other Infectious Disease, Traveled Outside the [place] in Last 30 Days - Family History Known Family History: Negative: Cardiac Disease, Hypertension, Diabetes - Social History Alcohol Use: Occasionally Alcohol Amount: rum and coke 1 drink nightly Hx Substance Use: Yes Substance Use Type: Reports: Marijuana Substance Use Comment - Amount & Last Used: hx occasional use Hx Tobacco Use: Yes Smoking Status (MU): Heavy Every Day Tobacco Smoker Type: Cigarettes Amount Used/How Often: 1/2 ppd Length of Time of Smoking/Using Tobacco: since age15 Have You Smoked in the Last Year: Yes Review of Systems Positive: Fever, Chills Negative: Erythema Negative: Sore Throat Negative: Chest Pain Positive: Shortness Of Breath. Negative: Cough Positive: Other - decreased appetite. Negative: Abdominal Pain, Vomiting, Nausea Negative: dysuria, hematuria Positive: Other - left elbow pain. Negative: Myalgia, Edema Negative: Rash Neurological: Other - Dizziness Positive: Weakness All Other Systems Reviewed And Are Negative: Yes Physical Exam - Summary Physical Exam Summary: Constitutional: Well-developed, Well-nourished, Alert. (-) Distressed Skin: Warm, Dry HENT: Normocephalic; Atraumatic Eyes: Conjunctiva normal Neck: Musculoskeletal ROM normal neck. (-) JVD, (-) Stridor, (-) Tracheal deviation Cardio: Rhythm regular, rate normal, Heart sounds normal; Intact distal pulses; The pedal pulses are 2+ and symmetric. Radial pulses are 2+ and symmetric. (-) Murmur Pulmonary/Chest wall: Effort normal. (-) Respiratory distress, (-) Wheezes, (-) Rales Abd: Soft, (-) tenderness, (-) Distension, (-) Guarding, (-) Rebound Musculoskeletal: Left elbow is erythematous and with serious drainage, ROM in tact, there is a palpable hard bursa but no fluctuance Lymph: (-) Cervical adenopathy Neuro: Alert, Oriented x3 Psych: Mood and affect Normal Triage Information Reviewed: Yes Vital Signs On Initial Exam: Initial Vitals Temp Pulse Resp BP Pulse Ox 97.6 F 97 20 138/105 99 11/08/19 15:09 09/02/19 15:09 09/02/19 15:09 09/02/19 15:09 09/02/19 15:09 Vital Signs Reviewed: Yes Procedures - Sedation Patient Received Moderate/Deep Sedation with Procedure: No Diagnostics - Vital Signs Vital Signs Temp Pulse Resp BP Pulse Ox 09/02/19 17:04 98.2 F 94 20 98 09/02/19 15:09 97.6 F 97 20 138/105 99 - Laboratory Lab Results: Lab Results 09/02/19 09/02/19 09/02/19 Range/Units 15:36 15:36 17:14 WBC 11.8 H (3.5-10.8) 10^3/uL RBC 4.96 (4.18-5.48) 10^6 /uL Hgb 15.5 (14.0-18.0) g/dL Hct 46 (42-52) % MCV 93 (80-94) fL MCH 31 (27-31) pg MCHC 34 (31-36) g/dL RDW 17 H (10-15) % Plt Count 538 H D (150-450) 10^3/uL MPV 6.8 L (7.4-10.4) fL Neut % (Auto) 64.1 % Lymph % (Auto) 23.8 % [place] % (Auto) 9.9 % Eos % (Auto) 1.8 % Baso % (Auto) 0.4 % Absolute Neuts (auto) 7.6 (1.5-7.7) 10^3/ul Absolute Lymphs (auto) 2.8 (1.0-4.8) 10^3/ul Absolute Monos (auto) 1.2 H (0-0.8) 10^3/ul Absolute Eos (auto) 0.2 (0-0.6) 10^3/ul Absolute Basos (auto) 0.1 (0-0.2) 10^3/ul Absolute Nucleated RBC 0.0 10^3/ul Neutrophils % 56.0 % Lymphocytes % 22.0 % Reactive Lymphs % 5.0 (0-6) % Monocytes % 10.0 % Eosinophils % 3.0 % Basophils % 4.0 % Nucleated RBC % 0.1 Normal RBC Morphology Normal (Normal) Hem Pathologist Commnt Pending Sodium 135 (135-145) mmol/L Potassium TNP 5.0 Chloride 106 (101-111) mmol/L Carbon Dioxide 24 (22-32) mmol/L Anion Gap 5 (2-11) mmol/L BUN 25 H (6-24) mg/dL Creatinine 1.40 H (0.67-1.17) mg/dL Est GFR ( Amer) 62.8 (>60) Est GFR (Non-Af Amer) 51.9 (>60) BUN/Creatinine Ratio 17.9 (8-20) Glucose 69 L (70-100) mg/dL Calcium 9.2 (8.6-10.3) mg/dL Total Bilirubin 0.50 (0.2-1.0) mg/dL AST TNP 16 ALT 18 (7-52) U/L Alkaline Phosphatase 111 H (34-104) U/L Total Protein 7.2 (6.4-8.9) g/dL Albumin 3.7 (3.2-5.2) g/dL Globulin 3.5 (2-4) g/dL Albumin/Globulin Ratio 1.1 (1-3) Result Diagrams: 09/02/19 15:36 09/02/19 17:14 Lab Statement: Any lab studies that have been ordered have been reviewed, and results considered in the medical decision making process. Re-Evaluation - Re-Evaluation First Eval Re-Evaluation Time: 21:30 Change: Unchanged Comment: patient states he ate tuna sandwich and juice Course/Dx - Course Course Of Treatment: 59 year old M complains of fever, chills, dizziness, difficulty ambulating, left elbow pain, occasional shortness of breath, weakness , decreased appetite for several days. Recent surgery on his left elbow for left elbow bursitis and had stitches removed Friday 08/31 after which his left elbow is still draining. Still taking Levaquin which was prescribed to him. Upon exam, the left elbow is erythematous and with serious drainage, ROM in tact, there is a palpable hard bursa but no fluctuance. Bloodwork results with no significant abnormalities except for WBC 11.8, RDW 17, platelet count 538, MPV 6.8, absolute monos 1.2, BUN 25, creatinine 1.40, gluocse 69, alkaline phosphatase 111. Rapid flu tests negative for Influenza A and B. The patient will be signed out to Dr. Tracy upon shift change 09/02/19 22:00 to f/u repeat finger stick at 23:00 and PO trial and pending disposition. - Diagnoses Provider Diagnoses: Malaise, Hypoglycemia Discharge ED - Sign-Out/Discharge Documenting (check all that apply): Sign-Out Patient Signing out patient TO: Katelyn Tracy - awaiting repeat finger stick at 23:00 and PO trial and pending disposition - Discharge Plan Condition: Stable Referrals: Conor Lantigua MD [Medical Doctor] - - Attestation Statements Document Initiated by Scribe: Yes Documenting Scribe: Gail Angelo Provider For Whom Scribe is Documenting (Include Credential): Hao Silva MD Scribe Attestation: IGail, scribed for Hao Silva MD on 09/02/19 at 2221. Status of Scribe Document: Ready
[2019-09-02 19:25] LABS: Activated Partial Thrombo Time 36.3 seconds (26.0-38.0); INR 0.92 (0.82-1.09)
[2019-09-02 20:23] LABS: C Reactive Protein < 1.00 mg/L (<8.01)
[2019-09-02 21:19] LABS: Influenza A Molecular NEGATIVE (Negative); Influenza B Molecular NEGATIVE (Negative)
[2019-09-02 22:37] LABS: Urine Appearance Clear; Urine Bilirubin Negative (Negative); Urine Blood Negative (Negative); Urine Color Yellow; Urine Glucose 1+(50 mg/dL) (Negative); Urine Ketones Negative (Negative); Urine Nitrite Negative (Negative); Urine Protein Negative (Negative); Urine Specific Gravity 1.024 (1.010-1.030); Urine Urobilinogen Negative (Negative)
--- NOTE | 2019-09-02 22:52 | ED ---
Progress - Progress Note Progress Note: Patient is a signout from Dr. Silva to Dr. Tracy at end of shift on 09/02/19, pending repeat finger stick, PO trial, and disposition. Re-Evaluation - Re-Evaluation First Eval Re-Evaluation Time: 21:30 Change: Unchanged Comment: patient states he ate tuna sandwich and juice Course/Dx - Course Course Of Treatment: 59 year old M complains of fever, chills, dizziness, difficulty ambulating, left elbow pain, occasional shortness of breath, weakness , decreased appetite for several days. Recent surgery on his left elbow for left elbow bursitis and had stitches removed Friday 08/31 after which his left elbow is still draining. Still taking Levaquin which was prescribed to him. Upon exam, the left elbow is erythematous and with serious drainage, ROM in tact, there is a palpable hard bursa but no fluctuance. Bloodwork results with no significant abnormalities except for WBC 11.8, RDW 17, platelet count 538, MPV 6.8, absolute monos 1.2, BUN 25, creatinine 1.40, gluocse 69, alkaline phosphatase 111. Rapid flu tests negative for Influenza A and B. The patient will be signed out to Dr. Tracy upon shift change 09/02/19 22:00 to f/u repeat finger stick at 23:00 and PO trial and pending disposition. - Diagnoses Provider Diagnoses: Hypoglycemia, Bursitis of elbow, Malaise Discharge ED - Sign-Out/Discharge Documenting (check all that apply): Patient Departure - Discharge, Receiving Sign-Out Receiving patient FROM: Hao Silva - Patient is a signout from Dr. Silva to Dr. Tracy at end of shift 2200 on 09/02/19, pending repeat finger stick and PO trial. - Discharge Plan Condition: Stable Disposition: HOME Patient Education Materials: Elbow Bursitis (ED), Non-diabetic Hypoglycemia (ED ), Weakness (ED) Referrals: Conor Lantigua MD [Medical Doctor] - Additional Instructions: Follow up with Dr. Lantigua, orthopedics, in 2-3 days. Return to the Emergency Room if you experience new or worsened symptoms. - Billing Disposition and Condition Condition: STABLE Disposition: Home - Attestation Statements Document Initiated by Scribe: Yes Documenting Scribe: Nathan Jara Provider For Whom Scribe is Documenting (Include Credential): Katelyn Tracy MD. Scribe Attestation: Nathan Hill, scribed for Katelyn Tracy MD. on 09/03/19 at 0217. Scribe Documentation Reviewed: Yes Provider Attestation: The documentation as recorded by the scribe, Nathan Jara accurately reflects the service I personally performed and the decisions made by me, Katelyn Tracy MD. Status of Scribe Document: Viewed
[2019-09-03 00:46] VITALS: BP 126/76
== END 2019-09-03 00:44 | disposition home or self-care (01) ==
LOC: ED 14:58
DX: E16.2 Hypoglycemia, unspecified (principal); M71.522 Other bursitis, not elsewhere classified, left elbow; R53.81 Other malaise; F32.9 Major depressive disorder, single episode, unspecified; F17.210 Nicotine dependence, cigarettes, uncomplicated; Z90.81 Acquired absence of spleen
CPT/HCPCS: 36415; 80053; 81003; 83605; 84484; 85025; 85060; 85610; 85730; 86140; 99283

== ENCOUNTER 2019-11-16 14:21 | Emergency (ER) | payer SELFPAY ==
--- NOTE | 2019-11-16 14:35 | ED ---
Complex/Multi-Sys Presentation - HPI Summary HPI Summary: 59 year old M presenting to [facility] accompanied by EMS complains of generalized weakness and diffuse pain since a fall earlier today 11/16/2019 where he hit the left side of his face but had no bleeding. Patient is weak to the point of not being able to stand and has an infection of the left foot and leg with no pain per EMS. Patient denies any change in vision, COLL[place], emesis, diarrhea, sore throat , and coughing. The patient rates the pain 4/10 in severity. Symptoms aggravated by nothing. Symptoms alleviated by nothing. Medications reviewed. Allergies noted. - History Of Current Complaint Time Seen by Provider: 11/16/19 14:25 Hx Obtained From: Patient Onset/Duration: Lasting Hours, Still Present Timing: Constant Severity Currently: Moderate Location: Pain At: - Diffuse throughout body Aggravating Factor(s): Nothing Alleviating Factor(s): Nothing Associated Signs And Symptoms: Positive: Weakness - Diffuse throughout body, Other - No change in vision or sore throat. Negative: Headache, Cough, Vomiting , Diarrhea - Allergies/Home Medications Allergies/Adverse Reactions: Allergies Allergy/AdvReac Type Severity Reaction Status Date / Time No Known Allergies Allergy Verified 09/02/19 15:12 Home Medications: Home Medications NK [No Home Medications Reported] 11/16/19 [History Confirmed 11/16/19] PMH/Surg Hx/FS Hx/Imm Hx Endocrine/Hematology History: Denies: Hx Anticoagulant Therapy, Hx Blood Disorders, Hx Diabetes, Hx Thyroid Disease Cardiovascular History: Denies: Hx Hypertension, Hx Myocardial Infarction Respiratory History: Denies: Hx Asthma, Hx Chronic Obstructive Pulmonary Disease (COPD) GI History: Denies: Hx Ulcer History: Denies: Hx Dialysis Sensory History: 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 Denies: Hx Deafness, Hx Hearing Aid Opthamlomology History: 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 Psychiatric History: Reports: Hx Depression, Hx Substance Abuse Denies: Hx Eating Disorder, Hx Suicide Attempt, Hx of Violent Episodes Against Others - Surgical History Surgery Procedure, Year, and Place: Splenectpmy Hx Anesthesia Reactions: No Infectious Disease History: Reports: Hx of Known/Suspected MRSA - past knee infection Denies: Hx Hepatitis, Hx Human Immunodeficiency Virus (HIV), History Other Infectious Disease - Family History Known Family History: Negative: Cardiac Disease, Hypertension, Diabetes - Social History Alcohol Use: Occasionally Alcohol Amount: rum and coke 1 drink nightly Hx Substance Use: Yes Substance Use Type: Reports: Marijuana Substance Use Comment - Amount & Last Used: hx occasional use Hx Tobacco Use: Yes Smoking Status (MU): Heavy Every Day Tobacco Smoker Type: Cigarettes Amount Used/How Often: 1/2 ppd Length of Time of Smoking/Using Tobacco: since age15 Have You Smoked in the Last Year: Yes Review of Systems Eyes: Negative - no change in vision Negative: Sore Throat Negative: Cough Negative: Vomiting, Diarrhea Positive: Other - infection of left leg and foot Positive: Weakness - diffuse throughout body. Negative: Headache All Other Systems Reviewed And Are Negative: Yes Physical Exam - Summary Physical Exam Summary: Constitutional: Well-developed, Well-nourished, Alert. (-) Distressed Skin: Scab on left foot with no erythema or tenderness HENT: Normocephalic; Atraumatic Eyes: Conjunctiva normal Neck: Musculoskeletal ROM normal neck. (-) JVD, (-) Stridor, (-) Tracheal deviation Cardio: Rhythm regular, rate normal, Heart sounds normal; Intact distal pulses; Radial pulses are 2+ and symmetric. (-) Murmur Pulmonary/Chest wall: Effort normal. (-) Respiratory distress, (-) Wheezes, (-) Rales Abd: Soft, (-) tenderness, (-) Distension, (-) Guarding, (-) Rebound Musculoskeletal: (-) Edema Lymph: (-) Cervical adenopathy Neuro: Pt periodically puts arms out and drops them in a stiff fashion, nml neuro exam, NIH: 0, GCS 15. Psych: Mood and affect Normal Triage Information Reviewed: Yes Vital Signs Reviewed: Yes - [place] Coma Scale Best Eye Response: 4 - Spontaneous Best Motor Response: 6 - Obeys Commands Best Verbal Response: 5 - Oriented Coma Scale Total: 15 Procedures - Sedation Patient Received Moderate/Deep Sedation with Procedure: No Diagnostics - Laboratory Result Diagrams: 11/16/19 14:44 11/16/19 14:44 Lab Statement: Any lab studies that have been ordered have been reviewed, and results considered in the medical decision making process. - Radiology CXR Radiology Interpretation Completed By: Radiologist Summary of Radiographic Findings: IMPRESSION: #. Stigmata of chronic obstructive pulmonary disease and probable pulmonary arterial. hypertension. # . No compelling evidence for pneumonia or pulmonary edema. ED physician has reviewed this report. - CT Brain CT CT Interpretation Completed By: Radiologist Summary of CT Findings: IMPRESSION: Study is limited by motion artifact without evidence of intracranial mass or hemorrhage. ED physician has reviewed this report. - EKG 1443 Cardiac Rate: NL EKG Rhythm: Sinus Rhythm Summary of EKG Findings: Normal sinus rhythm at 64 bpm, short IN interval, and t wave inversion in lead III. ED physician has reviewed this EKG. Re-Evaluation - Re-Evaluation 1550 Re-Evaluation Time: 15:50 Comment: Nurse called ED physician over. Pt sleeping with periods of apnea, eyes opened but snoring. Pinpoint pupils. Not responding to painful or verbal stimuli. 0.4 mg narcan used to wake him up but he denies any recent opiate use. Pt will be monitored for an hour to see if he is safe for discharge. 1613 Re-Evaluation Time: 16:13 Comment: Ambulating to provide urine sample with difficulty 1630 Re-Evaluation Time: 16:30 Comment: Pt went to give urine sample and came back with a cup obviously filled with water. When asked about it, he could not describe the situation. No emergent condition identified. Will be discharged. Complex Multi-Symp Course/Dx Course Of Treatment: Patient is here with vague symptoms of falling and being weak. Patient cannot really provide a history and changes his story multiple times on exam. Patient had a CT scan of his brain which was negative. Patient will performances grossly unremarkable. I one point, patient was sleeping and was difficult to arouse we gave him Narcan per his history of drug abuse. Patient did wake up after this but denied any drug use. Patient ambulatory to the bathroom without difficulty, he states he dropped his urine cup in the toilet and then put On and did not tells he did not. Patient had no emergent condition identified so he was discharged - Diagnoses Provider Diagnoses: Weakness Discharge ED - Sign-Out/Discharge Documenting (check all that apply): Patient Departure - discharge - Discharge Plan Condition: Stable Disposition: HOME Patient Education Materials: Weakness (ED) Referrals: Care [facility] [Outside] - 2 Days Additional Instructions: Follow up with [facility] in 2 days. Come back with any concerning symptoms. - Billing Disposition and Condition Condition: STABLE Disposition: Home - Attestation Statements Document Initiated by Scribe: Yes Documenting Scribe: SAM CERNA Provider For Whom Scribe is Documenting (Include Credential): OLEGARIO MOSLEY MD Scribe Attestation: I, SAM CERNA, scribed for OLEGARIO MOSLEY MD on 11/16/19 at 1825. Scribe Documentation Reviewed: Yes Provider Attestation: The documentation as recorded by the SAM sanchez accurately reflects the service I personally performed and the decisions made by me, OLEGARIO MOSLEY MD Status of Scribe Document: Viewed
[2019-11-16 15:09] LABS: ABS Eosinophils 0.3 10^3/ul (0-0.6); ABS Lymphocytes 1.8 10^3/ul (1.0-4.8); ABS Monocytes 0.7 10^3/ul (0-0.8); ABS Neutrophils 5.5 10^3/ul (1.5-7.7); Eosinophil % 3.1 %; Hematocrit 48 % (42-52); Hemoglobin 15.8 g/dL (14.0-18.0); Lymphocyte % 21.8 %; Mean Corpuscular HGB Conc 33 g/dL (31-36); Mean Corpuscular Hemoglobin 31 pg (27-31); Mean Corpuscular Volume 93 fL (80-94); Mean Platelet Volume 7.1 fL (7.4-10.4); Nucleated Red Blood Cells % 0.1; Platelet Count 477 10^3/uL (150-450); Red Blood Count 5.12 10^6 /uL (4.18-5.48); Red Cell Distribution Width 16 % (10-15); White Blood Count 8.3 10^3/uL (3.5-10.8)
[2019-11-16 15:15] LABS: ALT 11 U/L (7-52); AST 15 U/L (13-39); Albumin 3.8 g/dL (3.2-5.2); Albumin/Globulin Ratio 1.1 (1-3); Alkaline Phosphatase 93 U/L (34-104); Anion Gap 6 mmol/L (2-11); BUN/Creatinine Ratio 16.5 (8-20); Blood Urea Nitrogen 16 mg/dL (6-24); CO2 Carbon Dioxide 24 mmol/L (22-32); Calcium 9.1 mg/dL (8.6-10.3); Chloride 106 mmol/L (101-111); EGFR African American 95.9 (>60); EGFR Non-African American 79.2 (>60); Globulin 3.6 g/dL (2-4); Glucose 91 mg/dL (70-100); Potassium 4.4 mmol/L (3.5-5.0); Sodium 136 mmol/L (135-145); Total Protein 7.4 g/dL (6.4-8.9)
[2019-11-16 15:16] LABS: Troponin I 0.01 ng/mL (<0.03)
[2019-11-16 15:26] LABS: Influenza A Molecular NEGATIVE (Negative); Influenza B Molecular NEGATIVE (Negative)
[2019-11-16 15:30] LABS: Alcohol < 10 mg/dL (<10)
[2019-11-16] MEDS ORDERED: Naloxone* 0.4 MG/ML 1 ML VIAL ONE (15:45)
[2019-11-16] MEDS ORDERED: Naloxone* 0.4 MG/ML 1 ML VIAL IV PUSH ONE (15:46)
[2019-11-16 17:20] VITALS: BP 147/87
== END 2019-11-16 17:19 | disposition home or self-care (01) ==
LOC: ED 14:21
DX: R53.1 Weakness (principal); R06.02 Shortness of breath; R41.0 Disorientation, unspecified; F17.210 Nicotine dependence, cigarettes, uncomplicated
CPT/HCPCS: 36415; 70450; 71045; 80053; 80320; 84484; 85025; 93005; 96374; 99283; G0480; J2310

== ENCOUNTER 2019-11-16 20:00 | Emergency (ER) | payer SELFPAY ==
[2019-11-16 22:18] VITALS: BP 131/99
--- NOTE | 2019-11-16 22:31 | ED ---
Altered Mental Status - HPI Summary HPI Summary: Patient presents with possible altered mental status, generalized weakness and chronic back pain while waiting in the ED waiting room to get on a bus. Patient was seen here earlier today for same symptoms and discharged after normal brain CT and normal labs. Patient was given Narcan on prior visit and subsequently was arousable and responsive. Patient drops off to sleep easily when left alone, but is easily arousable and alert and oriented when aroused. Denies EtOH or recreational drug use. No pinpoint pupils. Denies significant pain, new trauma, fever, cough, sore throat, CP, SOB, N/V/D, abdominal pain, change in urine, change in BM. Patient states he has not been sleeping well, also "not eating or drinking as well as he should". - History Of Current Complaint Chief Complaint: EDAltMentalStatus Stated Complaint: AMS PER NURSE Time Seen by Provider: 11/16/19 22:22 Hx Obtained From: Patient Onset/Duration: Unknown Timing: Intermittent Severity Initially: Moderate Character: Lethargy Aggravating Factor(s): Nothing Alleviating Factor(s): Nothing Associated Signs And Symptoms: Positive: Weakness - Allergies/Home Medications Allergies/Adverse Reactions: Allergies Allergy/AdvReac Type Severity Reaction Status Date / Time No Known Allergies Allergy Verified 09/02/19 15:12 PMH/Surg Hx/FS Hx/Imm Hx Endocrine/Hematology History: Denies: Hx Anticoagulant Therapy, Hx Blood Disorders, Hx Diabetes, Hx Thyroid Disease Cardiovascular History: Denies: Hx Hypertension, Hx Myocardial Infarction Respiratory History: Denies: Hx Asthma, Hx Chronic Obstructive Pulmonary Disease (COPD) GI History: Denies: Hx Ulcer History: Denies: Hx Dialysis Sensory History: 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 Denies: Hx Deafness, Hx Hearing Aid Opthamlomology History: 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 Neurological History: Denies: Hx Dementia Psychiatric History: Reports: Hx Depression, Hx Substance Abuse Denies: Hx Eating Disorder, Hx Suicide Attempt, Hx of Violent Episodes Against Others - Surgical History Surgery Procedure, Year, and Place: Splenectpmy Hx Anesthesia Reactions: No Infectious Disease History: Unable to Obtain/Confirm Infectious Disease History: Reports: Hx of Known/Suspected MRSA - past knee infection Denies: Hx Hepatitis, Hx Human Immunodeficiency Virus (HIV), History Other Infectious Disease, Traveled Outside the [place] in Last 30 Days - Family History Known Family History: Negative: Cardiac Disease, Hypertension, Diabetes - Social History Alcohol Use: Occasionally Alcohol Amount: rum and coke 1 drink nightly Hx Substance Use: Yes Substance Use Type: Reports: Marijuana Substance Use Comment - Amount & Last Used: hx occasional use Hx Tobacco Use: Yes Smoking Status (MU): Heavy Every Day Tobacco Smoker Type: Cigarettes Amount Used/How Often: 1/2 ppd Length of Time of Smoking/Using Tobacco: since age15 Have You Smoked in the Last Year: Yes Review of Systems Positive: Fatigue Eyes: Negative ENT: Negative Cardiovascular: Negative Respiratory: Negative Gastrointestinal: Negative Genitourinary: Negative Musculoskeletal: Other Skin: Negative Positive: Weakness Psychological: Normal All Other Systems Reviewed And Are Negative: Yes Physical Exam - Summary Physical Exam Summary: Patient alert and oriented. Pupils equal and reactive. Patient ambulated in the ED. Patient ambulates with mild limp he states due to chronic back pain. Patient drinking fluids here in the ED. Urine positive for benzos, opiates and cannabinoids. Triage Information Reviewed: Yes Vital Signs On Initial Exam: Initial Vitals Temp Pulse Resp BP Pulse Ox 97.1 F 83 16 111/86 99 11/16/19 20:00 11/16/19 20:00 11/16/19 20:00 11/16/19 20:00 11/16/19 20:00 Vital Signs Reviewed: Yes Appearance: Positive: No Pain Distress Skin: Positive: Warm Head/Face: Positive: Normal Head/Face Inspection Eyes: Positive: Normal Neck: Positive: Supple Respiratory/Lung Sounds: Positive: Clear to Auscultation Cardiovascular: Positive: Normal Abdomen Description: Positive: Nontender Musculoskeletal: Positive: Normal Neurological: Positive: Normal Psychiatric: Positive: Normal AVPU Assessment: Alert - [place] Coma Scale Best Eye Response: 4 - Spontaneous Best Motor Response: 6 - Obeys Commands Best Verbal Response: 5 - Oriented Coma Scale Total: 15 Procedures - Sedation Patient Received Moderate/Deep Sedation with Procedure: No Diagnostics - Vital Signs Vital Signs Temp Pulse Resp BP Pulse Ox 11/16/19 22:00 97.4 F 76 16 131/99 96 11/16/19 20:00 97.1 F 83 16 111/86 99 - Laboratory Lab Statement: Any lab studies that have been ordered have been reviewed, and results considered in the medical decision making process. Altered Mental Statu Course/Dx - Course Course Of Treatment: Patient presents with possible altered mental status, generalized weakness and chronic back pain while waiting in the ED waiting room to get on a bus. Patient was seen here earlier today for same symptoms and discharged after normal brain CT and normal labs. Patient was given Narcan on prior visit and subsequently was arousable and responsive. Patient drops off to sleep easily when left alone, but is easily arousable and alert and oriented when aroused. Denies EtOH or recreational drug use. No pinpoint pupils. Denies significant pain, new trauma, fever, cough, sore throat, CP, SOB, N/V/D, abdominal pain, change in urine, change in BM. Patient states he has not been sleeping well, also "not eating or drinking as well as he should". No prescription medications listed in chart. Urine positive for opiates, benzos and cannabinoids. Vital signs within normal limits. Brain CT and labs from prior visit today unremarkable. Patient alert and responsive, able to ambulate around the ED. No apparent condition that requires treatment at this time. - Diagnoses Provider Diagnoses: Weakness Discharge ED - Sign-Out/Discharge Documenting (check all that apply): Patient Departure - Discharge Plan Condition: Stable Disposition: HOME Patient Education Materials: Weakness (ED) Referrals: No Primary Care Phys,NOPCP [Primary Care Provider] - Additional Instructions: Drink fluids to maintain hydration. Return to the ED for any new or worsening symptoms. - Billing Disposition and Condition Condition: STABLE Disposition: Home
[2019-11-16 22:56] LABS: Urine Appearance Clear; Urine Bilirubin Negative (Negative); Urine Blood Negative (Negative); Urine Color Yellow; Urine Glucose 1+(50 mg/dL) (Negative); Urine Ketones Negative (Negative); Urine Nitrite Negative (Negative); Urine Protein Negative (Negative); Urine Specific Gravity 1.016 (1.010-1.030); Urine Urobilinogen Negative (Negative)
[2019-11-16 23:39] LABS: Urine Benzodiazepine Screen None Detected (None Detect); Urine Opiates Screen None Detected (None Detect)
== END 2019-11-16 23:25 | disposition home or self-care (01) ==
LOC: ED 20:00
DX: R53.1 Weakness (principal); F32.9 Major depressive disorder, single episode, unspecified; F17.210 Nicotine dependence, cigarettes, uncomplicated; Z90.81 Acquired absence of spleen
CPT/HCPCS: 80307; 81003; 99282